=== PATIENT | female | born 1940 | race Caucasian/White ===

== ENCOUNTER 2020-09-03 15:12 | Outpatient (REF) | payer MEDICARE, SELFPAY ==
[2020-09-03 16:34] LABS: Estimated Average Glucose 108 mg/dL; Hemoglobin A1c % 5.4 %
[2020-09-03 16:59] LABS: Alanine Aminotransferase 17 U/L (0-31); Albumin Level 3.7 g/dL (3.5-5.0); Alkaline Phosphatase 105 U/L (39-117); Anion Gap 12 (12-20); Aspartate Amino Transferase 27 U/L (5-31); Bilirubin Total 1.9 mg/dL (0.0-1.0); Blood Urea Nitrogen 14 mg/dL (9-16); Calcium 8.7 mg/dL (8.4-10.2); Carbon Dioxide 27 mmol/L (22-29); Chloride 107 mmol/L (96-108); Estimated Glomerular Filt Rate > 60; Glucose Fasting 94 mg/dL (60-99); Potassium 4.1 mmol/L (3.3-5.1); Sodium 142 mmol/L (135-145); Total Protein 6.4 g/dL (6.5-8.0)
== END 2020-09-03 15:13 | disposition home or self-care (01) ==
LOC: HO.HMGCLDS 15:12
PROVIDERS: PCP Internal Medicine; Visit Provider Internal Medicine
DX: E11.9 Type 2 diabetes mellitus without complications (principal); J44.9 Chronic obstructive pulmonary disease, unspecified; K74.60 Unspecified cirrhosis of liver
CPT/HCPCS: 36415; 80053; 83036

== ENCOUNTER 2020-09-06 13:19 | Outpatient (REF) | payer MEDICARE, SELFPAY ==
[2020-09-06 14:02] LABS: Red Blood Count 4.32 X10*6/uL (4.20-5.50); Red Cell Distribution Width 21.1 % (11.0-16.0)
[2020-09-06 14:03] LABS: Hematocrit 37.1 % (37-47); Hemoglobin 11.3 g/dl (12.0-16.0); Mean Corpuscular HGB Conc 30.5 g/dl (31.0-35.0); Mean Corpuscular Hemoglobin 26.2 pg (27.0-33.0); Mean Corpuscular Volume 85.9 fL (80-98); White Blood Count 3.4 X10*3/uL (4.8-10.8)
[2020-09-06 14:10] LABS: PLT ABN DIST 1
[2020-09-06 14:13] LABS: Platelet Count 89 X10*3/uL (160-400)
[2020-09-06 14:23] LABS: Alanine Aminotransferase 15 U/L (0-31); Albumin Level 3.7 g/dL (3.5-5.0); Alkaline Phosphatase 101 U/L (39-117); Anion Gap 12 (12-20); Aspartate Amino Transferase 22 U/L (5-31); Bilirubin Total 0.9 mg/dL (0.0-1.0); Blood Urea Nitrogen 11 mg/dL (9-16); Calcium 8.6 mg/dL (8.4-10.2); Carbon Dioxide 26 mmol/L (22-29); Chloride 110 mmol/L (96-108); Cholesterol 169 mg/dL; Estimated Glomerular Filt Rate > 60; Glucose Fasting 125 mg/dL (60-99); HDL Cholesterol 52 mg/dL; Iron 71 mcg/dL (30-160); LDL Cholesterol Calculated 106 mg/dl; Percent Iron Saturation 23 % (15-50); Potassium 4.2 mmol/L (3.3-5.1); Sodium 144 mmol/L (135-145); Total Iron Binding Capacity 315 mcg/dL (228-428); Total Protein 6.2 g/dL (6.5-8.0); Triglycerides 59 mg/dL; Unsaturated Iron Binding 244 ug/dL
[2020-09-06 14:30] LABS: Estimated Average Glucose 108 mg/dL; Hemoglobin A1c % 5.4 %
== END 2020-09-06 13:20 | disposition home or self-care (01) ==
LOC: HO.HMGCLDS 13:19
PROVIDERS: PCP Internal Medicine; Visit Provider Internal Medicine
DX: E11.9 Type 2 diabetes mellitus without complications (principal); J44.9 Chronic obstructive pulmonary disease, unspecified; K74.60 Unspecified cirrhosis of liver; D64.9 Anemia, unspecified; I85.01 Esophageal varices with bleeding
CPT/HCPCS: 36415; 80053; 80061; 83036; 83540; 85027

== ENCOUNTER → 2020-10-11 13:38 | Outpatient (REF) | payer MEDICARE, SELFPAY ==
--- NOTE | 2020-10-11 13:45 | ECG_ITS ---
Hook-up date: 2020-10-11 14:03:00 Duration: 24:48:00 Test Indications: Palpitations Medications: 02346 QRS complexes 13 Ventricular ectopics which represent <1 % of total QRS comp. 29 Supraventricular ectopics which represent <1 % of total QRS comp. * Paced QRS complexs which represent % of total QRS comp. VENTRICULAR ECTOPY 13 Isolated 0 Bigeminal Cycles 0 Couplets 0 Runs 0 Beats in Runs * Beats LONGEST at * BPM at :: -- * Beats FASTEST at * BPM at :: -- SUPRAVENTRICULAR ECTOPY 24 Isolated 1 Couplets 1 Runs 3 Beats in Runs 3 Beats LONGEST at 100 BPM at 05:13:33 2020-10-12 3 Beats FASTEST at 100 BPM at 05:13:33 2020-10-12 HEART RATES 48 MIN at 10:03:25 2020-10-12 56 AVG 76 MAX at 14:04:40 2020-10-11 LONGEST RR 1.4720 secs at 06:52:49 2020-10-12 S-T LEVELS Channel 1 - 128 mm at 14:03:00 2020-10-11 - 128 mm at 14:03:00 2020-10-11 Channel 2 - 128 mm at 14:03:00 2020-10-11 - 128 mm at 14:03:00 2020-10-11 Channel 3 - 128 mm at 03:32:21 -- - 128 mm at 03:32:21 Underlying rhythm is sinus bradycardia; Average ventricular rate 56/min; range 48-76/min About 86% of the time, rate <60/min; Rare PACs/PVCs; Patient did not report any symptoms in the diary Referred By: Josephine Moreno Overread By: BISI OVALLE
== END ==
LOC: HO.CARD 13:38
PROVIDERS: Visit Provider Internal Medicine
DX: R00.2 Palpitations (principal)
CPT/HCPCS: 93225; 93226

== ENCOUNTER 2020-12-06 13:01 | Outpatient (REF) | payer MEDICARE, SELFPAY ==
[2020-12-06 14:06] LABS: Estimated Average Glucose 126 mg/dL
[2020-12-06 14:53] LABS: Alanine Aminotransferase 17 U/L (0-31); Albumin Level 3.7 g/dL (3.5-5.0); Alkaline Phosphatase 96 U/L (39-117); Anion Gap 12 (12-20); Aspartate Amino Transferase 26 U/L (5-31); Blood Urea Nitrogen 13 mg/dL (9-16); Carbon Dioxide 28 mmol/L (22-29); Chloride 108 mmol/L (96-108); Estimated Glomerular Filt Rate > 60; Glucose Random 137 mg/dL (60-115); Potassium 3.8 mmol/L (3.3-5.1); Sodium 144 mmol/L (135-145); Total Protein 6.2 g/dL (6.5-8.0)
== END 2020-12-06 13:02 | disposition home or self-care (01) ==
LOC: HO.HMGCLDS 13:01
PROVIDERS: PCP Internal Medicine; Visit Provider Internal Medicine
DX: D64.9 Anemia, unspecified (principal); E11.9 Type 2 diabetes mellitus without complications; K74.60 Unspecified cirrhosis of liver
CPT/HCPCS: 36415; 80053; 83036

== ENCOUNTER 2022-12-24 10:08 | Outpatient (AMB) | payer MEDICARE, SELFPAY ==
[2022-12-24 10:15] VITALS: BP 120/66; PULSE 59; O2SAT 97; BMI 30.2
--- NOTE | 2022-12-24 10:15 | A.OFFPC_ITS ---
Vital Signs 12/24/22 10:15 Height 5 ft 4 in Weight 176 lb BMI 30.2 BP 120/66 Blood Pressure Location Lt brachial Position Sitting Pulse 59 Pulse Source Pulse Oximeter Pulse Oximetry (%) 97 Oxygen Delivery Method Room Air Intake Visit Reasons: 6M follow up Intake Note: Pt is here today for 6 months follow up visit. Allergies amoxicillin [Augmentin] Allergy (Unknown, Verified 12/24/22 10:18) unknown clavulanic acid [Augmentin] Allergy (Unknown, Verified 12/24/22 10:18) unknown umeclidinium [Anoro Ellipta] Allergy (Unknown, Verified 12/24/22 10:18) Hoarseness vilanterol [Anoro Ellipta] Allergy (Unknown, Verified 12/24/22 10:18) Hoarseness Medication List - Last Reconciled 12/24/22 by Josephine Moreno MD blood sugar diagnostic (FreeStyle Lite Strips) use 1 strip once a day to test blood sugar clotrimazole-betamethasone 1-0.05 % appl topical fluticasone propionate 50 mcg/actuation 2 sprays intranasal DAILY furosemide 20 mg PO DAILY nadolol 20 mg PO DAILY omeprazole 20 mg PO DAILY sertraline 25 mg PO DAILY sitagliptin phosphate (Januvia) 25 mg PO DAILY spironolactone 50 mg PO DAILY umeclidinium-vilanterol 62.5-25 mcg/actuation (Anoro Ellipta) 1 inh inhalation DAILY Tobacco use date assessed: 12/24/22 Fall risk assessment: 1 Fall in past year Last assessed Fall Risk: 12/24/22 Dental Screening Dental Screen Date: 12/24/22 Did you have a dental visit in the last 12 months?: Yes Did you have a dental problem in the last 6 months where you did not have access to dental care?: No Was dental information given to patient?: Patient has dentist HPI 6M follow up HPI Details Pt presents for f/u COPD, DM 2, liver cirrhosis, stable on meds. Pt f/u with GI for portal HTN and has been getting EGD q 6 months. [facility] Medical History Anemia Annual physical exam Cirrhosis COPD (chronic obstructive pulmonary disease) Depression Dysuria Esophageal varices with bleeding Palpitations Type 2 diabetes mellitus (~12/06/20) Surgical History H/O colonoscopy History of bilateral knee arthroplasty Family History Father Unknown family medical history Mother Unknown family medical history Social History Housing: House Alcohol intake: current Alcohol intake frequency: holidays/special occasions only Patient Tobacco Use Status: Former Tobacco user (40 years ago) e-Cigarette/Vaping Use: Never Used Current occupational status: retired Cognitive needs: No Hearing needs: Yes Vision needs: Yes Questionnaire PHQ-9 Over the last 2 weeks, how often have you been bothered by any of the following problems? 1. Little interest or pleasure in doing things: not at all 2. Feeling down, depressed, or hopeless: not at all 3. Trouble falling or staying asleep, or sleeping too much: not at all 4. Feeling tired or having little energy: not at all 5. Poor appetite or overeating: not at all 6. Feeling bad about yourself - or that you are a failure or have let yourself or your family down: not at all 7. Trouble concentrating on things, such as reading the newspaper or watching television: not at all 8. Moving or speaking so slowly that other people could have noticed. Or the opposite - being so fidgety or restless that you have been moving around a lot more than usual: not at all 9. Thoughts that you would be better off or of hurting yourself in some way: not at all Total score: 0 Depression Screening Interpretation: Negative Source: Developed by Drs. Kimani Jj, Marta Ann, Deepak Bonds and colleagues, with an educational mathieu from [employer]. Thrive Questionnaire Date Thrive assessed: 06/03/21 I am a: Patient What is your living situation today?: I have a steady place to live Within the past 12 months, did the food you bought not last and you didn't have the money to get more?: Never true Within the past 12 months, did you worry whether your food would run out before you got money to buy more?: Never true Do you have trouble paying for medicines?: No Do you have trouble getting transportation to medical appointments?: No Do you have trouble paying your heating and electricity bill?: No Do you have trouble taking care of your child, family member or friend?: No Do you have trouble with day-to-day activities such as bathing, preparing meals, shopping, managing finances, etc.?: No Are you currently unemployed and looking for a job?: No Are you interested in more education?: No Please select the resources that you would like help with: None Currently or been in a relationship where the following occur: no concerns reported AUDIT C Alcohol Use Questionnaire (AUDIT-C) 1. How often do you have a drink containing alcohol?: Never 3. How often do you have six or more drinks on one occasion?: Never Total Score: 0 KIMBERLEE-7 AMB Questionnaire KIMBERLEE-7 Date KIMBERLEE - 7 assessed: 12/24/22 Feeling nervous, anxious, or on edge: 0 = Not at all Not being able to stop or control worryin = Not at all Worrying too much about different things: 0 = Not at all Trouble relaxin = Not at all Being so restless that it is hard to sit still: 0 = Not at all Becoming easily annoyed or irritable: 0 = Not at all Feeling afraid as if something awful might happen: 0 = Not at all Total KIMBERLEE-7 score (0-4 normal; 5-9 mild; 10-14 moderate; 15-21 severe): 0 Source: Developed by Drs. Kimani Jj, Marta Ann, Deepak Bonds and colleagues, with an educational mathieu from [employer]. Review of Systems Const All systems reviewed & are unremarkable except as noted in HPI and below Reports no additional complaints Eyes Reports no additional complaints ENT Reports no additional complaints Card Reports no additional complaints Resp Reports no additional complaints GI Reports no additional complaints Reports no additional complaints Physical exam (Primary Care) Vital Signs: Last Vital Signs Pulse 59 12/24/22 10:15 BP 120/66 12/24/22 10:15 Pulse Ox 97 12/24/22 10:15 Oxygen Delivery Method Room Air 12/24/22 10:15 BMI result Body Mass Index 30.2 Tobacco/Smoking Status: Tobacco use Status Tobacco use date assessed 12/24/22 12/24/22 10:22 Patient Tobacco Use Status Former Tobacco user (40 12/24/22 10:15 years ago) e-Cigarette/Vaping Use Never Used 12/24/22 10:15 PHQ-9: PHQ-9 Score PHQ-9: Total score 0 12/24/22 10:35 Depression Screening Interpretation: Negative Thrive Assessment: Date of Thrive Assessment Date Thrive assessed 06/03/21 12/24/22 10:15 Currently or been in a relationship where the following occur: no concerns reported Const General: no acute distress HENMT Head: Yes normal to inspection Ears: hearing grossly normal bilaterally Face and sinus: Yes normal facial exam Eyes General: appearance normal, both eyes and all related structures Neck Neck: Yes supple Resp Effort & Inspection: normal respiratory effort Auscultation: clear to auscultation bilaterally Cardio Rhythm: regular rhythm Heart sounds: S1 normal heart sound present and S2 normal heart sound present GI Inspection: Yes normal to inspection Palpation (GI): Soft to palpation Percussion: Yes normal to percussion Auscultation: normal bowel sounds Extrem General: Yes no clubbing, cyanosis or edema Results AMB Hemoglobin A1c AMB Hemoglobin A1c 6.0 % Last Edit by MARION Frye on 12/24/22 10:4 5 Assessment and Plan Assessment & Plan (1) Type 2 diabetes mellitus: Onset Date: ~12/06/20 Code(s): E11.9 - Type 2 diabetes mellitus without complications Plan: A1c is 6.0 patient was advised to stop Januvia continue ADA diet and regular monitoring of fasting blood glucose. If the fasting glucose increases to over 160,Jardiance will be started. Follow-up in 6 months with a fasting labs before at [facility] (2) COPD (chronic obstructive pulmonary disease): Code(s): J44.9 - Chronic obstructive pulmonary disease, unspecified Plan: Stable (3) Cirrhosis: Code(s): K74.60 - Unspecified cirrhosis of liver Plan: Continue current medications and follow-up with GI (4) Anemia: Code(s): D64.9 - Anemia, unspecified Orders: Orders Comprehensive [place]. Panel Fast 6 Months D64.9 - Anemia, unspecified, E11.9 - Type 2 diabetes mellitus without complications, J44.9 - Chronic obstructive pulmonary disease, unspecified, K74.60 - Unspecified cirrhosis of liver Hemoglobin A1c 6 Months D64.9 - Anemia, unspecified, E11.9 - Type 2 diabetes mellitus without complications, J44.9 - Chronic obstructive pulmonary disease, unspecified, K74.60 - Unspecified cirrhosis of liver Lipid Panel 6 Months D64.9 - Anemia, unspecified, E11.9 - Type 2 diabetes mellitus without complications, J44.9 - Chronic obstructive pulmonary disease, unspecified, K74.60 - Unspecified cirrhosis of liver Complete Blood Count Auto Diff 6 Months D64.9 - Anemia, unspecified, E11.9 - Type 2 diabetes mellitus without complications, J44.9 - Chronic obstructive pulmonary disease, unspecified, K74.60 - Unspecified cirrhosis of liver AMB Hemoglobin A1c Today Z13.9 - Encounter for screening, unspecified Coding Level of Care Code Est Pt Level 4 (03135) Diagnoses Type 2 diabetes mellitus E11.9 COPD (chronic obstructive pulmonary disease) J44.9 Cirrhosis K74.60 Anemia D64.9
== END 2022-12-24 10:56 | disposition home or self-care (01) ==
PROVIDERS: Visit Provider Internal Medicine
DX: E11.9 Type 2 diabetes mellitus without complications (principal); J44.9 Chronic obstructive pulmonary disease, unspecified; K74.60 Unspecified cirrhosis of liver; D64.9 Anemia, unspecified
CPT/HCPCS: 83036; 99214

== ENCOUNTER 2023-05-01 13:08 | Outpatient (AMB) | payer MEDICARE, SELFPAY ==
[2023-05-01 14:19] VITALS: BP 120/70; PULSE 77; TEMP 36.8; O2SAT 96; BMI 29.5
--- NOTE | 2023-05-01 14:19 | MHC.OFFWIV ---
Intake Vital Signs 05/01/23 14:19 Height 5 ft 4 in Weight 172 lb BMI 29.5 BP 120/70 Blood Pressure Location Lt brachial Position Sitting Pulse 77 Pulse Source Pulse Oximeter Temp 98.2 F Pulse Oximetry (%) 96 Oxygen Delivery Method Room Air Intake Visit Reasons: EP, cough, fatigue, wheezing (masked) Intake Note: pt is here today for cough fatigue wheezing started 9 days ago Patient Tobacco Use Status: Former Tobacco user (40 years ago) Allergies amoxicillin [Augmentin] Allergy (Unknown, Verified 05/17/23 08:37) unknown clavulanic acid [Augmentin] Allergy (Unknown, Verified 05/17/23 08:37) unknown umeclidinium [Anoro Ellipta] Allergy (Unknown, Verified 05/17/23 08:37) Hoarseness vilanterol [Anoro Ellipta] Allergy (Unknown, Verified 05/17/23 08:37) Hoarseness Medication List - Last Reconciled 05/17/23 by Naga Baires MD albuterol sulfate 90 mcg/actuation (Ventolin HFA) 1 inh inhalation QID PRN azithromycin For 250 mg dose pack: take 500 mg today (day 1), then 250 mg for 4 days (days 2-5) PO blood sugar diagnostic (FreeStyle Lite Strips) use 1 strip once a day to test blood sugar clotrimazole-betamethasone 1-0.05 % appl topical [duo nebulizer As directed] fluticasone propionate 50 mcg/actuation 2 sprays intranasal DAILY furosemide 20 mg PO DAILY nadolol 20 mg PO DAILY [Nebulizer with duoneb As directed] omeprazole 20 mg PO DAILY prednisone 60 mg (3 x 20 mg) PO DAILY sertraline 25 mg PO DAILY sitagliptin phosphate (Januvia) 25 mg PO DAILY spironolactone 50 mg PO DAILY Do you need a note to return to daycare/school/sports/work: No HPI EP, cough, fatigue, wheezing (masked) HPI Details 82 yr old female presents to the office for a sick visit. Patient is accompanied by her daughter. Reporting sx of shortness of breath, cough. Tested negative for Covid. Patient has sx for the past few days. No vomiting or diarrhea. [facility] Medical History Anemia Annual physical exam Cirrhosis COPD (chronic obstructive pulmonary disease) Depression Dysuria Esophageal varices with bleeding Palpitations Type 2 diabetes mellitus (~12/06/20) Surgical History H/O colonoscopy History of bilateral knee arthroplasty Family History Father Unknown family medical history Mother Unknown family medical history Social History Housing: House Alcohol intake: current Alcohol intake frequency: holidays/special occasions only Patient Tobacco Use Status: Former Tobacco user (40 years ago) e-Cigarette/Vaping Use: Never Used Current occupational status: retired Cognitive needs: No Hearing needs: Yes Vision needs: Yes Physical Exam Vital Signs: Last Vital Signs Temp 98.2 F 05/01/23 14:19 Pulse 77 05/01/23 14:19 BP 120/70 05/01/23 14:19 Pulse Ox 96 05/01/23 14:19 Oxygen Delivery Method Room Air 05/01/23 14:19 BMI result Body Mass Index 29.5 Const General: cooperative and healthy appearing Nutritional Appearance: well nourished Orientation/consciousness: patient oriented x3 Limitations: no limitations HEENT Head: Yes normal to inspection Eyes General: appearance normal, both eyes and all related structures Neck Neck: Yes normal visual inspection Chest Chest palpation & inspection: normal palpation of entire chest wall Resp Other: Scattered bilateral crackes and wheeze. Neuro General: patient oriented x3 Assessment & Plan Assessment & Plan (1) Shortness of breath: Code(s): R06.02 - Shortness of breath Plan: X-ray images were personally reviewed by me. Medications were started. Symptoms do not improve to follow-up here. Orders: Orders XR chest 2V 05/01/23 R05.9 - Cough, unspecified SARS-CoV2/FLU/RSV 05/02/23 R43.9 - Unspecified disturbances of smell and taste Medications: New prednisone 60 mg (3 x 20 mg) PO DAILY 9 tabs 0RF albuterol sulfate 90 mcg/actuation (Ventolin HFA) 1 inh inhalation QID PRN 8.5 grams 1RF shortness of breath or wheezing On Hold [Nebulizer with duoneb] Hold Comment: Dose Change As directed 1 ea 0RF J44.9 - Chronic obstructive pulmonary disease, unspecified Coding Level of Care Code Est Pt Level 4 (77894) Diagnoses Shortness of breath R06.02
== END 2023-05-01 15:45 | disposition home or self-care (01) ==
PROVIDERS: PCP Internal Medicine; Visit Provider Internal Medicine
DX: R06.02 Shortness of breath (principal)
CPT/HCPCS: 99214

== ENCOUNTER 2023-05-01 15:04 | Outpatient (REF) | payer MEDICARE, SELFPAY | END 2023-05-01 15:05 | disposition home or self-care (01) | LOC: HO.HMGCX 15:04 | PROVIDERS: Visit Provider Internal Medicine | DX: Z13.89 Encounter for screening for other disorder (principal) | CPT/HCPCS: 71046 ==

== ENCOUNTER 2023-05-01 15:40 | Outpatient (REF) | payer MEDICARE, SELFPAY ==
[2023-05-02 12:42] LABS: Influenza A PCR NEGATIVE (Negative); Influenza B PCR NEGATIVE (Negative); Resp Syncy Virus RNA Qual PCR POSITIVE (Negative); SARS COV2 PCR INHOUSE NEGATIVE (Negative)
== END 2023-05-01 15:41 | disposition home or self-care (01) ==
LOC: HO.LAB 15:40
PROVIDERS: Visit Provider Internal Medicine
DX: R43.9 Unspecified disturbances of smell and taste (principal); Z11.52 Encounter for screening for COVID-19; Z20.828 Contact with and (suspected) exposure to other viral communicable diseases
CPT/HCPCS: 0241U; 71046

== ENCOUNTER 2023-06-26 10:23 | Outpatient (AMB) | payer MEDICARE, SELFPAY ==
[2023-06-26 10:24] VITALS: BP 118/66; PULSE 63; O2SAT 94
--- NOTE | 2023-06-26 10:24 | MHC.PC.OV ---
Vital Signs 06/26/23 10:24 Height 5 ft 4 in Weight 175 lb BMI 30.0 BP 118/66 Blood Pressure Location Lt brachial Position Sitting Pulse 63 Pulse Source Pulse Oximeter Pulse Oximetry (%) 94 Oxygen Delivery Method Room Air Intake Visit Reasons: 6 Month follow up Intake Note: Pt is here today for 6 months follow up visit. Allergies amoxicillin [Augmentin] Allergy (Unknown, Verified 06/26/23 10:27) unknown clavulanic acid [Augmentin] Allergy (Unknown, Verified 06/26/23 10:27) unknown umeclidinium [Anoro Ellipta] Allergy (Unknown, Verified 06/26/23 10:27) Hoarseness vilanterol [Anoro Ellipta] Allergy (Unknown, Verified 06/26/23 10:27) Hoarseness Medication List - Last Reconciled 06/26/23 by Josephine Moreno MD albuterol sulfate 90 mcg/actuation (Ventolin HFA) 1 inh inhalation QID PRN albuterol sulfate 2.5 mg (3 mL) inhalation Q4-6H PRN blood sugar diagnostic (FreeStyle Lite Strips) use 1 strip once a day to test blood sugar clotrimazole-betamethasone 1-0.05 % appl topical [duo nebulizer As directed] fluticasone propionate 50 mcg/actuation 2 sprays intranasal DAILY furosemide 20 mg PO DAILY nadolol 20 mg PO DAILY [Nebulizer with duoneb As directed] omeprazole 20 mg PO DAILY prednisone 60 mg (3 x 20 mg) PO DAILY sertraline 25 mg PO DAILY sitagliptin phosphate (Januvia) 25 mg PO DAILY spironolactone 50 mg PO DAILY Tobacco use date assessed: 06/26/23 Fall risk assessment: 2 + Falls in past year Last assessed Fall Risk: 06/26/23 Dental Screening Dental Screen Date: 06/26/23 Did you have a dental visit in the last 12 months?: Yes Did you have a dental problem in the last 6 months where you did not have access to dental care?: No Was dental information given to patient?: Patient has dentist HPI 6 Month follow up HPI Details Patient presents for the follow-up of chronic liver cirrhosis compensated with portal hypertension controlled on current medications. Chronic anxiety stable on sertraline. Type 2 diabetes is diet controlled. For COPD patient has not been using any inhalers, did not find them helpful. PFSH Medical History (Updated 06/26/23 @ 15:48 by Josephine Moreno MD) Annual physical exam Palpitations Anemia Depression Dysuria Cirrhosis Esophageal varices with bleeding Type 2 diabetes mellitus (~12/06/20) COPD (chronic obstructive pulmonary disease) Surgical History H/O colonoscopy History of bilateral knee arthroplasty Family History Father Unknown family medical history Mother Unknown family medical history Social History Housing: House Alcohol intake: current Alcohol intake frequency: holidays/special occasions only Patient Tobacco Use Status: Former Tobacco user (40 years ago) e-Cigarette/Vaping Use: Never Used Current occupational status: retired Cognitive needs: No Hearing needs: Yes Vision needs: Yes Questionnaire PHQ-9 Over the last 2 weeks, how often have you been bothered by any of the following problems? 1. Little interest or pleasure in doing things: not at all 2. Feeling down, depressed, or hopeless: not at all 3. Trouble falling or staying asleep, or sleeping too much: not at all 4. Feeling tired or having little energy: not at all 5. Poor appetite or overeating: not at all 6. Feeling bad about yourself - or that you are a failure or have let yourself or your family down: not at all 7. Trouble concentrating on things, such as reading the newspaper or watching television: not at all 8. Moving or speaking so slowly that other people could have noticed. Or the opposite - being so fidgety or restless that you have been moving around a lot more than usual: not at all 9. Thoughts that you would be better off or of hurting yourself in some way: not at all Total score: 0 Depression Screening Interpretation: Negative Depression Screening Done: Yes Source: Developed by Drs. Kimani Jj, Marta Ann, Deepak Bonds and colleagues, with an educational mathieu from [employer]. Thrive Questionnaire Date Thrive assessed: 06/26/23 I am a: Patient What is your living situation today?: I have a steady place to live Within the past 12 months, did the food you bought not last and you didn't have the money to get more?: Never true Within the past 12 months, did you worry whether your food would run out before you got money to buy more?: Never true Do you have trouble paying for medicines?: No Do you have trouble getting transportation to medical appointments?: No Do you have trouble paying your heating and electricity bill?: No Do you have trouble taking care of your child, family member or friend?: No Do you have trouble with day-to-day activities such as bathing, preparing meals, shopping, managing finances, etc.?: No Are you currently unemployed and looking for a job?: No Are you interested in more education?: No Please select the resources that you would like help with: None Currently or been in a relationship where the following occur: no concerns reported THRIVE Score: 0 AUDIT C Alcohol Use Questionnaire (AUDIT-C) 1. How often do you have a drink containing alcohol?: Never 3. How often do you have six or more drinks on one occasion?: Never Total Score: 0 KIMBERLEE-7 AMB Questionnaire KIMBERLEE-7 Date KIMBERLEE - 7 assessed: 06/26/23 Feeling nervous, anxious, or on edge: 0 = Not at all Not being able to stop or control worryin = Not at all Worrying too much about different things: 0 = Not at all Trouble relaxin = Not at all Being so restless that it is hard to sit still: 0 = Not at all Becoming easily annoyed or irritable: 0 = Not at all Feeling afraid as if something awful might happen: 0 = Not at all Total KIMBERLEE-7 score (0-4 normal; 5-9 mild; 10-14 moderate; 15-21 severe): 0 Source: Developed by Drs. Kimani Jj, Marta Ann, Deepak Bonds and colleagues, with an educational mathieu from [employer]. Review of Systems Const All systems reviewed & are unremarkable except as noted in HPI and below Reports no additional complaints Eyes Reports no additional complaints ENT Reports no additional complaints Card Reports no additional complaints Resp Reports no additional complaints GI Reports no additional complaints Reports no additional complaints Physical exam (Primary Care) Vital Signs: Last Vital Signs Pulse 63 06/26/23 10:24 BP 118/66 06/26/23 10:24 Pulse Ox 94 06/26/23 10:24 Oxygen Delivery Method Room Air 06/26/23 10:24 BMI result Body Mass Index 30.0 Tobacco/Smoking Status: Tobacco use Status Tobacco use date assessed 06/26/23 06/26/23 10:31 Patient Tobacco Use Status Former Tobacco user (40 06/26/23 10:25 years ago) e-Cigarette/Vaping Use Never Used 06/26/23 10:25 PHQ-9: PHQ-9 Score PHQ-9: Total score 0 06/26/23 10:31 Depression Screening Interpretation: Negative Thrive Assessment: Date of Thrive Assessment Date Thrive assessed 06/26/23 06/26/23 10:31 Currently or been in a relationship where the following occur: no concerns reported Const General: no acute distress HENMT Head: Yes normal to inspection Neck Neck: Yes supple Resp Effort & Inspection: normal respiratory effort Auscultation: diminished lung sounds Cardio Rhythm: regular rhythm Heart sounds: S1 normal heart sound present and S2 normal heart sound present GI Inspection: Yes normal to inspection Palpation (GI): Soft to palpation Percussion: Yes normal to percussion Auscultation: normal bowel sounds Assessment and Plan Assessment & Plan (1) COPD (chronic obstructive pulmonary disease): Code(s): J44.9 - Chronic obstructive pulmonary disease, unspecified Plan: Continue albuterol p.r.n. (2) Type 2 diabetes mellitus: Onset Date: ~12/06/20 Comment: Diet controlled Code(s): E11.9 - Type 2 diabetes mellitus without complications Plan: Continue ADA diet regular physical activity check A1c and follow-up in 6 months (3) Cirrhosis: Comment: Compensated with portal hypertension controlled on nadolol and furosemide. Follows up with GI Code(s): K74.60 - Unspecified cirrhosis of liver Plan: Continue current medications and follow-up with GI (4) Depression: Code(s): F32.9 - Major depressive disorder, single episode, unspecified Plan: Controlled on sertraline (5) Vitamin D deficiency: Code(s): E55.9 - Vitamin D deficiency, unspecified Orders: Orders Hemoglobin A1c 6 Months E11.9 - Type 2 diabetes mellitus without complications, J44.9 - Chronic obstructive pulmonary disease, unspecified, K74.60 - Unspecified cirrhosis of liver Microalbumin, Random (w Creat) 6 Months E11.9 - Type 2 diabetes mellitus without complications, J44.9 - Chronic obstructive pulmonary disease, unspecified, K74.60 - Unspecified cirrhosis of liver Vitamin D 25-OH Total 6 Months E55.9 - Vitamin D deficiency, unspecified Comprehensive [place]. Panel Fast 6 Months E11.9 - Type 2 diabetes mellitus without complications, J44.9 - Chronic obstructive pulmonary disease, unspecified, K74.60 - Unspecified cirrhosis of liver Complete Blood Count Auto Diff 6 Months E11.9 - Type 2 diabetes mellitus without complications, J44.9 - Chronic obstructive pulmonary disease, unspecified, K74.60 - Unspecified cirrhosis of liver Lipid Panel 6 Months E11.9 - Type 2 diabetes mellitus without complications, J44.9 - Chronic obstructive pulmonary disease, unspecified, K74.60 - Unspecified cirrhosis of liver Medications: New omeprazole 20 mg PO DAILY 90 caps 3RF Discontinued sitagliptin phosphate (Januvia) Discontinued Reason: Doctor's Order 25 mg PO DAILY 90 tabs 3RF prednisone Discontinued Reason: Doctor's Order 60 mg (3 x 20 mg) PO DAILY 9 tabs 0RF Coding Level of Care Code Est Pt Level 4 (23182) Diagnoses COPD (chronic obstructive pulmonary disease) J44.9 Type 2 diabetes mellitus E11.9 Cirrhosis K74.60 Depression F32.9 Vitamin D deficiency E55.9
== END 2023-06-26 11:24 | disposition home or self-care (01) ==
LOC: HO.HMGC 10:23
PROVIDERS: PCP Internal Medicine; Visit Provider Internal Medicine
DX: J44.9 Chronic obstructive pulmonary disease, unspecified (principal); E11.9 Type 2 diabetes mellitus without complications; K74.60 Unspecified cirrhosis of liver; F32.9 Major depressive disorder, single episode, unspecified; E55.9 Vitamin D deficiency, unspecified
CPT/HCPCS: 99214

== ENCOUNTER 2023-06-26 10:58 | Outpatient (REF) | payer MEDICARE, SELFPAY ==
[2023-06-26 13:24] LABS: MANUAL DIFF FLAG NO
[2023-06-26 13:34] LABS: Basophils Percent Auto 0.5 % (0-2); Eosinophils Absolute Auto 0.1 X10*3/uL (0.0-0.4); Eosinophils Percent Auto 3.2 % (0-4); Hematocrit 38.1 % (37.0-47.0); Hemoglobin 12.4 g/dl (12.0-16.0); Imm Gran Abs Auto 0.02 X10*3/uL (0.00-0.03); Imm Gran Pct Auto 0.5 % (0.0-0.4); Lymphocytes Absolute Auto 0.9 X10*3/uL (1.2-4.9); Lymphocytes Percent Auto 22.1 % (20-40); Mean Corpuscular HGB Conc 32.5 g/dl (31.0-35.0); Mean Corpuscular Hemoglobin 29.7 pg (27.0-33.0); Mean Corpuscular Volume 91.1 fL (80.0-98.0); Mean Platelet Volume 12.4 fL (9.4-12.3); Monocytes Absolute Auto 0.5 X10*3/uL (0.1-1.2); Monocytes Percent Auto 12.9 % (2-11); Neutrophils Absolute Auto 2.5 x10*3/uL (2.0-8.3); Neutrophils Percent Auto 60.8 % (45-73); Red Blood Count 4.18 X10*6/uL (4.20-5.50); Red Cell Distribution Width 14.9 % (11.0-16.0); White Blood Count 4.1 X10*3/uL (4.8-10.8)
[2023-06-26 13:35] LABS: Platelet Count 98 X10*3/uL (160-400)
[2023-06-26 13:39] LABS: Estimated Average Glucose 128 mg/dL; Hemoglobin A1c % 6.1 % (<6.0)
[2023-06-26 13:53] LABS: Alanine Aminotransferase 13 U/L (0-31); Albumin Level 3.4 g/dL (3.5-5.0); Alkaline Phosphatase 81 U/L (39-117); Anion Gap 9 (12-20); Aspartate Amino Transferase 21 U/L (5-31); Bilirubin Total 2.3 mg/dL (0.0-1.0); Blood Urea Nitrogen 16 mg/dL (9-16); Calcium 8.9 mg/dL (8.4-10.2); Carbon Dioxide 28 mmol/L (22-29); Chloride 107 mmol/L (96-108); Cholesterol 187 mg/dL (<200); Estimated Glomerular Filt Rate > 60; Glucose Fasting 127 mg/dL (60-99); HDL Cholesterol 61 mg/dL (>40); LDL Cholesterol Calculated 114 mg/dL (<100); Sodium 140 mmol/L (135-145); Total Protein 6.1 g/dL (6.5-8.0); Triglycerides 60 mg/dL (<150)
== END 2023-06-26 10:59 | disposition home or self-care (01) ==
LOC: HO.HMGCLDS 10:58
PROVIDERS: PCP Internal Medicine; Visit Provider Internal Medicine
DX: E11.9 Type 2 diabetes mellitus without complications (principal); J44.9 Chronic obstructive pulmonary disease, unspecified; K74.60 Unspecified cirrhosis of liver; D64.9 Anemia, unspecified
CPT/HCPCS: 36415; 80053; 80061; 83036; 85025

== ENCOUNTER 2023-09-17 09:21 | Outpatient (AMB) | payer MEDICARE, SELFPAY ==
[2023-09-17 09:54] VITALS: BP 112/66; PULSE 61; O2SAT 95
--- NOTE | 2023-09-17 09:54 | MHC.PC.OV ---
Vital Signs 09/17/23 09:54 Height 5 ft 4 in Weight 175 lb BMI 30.0 BP 112/66 Blood Pressure Location Rt brachial Position Sitting Pulse 61 Pulse Source Pulse Oximeter Pulse Oximetry (%) 95 Oxygen Delivery Method Room Air Intake Visit Reasons: COPD/heavy breathing Intake Note: Pt is here today for a follow up visit on COPD. Pt;s daughter is here with pt and she states that pt is getting SOB walking across parking lot. Allergies amoxicillin [Augmentin] Allergy (Unknown, Verified 06/26/23 10:27) unknown clavulanic acid [Augmentin] Allergy (Unknown, Verified 06/26/23 10:27) unknown umeclidinium [Anoro Ellipta] Allergy (Unknown, Verified 06/26/23 10:27) Hoarseness vilanterol [Anoro Ellipta] Allergy (Unknown, Verified 06/26/23 10:27) Hoarseness Medication List - Last Reconciled 09/17/23 by Josephine Moreno MD blood sugar diagnostic (FreeStyle Lite Strips) use 1 strip once a day to test blood sugar clotrimazole-betamethasone 1-0.05 % appl topical [duo nebulizer As directed] fluticasone propionate 50 mcg/actuation 2 sprays intranasal DAILY furosemide 20 mg PO DAILY inhalational spacing device (Aerochamber MV spacer) As directed ipratropium-albuterol 20-100 mcg/actuation 1 puff inhalation .q 8 hr nadolol 20 mg PO DAILY [Nebulizer with duoneb As directed] omeprazole 20 mg PO DAILY sertraline 50 mg PO DAILY spironolactone 50 mg PO DAILY Tobacco use date assessed: 09/17/23 Fall risk assessment: 2 + Falls in past year Last assessed Fall Risk: 09/17/23 Dental Screening Dental Screen Date: 06/26/23 HPI COPD/heavy breathing HPI Details Patient presents for the follow-up. She complains of dyspnea on exertion when walking a short distance. She denies cough wheezing PND orthopnea chest pains or palpitations. Patient is planning to go to [place] with her family next month. Patient has been under lot of stress related to her with dementia. [facility] Medical History (Updated 09/17/23 @ 15:28 by Josephine Moreno MD) Annual physical exam Palpitations Anemia Depression Dysuria Cirrhosis Esophageal varices with bleeding Type 2 diabetes mellitus (~12/06/20) COPD (chronic obstructive pulmonary disease) Surgical History H/O colonoscopy History of bilateral knee arthroplasty Family History Father Unknown family medical history Mother Unknown family medical history Social History Housing: House Alcohol intake: current Alcohol intake frequency: holidays/special occasions only Patient Tobacco Use Status: Former Tobacco user (40 years ago) e-Cigarette/Vaping Use: Never Used service: No Current occupational status: retired Cognitive needs: No Hearing needs: Yes Vision needs: Yes Questionnaire Thrive Questionnaire Date Thrive assessed: 06/26/23 KIMBERLEE-7 AMB Questionnaire KIMBERLEE-7 Date KIMBERLEE - 7 assessed: 06/26/23 Source: Developed by Drs. Kimani Jj, Marta Ann, Deepak Bonds and colleagues, with an educational mathieu from [employer]. Review of Systems Const All systems reviewed & are unremarkable except as noted in HPI and below ENT Reports no additional complaints Card Reports no additional complaints Resp Reports no additional complaints GI Reports no additional complaints Reports no additional complaints Physical exam (Primary Care) Vital Signs: Last Vital Signs Pulse 61 09/17/23 09:54 BP 112/66 09/17/23 09:54 Pulse Ox 95 09/17/23 09:54 Oxygen Delivery Method Room Air 09/17/23 09:54 BMI result Body Mass Index 30.0 Tobacco/Smoking Status: Tobacco use Status Tobacco use date assessed 09/17/23 09/17/23 10:19 Patient Tobacco Use Status Former Tobacco user (40 09/17/23 10:19 years ago) e-Cigarette/Vaping Use Never Used 09/17/23 09:55 Thrive Assessment: Date of Thrive Assessment Date Thrive assessed 06/26/23 09/17/23 09:55 Const General: no acute distress HENMT Head: Yes normal to inspection Eyes General: appearance normal, both eyes and all related structures Neck Neck: Yes supple Resp Effort & Inspection: normal respiratory effort Auscultation: diminished lung sounds Cardio Rhythm: regular rhythm Heart sounds: S1 normal heart sound present and S2 normal heart sound present GI Inspection: Yes normal to inspection Palpation (GI): Soft to palpation Percussion: Yes normal to percussion Auscultation: normal bowel sounds Assessment and Plan Assessment & Plan (1) SOB (shortness of breath): Code(s): R06.02 - Shortness of breath Plan: Check echocardiogram (2) COPD (chronic obstructive pulmonary disease): Comment: Intolerant to Anoro or powder inhalers Code(s): J44.9 - Chronic obstructive pulmonary disease, unspecified Plan: Start Combivent every 8 hours (3) Type 2 diabetes mellitus: Onset Date: ~12/06/20 Comment: Diet controlled Code(s): E11.9 - Type 2 diabetes mellitus without complications Plan: A1c is 6.1 continue ADA diet (4) Cirrhosis: Comment: Compensated with portal hypertension controlled on nadolol and furosemide. Follows up with GI Code(s): K74.60 - Unspecified cirrhosis of liver Plan: Follow-up with the GI (5) Depression: Code(s): F32.9 - Major depressive disorder, single episode, unspecified Plan: Increase Zoloft to 50 mg Orders: Orders CA echo transthoracic complete Today R06.02 - Shortness of breath Medications: New sertraline 50 mg PO DAILY 90 tabs 3RF ipratropium-albuterol 20-100 mcg/actuation 1 puff inhalation .q 8 hr 4 grams 4RF inhalational spacing device (Aerochamber MV spacer) As directed 1 ea 0RF Discontinued sertraline Discontinued Reason: Doctor's Order 25 mg PO DAILY 90 tabs 1RF Coding Level of Care Code Est Pt Level 4 (61179) Diagnoses SOB (shortness of breath) R06.02 COPD (chronic obstructive pulmonary disease) J44.9 Type 2 diabetes mellitus E11.9 Cirrhosis K74.60 Depression F32.9
== END 2023-09-17 15:29 | disposition home or self-care (01) ==
PROVIDERS: PCP Internal Medicine; Visit Provider Internal Medicine
DX: R06.02 Shortness of breath (principal); J44.9 Chronic obstructive pulmonary disease, unspecified; E11.9 Type 2 diabetes mellitus without complications; K74.60 Unspecified cirrhosis of liver; F32.9 Major depressive disorder, single episode, unspecified
CPT/HCPCS: 99214

== ENCOUNTER 2023-11-17 09:13 | Outpatient (AMB) | payer MEDICARE, SELFPAY ==
--- OUTSIDE RECORDS SUMMARY | 2023-11-17 09:14 | XMS_ITS | Continuity of Care Document ---
Author Organization [facility] Address [address] [place] [address]- Care Team Providers Care Financial Services Internship Name Role Phone Josephine Moreno MD Primary Care Physician Encounter [facility] [place] Date(s): 06/25/21 - 10/23/21 [facility] [address] [place] [address]- Attending Physician: Kaitlin Dorado MD Admitting Physician: Kaitlin Dorado MD Referring Physician: Josephine Moreno MD Allergies, Adverse Reactions, Alerts Substance Reaction Severity Status Augmentin rash/hives Active Immunizations Given and Recorded Vaccine Date Status Refusal Reason SARS-CoV-2 (COVID-19) mRNA BNT-162b2 vac 07/10/20 Given SARS-CoV-2 (COVID-19) mRNA BNT-162b2 vac 06/19/20 Given tetanus/diphtheria/pertussis, acel(Tdap) 03/28/18 Given Not Given Vaccine Date Status Refusal Reason pneumococcal 13-valent vaccine 10/08/19 Not Given Patient Refuses Medications Anoro Ellipta 62.5 mcg-25 mcg/inh inhalation powder USE 1 INHALATION DAILY Start Date: 07/23/20 Status: Ordered Flonase 50 mcg/inh nasal spray Daily, 0 Refills, Maintenance, 01/03/20 10:38:00 EDT Start Date: 01/03/20 Status: Ordered Januvia 25 mg oral tablet TAKE 1 TABLET BY MOUTH EVERY DAY Start Date: 07/23/20 Status: Ordered nadolol 20 mg oral tablet 20 mg, 1, tablet, By Mouth, Daily, # 30 tablet, Refills 5, Tot. Refills 5, Maintenance, 03/26/21 7:29:00 EST, Route to Pharmacy Electronically, [facility]/pharmacy #[id number], 162, cm, 03/25/21 9:57:00 EST, Height, 83.9, kg, 11/08/20 8:40:00 EDT, Dry Weight Start Date: 03/26/21 Status: Ordered Problem List Condition Effective Dates Status Health Status Inform ant Esophageal varices with bleeding(Confirmed) Active MAR Cirrhosis(Confirmed) Active Obese class I(Confirmed) Active Prediabetes(Confirmed) Active Social History Social History Type Response Smoking Status Former smoker, quit more than 30 days ago entered on: 10/07/19 Sex
--- OUTSIDE RECORDS SUMMARY | 2023-11-17 09:14 | XMS_ITS | Continuity of Care Document ---
Author Organization [facility] Address [address] [place] [address]- Care Team Providers Care Organic Gardening Teacher Name Role Phone Josephine Moreno MD Primary Care Physician Encounter [facility] Date(s): 12/20/22 - 12/21/[address] [address]- Discharge Disposition: A-D/C Home Attending Physician: Pino Hernandez DO Admitting Physician: Pino Hernandez DO Referring Physician: Not on Staff, Referring MD Allergies, Adverse Reactions, Alerts Substance Reaction [...] 10:38:00 EDT Start Date: 01/03/20 Status: Ordered furosemide 20 mg oral tablet 20 mg, 1, tablet, By Mouth, Daily, # 60 tablet, Refills 2, Tot. Refills 2, Maintenance, 05/06/22 11:43:00 EST, Route to Pharmacy Electronically, [facility]/pharmacy #[id number], Partial fill upon patient request if the prescription is for a schedule II opioid drug... Start Date: 05/06/22 Status: Ordered Januvia 25 mg oral tablet 1 tablet = 25 mg, By Mouth, Daily, 0 Refills, Maintenance, 03/25/22 11:02:00 EST, Partial fill uponpatient request if the prescription is for a schedule II opioid drug. Start Date: 03/25/22 Status: Ordered nadolol 20 mg oral tablet 20 mg, 1, tablet, By Mouth, Daily, # 90 tablet, Refills 3, Tot. Refills 3, Maintenance, 05/14/22 14:17:00 EST, Route to Pharmacy Electronically, [facility]/pharmacy #[id number], Partial fill upon patient request if the prescription is for a schedule II opioid drug... Start Date: 05/14/22 Status: Ordered omeprazole 20 mg oral enteric coated capsule 1 capsule = 20 mg, By Mouth, Daily, # 90 capsule, 2 Refills, Maintenance, 05/29/22 17:15:00 EST, ECCapsule, [facility]/pharmacy #[id number], Partial fill upon patient request if the prescription is for a schedule II opioid drug., 162, cm, 05/29/22 16:31:00 EST, H... Start Date: 05/29/22 Status: Ordered sertraline 25 mg oral tablet 0 Refills, Maintenance, 09/02/22 9:34:00 EDT, Partial fill upon patient request if the prescriptionis for a schedule II opioid drug. Start Date: 09/02/22 Status: Ordered spironolactone 50 mg oral tablet 1 tablet = 50 mg, By Mouth, Daily, # 60 tablet, 2 Refills, Maintenance, 05/06/22 11:42:00 EST, [facility]/pharmacy #[id number], Partial fill upon patient request if the prescription is for a schedule II opioid drug., 162, cm, 03/25/22 11:00:00 EST, Height, 83.9, k... Start Date: 05/06/22 Status: Ordered Problem List Condition Confirmation Course Effective Dates Status Health St atus Informant Esophageal varices with bleeding Confirmed Active MAR Cirrhosis Confirmed Active Erosive gastritis & duodentitis Confirmed Active Obese class I Confirmed Active Prediabetes Confirmed Active Results Radiology Reports * Exam Date Time Procedure Performing Provider Status 12/20/22 11:[address] Cervical Spine W/O Contrast Shari Gomez; Auth (Verified) Notes: (CT Cervical Spine W/O Contrast) Reason For Exam: Trauma RESULT: CT Cervical Spine W/O Contrast CT Head/Brain W/O Contrast, CT Maxilloface W/O Contrast, CT Cervical Spine W/O Contrast INDICATION: Hx of Present Illness: tripped and fell while holding a glass teapot from standing position tea pot broke hit head on the ground small abrasion bruising to right eyelid, left eye and leftforehead +bloody nose bleeding controlled now; Reason: Trauma; Clinical Question(s): Other:; Intracranial hemorrhage TECHNIQUE: Noncontrast head CT using axial technique was reconstructed in axial and coronal planes.Noncontrast spiral CT through the facial bones and cervical spine was formatted in 3 planes. Automatic tube modulation was used for the cervical spine and iterative dose reconstruction was used for both the head and cervical spine to optimize scan parameters and image quality. CTDIvol Body: 6.86 mGy, DLP Body: 171 mGy*cm. CTDIvol Head: 46.12 mGy, DLP Head: 793 mGy*cm. COMPARISON: 11/15/2019 CT head and cervical spine. FINDINGS: Sales Support Assistant View Findings, Lines and Tubes: None. BRAIN AND EXTRA-AXIAL SPACES: No parenchymal hemorrhage, midline shift, or mass effect. Loyola-white matter differentiation is wellpreserved. No acute infarct. Moderate prominence of the ventricles and sulci consistent with parenchymal volume loss. Moderate low-density white matter changes. No subarachnoid hemorrhage. No subdural or epidural collection. CALVARIUM, SKULL BASE, AND SOFT TISSUES: No fractures or suspicious bony lesions. The paranasal sinuses and mastoid air cells are clear. Status-post bilateral lens extraction. There is mild LEFT frontal scalp soft tissue swelling. MAXILLOFACIAL: Facial soft tissues: No hematoma or swelling. Nasal bones: No fracture. Orbits and orbital dennis: No fracture of the orbital dennis. No intraorbital hematoma. Maxilla and alveolus: No fracture. Pterygoid plates: No fracture. Visualized parapharyngeal spaces: Symmetric without suspicious or acute abnormality. Zygomatic arches: No fracture. Mandible: No acute fracture or dislocation. There are bilateral temporomandibular joint degenerative arthritic changes with flattening of the mandibular condyle, LEFT greater than RIGHT. CERVICAL SPINE: No acute cervical spine fracture. There is straightening of the normal cervical curvature. Vertebrae are normal in height. There is very minimal anterolisthesis of C7 on T1; otherwise, normal alignment. There is moderate multilevel degenerative disc narrowing with marginal endplate irregularity. Thereis multilevel moderate and severe degenerative facet arthropathy including ankylosis of the RIGHT C4-C5 facet joint. Degenerative ligamentous calcification seen at C1-C2. OTHER BONES: No acute abnormality. CERVICAL SOFT TISSUES AND LUNG APICES: No prevertebral soft tissue swelling or hematoma. Mild septal thickening and groundglass attenuation in the lung apices. Severe atherosclerotic calcifications of the cervical carotid arteries. IMPRESSION: 1. No acute intracranial hemorrhage, mass effect or skull fracture. 2. Mildly LEFT frontal scalp soft tissue swelling. 3. No acute maxillofacial bone fracture. 4. No acute cervical spine fracture. Agree with salient findings of preliminary report provided by [facility]. WSN: [id number] Ordering Physician: Arik Jack Dictated By: Maritza Cobos MD Dictated Date/Time: 12/21/22 2:29 pm Reviewed By: Maritza Cobos MD Signed By: Maritza Cobos MD Signed Date/Time: 12/21/22 2:29 pm Transcribed By: DAIANA Transcribed Date/Time: 12/21/22 2:21 pm * Exam Date Time Procedure Performing Provider Status 12/20/22 11:[address] Maxilloface W/O Contrast Shari York; Ellen (Verified) Notes: (CT Maxilloface W/O Contrast) Reason For Exam: Trauma RESULT: CT Maxilloface W/O Contrast CT Head/Brain W/O Contrast, CT Maxilloface W/O Contrast, CT Cervical Spine W/O Contrast INDICATION: Hx of Present Illness: tripped and fell while holding a glass teapot from standing position tea pot broke hit head on the ground small abrasion bruising to right eyelid, left eye and leftforehead +bloody nose bleeding controlled now; Reason: Trauma; Clinical Question(s): Other:; Intracranial hemorrhage TECHNIQUE: Noncontrast head CT using axial technique was reconstructed in axial and coronal planes.Noncontrast spiral CT through the facial bones and cervical spine was formatted in 3 planes. Automatic tube modulation was used for the cervical spine and iterative dose reconstruction was used for both the head and cervical spine to optimize scan parameters and image quality. CTDIvol Body: 6.86 mGy, DLP Body: 171 mGy*cm. CTDIvol Head: 46.12 mGy, DLP Head: 793 mGy*cm. COMPARISON: 11/15/2019 CT head and cervical spine. FINDINGS: Sales Support Assistant View Findings, Lines and Tubes: None. BRAIN AND EXTRA-AXIAL SPACES: No parenchymal hemorrhage, midline shift, or mass effect. Loyola-white matter differentiation is wellpreserved. No acute infarct. Moderate prominence of the ventricles and sulci consistent with parenchymal volume loss. Moderate low-density white matter changes. No subarachnoid hemorrhage. No subdural or epidural collection. CALVARIUM, SKULL BASE, AND SOFT TISSUES: No fractures or suspicious bony lesions. The paranasal sinuses and mastoid air cells are clear. Status-post bilateral lens extraction. There is mild LEFT frontal scalp soft tissue swelling. MAXILLOFACIAL: Facial soft tissues: No hematoma or swelling. Nasal bones: No fracture. Orbits and orbital dennis: No fracture of the orbital dennis. No intraorbital hematoma. Maxilla and alveolus: No fracture. Pterygoid plates: No fracture. Visualized parapharyngeal spaces: Symmetric without suspicious or acute abnormality. Zygomatic arches: No fracture. Mandible: No acute fracture or dislocation. There are bilateral temporomandibular joint degenerative arthritic changes with flattening of the mandibular condyle, LEFT greater than RIGHT. CERVICAL SPINE: No acute cervical spine fracture. There is straightening of the normal cervical curvature. Vertebrae are normal in height. There is very minimal anterolisthesis of C7 on T1; otherwise, normal alignment. There is moderate multilevel degenerative disc narrowing with marginal endplate irregularity. Thereis multilevel moderate and severe degenerative facet arthropathy including ankylosis of the RIGHT C4-C5 facet joint. Degenerative ligamentous calcification seen at C1-C2. OTHER BONES: No acute abnormality. CERVICAL SOFT TISSUES AND LUNG APICES: No prevertebral soft tissue swelling or hematoma. Mild septal thickening and groundglass attenuation in the lung apices. Severe atherosclerotic calcifications of the cervical carotid arteries. IMPRESSION: 1. No acute intracranial hemorrhage, mass effect or skull fracture. 2. Mildly LEFT frontal scalp soft tissue swelling. 3. No acute maxillofacial bone fracture. 4. No acute cervical spine fracture. Agree with salient findings of preliminary report provided by [facility]. WSN: [id number] Ordering Physician: Arik Jack Dictated By: Maritza Cobos MD Dictated Date/Time: 12/21/22 2:29 pm Reviewed By: Maritza Cobos MD Signed By: Maritza Cobos MD Signed Date/Time: 12/21/22 2:29 pm Transcribed By: DAIANA Transcribed Date/Time: 12/21/22 2:21 pm * Exam Date Time Procedure Performing Provider Status 12/20/22 11:[address] Head/Brain W/O Contrast Shari York; Ellen (Verified) Notes: (CT Head/Brain W/O Contrast) Reason For Exam: Trauma RESULT: CT Head/Brain W/O Contrast CT Head/Brain W/O Contrast, CT Maxilloface W/O Contrast, CT Cervical Spine W/O Contrast INDICATION: Hx of Present Illness: tripped and fell while holding a glass teapot from standing position tea pot broke hit head on the ground small abrasion bruising to right eyelid, left eye and leftforehead +bloody nose bleeding controlled now; Reason: Trauma; Clinical Question(s): Other:; Intracranial hemorrhage TECHNIQUE: Noncontrast head CT using axial technique was reconstructed in axial and coronal planes.Noncontrast spiral CT through the facial bones and cervical spine was formatted in 3 planes. Automatic tube modulation was used for the cervical spine and iterative dose reconstruction was used for both the head and cervical spine to optimize scan parameters and image quality. CTDIvol Body: 6.86 mGy, DLP Body: 171 mGy*cm. CTDIvol Head: 46.12 mGy, DLP Head: 793 mGy*cm. COMPARISON: 11/15/2019 CT head and cervical spine. FINDINGS: Sales Support Assistant View Findings, Lines and Tubes: None. BRAIN AND EXTRA-AXIAL SPACES: No parenchymal hemorrhage, midline shift, or mass effect. Loyola-white matter differentiation is wellpreserved. No acute infarct. Moderate prominence of the ventricles and sulci consistent with parenchymal volume loss. Moderate low-density white matter changes. No subarachnoid hemorrhage. No subdural or epidural collection. CALVARIUM, SKULL BASE, AND SOFT TISSUES: No fractures or suspicious bony lesions. The paranasal sinuses and mastoid air cells are clear. Status-post bilateral lens extraction. There is mild LEFT frontal scalp soft tissue swelling. MAXILLOFACIAL: Facial soft tissues: No hematoma or swelling. Nasal bones: No fracture. Orbits and orbital dennis: No fracture of the orbital dennis. No intraorbital hematoma. Maxilla and alveolus: No fracture. Pterygoid plates: No fracture. Visualized parapharyngeal spaces: Symmetric without suspicious or acute abnormality. Zygomatic arches: No fracture. Mandible: No acute fracture or dislocation. There are bilateral temporomandibular joint degenerative arthritic changes with flattening of the mandibular condyle, LEFT greater than RIGHT. CERVICAL SPINE: No acute cervical spine fracture. There is straightening of the normal cervical curvature. Vertebrae are normal in height. There is very minimal anterolisthesis of C7 on T1; otherwise, normal alignment. There is moderate multilevel degenerative disc narrowing with marginal endplate irregularity. Thereis multilevel moderate and severe degenerative facet arthropathy including ankylosis of the RIGHT C4-C5 facet joint. Degenerative ligamentous calcification seen at C1-C2. OTHER BONES: No acute abnormality. CERVICAL SOFT TISSUES AND LUNG APICES: No prevertebral soft tissue swelling or hematoma. Mild septal thickening and groundglass attenuation in the lung apices. Severe atherosclerotic calcifications of the cervical carotid arteries. IMPRESSION: 1. No acute intracranial hemorrhage, mass effect or skull fracture. 2. Mildly LEFT frontal scalp soft tissue swelling. 3. No acute maxillofacial bone fracture. 4. No acute cervical spine fracture. Agree with salient findings of preliminary report provided by [facility]. WSN: [id number] Ordering Physician: Arik Jack Dictated By: Maritza Cobos MD Dictated Date/Time: 12/21/22 2:29 pm Reviewed By: Maritza Cobos MD Signed By: Maritza Cobos MD Signed Date/Time: 12/21/22 2:29 pm Transcribed By: DAIANA Transcribed Date/Time: 12/21/22 2:21 pm Vital Signs Most recent to oldest [Reference Range]: 1 2 Height 160 cm (12/20/22 11:23 PM) 160 cm (12/20/22 9:03 PM) Weight 80.6 kg (12/20/22 11:23 PM) 80.6 kg (12/20/22 9:03 PM) Oxygen Saturation [94-100 %] 97 % (12/20/22 11:23 PM) 94 % (12/20/22 9:03 PM) Pulse Rate [55-90 bpm] 52 bpm *L* (12/20/22 11:23 PM) 63 bpm (12/20/22 9:03 PM) Body Mass Index [18.5-24.99 kg/m2] 31.48 kg/m2 *>HHI* (12/20/22 11:23 PM) Blood Pressure [90-138/55-84 mm Hg] 129/ 43mm Hg (12/20/22 11:23 PM) 135/49mm Hg (12/20/22 9:03 PM) Respiratory Rate [16-30 br/min] 16 br/mi n (12/20/22 11:23 PM) 20 br/min (12/20/22 9:03 PM) Temperature [96.8-100.4 DegF] 98.4 DegF (12/20/22 9:03 PM) Mode of Delivery (Oxygen) Room air (12/20/22 11:23 PM) Room air (12/20/22 9:03 PM) Blood pressure sites Arm, left (12/20/22 11:23 PM) Arm, left (12/20/22 9:03 PM) Temperature Route Oral (12/20/22 9:03 PM) Dry Weight 80.6 kg (12/20/22 11:23 PM) 80.6 kg (12/20/22 9:03 PM) Weight Obtained Via Standing scale (12/20/22 9:03 PM) Dry Weight Obtained Via Standing scale (12/20/22 9:03 PM) Social History Social History Type Response Smoking Status Former smoker, quit more than 30 days ago entered on: 10/07/19 Sex Patient Care team information Care Team Personnel Name: Angelia Valdez RN Position: [facility] AMB Nurse Member Role: Primary Care Nurse Name: Josephine Moreno MD Position: [facility] Physician - Primary Care Member Role: PCP Address: Address: [address] [place], [place] [address] Name: Felicita Lewis RN Position: [facility] Hospital Customer Success Specialist Member Role: Primary Care Nurse Name: Lory Rausch RN Position: [facility] RN Member Role: Primary Care Nurse Name: Jayne Cline RN Position: [facility] RN Member Role: Primary Care Nurse Name: Jaziel Medina RN Position: [facility] ED RN W/OE and Tasks Member Role: Patient Care Provider Name: Pino Hernandez DO Position: [facility] ED Medicine MD Member Role: ED Attending Physician Address: Address: [address] [place] [address] [place] [address]- Name: Selina Garcia Position: [facility] ED TA [facility] Member Role: Patient Care Provider Care Team Related Persons Name: VICKIE NOONAN Address: home [address] [place] [address] Name: CARO GAVIN Address: home [address] [place] [address] Name: KERRIE GAVIN Address: home [address] [place] [address]
--- OUTSIDE RECORDS SUMMARY | 2023-11-17 09:14 | XMS_ITS | Continuity of Care Document ---
Author Organization [facility] Address [address] [place] [address]- Care Team Providers Care Pediatric Dental Hygienist Name Role Phone Josephine Moreno MD Primary Care Physician Encounter [facility] [place] Date(s): 05/07/20 - 06/06/20 [facility] [address] [place] [address] Allergies, Adverse Reactions, Alerts Substance Reaction Severity Status Augmentin rash/hives Active Immunizations Given and Recorded Vaccine Date Status Refusal Reason tetanus/diphtheria/pertussis, acel(Tdap) 03/28/18 Given Not Given Vaccine Date Status Refusal Reason pneumococcal 13-valent vaccine 10/08/19 Not Given Patient Refuses Medications Flonase 50 mcg/inh nasal spray Daily, 0 Refills, Maintenance, 01/03/20 10:38:00 EDT Start Date: 01/03/20 Status: Ordered furosemide 20 mg oral tablet 20 mg, 1, tablet, By Mouth, Daily, Refills 0, Maintenance, 01/03/20 10:39:00 EDT Start Date: 01/03/20 Status: Ordered metFORMIN 500 mg oral tablet = 500 mg, By Mouth, Daily, after dinner, # 60 tablet, 0 Refills, Maintenance, 10/30/17 12:41:09 EDT, Tablet Start Date: 10/30/17 Status: Ordered nadolol 20 mg oral tablet 20 mg, 1, tablet, By Mouth, Daily, # 30 tablet, Refills 5, Tot. Refills 5, Maintenance, 02/27/20 15:37:00 EDT, Route to Pharmacy Electronically, [facility]/pharmacy #[id number], 162.56, cm, 01/03/20 10:45:00 EDT,Height, 81.6, kg, 11/15/19 17:18:00 EDT, Dry Weight Start Date: 02/27/20 Status: Ordered sertraline 25 mg oral tablet 1 tablet = 25 mg, By Mouth, Daily, 0 Refills, Maintenance, 01/03/20 10:39:00 EDT Start Date: 01/03/20 Status: Ordered Problem List Condition Effective Dates Status Health Status Inform ant Esophageal varices with bleeding(Confirmed) Active MAR Cirrhosis(Confirmed) Active Prediabetes(Confirmed) Active Social History Social History Type Response Smoking Status Former smoker, quit more than 30 days ago entered on: 10/07/19 Sex
--- OUTSIDE RECORDS SUMMARY | 2023-11-17 09:14 | XMS_ITS | Continuity of Care Document ---
Author Organization [facility] Address [address] [place] [address]- Care Team Providers Care Netsuite Consultant Name Role Phone Josephine Moreno MD Primary Care Physician Encounter [facility] [place] Date(s): 09/02/22 - 10/02/22 [facility] [address] [place] [address] Allergies, Adverse Reactions, Alerts Substance Reaction Severity [...] 05/06/22 11:43:00 EST, Route to Pharmacy Electronically, [facility]/pharmacy #[id number], Partial fill upon patient request if the [...] 05/14/22 14:17:00 EST, Route to Pharmacy Electronically, [facility]/pharmacy #[id number], Partial fill upon patient request if the prescription is for a schedule II opioid drug... Start Date: 05/14/22 Status: Ordered omeprazole 20 mg oral enteric coated capsule 1 capsule = 20 mg, By Mouth, Daily, # 90 capsule, 2 Refills, Maintenance, 05/29/22 17:15:00 EST, ECCapsule, [facility]/pharmacy #[id number], Partial fill upon patient request if [...] tablet, 2 Refills, Maintenance, 05/06/22 11:42:00 EST, [facility]/pharmacy #[id number], Partial fill upon patient request if [...] class I Confirmed Active Prediabetes Confirmed Active Social History Social History Type Response Smoking Status Former smoker, quit more than 30 days ago entered on: 10/07/19 Sex Patient Care team information Care Team Personnel Name: Angelia Valdez RN Position: [facility] Nurse Member Role: Primary Care Nurse Name: Josephine Moreno MD Position: [facility] Physician (General Medicine) Member Role: PCP Address: Address: [address] [place], [place] [address] Name: Felicita Lewis RN Position: [facility] [employer] Wheelabrator Operator Member Role: Primary Care Nurse Name: Shalom GOLDSMITH, Lory Position: [facility] RN Member Role: Primary Care Nurse Name: Jayne Cline RN Position: [facility] RN Member Role: Primary Care Nurse Care Team Related Persons Name: VICKIE NOONAN Address: home [address] [place] [address] Name: CARO GAVIN Address: home [address] [place] [address] Name: KERRIE GAVIN Address: home [address] [place] [address]
--- OUTSIDE RECORDS SUMMARY | 2023-11-17 09:14 | XMS_ITS | Continuity of Care Document ---
Author Organization [facility] ter Address [address] [place] [address]- Care Team Providers Care Commercial Real Estate Lender Name Role Phone Josephine Moreno MD Primary Care Physician [place] [facility] [place] 09/02/22 - 09/02/[address] [address]- Discharge Disposition: A-D/C Home Attending Physician: Radha Peterson MD Admitting Physician: Radha Peterson MD Referring Physician: Radha Peterson MD Allergies, Adverse Reactions, Alerts Substance Reaction [...] 05/06/22 11:43:00 EST, Route to Pharmacy Electronically, [facility]/pharmacy #[id number], Partial fill upon patient request if the [...] 05/14/22 14:17:00 EST, Route to Pharmacy Electronically, [facility]/pharmacy #[id number], Partial fill upon patient request if the prescription is for a schedule II opioid drug... Start Date: 05/14/22 Status: Ordered omeprazole 20 mg oral enteric coated capsule 1 capsule = 20 mg, By Mouth, Daily, # 90 capsule, 2 Refills, Maintenance, 05/29/22 17:15:00 EST, ECCapsule, [facility]/pharmacy #[id number], Partial fill upon patient request if [...] tablet, 2 Refills, Maintenance, 05/06/22 11:42:00 EST, [facility]/pharmacy #[id number], Partial fill upon patient request if the prescription is for a schedule II opioid drug., 162, cm, 03/25/22 11:00:00 EST, Height, 83.9, k... Start Date: 05/06/22 Status: Ordered Problem List Condition Confirmation Course Effective Dates Status Health St atus Informant Esophageal varices with bleeding Confirmed Active MAR Cirrhosis Confirmed Active Erosive gastritis & duodentitis Confirmed Active Prediabetes Confirmed Active Procedures Procedure Date Related Diagnosis Body Site Status Esophagogastroduodenoscopy 09/02/22 Completed Vital Signs Most recent to oldest [Reference Range]: 1 2 3 Height 163 cm (09/02/22 9:36 AM) Weight 79.4 kg (09/02/22 9:36 AM) Oxygen Saturation [94-100 %] 99 % (09/02/22 10:27 AM) 100 % (09/02/22 10:19 AM) 100 % (09/02/22 10:19 AM) Pulse Rate [55-90 bpm] 55 bpm (09/02/22 9:36 AM) Body Mass Index [18.5-24.99 kg/m2] 29.88 kg/m2 *H* (09/02/22 9:36 AM) Blood Pressure [90-138/55-84 mm Hg] 143/58mm Hg *H* (09/02/22 10:27 AM) Systolic Blood Pressure [90-138 mm Hg] 124 mm Hg (09/02/22 10:19 AM) 124 mm Hg (09/02/22 10:19 AM) Diastolic Blood Pressure [55-84 mm Hg] 57 mm Hg (09/02/22 10:19 AM) 57 mm Hg (09/02/22 10:19 AM) Respiratory Rate [16-30 br/min] 19 br/min (09/02/22 10:27 AM) 18 br/min (09/02/22 10:19 AM) 18 br/min (09/02/22 10:19 AM) Temperature [96.8-100.4 DegF] 97.6 DegF (09/02/22 9:36 AM) Mode of Delivery (Oxygen) Room air (09/02/22 10:27 AM) Room air (09/02/22 10:19 AM) Room air (09/02/22 10:14 AM) Blood pressure sites Arm, left (09/02/22 10:27 AM) Arm, left (09/02/22 10:19 AM) Arm, left (09/02/22 10:19 AM) Temperature Route Temporal (09/02/22 9:36 AM) Weight Obtained Via Patient/family state d (09/02/22 9:36 AM) Social History Social History Type Response Smoking Status Former smoker, quit more than 30 days ago entered on: 10/07/19 Sex Endoscopy study * Event Display: GG EGD Please click on pdf link to open report Note * Tanya Roberts RN: PERFORM Event Display: Discharge/Transfer Note Hospital Authored Date: [id number] Nursing Discharge Note Entered On: 09/02/2022 10:11 EDT Performed On: 09/02/2022 10:11 EDT by Tanya Roberts RN Nursing Discharge Note 2 Discharge Time : 09/02/2022 10:55 EDT Tanya Roberts RN - 09/02/2022 10:55 EDT Discharge Level of Care at Discharge : Home/Longterm/Foster Care Patient Left Unit Via : Wheelchair Patient Accompanied Off Unit with : Responsible adult DC Instructions Provided & Signed by Pt : Yes Patient Understands D/C Instructions : Yes Patient Instructions Discharge Signed : Yes Did Pt have Specialty Bed or Wound Vac : No Tanya Roberts RN - 09/02/2022 10:11 EDT * Tanya Roberts RN: PERFORM Event Display: Patient Education/Instruction Authored Date: [id number] Inpatient Adult Discharge Instructions [address] [address] Name: ALLY GAVIN : 1940 Visit: 09/02/2022 08:40:00 Current Date: 09/02/2022 10:11 Account: [id number] Inpatient Adult Discharge Instructions We would like to thank you for allowing us to assist you with your healthcare needs. The following includes patient education materials and information regarding your injury/illness. Our entire staffstrives to provide an excellent experience for our patients and their families. PLEASE ENSURE YOU FOLLOW-UP PER THE INSTRUCTIONS BELOW! ?? YOUR OPINION IS IMPORTANT TO US! Please complete the survey you may receive by mail or email. Your feedback will be used to make improvements to the healthcare experiences of our patients and their families. Surveys are administered by [employer] ?? If further treatment with your primary care physician or another doctor is recommended, it is important for you to keep the appointment. Call your primary care physician or return to the Emergency Department immediately if your condition worsens, fails to improve, or new symptoms develop. If you need to find a doctor, you can call [facility] [employer] for a referral at [phone] or toll free at [phone]) or log in to [email or web address].. ?? You can view and manage your care through the patient portal or by using a health care edmundo of your choosing. [employer] is a website that allows you to securely view your medical information including your hospital discharge summary, office visit summaries, medications and follow-up visits. You can also request appointments, renew medications, and request access to your medical information using a health care edmundo of your choosing, or just ask a question. You can enroll at [email or web address] or register during your next office visit. You have been discharged from [facility], Patient Care Unit: ENDO. If you have any questions regarding these instructions after you leave, please call us and we will be happy to assist you. [facility] Your Care Team Attending Physician Radha Peterson MD Discharging Providers Radha Peterson MD Reason for Your Visit VARCIES SCREENING Tests Performed Below is a partial list of the tests performed during your hospitalization. You may have had other tests and procedures not included in this list. Please discuss all test results with your provider. Primary Care Provider Josephine Moreno MD Advance Directive . Discharge Vitals Temperature: 97.6 DegF Height: 163 cm Pulse Rate: 55 bpm Weight: 79.4 kg Respiratory Rate: 19 br/min Body Mass Index:??29.88 kg/m2??High Systolic Blood Pressure:??142 mm Hg??High Body surface area: 1.9 Diastolic Blood Pressure: 62 mm Hg ?? Oxygen Saturation: 100 % ?? Studies Pending All tests and labs ordered during this hospital stay have been completed unless listed below. Please discuss all pending results with your provider listed above in these instructions. ?? No incomplete studies found What to do next Instructions From Your Doctor Discharge Orders Scheduled Follow-Up Appointments Thursday. 2022 9:45 AM EDT ?? With: Lazaro Hayden DO Where: [facility] [address] [place] [address]- You Need to Schedule the Following Appointments Follow Up with??Josephine Moreno MD When?? Where: [address] [place] [address]- Discharge Medications ALLY GAVIN :1940 Visit Date:09/02/2022 Medications: Please continue your medications until treatment is completed or stopped by your provider. Medications not listed below should be discontinued. Discuss any questions related to medications with your provider. What How Much When Instructions Next Dose Unchanged Fluticasone Nasal (Flonase 50 mcg/ inh nasal spray) Daily Unchanged Furosemide (furosemide 20 mg oral tablet) 1 tab(s) Oral Daily Unchanged Nadolol (nadolol 20 mg oral tablet) 1 tab(s) Oral Daily Unchanged Omeprazole (omeprazole 20 mg oral enteric coated capsule) 1 capsule Oral Daily Unchanged Sertraline (sertraline 25 mg oral tablet) Unchanged sitagliptin (Januvia 25 mg oral tablet) 1 tab(s) Oral Daily Unchanged Spironolactone (spironolactone 50 mg oral tablet) 1 tab(s) Oral Daily Unchanged umeclidinium-vilanterol (Anoro Ellipta 62.5 mcg-25 mcg/ inh inhalation powder) USE 1 INHALATION DAILY ?? Test Results Below is a partial list of the most recent Laboratory test results done prior to this discharge. You may have had other tests and procedures not included in this list. Please discuss all test resultswith your provider. Allergies (NKA means No Known Allergies) Augmentin??(rash/hives) Problems Active Problems??(4) Erosive gastritis & duodentitis?? Esophageal varices with bleeding?? MAR Cirrhosis?? Prediabetes?? Education Materials Below is the list of Educational Leaflet Providered with your Discharge Instructions. Surgery Medical Daystay Surgical Overnight Discharge Instructions?? Valuables and Belongings I fully understand and agree that [facility] accepts no responsibility for all my personal property including clothing, toilet articles, radios, jewelry, dentures, hearing aids, rings, money, or any other property that is in my possession or is brought to me after admission. I understand certain valuables may be placed in a hospital safe for a short period of time. I understand that the hospital is not liable for loss or damage due to accident, fire, or other natural occurrence while said property is in the safe. I accept full responsibility for any personal property that I keep with me, and will not hold the hospital responsible in case of loss or disappearance. I acknowledge that i have been encouraged to send valuables and belongings home. ?? Review of Valuable and Belonging List: With patient Date for Pt to Sign Valuables/Belongings: 09/02/22 09:36:00 ?? Valuables & Belongings ?? Clothes Electronic devices Jewelry Monetary Items Personal devices Miscellaneous Medications (Valuables) Valuables at Bedside Pants, Shirt, Shoes, Undergarments ? Valuables Sent Home ? Valuables Sent to Security ? Other Discharge Information ? Case Management Discharge Plan?? Discharge Plan?? Discharge Level of Care at Discharge: Home/Longterm/Foster Care ?? Pulmonary Rehab Status?? Pulmonary Rehab Discharge Status?? Respiratory Rate: 19 br/min ? Common Emergency Awareness Tips IS IT A STROKE? Act FAST and Check for these signs: FACE Does the face look uneven? ARM Does one arm drift down? SPEECH Does their speech sound strange? TIME Call at any sign of stroke ?? Heart Attack Signs Chest discomfort: Most heart attacks involve discomfort in the center of the chest and lasts more than a few minutes, or goes away and comes back. It can feel like uncomfortable pressure, squeezing, fullness or pain. Discomfort in upper body: Symptoms can include pain or discomfort in one or both arms, back, neck, jaw or stomach. Shortness of breath: With or without discomfort. Other signs: Breaking out in a cold sweat, nausea, or lightheaded. Remember, MINUTES DO MATTER. If you experience any of these heart attack warning signs, call to get immediate medical attention! ?? Smoking can increase your chances of developing chronic health problems and can cause harmful effects to other family members in your house. If you smoke, you are strongly encouraged to quit. Please call [employer] at [phone] or [phone] ([phone]) or log in to [email or web address] for referrals to smoking cessation programs. ?? 525 Suicide & Crisis Lifeline is available 01/12 if you or someone you know needs to find a reason to keep living. By calling 016 you'll be connected to a skilled, trained counselor at a crisis center in your area. INPATIENT DISCHARGE INSTRUCTIONS SIGNATURE PAGE ALLY GAVIN Location:[facility] Registration Date and Time:09/02/2022 08:40 EDT Primary Care Physician: Josephine Moreno MD, I ALLY GAVIN, have received the above patient education materials/instructions and have verbalized understanding. If ambulance or transport services are being used I further acknowledge being given a choice of service. ?? If you need to contact me, please call me at this number: . Patient/Pipe Stripper Name: Patient/Pipe Stripper Signature: Relationship to Patient: Witness Name/Signature: Date: * Tanya Roberts RN: PERFORM Event Display: Patient Education Leaflets Authored Date: [id number] Surgery Medical Daystay Surgical Overnight Discharge Instructions ?? 295 Medical Daystay/Surgical Overnight Discharge Instructions ? Since your coordination and judgment may be altered by medication and/or anesthesia, a responsible adult must drive you home from the hospital. ? If you have received medication for pain or sedation while under our care, you should not drive, operate machinery, drink alcohol, or sign any legal documents for 24 hours.?? You should have someone with you at home tonight. ? Remain at home the day of discharge.?? You may be up and about unless otherwise instructed by your physician. ? You may resume your daily prescription medication schedule.?? Any depressant medication should be avoided for 24 hours unless otherwise instructed by your surgeon or anesthesiologist. ? Call your physician for a follow-up appointment.? If you experience unusual or severe pain not relied by your pain medication, excessive bleedingor drainage, persistent nausea and vomiting, excessive swelling or redness, foul odor from incisionsite or fever over 100.6F, you need to call your physician. ? A follow-up phone call by a nurse will be made the day after your procedure.?? If you have stayed with us over night, you will not be receiving a follow-up phone call. ? Nausea and vomiting are a common side effect of prescription pain medication.?? We recommend that pills are not taken on an empty stomach.?? While taking any prescription pain medication you should not drive or drink alcohol. ? Patient Care team information Care Team Personnel Name: Angelia Valdez RN Position: [facility] Nurse Member Role: Primary Care Nurse Name: Josephine Moreno MD Position: [facility] Physician (General Medicine) Member Role: PCP Address: Address: [address] [place], [place] [address] Name: Felicita Lewis RN Position: [facility] Blind[employer]ch Lapel Padder Member Role: Primary Care Nurse Name: Lory Rausch RN Position: [facility] RN Member Role: Primary Care Nurse Name: Jayne Cline RN Position: [facility] RN Member Role: Primary Care Nurse Care Team Related Persons Name: VICKIE NOONAN Address: home [address] [place] [address] Name: CARO GAVIN Address: home [address] [place] [address] Name: KERRIE GAVIN Address: home [address] [place] [address]
--- OUTSIDE RECORDS SUMMARY | 2023-11-17 09:15 | XMS_ITS | Continuity of Care Document ---
Author Organization [facility] Address [address] [place] [address]- Care Team Providers Care Program Officer Name Role Phone Josephine Moreno MD Primary Care Physician [phone] Encounter [place] Date(s): 12/01/19 - 12/31/19 [facility] [address] [place] [address] [facility] Attending Physician: Preet Whiting Admitting Physician: AdmPreet pisano Referring Physician: AdmtrPreet Allergies, Adverse Reactions, Alerts Substance Reaction Severity Status Augmentin rash/hives Active Immunizations Given and Recorded Vaccine Date Status Refusal Reason tetanus/diphtheria/pertussis, acel(Tdap) 03/28/18 Given Not Given Vaccine Date Status Refusal Reason pneumococcal 13-valent vaccine 10/08/19 Not Given Patient Refuses Medications metFORMIN 500 mg oral tablet = 500 mg, By Mouth, Daily, after dinner, # 60 tablet, 0 Refills, Maintenance, 10/30/17 12:41:09 EDT, Tablet Start Date: 10/30/17 Status: Ordered nadolol 20 mg oral tablet 20 mg, 1, tablet, By Mouth, Daily, # 30 tablet, Refills 2, Tot. Refills 2, Maintenance, 11/04/19 16:39:00 EDT, Route to Pharmacy Electronically, [facility]/pharmacy #[id number], 162.5, cm, 11/01/19 8:05:00 EDT, Height, 75.9, kg, 10/07/19 22:49:00 EDT, Dry Weight Start Date: 11/04/19 Status: Ordered pantoprazole 40 mg oral delayed release tablet 1 tablet = 40 mg, By Mouth, Daily, # 30 tablet, 2 Refills, Maintenance, 11/04/19 16:39:00 EDT, EC Tablet, 162.5, cm, 11/01/19 8:05:00 EDT, Height, 75.9, kg, 10/07/19 22:49:00 EDT, Dry Weight Start Date: 11/04/19 Status: Ordered Problem List Condition Effective Dates Status Health Status Inform ant Esophageal varices with bleeding(Confirmed) Active Social History Social History Type Response Smoking Status Former smoker, quit more than 30 days ago entered on: 10/07/19 Sex
--- OUTSIDE RECORDS SUMMARY | 2023-11-17 09:15 | XMS_ITS | Continuity of Care Document ---
Author Organization [facility] Address [address] [place] [id number]- Care Team Providers Care Mattress Finisher Name Role Phone Josephine Moreno MD Primary Care Physician Encounter [facility] Date(s): 05/13/22 - 06/12/22 [facility] [address] [place] [address]- [place] Allergies, Adverse Reactions, Alerts Substance Reaction Severity [...] 05/06/22 11:43:00 EST, Route to Pharmacy Electronically, [facility]/pharmacy #[id number], Partial fill upon patient request if the prescription is for a schedule II opioid drug... Start Date: 05/06/22 Status: Ordered Januvia 25 mg oral tablet TAKE 1 TABLET BY MOUTH EVERY DAY Start Date: 07/23/20 Status: Ordered Januvia 25 mg oral tablet [...] 05/14/22 14:17:00 EST, Route to Pharmacy Electronically, [facility]/pharmacy #[id number], Partial fill upon patient request if the prescription is for a schedule II opioid drug... Start Date: 05/14/22 Status: Ordered nadolol 20 mg oral tablet 20 mg, 1, tablet, By Mouth, Daily, # 30 tablet, Refills 5, Tot. Refills 5, Maintenance, 03/26/21 7:29:00 EST, Route to Pharmacy Electronically, [facility]/pharmacy #[id number], 162, cm, 03/25/21 9:57:00 EST, Height, 83.9, kg, 11/08/20 8:40:00 EDT, Dry Weight Start Date: 03/26/21 Status: Ordered omeprazole 20 mg oral enteric coated capsule 1 capsule = 20 mg, By Mouth, Daily, # 90 capsule, 2 Refills, Maintenance, 05/29/22 17:15:00 EST, ECCapsule, [facility]/pharmacy #[id number], Partial fill upon patient request if the prescription is for a schedule II opioid drug., 162, cm, 05/29/22 16:31:00 EST, H... Start Date: 05/29/22 Status: Ordered spironolactone 50 mg oral tablet 1 tablet = 50 mg, By Mouth, Daily, # 60 tablet, 2 Refills, Maintenance, 05/06/22 11:42:00 EST, [id number], Partial fill upon patient request if [...] Team Personnel Name: Angelia Valdez RN Position: [facility] PCO RN Member Role: Primary Care Nurse Name: Josephine Moreno MD Position: [facility] Physician (General Medicine) Member Role: PCP Address: Address: [address] [place], [place] [address] Name: Felicita Lewis RN Position: [facility] Piano Professor Member Role: Primary Care Nurse Name: Lory Rausch RN Position: [facility] RN Member Role: Primary Care Nurse Name: Jayne Cline RN Position: [facility] RN Member Role: Primary Care Nurse Care Team Related Persons Name: VICKIE NOONAN Address: home [address] [place] [address] Name: CARO GAVIN Address: home [address] [place] [address] Name: KERRIE GAVIN Address: home [address] [place] [address]
--- OUTSIDE RECORDS SUMMARY | 2023-11-17 09:15 | XMS_ITS | Continuity of Care Document ---
Author Organization [facility] ter Address [address] [place] [address]- Care Team Providers Care Litigation Specialist Name Role Phone Josephine Moreno MD Primary Care Physician [phone] [facility] [id number] Date(s): 10/10/19 - 11/26/[address] [address]- [facility] Attending Physician: Radha Peterson MD Admitting Physician: Radha Peterson MD Allergies, Adverse Reactions, [...] 11/04/19 16:39:00 EDT, Route to Pharmacy Electronically, [facility]/pharmacy #[id number], 162.5, cm, 11/01/19 8:05:00 EDT, Height, 75.9, [...]
--- OUTSIDE RECORDS SUMMARY | 2023-11-17 09:15 | XMS_ITS | Continuity of Care Document ---
Author Organization [facility] Address [address] [facility] [place] [address]- Care Team Providers Care Comic Book Artist Name Role Phone Josephine Moreno MD Primary Care Physician Encounter 09/22/20 - 09/29/20 [facility] [address], [facility] [address] [place] [address]- Attending Physician: Josephine Moreno MD Admitting Physician: Josephine Moreno MD Referring Physician: Josephine Moreno MD Allergies, [...] 10:39:00 EDT Start Date: 01/03/20 Status: Ordered Januvia 25 mg oral tablet TAKE 1 TABLET BY MOUTH EVERY DAY Start Date: 07/23/20 Status: Ordered metFORMIN 500 mg oral tablet = 500 mg, By Mouth, Daily, after dinner, # 60 tablet, 0 Refills, Maintenance, 10/30/17 12:41:09 EDT, Tablet Start Date: 10/30/17 Status: Ordered nadolol 20 mg oral tablet 20 mg, 1, tablet, By Mouth, Daily, # 30 tablet, Refills 5, Tot. Refills 5, Maintenance, 02/27/20 15:37:00 EDT, Route to Pharmacy Electronically, [facility]/pharmacy #[id number], 162.56, cm, 01/03/20 10:45:00 EDT,Height, 81.6, kg, 11/15/19 17:18:00 EDT, Dry Weight Start Date: 02/27/20 Status: Ordered pantoprazole 40 mg oral delayed release tablet 1 tablet = 40 mg, By Mouth, Daily, # 30 tablet, 0 Refills, Maintenance, 07/23/20 22:29:00 EDT, EC Tablet Start Date: 07/23/20 Status: Ordered sertraline 25 mg oral tablet [...]
--- OUTSIDE RECORDS SUMMARY | 2023-11-17 09:15 | XMS_ITS | Continuity of Care Document ---
Author Organization [facility] ter Address [address] [place] [address]- Care Team Providers Care Hospice Registered Nurse Name Role Phone Josephine Moreno MD Primary Care Physician [phone] Encounter [facility] [id number] Date(s): 10/07/19 - 10/12/[address] [address]- [facility] Encounter Diagnosis Acute upper GI bleeding(Discharge Diagnosis) - 10/12/19 Advanced cirrhosis of liver(Discharge Diagnosis) - 10/12/19 Discharge Disposition: A-D/C Home Attending Physician: Oliver Szymanski MD Admitting Physician: Linda Massey MD Referring Physician: Not on Staff, Referring MD Allergies, Adverse Reactions, Alerts Substance Reaction Severity Status Augmentin rash/hives Active Immunizations Given and Recorded Vaccine Date Status Refusal Reason tetanus/diphtheria/pertussis, acel(Tdap) 03/28/18 Given Not Given Vaccine Date Status Refusal Reason pneumococcal 13-valent vaccine 10/08/19 Not Given Patient Refuses Medications ciprofloxacin 500 mg oral tablet 1 tablet = 500 mg, By Mouth, 2 times a day, for 3 days, # 6 tablet, 0 Refills, Acute 10/15/19 15:16:00 EDT, 10/12/19 15:16:00 EDT, Tablet, [id number], 160, cm, 10/12/19 4:43:00 EDT, Height, 75.9, kg, 10/07/19 22:49:00 EDT, Dry Weight Start Date: 10/12/19 Stop Date: 10/15/19 Status: Ordered metFORMIN 500 mg oral tablet = 500 mg, By Mouth, Daily, after dinner, # 60 tablet, 0 Refills, Maintenance, 10/30/17 12:41:09 EDT, Tablet Start Date: 10/30/17 Status: Ordered nadolol 20 mg oral tablet 20 mg, 1, tablet, By Mouth, Daily, Hold if heart rate is less than 55 or systolic blood pressure isless than 100, # 30 tablet, Refills 0, Tot. Refills 0, Maintenance, 10/12/19 15:14:00 EDT, Route toPharmacy Electronically, [facility]/pharmacy #[id number], 160, c... Start Date: 10/12/19 Status: Ordered pantoprazole 40 mg oral delayed release tablet 1 tablet = 40 mg, By Mouth, Daily, # 30 tablet, 0 Refills, Maintenance, 10/12/19 15:16:00 EDT, EC Tablet, 160, cm, 10/12/19 4:43:00 EDT, Height, 75.9, kg, 10/07/19 22:49:00 EDT, Dry Weight Start Date: 10/12/19 Status: Ordered Problem List Condition Effective Dates Status Health Status Inform ant Esophageal varices with bleeding(Confirmed) Active Diagnosis Diagnosis Type Effective Dates Health Status Cl inical Service Informant Acute upper GI bleeding Discharge Diagnosis 10/12/19 Non-Specified Advanced cirrhosis of liver Discharge Diagnosis 10/12/19 Non-Specified Vital Signs Most recent to oldest [Reference Range]: 1 2 3 Height 160 cm (10/12/19 4:43 AM) 160 cm (10/11/19 11:57 PM) 160 cm (10/11/19 8:34 PM) Weight 75.9 kg (10/07/19 10:42 PM) 75.9 kg (10/07/19 9:00 PM) Oxygen Saturation [94-100 %] 96 % (10/12/19 8:00 AM) 94 % (10/12/19 4:43 AM) 96 % (10/11/19 11:57 PM) Pulse Rate [55-90 bpm] 53 bpm *L* (10/12/19 8:00 AM) 60 bpm (10/12/19 4:43 AM) 58 bpm (10/11/19 11:57 PM) Body Mass Index [18.5-24.99] 29.65 *H* (10/07/19 10:42 PM) Blood Pressure [90-138/55-84 mm Hg] 140/55mm Hg *H* (10/12/19 8:00 AM) 139/43mm Hg *H* (10/12/19 4:43 AM) 129/43mm Hg (10/11/19 11:57 PM) Respiratory Rate [16-30 br/min] 18 br/min (10/12/19 10:38 AM) 18 br/min (10/12/19 8:00 AM) 18 br/min (10/12/19 4:43 AM) Temperature [96.8-100.4 DegF] 98.0 DegF (10/12/19 8:00 AM) 98.2 DegF (10/12/19 4:43 AM) 98.3 DegF (10/11/19 11:57 PM) Mode of Delivery (Oxygen) Room air (10/12/19 8:00 AM) Room air (10/12/19 4:43 AM) Room air (10/11/19 11:57 PM) Blood pressure sites Arm, left (10/12/19 8:00 AM) Arm, left (10/12/19 4:43 AM) Arm, left (10/11/19 11:57 PM) Temperature Route Oral (10/12/19 8:00 AM) Oral (10/12/19 4:43 AM) Oral (10/11/19 11:57 PM) Dry Weight 75.9 kg (10/07/19 10:42 PM) Weight Obtained Via Bed scale (10/07/19 9:00 PM) Social History Social History Type Response Smoking Status Former smoker, quit more than 30 days ago entered on: 10/07/19 Sex
--- OUTSIDE RECORDS SUMMARY | 2023-11-17 09:15 | XMS_ITS | Continuity of Care Document ---
Author Organization [facility] Address [address] [facility] [address] [place] [address]- Care Team Providers Care Steel Rule Inspector Name Role Phone Josephine Moreno MD Primary Care Physician Encounter 08/20/21 - 08/27/21 [facility] [address], [address] [place] [address]- Attending Physician: Dick Otoole MD Admitting Physician: Dick Otoole MD Referring Physician: Dick Otoole MD Allergies, Adverse Reactions, Alerts Substance Reaction [...] 03/26/21 7:29:00 EST, Route [facility], [id number], 162, cm, 03/25/21 9:57:00 EST, Height, [...]
--- OUTSIDE RECORDS SUMMARY | 2023-11-17 09:15 | XMS_ITS | Continuity of Care Document ---
Author Organization [facility] Address [address] [place] [address]- Care Team Providers Care Slagger Name Role Phone Josephine Moreno MD Primary Care Physician Encounter [facility] Date(s): 05/02/22 - 06/01/22 [facility] [address] [place] [address]- [place] Allergies, Adverse Reactions, Alerts Substance Reaction [...] 05/06/22 11:43:00 EST, Route to Pharmacy Electronically, [facility]/pharmacy #[id number], Partial fill upon patient request if the [...] 05/14/22 14:17:00 EST, Route to Pharmacy Electronically, [facility]/pharmacy #[id number], Partial fill upon patient request if the prescription is for a schedule II opioid drug... Start Date: 05/14/22 Status: Ordered nadolol 20 mg oral tablet 20 mg, 1, tablet, By Mouth, Daily, # 30 tablet, Refills 5, Tot. Refills 5, Maintenance, 03/26/21 7:29:00 EST, Route to Pharmacy Electronically, [facility]/pharmacy #[id number], 162, cm, 03/25/21 9:57:00 EST, Height, 83.9, kg, 11/08/20 8:40:00 EDT, Dry Weight Start Date: 03/26/21 Status: Ordered omeprazole 20 mg oral enteric coated capsule 1 capsule = 20 mg, By Mouth, Daily, # 90 capsule, 2 Refills, Maintenance, 05/29/22 17:15:00 EST, ECCapsule, [facility]/pharmacy #[id number], Partial fill upon patient request if [...] Team Personnel Name: Angelia Valdez RN Position: [facility] PCO RN Member Role: Primary Care Nurse Name: Josephine Moreno MD Position: [facility] Physician (General Medicine) Member Role: PCP Address: Address: [address] [place], [place] [address] Name: Felicita Lewis RN Position: [facility] Farmer Diversified Crops Member Role: Primary Care Nurse Name: Lory Rausch RN Position: [facility] RN Member Role: Primary Care Nurse Name: Jayne Cline RN Position: [facility] RN Member Role: Primary Care Nurse Care Team Related Persons Name: VICKIE NOONAN Address: home [address] [place] [address] Name: CARO GAVIN Address: [address] [place] [address] Name: KERRIE GAVIN Address: [address] [place] [address]
--- OUTSIDE RECORDS SUMMARY | 2023-11-17 09:15 | XMS_ITS | Continuity of Care Document ---
Author Organization [facility] ter Address [address] [place] [address]- Care Team Providers Care Avionics Mechanic Name Role Phone Josephine Moreno MD Primary Care Physician [place] [facility] [place] - 08/[place]/[address] [address] Discharge Disposition: A-D/C Home Attending Physician: Radha Peterson MD Admitting Physician: Radha Peterson MD Referring Physician: Radha Peterson MD Allergies, Adverse Reactions, Alerts Substance Reaction Severity Status Augmentin rash/hives Active Immunizations Given and Recorded Vaccine Date Status Refusal Reason SARS-CoV-2 (COVID-19) mRNA BNT-162b2 vac 07/10/20 Given SARS-CoV-2 (COVID-19) mRNA BNT-162b2 vac 06/19/20 Given tetanus/diphtheria/pertussis, acel(Tdap) 03/28/18 Given Medications Anoro Ellipta 62.5 mcg-25 mcg/inh inhalation powder USE 1 INHALATION DAILY Start Date: 07/23/20 Status: Ordered Flonase 50 mcg/inh nasal spray Daily, 0 Refills, Maintenance, 01/03/20 10:38:00 EDT Start Date: 01/03/20 Status: Ordered furosemide 20 mg oral tablet 20 mg, 1, tablet, By Mouth, Daily, # 30 tablet, Refills 6, Tot. Refills 6, Maintenance, 05/08/23 13:17:00 EST, Route to Pharmacy Electronically, [facility]/pharmacy #[id number], Partial fill upon patient request if the prescription is for a schedule II opioid drug... Start Date: 05/08/23 Stop Date: 12/04/23 Status: Ordered nadolol 20 mg oral tablet 20 mg, 1, tablet, By Mouth, Daily, # 90 tablet, Refills 3, Tot. Refills 3, Maintenance, 05/05/23 11:11:00 EST, Route to Pharmacy Electronically, [facility]/pharmacy #[id number], Partial fill upon patient request if the prescription is for a schedule II opioid drug... Start Date: 05/05/23 Status: Ordered omeprazole 20 mg oral enteric coated capsule 1 capsule = 20 mg, By Mouth, Daily, # 90 capsule, 2 Refills, Maintenance, 05/29/22 17:15:00 EST, ECCapsule, [facility]/pharmacy #[id number], Partial fill upon patient request if [...] = 50 mg, By Mouth, Daily, # 30 tablet, 8 Refills, Maintenance, 06/12/23 8:34:00 EST, [facility]/pharmacy #[id number], Partial fill upon patient request if the prescription is for a schedule II opioid drug., 160, cm, 03/23/23 10:34:00 EST, Height, 80.6, kg... Start Date: 06/12/23 Stop Date: 03/08/24 Status: Ordered Problem List Condition Confirmation Course Effective Dates Status [facility] atus Informant Esophageal varices with bleeding Confirmed Active MAR Cirrhosis Confirmed Active Erosive gastritis & duodentitis Confirmed Active Obese class I Confirmed Active Prediabetes Confirmed Active Procedures Procedure Date Related Diagnosis Body Site Status EGD - esophagogastroduodenoscopy 08/20/23 Completed Vital Signs Most recent to oldest [Reference Range]: 1 2 3 Height 160 cm (08/20/23 7:19 AM) Weight 81 kg (08/20/23 7:19 AM) Oxygen Saturation [94-100 %] 98 % (08/20/23 9:02 AM) 99 % (08/20/23 8:55 AM) 97 % (08/20/23 8:45 AM) Pulse Rate [55-90 bpm] 55 bpm (08/20/23 7:19 AM) Body Mass Index [18.5-24.99 kg/m2] 31.64 kg/m2 *>HHI* (08/20/23 7:19 AM) Blood Pressure [90-138/55-84 mm Hg] 131/60mm Hg (08/20/23 9:02 AM) 106/51mm Hg (08/20/23 8:55 AM) 106/51mm Hg (08/20/23 8:45 AM) Respiratory Rate [16-30 br/min] 18 br/min (08/20/23 9:02 AM) 20 br/min (08/20/23 8:55 AM) 17 br/min (08/20/23 8:45 AM) Temperature [96.8-100.4 DegF] 97.5 DegF (08/20/23 7:19 AM) Mode of Delivery (Oxygen) Room air (08/20/23 9:02 AM) Room air (08/20/23 8:55 AM) Room air (08/20/23 8:45 AM) Blood pressure sites Arm, left (08/20/23 9:02 AM) Arm, left (08/20/23 8:55 AM) Arm, left (08/20/23 8:45 AM) Temperature Route Temporal (08/20/23 7:19 AM) Dry Weight 81 kg (08/20/23 7:19 AM) Weight Obtained Via Patient/family state d (08/20/23 7:19 AM) Dry Weight Obtained Via Patient/family s tated (08/20/23 7:19 AM) Social History Social History Type Response Smoking Status Former smoker, quit more than 30 days ago entered on: 10/07/19 Sex Clinical Note * Event Display: GG EGD Please click on pdf link to open report Note * Aicha Perez RN: PERFORM Event Display: Discharge/Transfer Note Hospital Authored Date: [id number] Nursing Discharge Note Entered On: 08/20/2023 8:43 EDT Performed On: 08/20/2023 8:43 EDT by Aicha Perez RN Nursing Discharge Note 2 Discharge Time : 08/20/2023 9:21 EDT Aicha Perez RN - 08/20/2023 9:23 EDT Discharge Level of Care at Discharge : Home/Longterm/Foster Care Patient Left Unit Via : Wheelchair Patient Accompanied Off Unit with : Responsible adult DC Instructions Provided & Signed by Pt : Yes Patient Understands D/C Instructions : Yes Patient Instructions Discharge Signed : Yes Did Pt have Specialty Bed or Wound Vac : No Aicha Perez RN - 08/20/2023 8:43 EDT * Aicha Perez RN: PERFORM Event Display: Patient Education/Instruction Authored Date: [id number] Surgery Adult Discharge Instructions [address] [address] Name: ALLY GAVIN : 1940?? Visit: 08/20/2023 06:58?? Current Date: 08/20/2023 08:43 ?? Account: [id number]?? Surgery Discharge Instructions We would like to thank [...] and their families. Surveys are administered by [employer] ?? If further treatment with your primary care physician or another doctor is recommended, it is important for you to keep the appointment. Call your primary care physician or return to the Emergency Department immediately if your condition worsens, fails to improve, or new symptoms develop. If you need to find a doctor, you can call [facility] [employer] Link for a referral at [phone] or toll free at [phone] ([phone]) or log in to [email or web address].. ?? [facility], in keeping with [facility] guidance, no longer requires face masks for staff, patientsor visitors in most situations. Similiar to time spent indoors at other locations, there is the chance that you were exposed to repiratory viruses during your time with us (such as flu or COVID-19). If you develop symptoms concerning for a viral respiratory infection, please seek testing (and treatment if indicated) from your medical provider or home test kit. ?? You can view and manage your care through the patient portal or by using a health care edmundo of your choosing. [employer] is a website that allows you to securely view your medical information including your hospital discharge summary, office visit summaries, medications and follow-up visits. You can also request appointments, renew medications, and request access to your medical information using a health care edmundo of your choosing, or just ask a question. You are entitled to know the individuals who participated in your treatment. This information is available within your medical record and will be provided upon your request. You can enroll at [email or web address] or register d uring your next office visit. You have been discharged from [facility], Patient Care Unit: ENDO??. If you have any questions regarding these instructions after you leave, please call us and we will be happy to assist you. [facility] Your Care Team Attending Physician Radha Peterson MD?? Discharging Providers Radha Peterson MD Reason for Admission 1 YEAR REPEAT SCREENING Primary Care Provider Josephine Moreno MD? Advance Directive Health Care Proxy on File Yes - Health Care Proxy What to do next Instructions From Your Doctor ?? Orders?? Daystay Protocol, ??08/20/23 7:35:00 EDT?? Scheduled Follow-Up Appointments Thursday 11:15 AM EDT ?? With: Primo Stanley MD Where: [facility] [address] [place] [address]- Status: Pending You Need to Schedule the Following Appointments Follow Up with??Josephine Moreno When:??In 0 days Where: [address] [place] [address]- Business (1) Discharge Medications ALLY GAVIN :1940 Visit Date:08/20/2023 Medications: Please continue your medications until treatment is completed or stopped by your provider. You may resume your daily prescription medications. Discuss any questions related to medications with your provider. What How Much When Instructions Next Dose Unchanged Fluticasone Nasal (Flonase 50 mcg/ inh nasal spray) Daily Unchanged Furosemide (furosemide 20 mg oral tablet) 1 tab(s) Oral Daily Duration: 30 Days Unchanged Nadolol (nadolol 20 mg oral tablet) 1 tab(s) Oral Daily Unchanged Omeprazole (omeprazole 20 mg oral enteric coated capsule) 1 capsule Oral Daily Unchanged Sertraline (sertraline 25 mg oral tablet) Unchanged Spironolactone (spironolactone 50 mg oral tablet) 1 tab(s) Oral Daily Duration: 30 Days Unchanged umeclidinium-vilanterol (Anoro Ellipta 62.5 mcg-25 mcg/ inh inhalation powder) USE 1 INHALATION DAILY ?? Allergies (NKA means No Known Allergies) Augmentin??(rash/hives) Education Materials Below is the list of Educational Leaflet Providered with your Discharge Instructions. [employer] Patient Education - Surgery Medical Daystay Surgical Overnight Discharge Instructions?? [employer] Patient Education - Stomach Polyps?? Valuables and Belongings I fully understand and agree that [facility] accepts no responsibility for all my [...] encouraged to send valuables and belongings home. ? Other Discharge Information ? Case Management Discharge Plan?? Discharge Plan?? Discharge Level of Care at Discharge: Home/Longterm/Foster Care ?? Pulmonary Rehab Status?? Pulmonary Rehab Discharge Status?? Respiratory Rate:??15 br/min??Low ? Common Emergency Awareness Tips IS IT [...] are strongly encouraged to quit. Please call [facility] [employer] Link at [phone] or [phone] ([phone]) or log in to [email or web address] for referrals to smoking cessation programs. ?? The National Suicide Prevention Hotline is available 01/12 if you or someone you know needs to find a reason to keep living. By calling 6-535-843-Newdea (9399) you'll be connected to a skilled, trained counselor at a crisis center in your area. SURGERY DISCHARGE INSTRUCTIONS SIGNATURE PAGE ALLY GAVIN Location:[facility] Registration Date and Time:08/20/2023 06:58 EDT Primary Care Physician: Josh FARNSWORTH, Josephine, Attending Physician: Kristen FARNSWORTH, Radha, I ALLY GAVIN, have received the above patient education materials/instructions and have verbalized understanding. If ambulance or transport services are being used I further acknowledge being given a choice of service. ?? If you need to contact me, please call me at this number: . Patient/Carbonator Name: Patient/Carbonator Signature: Relationship to Patient: Witness Name/Signature: Date: * Aicha Perez RN: PERFORM, SIGN, VERIFY Event Display: Patient Education Handout Authored Date: [id number] * Aicha Perez RN: PERFORM Event Display: Patient Education Leaflets Authored Date: [id number] Surgery Medical Daystay Surgical Overnight Discharge Instructions [...] should not drive or drink alcohol. ? * Aicha Perez RN: PERFORM Event Display: Patient Education Leaflets Authored Date: [id number] Stomach Polyps ?? 674 ?? Stomach Polyps ??You must carefully read the Consumer Information Use and Disclaimer below in order to understand and correctly use this information?? The Basics Written by the doctors and editors at [facility]??What are stomach polyps?Stomach polyps are tiny growths that form on the inner lining of your stomach. They are also known as gastric polyps. Stomach polyps are most often found when a person has an upper endoscopy for another health reason. An upper endoscopy is a test that lets a doctor look at the lining of the upper digestivetract (figure 1).??Many stomach polyps do not cause any symptoms. But it is important to diagnose and treat them because some polyps can turn into cancer.??What causes stomach polyps?There aredifferent types of stomach polyps. They can be caused by different things. Stomach polyps might:? Be caused by another health condition ??? Examples include H. pylori infection and certain types of gastritis (irritation of the stomach). ??? Form near a sore or hole in the stomach wall ??? These can include peptic ulcers or surgical openings (for example, if a person has a feeding tube). ??? Be related to long- term use of a medicine called a proton pump inhibitor or PPI ??? These medic vaishnavi reduce the amount of acid the stomach makes. ??? Run in families ??? You might be more likely to have stomach polyps if you have family members who also have them. There are specific genes that can run in families that increase the risk of polyps. ??What are the symptoms of stomach polyps?Stomach polyps often cause no symptoms.When symptoms do happen, they can include belly pain, diarrhea, or throwing up. Some people have weight loss orblood in their vomit or bowel movements.??Large stomach polyps can block the opening from the stomach into the small intestine. They can also cause you to feel full without eating a lot of food.??Howare stomach polyps treated?When a doctor finds a stomach polyp, they will check it carefullyand look closely at the area around the polyp. The doctor might do a biopsy, which involves taking a sample of tissue to look at under a microscope. This way they can learn more about the type of polyp and the risk of it becoming cancer. They might also remove the polyp.??Treatment of stomach polyps depends on the number, type, size, and location of the polyps. Other things that might guide treatment include your age and risk for stomach cancer. (Your risk depends on your health, including whether you have gastritis, and whether you have had relatives with cancer.)??Depending on your situation, your doctor might recommend:? Removing the polyp or polyps right away ??? Checking a polyp to see if it changes over time ??? Doing regular tests to look for new polyps ??Depending on what hascaused your polyps, your doctor might recommend other treatment, too. For example, you might need treatment for an H. pylori infection.??In rare cases, stomach polyps can be cancerous. In this case, the doctor might have to remove part or all of your stomach.??Can stomach polyps be prevented?If you have an H. pylori infection, getting treatment can lower your risk of developing new stomachpolyps.??All topics are updated as new evidence becomes available and our??peer review process??is complete.??This topic retrieved from [employer] on:??Oct 14, 2021.Topic 870517 Version 1.0Release: 30.2.4 - C30.156?2021??[employer] and/or its affiliates.??All rights reserved.Consumer Information Use and Disclaimer:This generalized information is a limited summary of diagnosis, treatment, and/or medication information. It is not meant to be comprehensive and should be used as a tool to helpthe user understand and/or assess potential diagnostic and treatment options. It does NOT include all information about conditions, treatments, medications, side effects, or risks that may apply to aspecific patient. It is not intended to be medical advice or a substitute for the medical advice, diagnosis, or treatment of a health care provider based on the health care provider's examination and assessment of a patient's specific and unique circumstances. Patients must speak with a health careprovider for complete information about their health, medical questions, and treatment options, including any risks or benefits regarding use of medications. This information does not endorse any treatments or medications as safe, effective, or approved for treating a specific patient. [employer] and its affiliates disclaim any warranty or liability relating to this information or the use thereof.The use of this information is governed by the Terms of Use, available at??https://www.[employer].gestigon/en/know/plczpmhs-tksnvmiuhrnrh-qmzsq?2021 [employer] and its affiliates and/or licensors. All rights reserved.Last Updated 10/16/21? Patient Care team information Care Team Personnel Name: Angelia Valdez RN Position: [facility] AMB Nurse Member Role: Primary Care Nurse Name: Josephine Moreno MD Position: [facility] Physician - Primary Care Member Role: PCP Address: Address: [address], [place] - Name: Calvin Trammell RN Position: [facility] Outreach Member Role: Primary Care Nurse Name: Felicita Lewis RN Position: [facility] Hospital Bucket Chucker Member Role: Primary Care Nurse Name: Lory Rausch RN Position: [facility] RN Member Role: Primary Care Nurse Name: Jayne Cline RN Position: [facility] RN Member Role: Primary Care Nurse Care Team Related Persons Name: VICKIE NOONAN Address: home [address] [place] [address] Name: CARO GAVIN Name: KERRIE GAVIN Address: [address] [place] [address]
--- OUTSIDE RECORDS SUMMARY | 2023-11-17 09:15 | XMS_ITS | Continuity of Care Document ---
Author Organization [facility] Address [address] [place] [address]- Care Team Providers Care Straw Boss Name Role Phone Josephine Moreno MD Primary Care Physician Encounter [facility] [id number] Date(s): 11/15/19 - 11/15/[address] [address]- [facility] Discharge Disposition: A-D/C Home Attending Physician: Carter Maldonado MD Admitting Physician: Carter Maldonado MD Referring Physician: Not on Staff, Referring [...] 11/04/19 16:39:00 EDT, Route to Pharmacy Electronically, [facility]/pharmacy #[id number], 162.5, cm, 11/01/19 8:05:00 EDT, Height, 75.9, [...] Inform ant Esophageal varices with bleeding(Confirmed) Active Results Radiology Reports * Exam Date Time Procedure Performing Provider Status 11/15/19 5:28 PM Knee 1 or 2 Views Right Boris Blanca Raya; Auth (Verified) Notes: (Knee 1 or 2 Views Right) Reason For Exam: Decreased ROM RESULT: Knee 1 or 2 Views Right Knee 1 or 2 Views Right, 2 views Reason: Decreased ROM; Clinical Question(s): Fracture; Hx of Present Illness: Patient states havinga mechanical fall over a hole in the driveway, fell on her right knee, and struck her head. COMPARISON: 11/15/2008 FINDINGS: Total knee arthroplasty with intact hardware and normal alignment. No fracture. No large knee joint effusion. IMPRESSION: No acute osseous injury identified. WSN: [id number] Ordering Physician: Carter Maldonado Dictated By: Aiden Bright MD Dictated Date/Time: 11/15/19 5:35 pm Reviewed By: Aiden Bright MD Signed By: Aiden Bright MD Signed Date/Time: 11/15/19 5:35 pm Transcribed By: DAIANA Transcribed Date/Time: 11/15/19 5:30 pm Vital Signs Most recent to oldest [Reference Range]: 1 2 Height 162 cm (11/15/19 5:18 PM) 162 cm (11/15/19 5:16 PM) Weight 81.6 kg (11/15/19 5:18 PM) 81.6 kg (11/15/19 5:16 PM) Oxygen Saturation [94-100 %] 100 % (11/15/19 5:18 PM) Pulse Rate [55-90 bpm] 58 bpm (11/15/19 5:18 PM) Body Mass Index [18.5-24.99] 31.09 *>HHI* (11/15/19 5:16 PM) Blood Pressure [90-138/55-84 mm Hg] 132/ 40mm Hg (11/15/19 5:18 PM) Respiratory Rate [16-30 br/min] 14 br/mi n *L* (11/15/19 5:18 PM) Temperature [96.8-100.4 DegF] 98.9 DegF (11/15/19 5:18 PM) Mode of Delivery (Oxygen) Room air (11/15/19 5:18 PM) Blood pressure sites Arm, left (11/15/19 5:18 PM) Temperature Route Oral (11/15/19 5:18 PM) Dry Weight 81.6 kg (11/15/19 5:18 PM) 81.6 kg (11/15/19 5:16 PM) Weight Obtained Via Standing scale (11/15/19 5:16 PM) Dry Weight Obtained Via Standing scale (11/15/19 5:16 PM) Social History Social History Type Response Smoking Status Former smoker, quit more than 30 days ago entered on: 10/07/19 Sex
--- OUTSIDE RECORDS SUMMARY | 2023-11-17 09:15 | XMS_ITS | Continuity of Care Document ---
Author Organization [facility] [place] [address] [facility], [address] [place] [address]- Care Team Providers Care Thermoplastic Technician Name Role Phone Josephine Moreno MD Primary Care Physician [phone] Encounter 03/27/23 - 04/03/23 [facility] [address], [address] [place] [address]- Attending Physician: Primo Stanley MD Admitting Physician: Primo Stanley MD Referring Physician: Primo Stanley MD Allergies, Adverse Reactions, Alerts Substance Reaction [...] 13:17:00 EST, Route to Pharmacy Electronically, [facility]/pharmacy #[id number], Partial fill upon patient request if the prescription is for a schedule II opioid drug... Start Date: 05/08/23 Stop Date: 12/04/23 Status: Ordered furosemide 20 mg oral tablet 20 mg, 1, tablet, By Mouth, Daily, for 30 days, # 30 tablet, Refills 3, Tot. Refills 3, Hard Stop 05/08/23 13:17:00 EST, 01/08/23 13:17:00 EDT, Route to Pharmacy Electronically, [facility]/pharmacy #[id number], Partial fill upon patient request if the prescription... Start Date: 01/08/23 Stop Date: 05/08/23 Status: Ordered Januvia 25 mg oral tablet [...] 05/14/22 14:17:00 EST, Route to Pharmacy Electronically, [id number], Partial fill upon patient request if the prescription is for a schedule II opioid drug... Start Date: 05/14/22 Status: Ordered omeprazole 20 mg oral enteric coated capsule 1 capsule = 20 mg, By Mouth, Daily, # 90 capsule, 2 Refills, Maintenance, 05/29/22 17:15:00 EST, ECCapsule, [id number], Partial fill upon patient request [...] mg, By Mouth, Daily, # 30 tablet, 3 Refills, Maintenance, 01/06/23 15:45:00 EDT, [id number], Partial fill upon patient request if the prescription is for a schedule II opioid drug., 160, cm, 12/20/22 23:23:00 EDT, Height, 80.6, k... Start Date: 01/06/23 Stop Date: 05/06/23 Status: Ordered Problem List Condition Confirmation Course Effective Dates Status Health St atus Informant Esophageal varices with bleeding Confirmed Active MAR Cirrhosis Confirmed Active Erosive gastritis & duodentitis Confirmed Active Obese class I Confirmed Active Prediabetes Confirmed Active Results Radiology Reports * Exam Date Time Procedure Performing Provider Status 03/27/23 9:09 AM US RUQ Oneyda Gutierrez; Auth (Ve rified) Notes: (US RUQ) Reason For Exam: HCC screening;Cirrhosis RESULT: US RUQ US RUQ Reason: Cirrhosis; HCC screening COMPARISON: Liver ultrasound, 03/12/2022. MRI abdomen, 04/30/2022. FINDINGS: Liver: The liver is normal in size with coarse and mildly echogenic parenchyma. Nodular/lobulated hepatic contour again noted. There is no definite focal hepatic mass. Main portal vein patent with normal hepatopetal direction of flow. Gallbladder: Large shadowing gallstone is seen within a mildly contracted gallbladder. There is also diffuse gallbladder wall thickening measuring up to 6 mm, though there is no pericholecystic fluidor elicited sonographic Bailon sign. Biliary Tree: No intrahepatic or extrahepatic bile duct dilation is identified. Common duct measures: 0.5 cm. Pancreas: No abnormality in the visualized portions of the pancreas. Right kidney: 9.4 cm in length. Normal parenchymal echotexture and thickness. No hydronephrosis, stone or mass. IMPRESSION: 1. Cirrhotic liver. No suspicious mass. 2. Cholelithiasis. Chronic gallbladder wall thickening may be due to underlying liver disease. WSN: [id number] Ordering Physician: Primo Stanley Dictated By: Leila Fletcher MD Dictated Date/Time: 03/27/23 9:32 am Reviewed By: Leila Fletcher MD Signed By: Leila Fletcher MD Signed Date/Time: 03/27/23 9:32 am Transcribed By: DAIANA Transcribed Date/Time: 03/27/23 9:05 am Social History Social History Type Response Smoking Status Former smoker, quit more than 30 days ago entered on: 10/07/19 Sex Patient Care team information Care Team Personnel Name: Angelia Valdez RN Position: [facility] AMB Nurse Member Role: Primary Care Nurse Name: Josephine Moreno MD Position: [facility] Physician - Primary Care Member Role: PCP Address: Address: [address] [place] [address]- Name: Felicita Lewis RN Position: [facility] Precision Agriculture Technician Member Role: Primary Care Nurse Name: Lory Rausch RN Position: [facility] RN Member Role: Primary Care Nurse Name: Jayne Cline RN Position: [facility] RN Member Role: Primary Care Nurse Care Team Related Persons Name: VICKIE NOONAN Address: home [address] [place] [address] Name: CARO GAVIN Address: [address] [place] [address] Name: KERRIE GAVIN Address: [address] [place] [address]
--- OUTSIDE RECORDS SUMMARY | 2023-11-17 09:15 | XMS_ITS | Continuity of Care Document ---
Author Organization [facility] Address [address] [place] [address]- Care Team Providers Care [employer] Principal Name Role Phone Josephine Moreno MD Primary Care Physician [place] [facility] [place]/22 [facility] [address] [place] [address]- Attending Physician: Preet Whiting Admitting Physician: AdmPreet pisano Referring Physician: Admtr Ar8 Allergies, Adverse Reactions, Alerts Substance Reaction Severity [...] tablet, Refills 3, Tot. Refills 3, Maintenance, 01/24/22 15:16:00 EDT, [id number] Partial fill upon patient request if the prescription is for a schedule II opioid drug... Start Date: 01/24/22 Status: Ordered nadolol 20 mg oral tablet 20 mg, 1, tablet, By Mouth, Daily, # 30 tablet, Refills 5, Tot. Refills 5, Maintenance, 03/26/21 7:29:00 EST, [id number], 162, cm, 03/25/21 9:57:00 EST, Height, 83.9, kg, 11/08/20 8:40:00 EDT, Dry Weight Start Date: 03/26/21 Status: Ordered Problem List Condition Confirmation Course Effective Dates Status Health St atus Informant Esophageal varices with bleeding Confirmed Active MAR Cirrhosis Confirmed Active Obese class I Confirmed Active Prediabetes Confirmed Active Social History Social History Type Response Smoking Status Former smoker, quit more than 30 days ago entered on: 10/07/19 Sex Patient Care team information Care Team Personnel Name: Angelia Valdez RN Position: [facility] PCO RN Member Role: Primary Care Nurse Name: Josephine Moreno MD Position: [facility] Physician (General Medicine) Member Role: PCP Address: Address: [address] [place], [place] [address] Name: Felicita Lewis RN Position: [facility] Inverter And Clipper Member Role: Primary Care Nurse Name: Lory Rausch RN Position: [facility] RN Member Role: Primary Care Nurse Name: Jayne Cline RN Position: [facility] RN Member Role: Primary Care Nurse Care Team Related Persons Name: VICKIE NOONAN Address: [address] [place] [address] Name: CARO GAVIN Address: [address] [place] [address] Name: KERRIE GAVIN Address: [address] [place] [address]
--- OUTSIDE RECORDS SUMMARY | 2023-11-17 09:15 | XMS_ITS | Continuity of Care Document ---
Author Organization [facility] Address [address] [place] [address]- Care Team Providers Care Nursery Technician Name Role Phone Josephine Moreno MD Primary Care Physician Encounter [facility] [place] Date(s): 05/01/22 - 05/31/22 [facility] [address] [place], [place] [address] Allergies, Adverse Reactions, Alerts Substance [...] 11:43:00 EST, Route to Pharmacy Electronically, [facility]/pharmacy #[id number], Partial fill upon patient request if the [...] 14:17:00 EST, Route to Pharmacy Electronically, [facility]/pharmacy #[id number], Partial fill upon patient request if the prescription is for a schedule II opioid drug... Start Date: 05/14/22 Status: Ordered nadolol 20 mg oral tablet 20 mg, 1, tablet, By Mouth, Daily, # 30 tablet, Refills 5, Tot. Refills 5, Maintenance, 03/26/21 7:29:00 EST, Route to Pharmacy Electronically, [facility]/pharmacy #[id number], 162, cm, 03/25/21 9:57:00 EST, [...] Team Personnel Name: Angelia Valdez RN Position: [facility] PCO RN Member Role: Primary Care Nurse Name: Josephine Moreno MD Position: [facility] Physician (General Medicine) Member Role: PCP Address: Address: [address] [place], [place] [address] Name: Felicita Lewis RN Position: [facility] Student Development Advisor Member Role: Primary Care Nurse Name: Lory Rausch RN Position: [facility] RN Member Role: Primary Care Nurse Name: Jayne Cline RN Position: [facility] RN Member Role: Primary Care Nurse Care Team Related Persons Name: VICKIE NOONAN Address: home [address] [place] [address] Name: CARO GAVIN Address: [address] [place] [address] Name: KERRIE GAVIN Address: [address] [place] [address]
--- OUTSIDE RECORDS SUMMARY | 2023-11-17 09:15 | XMS_ITS | Continuity of Care Document ---
Author Organization [facility] Address [address] [place] [address]- Care Team Providers Care Bucket Chucker Name Role Phone Josephine Moreno MD Primary Care Physician [phone] Encounter [facility] [place] Date(s): 01/06/23 - 02/05/23 [facility] [address] [place] [address]- [place] Allergies, Adverse Reactions, Alerts Substance Reaction [...] By Mouth, Daily, # 30 tablet, Refills 3, Tot. Refills 3, Maintenance, 01/08/23 13:17:00 EDT, Route to Pharmacy Electronically, [facility]/pharmacy #[id number], Partial fill upon patient request if the prescription is for a schedule II opioid drug... Start Date: 01/08/23 Stop Date: 05/08/23 Status: [...] 05/14/22 14:17:00 EST, [id number] Partial fill upon patient request if the prescription is for a schedule II opioid drug... Start Date: 05/14/22 Status: Ordered omeprazole 20 mg oral enteric coated capsule 1 capsule = 20 mg, By Mouth, Daily, # 90 capsule, 2 Refills, Maintenance, 05/29/22 17:15:00 EST, ECCapsule, [facility]/pharmacy #[id number], Partial fill upon patient request if [...] tablet, 3 Refills, Maintenance, 01/06/23 15:45:00 EDT, [facility]/pharmacy #[id number], Partial fill upon patient request if [...] Team Personnel Name: Angelia Valdez RN Position: [facility] AMB Nurse Member Role: Primary Care Nurse Name: Josephine Moreno MD Position: [facility] Physician - Primary Care Member Role: PCP Address: Address: [address] [place] [address]- Name: Joshua GOLDSMITH, Felicita Position: [facility] Microsystems Engineer Member Role: Primary Care Nurse Name: Shalom GOLDSMITH, Lory Position: [facility] RN Member Role: Primary Care Nurse Name: Jayne Cline RN Position: [facility] RN Member Role: Primary Care Nurse Care Team Related Persons Name: VICKIE NOONAN Address: home [address] [place] [address] Name: CARO GAVIN Address: [address] [place] [address] Name: KERRIE GAVIN Address: home [address] [place] [address]
--- OUTSIDE RECORDS SUMMARY | 2023-11-17 09:15 | XMS_ITS | Continuity of Care Document ---
Author Organization [facility] ter Address [address] [place] [address]- Care Team Providers Care Photogrammetric Surveyor Name Role Phone Josephine Moreno MD Primary Care Physician [phone] Encounter [facility] [place] Date(s): 10/16/20 - 12/05/[address] [address]- Attending Physician: Pedro Puente MD Admitting Physician: Pedro Puente MD Referring Physician: Pedro Puente MD Allergies, Adverse Reactions, Alerts Substance Reaction [...] 02/27/20 15:37:00 EDT, Route to Pharmacy Electronically, [facility]/pharmacy #[id number], 162.56, cm, 01/03/20 10:45:00 EDT,Height, 81.6, kg, 11/15/19 17:18:00 EDT, Dry Weight Start Date: 02/27/20 Status: Ordered pantoprazole 20 mg oral delayed release tablet 1 tablet = 20 mg, By Mouth, Daily, 30 min before breakfast, # 30 tablet, 5 Refills, Maintenance, 11/08/20 9:51:00 EDT, 162, cm, 11/08/20 8:40:00 EDT, Height, 83.9, kg, 11/08/20 8:40:00 EDT, Dry Weight Start Date: 11/08/20 Status: Ordered sertraline 25 mg oral tablet [...]
--- OUTSIDE RECORDS SUMMARY | 2023-11-17 09:15 | XMS_ITS | Continuity of Care Document ---
Author Organization [facility] Address [address] [place] [address]- Care Team Providers Care Hris Specialist Name Role Phone Josephine Moreno MD Primary Care Physician Encounter [facility] Date(s): 02/07/21 - 03/09/21 [facility] [address] [place] [id number] Allergies, Adverse Reactions, Alerts Substance Reaction [...] 02/27/20 15:37:00 EDT, Route to Pharmacy Electronically, [facility]/pharmacy #[id number], 162.56, cm, 01/03/20 10:45:00 EDT,Height, 81.6, [...]
--- OUTSIDE RECORDS SUMMARY | 2023-11-17 09:15 | XMS_ITS | Continuity of Care Document ---
Author Organization [facility] [place] [facility] [place] [address] [facility], [address] [place] [address]- Care Team Providers Care Band Sawyer Name Role Phone Josephine Moreno MD Primary Care Physician [phone] Encounter 03/12/22 - 03/19/22 [facility] [address], [address] [place], [place] [address] Attending Physician: Dick Otoole MD Admitting Physician: [...] 01/24/22 15:16:00 EDT, Route to Pharmacy Electronically, [facility]/pharmacy #[id number], Partial fill upon patient request if the prescription is for a schedule II opioid drug... Start Date: 01/24/22 Status: Ordered nadolol 20 mg oral tablet 20 mg, 1, tablet, By Mouth, Daily, # 30 tablet, Refills 5, Tot. Refills 5, Maintenance, 03/26/21 7:29:00 EST, [id number] 162, cm, 03/25/21 9:57:00 EST, Height, 83.9, kg, 11/08/20 8:40:00 EDT, Dry Weight Start Date: 03/26/21 Status: Ordered Problem List Condition Confirmation Course Effective Dates Status Health St atus Informant Esophageal varices with bleeding Confirmed Active MAR Cirrhosis Confirmed Active Obese class I Confirmed Active Prediabetes Confirmed Active Results Radiology Reports * Exam Date Time Procedure Performing Provider Status 03/12/22 9:28 AM US Liver Vida Amato; Auth (Hollis ified) Notes: (US Liver) Reason For Exam: cirrhosis, hcc screening;Other: RESULT: US Liver US Liver Reason: Cirrhosis, hcc screening COMPARISON: 08/20/2021. IMAGING TECHNIQUE: Grayscale and color Doppler ultrasound examination of the liver. FINDINGS: Liver: Coarse hepatic echotexture. No suspicious lesion. Nodular hepatic contour. Main portal vein patent with normal hepatopetal direction of flow. Biliary Tree: No intrahepatic or extrahepatic bile duct dilation is identified. Common duct: 0.5 cm. Gallbladder: Cholelithiasis. Questionable wall thickening versus an infiltrating mass in the gallbladder fossa versus focal fat. Lungs are new compared to previous examination. IMPRESSION: 1. Cirrhotic morphology. 2. New hyperechoic focus in the gallbladder fossa region with underlying cholelithiasis. Infiltrating mass needs to be excluded. 3. Dedicated MR imaging with and without contrast is recommended to further evaluate, if the patient is not MR compatible than hepatic protocol CT recommended. A critical result message (Yellow) has been communicated via the [employer] system on 03/12/2022 10:18 AM, Message ID [id number]. WSN: [id number] Ordering Physician: Dick Otoole Dictated By: Brayan Velazquez MD Dictated Date/Time: 03/12/22 10:18 a Reviewed By: Brayan Velazquez MD Signed By: Brayan Velazquez MD Signed Date/Time: 03/12/22 10:18 am Transcribed By: DAIANA Transcribed Date/Time: 03/12/22 10:14 am Social History Social History Type Response Smoking Status Former smoker, quit more than 30 days ago entered on: 10/07/19 Sex US Liver * BHSPowerscribe , CIS S: TRANSCRIBE Brayan Velazquez MD: VERIFY Event Display: Result: Authored Date: [id number] Liver Reason: Cirrhosis, hcc screening COMPARISON: 08/20/2021. IMAGING TECHNIQUE: Grayscale and color Doppler ultrasound examination of the liver. FINDINGS: Liver: Coarse hepatic echotexture. No suspicious lesion. Nodular hepatic contour. Main portal vein patent with normal hepatopetal direction of flow. Biliary Tree: No intrahepatic or extrahepatic bile duct dilation is identified. Common duct: 0.5 cm. Gallbladder: Cholelithiasis. Questionable wall thickening versus an infiltrating mass in the gallbladder fossa versus focal fat. Lungs are new compared to previous examination. IMPRESSION: 1. Cirrhotic morphology. 2. New hyperechoic focus in the gallbladder fossa region with underlying cholelithiasis. Infiltrating mass needs to be excluded. 3. Dedicated MR imaging with and without contrast is recommended to further evaluate, if the patient is not MR compatible than hepatic protocol CT recommended. A critical result message (Yellow) has been communicated via the [employer] system on 03/12/2022 10:18 AM, Message ID [id number]. WSN: [id number] Ordering Physician: Dick Otoole Dictated By: Brayan Velazquez MD Dictated Date/Time: 03/12/22 10:18 a Reviewed By: Brayan Velazquez MD Signed By: Brayan Velazquez MD Signed Date/Time: 03/12/22 10:18 am Transcribed By: DAIANA Transcribed Date/Time: 03/12/22 10:14 am Patient Care team information Care Team Personnel Name: Angelia Valdez RN Position: [facility] PCO RN Member Role: Primary Care Nurse Name: Josephine Moreno MD Position: [facility] Physician (General Medicine) Member Role: PCP Address: Address: [address] [place] [address]- Name: Felicita Lewis RN Position: [facility] Hospital Accounting Representative Member Role: Primary Care Nurse Name: Lory Rausch RN Position: [facility] RN Member Role: Primary Care Nurse Name: Jayne Cline RN Position: [facility] RN Member Role: Primary Care Nurse Care Team Related Persons Name: VICKIE NOONAN Address: [address] [place] [address] Name: CARO GAVIN Address: [address] [place] [address] Name: KERRIE GAVIN Address: [address] [place] [address]
--- OUTSIDE RECORDS SUMMARY | 2023-11-17 09:15 | XMS_ITS | Continuity of Care Document ---
Author Organization [facility] Address [address] [place] [address]- Care Team Providers Care Hospice Fellow Name Role Phone Josephnie Moreno MD Primary Care Physician [place] [facility] [place] 03/23/23 - 04/22/23 [facility] [address] [place], [place] [id number]- Attending Physician: Preet Whiting Admitting Physician: Preet Whiting Referring Physician: AdmtrPreet Allergies, Adverse Reactions, Alerts [...] 05/08/23 13:17:00 EST, Route to Pharmacy Electronically, [facility]/pharmacy #[id number], Partial fill upon patient request if the prescription is for a schedule II opioid drug... Start Date: 05/08/23 Stop Date: 12/04/23 Status: Ordered furosemide 20 mg oral tablet 20 mg, 1, tablet, By Mouth, Daily, for 30 days, # 30 tablet, Refills 3, Tot. Refills 3, Hard Stop 05/08/23 13:17:00 EST, 01/08/23 13:17:00 EDT, [facility], [id number], Partial [...] Team Personnel Name: Angelia Valdez RN Position: [facility] AMB Nurse Member Role: Primary Care Nurse Name: Josephine Moreno MD Position: [facility] Physician - Primary Care Member Role: PCP Address: Address: [address] [place], [place] [address] Name: Felicita Lewis RN Position: [facility] Hospital Water Treatment Plant Operator Member Role: Primary Care Nurse Name: Lory Rausch RN Position: [facility] RN Member Role: Primary Care Nurse Name: Jayne Cline RN Position: [facility] RN Member Role: Primary Care Nurse Care Team Related Persons Name: VICKIE NOONAN Address: [address] [place] [address] Name: CARO GAVIN Address: [address] [place] [address] Name: KERRIE GAVIN Address: [address] [place] [address]
--- OUTSIDE RECORDS SUMMARY | 2023-11-17 09:15 | XMS_ITS | Continuity of Care Document ---
Author Organization [facility] Address [address] [place] [address]- Care Team Providers Care Manager Mechanical Maintenance Name Role Phone Josephine Moreno MD Primary Care Physician Encounter [facility] Date(s): 07/23/20 - 08/22/20 [facility] [address] [place] [id number] Allergies, Adverse Reactions, Alerts Substance [...] 02/27/20 15:37:00 EDT, Route to Pharmacy Electronically, [facility]/pharmacy #[id number], 162.56, cm, 01/03/20 10:45:00 EDT,Height, [...]
--- OUTSIDE RECORDS SUMMARY | 2023-11-17 09:15 | XMS_ITS | Continuity of Care Document ---
Author Organization [facility] Address [address] [place] [address]- Care Team Providers Care Irrigation Pump Installer Name Role Phone Josephine Moreno MD Primary Care Physician Encounter [facility] [place] Date(s): 09/07/23 - 10/07/23 [facility] [address] [place] [address]- Attending Physician: Preet hWiting Admitting Physician: AdmtrPreet Referring Physician: Admtr, Ar8 Allergies, Adverse Reactions, Alerts Substance Reaction [...] 05/08/23 13:17:00 EST, Route to Pharmacy Electronically, [facility]/pharmacy #[id number], Partial fill upon patient request if the prescription is for a schedule II opioid drug... Start Date: 05/08/23 Stop Date: 12/04/23 Status: Ordered nadolol 20 mg oral tablet 20 mg, 1, tablet, By Mouth, Daily, # 90 tablet, Refills 3, Tot. Refills 3, Maintenance, 05/05/23 11:11:00 EST, Route to Pharmacy Electronically, [facility]/pharmacy #[id number], Partial fill upon patient request if the prescription is for a schedule II opioid drug... Start Date: 05/05/23 Status: Ordered omeprazole 20 mg oral enteric coated capsule 1 capsule = 20 mg, By Mouth, Daily, # 90 capsule, 2 Refills, Maintenance, 05/29/22 17:15:00 EST, ECCapsule, [facility]/pharmacy #[id number], Partial fill upon patient request [...] tablet, 8 Refills, Maintenance, 06/12/23 8:34:00 EST, [facility]/pharmacy #[id number], Partial fill upon patient request [...] Team Personnel Name: Angelia Valdez RN Position: [facility] AMB Nurse Member Role: Primary Care Nurse Name: Josephine Moreno MD Position: [facility] Physician - Primary Care Member Role: PCP Address: Address: [address] [place] [address]- Name: Calvin Trammell RN Position: [facility] Outreach Member Role: Primary Care Nurse Name: Felicita Lewis RN Position: [facility] Hospital [employer] Combat Skills Member Role: Primary Care Nurse Name: Lory Rausch RN Position: S RN Member Role: Primary Care Nurse Name: Jayne Cline RN Position: S RN Member Role: Primary Care Nurse Care Team Related Persons Name: VICKIE NOONAN Address: [address] [place] [address] Name: CARO GAVIN Name: KERRIE GAVIN Address: [address] [place] [address]
--- OUTSIDE RECORDS SUMMARY | 2023-11-17 09:15 | XMS_ITS | Continuity of Care Document ---
Author Organization [facility] Address [address] [place] [id number]- Care Team Providers Care Investment Consultant Name Role Phone Josephine Moreno MD Primary Care Physician Encounter [facility] [place] Date(s): 06/04/20 - 07/04/20 [facility] [address] [place] [id number] Attending Physician: Admtr, [id number] Admitting Physician: Admtr, [id number] Referring Physician: Admtr, [id number] Allergies, Adverse Reactions, Alerts Substance Reaction Severity Status Augmentin rash/hives Active Immunizations Given and Recorded Vaccine Date Status Refusal Reason SARS-CoV-2 (COVID-19) mRNA BNT-162b2 vac 06/19/20 Given [...] 02/27/20 15:37:00 EDT, Route to Pharmacy Electronically, [facility]/pharmacy #[id number], 162.56, cm, 01/03/20 10:45:00 EDT,Height, 81.6, [...]
--- OUTSIDE RECORDS SUMMARY | 2023-11-17 09:15 | XMS_ITS | Continuity of Care Document ---
Author Organization [facility] Address [address] [place] [id number]- Care Team Providers Care Pharmacology Professor Name Role Phone Josephine Moreno MD Primary Care Physician [phone] Encounter [facility] [place] Date(s): 08/27/23 - 09/26/23 [facility] [address] [place] [id number]- [place] Allergies, Adverse Reactions, Alerts Substance Reaction [...] 05/08/23 13:17:00 EST, Route to Pharmacy Electronically, [facility]/pharmacy #[id number], Partial fill upon patient request if the prescription is for a schedule II opioid drug... Start Date: 05/08/23 Stop Date: 12/04/23 Status: Ordered nadolol 20 mg oral tablet 20 mg, 1, tablet, By Mouth, Daily, # 90 tablet, Refills 3, Tot. Refills 3, Maintenance, 05/05/23 11:11:00 EST, Route to Pharmacy Electronically, [facility]/pharmacy #[id number], Partial fill upon patient [...] tablet, 8 Refills, Maintenance, 06/12/23 8:34:00 EST, [facility]/pharmacy #[id number], Partial fill upon patient [...] Team Personnel Name: Angelia Valdez RN Position: [facility] AMB Nurse Member Role: Primary Care Nurse Name: Josephine Moreno MD Position: [facility] Physician - Primary Care Member Role: PCP Address: Address: [address] [place], [place] [address] Name: Calvin Trammell RN Position: [facility] Outreach Member Role: Primary Care Nurse Name: Felicita Lewis RN Position: [facility] Hospital Manager Photo Member Role: Primary Care Nurse Name: Lory Rausch RN Position: [facility] RN Member Role: Primary Care Nurse Name: Jayne Cline RN Position: [facility] RN Member Role: Primary Care Nurse Care Team Related Persons Name: VICKIE NOONAN Address: home [address] [place] [address] Name: CARO GAVIN Name: KERRIE GAVIN Address: home [address] [place] [id number]
--- OUTSIDE RECORDS SUMMARY | 2023-11-17 09:16 | XMS_ITS | Continuity of Care Document ---
Author Organization [facility] Address [address] [place] [phone]- Care Team Providers Care Welding Machine Feeder Name Role Phone Josephine Moreno MD Primary Care Physician [place] [facility] [place] 07/17/21 - 08/16/21 [facility] [address] [place] [address]- [place] Allergies, Adverse Reactions, Alerts Substance Reaction [...] 03/26/21 7:29:00 EST, Route to Pharmacy Electronically, [facility]/pharmacy #[id number], 162, cm, 03/25/21 9:57:00 EST, Height, [...]
--- OUTSIDE RECORDS SUMMARY | 2023-11-17 09:16 | XMS_ITS | Continuity of Care Document ---
Author Organization [facility] ter Address [address] [place] [id number] Care Team Providers Care Commodity Lead Name Role Phone Josephine Moreno MD Primary Care Physician [phone] Encounter [facility] [place] Date(s): 11/04/23 - 11/07/[address] [address]- Discharge Disposition: A-D/C Home Attending Physician: Jamarcus Rees MD Admitting Physician: Cassandra Pereira DO Referring Physician: Not on Staff, Referring MD Allergies, Adverse Reactions, Alerts Substance Reaction Severity Status Augmentin rash/hives Active Immunizations Given and Recorded Vaccine Date Status Refusal Reason SARS-CoV-2 (COVID-19) mRNA BNT-162b2 vac 07/10/20 Given SARS-CoV-2 (COVID-19) mRNA BNT-162b2 vac 06/19/20 Given tetanus/diphtheria/pertussis, acel(Tdap) 03/28/18 Given Medications cefpodoxime 200 mg oral tablet = 200 mg, By Mouth, Every 12 hours, for 2 days, # 4 tablet, 0 Refills, Acute 11/09/23 9:22:00 EDT, 11/07/23 9:22:00 EDT, Tablet, [facility], Partial fill upon patient request if the prescription is for a schedule II opioid drug., 160, cm... Start Date: 11/07/23 Stop Date: 11/09/23 Status: Ordered Combivent Respimat 20 mcg-100 mcg/inh inhalation aerosol 1 puffs, Inhalation, 4 times a day, # 4 Gm, 0 Refills, Maintenance, 11/05/23 2:23:00 EDT, Aerosol, Partial fill upon patient request if the prescription is for a schedule II opioid drug. Start Date: 11/05/23 Status: Ordered Flonase 50 mcg/inh nasal spray Daily, 0 Refills, Maintenance, 01/03/20 10:38:00 EDT Start Date: 01/03/20 Status: Ordered furosemide 20 mg oral tablet 20 mg, 1, tablet, By Mouth, Daily, # 30 tablet, Refills 6, Tot. Refills 6, Maintenance, 05/08/23 13:17:00 EST, Route to Pharmacy Electronically, [facility]/pharmacy #[id number], Partial fill upon patient request if the prescription is for a schedule II opioid drug... Start Date: 05/08/23 Stop Date: 12/04/23 Status: Ordered nadolol 20 mg oral tablet 20 mg, Tablet, By Mouth, 11/07/23 9:00:00 EDT Start Date: 11/07/23 Stop Date: 11/07/23 Status: Completed nadolol 20 mg oral tablet 20 mg, 1, tablet, By Mouth, Daily, # 90 tablet, Refills 3, Tot. Refills 3, Maintenance, 05/05/23 11:11:00 EST, Route to Pharmacy Electronically, [facility]/pharmacy #[id number], Partial fill upon patient request if the prescription is for a schedule II opioid drug... Start Date: 05/05/23 Status: Ordered omeprazole 20 mg oral enteric coated capsule 1 capsule = 20 mg, By Mouth, Daily, # 90 capsule, 2 Refills, Maintenance, 05/29/22 17:15:00 EST, ECCapsule, [facility]/pharmacy #[id number], Partial fill upon patient request if the prescription is for a schedule II opioid drug., 162, cm, 05/29/22 16:31:00 EST, H... Start Date: 05/29/22 Status: Ordered predniSONE 20 mg oral tablet = 40 mg, By Mouth, Daily, for 2 days, # 4 tablet, 0 Refills, Acute 11/09/23 9:22:00 EDT, 11/07/23 9:22:00 EDT, Tablet, [facility], Partial fill upon patient request if the prescription is for a schedule II opioid drug., 160, cm, 09/07/23... Start Date: 11/07/23 Stop Date: 11/09/23 Status: Ordered sertraline 25 mg oral tablet 2 tablet = 50 mg, 0 Refills, Maintenance, 09/02/22 9:34:00 EDT, Partial fill upon patient request if the prescription is for a schedule II opioid drug. Start Date: 09/02/22 Status: Ordered spironolactone 50 mg oral tablet 1 tablet = 50 mg, By Mouth, Daily, # 30 tablet, 8 Refills, Maintenance, 06/12/23 8:34:00 EST, [facility]/pharmacy #[id number], Partial fill upon patient request if the prescription is for a schedule II opioid drug., 160, cm, 03/23/23 10:34:00 EST, Height, 80.6, kg... Start Date: 06/12/23 Stop Date: 03/08/24 Status: Ordered Problem List Condition Confirmation Course Effective Dates Status Health atus Informant Esophageal varices with bleeding Confirmed Active CHA Cirrhosis Confirmed Active Erosive gastritis & duodentitis Confirmed Active Obese class I Confirmed Active Prediabetes Confirmed Active Results Radiology Reports * Exam Date Time Procedure Performing Provider Status 11/04/23 7:[address] Angio Chest Amisha Daily; Auth (Verified) Notes: (CT Angio Chest) Reason For Exam: PE suspected, Intermediate prob, positive D-dimer,;Other: RESULT: CT Angio Chest EXAMINATION: CT Angio Chest INDICATION: PE suspected, Intermediate prob, positive D-dimer,; Clinical Question(s): Pulmonary Embolism TECHNIQUE: Spiral CTA of the chest was performed after rapid IV contrast administration without cardiac gating, triggered by an DEVANTE on the main pulmonary artery. Images are formatted in multiple planes using 2-D multiplanar and 3-D maximum intensity projection. 100 cc of Omnipaque 300 was administered intravenously. Weight-based protocol using automatic tube modulation was used to optimize exposure parameters. CTDIvol Body: 5.01 mGy, DLP Body: 559 mGy*cm. COMPARISONS: Chest x-ray 11/04/2023 ANGIOGRAPHIC FINDINGS: No pulmonary embolism to the subsegmental level. Normal caliber pulmonary arteries. No acute aortic abnormality seen on this study performed without cardiac gating. Moderate atherosclerotic aortic calcification. 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 Trachea and Airways: Plugging of the left lower lobe bronchus. Lungs and Pleura: Consolidation in the inferior aspect of the left lower lobe. Centrilobular nodularity in the left lower lobe (for example series 304 image 58). Mild dependent atelectasis at the right lung base. No effusion or pneumothorax. Mediastinum and yarely: No mass or hematoma. No mediastinal or hilar lymphadenopathy. No esophageal abnormality. Normal thyroid. Heart: Heart is normal in size. No pericardial effusion. Moderate coronary artery calcification. Chest Wall Soft Tissues: Normal. Diaphragm and upper abdomen: Mild splenomegaly. Moderate fatty atrophy of the pancreas. Possible small type I hiatal hernia. Bones: No acute abnormality. Mild degenerative changes of the thoracic spine. IMPRESSION: No evidence of pulmonary embolism. Consolidation in the left lower lobe which could represent pneumonia or atelectasis. I have personally reviewed the images and I agree with this report. WSN: [id number] Ordering Physician: Willy Urena Dictated By: Torres Moore MD Dictated Date/Time: 11/04/23 9:07 pm Reviewed By: Emery Devi MD Signed By: Emery Devi MD Signed Date/Time: 11/04/23 9:12 pm Transcribed By: DAIANA Transcribed Date/Time: 11/04/23 8:33 pm * Exam Date Time Procedure Performing Provider Status 11/04/23 2:30 PM Chest 2 Views Frontal and Lat Artur Teague; Ellen (Verified) Notes: (Chest 2 Views Frontal and Lat) Reason For Exam: Shortness of Breath, Fever;Other: RESULT: Chest 2 Views Frontal and Lat Chest 2 Views Frontal and Lat INDICATION: Shortness of Breath, Fever; Clinical Question(s): Pneumonia COMPARISON: 08/15/2008. FINDINGS: LINES AND TUBES: None. LUNGS AND PLEURA: Left lower lobe and retrocardiac opacification. No pneumothorax. HEART, MEDIASTINUM AND YARELY: Heart is normal in size. Normal mediastinal and hilar contour. BONES AND SOFT TISSUES: Reverse right shoulder arthroplasty, new from prior. IMPRESSION: Lower lobe and retrocardiac opacification which could represent atelectasis, pneumonia, and/or pleural effusion. I have personally reviewed the images and I agree with this report. WSN: [id number] Ordering Physician: Willy Urena Dictated By: Raman Honeycutt MD Dictated Date/Time: 11/04/23 2:58 pm Reviewed By: Richie Kilpatrick MD, V Signed By: Richie Kilpatrick MD, V Signed Date/Time: 11/04/23 3:03 pm Transcribed By: DAIANA Transcribed Date/Time: 11/04/23 2:33 pm Vital Signs Most recent to oldest [Reference Range]: 1 2 3 Oxygen Saturation [94-100 %] 97 % (11/07/23 8:17 AM) 96 % (11/06/23 9:14 PM) 94 % (11/06/23 7:00 PM) Pulse Rate [55-90 bpm] 50 bpm *L* (11/07/23 10:00 AM) 50 bpm *L* (11/07/23 8:17 AM) 61 bpm (11/06/23 9:14 PM) Blood Pressure [90-138/55-84 mm Hg] 143/55mm Hg *H* (11/07/23 10:00 AM) 143/55mm Hg *H* (11/07/23 8:17 AM) 152/62mm Hg *H* (11/06/23 9:14 PM) Respiratory Rate [16-30 br/min] 18 br/min (11/07/23 8:17 AM) 19 br/min (11/06/23 9:14 PM) 19 br/min (11/06/23 7:00 PM) Temperature [96.8-100.4 DegF] 98.3 DegF (11/07/23 8:17 AM) 98.0 DegF (11/06/23 9:14 PM) 97.5 DegF (11/06/23 7:00 PM) Liters per Minute 2 L/min (11/04/23 5:50 PM) 2 L/min (11/04/23 3:36 PM) 2 L/min (11/04/23 12:21 PM) Mode of Delivery (Oxygen) Room air (11/07/23 8:17 AM) Room air (11/06/23 9:14 PM) Room air (11/06/23 7:00 PM) Blood pressure sites Arm, right (11/07/23 8:17 AM) Arm, right (11/06/23 9:14 PM) Arm, right (11/06/23 7:00 PM) Temperature Route Oral (11/07/23 8:17 AM) Oral (11/06/23 9:14 PM) Oral (11/06/23 7:00 PM) Social History Social History Type Response Smoking Status Former smoker, quit more than 30 days ago entered on: 10/07/19 Sex Admission evaluation note * Melissa FARNSWORTH, Jamarcus Marie: PERFORM, MODIFY, MODIFY, MODIFY Event Display: Admission Note Authored Date: [id number] Patient: ??ALLY GAVIN ? Age:??83 Years?Sex:??Female?:??1940?? Chief Complaint/Reason for Consultation BIBA from c/o cough and SOB. Tested + 10 days for COVID post travel. Crackles in lungs. 88% on RA. [employer] placed on 3LNC and duonub. VSS. Productive cough. 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 She reports diagnosis of COVID 4 weeks ago and since then her cough has not improved.?? Her cough is associated with yellowish sputum. She also endorses worsening dyspnea especially on exertion in recent times. She endorses elevated temperatures at home between 100-101.??She denies any recent sick contacts, allergen exposures. She is a prior smoker between ages [age]. ?? ED course: -Vital signs stable, 98 to 100% on 2 L nasal cannula, saturating 94% on room air, afebrile -Labs with normal WBC, stable hemoglobin at 11.1, close to baseline, platelets 85, previously between 77-90, D-dimer 1.17, BMP with glucose 255, calcium 7.6, proBNP normal 214, trop 18-19 -CXR with??lower lobe and retrocardiac opacification which could represent atelectasis, pneumonia, and/or pleural effusion. -CT Angio with no evidence of pulmonary embolism.??Consolidation in the left lower lobe which couldrepresent pneumonia or atelectasis. -Received albuterol 7.5 nebulizer, ceftriaxone, azithromycin, methylprednisolone 125 mg ?? Review of Systems ROS negative except as above.?? Objective ? Vital Signs?? Temperature: 97.3 DegF (11/04/23 20:00:00) Temperature Route: Oral (11/04/23 20:00:00) Pulse Rate: 66 bpm (11/04/23 20:00:00) Respiratory Rate: 18 br/min (11/04/23 20:00:00) Systolic Blood Pressure:??144 mm Hg??High (11/04/23 20:00:00) Diastolic Blood Pressure: 55 mm Hg (11/04/23 20:00:00) Blood pressure sites: Arm, right (11/04/23 20:00:00) Mean Arterial Pressure: 82 mm Hg (11/04/23 17:50:00) Pulse Pressure: 85 mm Hg (11/04/23 17:50:00) Oxygen Saturation: 94 % (11/04/23 20:00:00) Liters per Minute: 2 L/min (11/04/23 17:50:00) Mode of Delivery (Oxygen): Room air (11/04/23 20:00:00) Early Warning Score: 7 (11/04/23 20:16:15) ? Physical Exam General: Elderly female, resting in bed, comfortable appearing, NAD HEENT: Normocephalic, atraumatic. Mucous membranes moist. EOMI, PERRLA.? Cardiac: Regular rate and rhythm. No murmurs, rubs or gallops auscultated. Normal S1 and S2 heard.? Respiratory: Coarse breath sounds.??Normal respiratory effort on room air. Abdomen: Soft, non-tender, non-distended, no visible lesions or scars.? Extremities: Upper and lower extremities are atraumatic without tenderness or deformity. No swelling or erythema. Full range of motion is noted at all joints. Skin: Skin is warm and dry without rashes, lesions or bleeding phenomenon. Neurological: AAOx3. No focal deficits. Psychiatric: Normal mood and affect. Good judgement and insight.?? Assessment/Plan Diagnoses COPD exacerbation ??(J44.1) GERD (gastroesophageal reflux disease) ??(K21.9) Mood disorder ??(F39) NAFLD (nonalcoholic fatty liver disease) ??(K76.0) Pneumonia ??(J18.9) ?? Assessment:??83-year-old female with past medical history of COPD, not on home oxygen, decompensated NAFLD cirrhosis with variceal bleed status post EV BL in 2020 and ascites, prediabetes, obesity, mood disorder, who is admitted for COPD exacerbation and PNA.? COPD exacerbation (J44.1) ?Grouped with??Pneumonia (J18.9) ? History of COPD,??not on home oxygen, presenting with worsening dyspnea, cough with yellow sputum, subjective fevers at home, VSS and saturating on RA with normal WBC. CXR lower lobe consolidation concerning for PNA. Given increased dyspnea, sputum volume, concern for COPD exacerbation.? Plan: -Ceftriaxone 1g daily and Azithromycin 500mg daily (total 1500mg) -Strep Pneumonia and Legionella testing -Prednisone 40mg daily x5 days -Duo-Nebs q4 -Hold home inhaler Combivent?? -Monitor fever/WBC curve? NAFLD (nonalcoholic fatty liver disease) (K76.0):??Decompensated NAFLD cirrhosis, on??Spironolactone 50mg, Lasix 20mg, Nadolol 20mg for??secondary variceal prophylaxis, history of??variceal bleed status post EVBL in 2020. Continue home regimen.? GERD (gastroesophageal reflux disease) (K21.9):??Resume Pantoprazole in place of home Omeprazole? Mood disorder (F39):??C/w home Sertraline 50mg ?? Quality Measures: VTE Prophylaxis:??Enoxaparin ?VTE Prophylaxis Assessment:??VTE Prophylaxis Ordered Discharge Planning:??Likely home?? Ongoing Medical Necessity:??Improving respiratory status?? Code Status:??Full ?Order Code Status:??Code Status Ordered ?? Patient seen and discussed with ??Reilly ?? Jamarcus Torres M.D PGY II Internal Medicine? Histories Allergies Allergies ?(Active and Proposed Allergies Only) Augmentin? (Severity: Unknown severity, Onset: Unknown) ?Reactions: rash/hives ? Past Medical History/Problem List Active Problems(5) Erosive gastritis & duodentitis Esophageal varices with bleeding CHA Cirrhosis Obese class I Prediabetes ? Past Surgical History EGD - esophagogastroduodenoscopy: 08/20/23 Esophagogastroduodenoscopy: 09/02/22 Esophagogastroduodenoscopy: 05/29/22 Esophagogastroduodenoscopy: 11/08/20 Esophagogastroduodenoscopy: 03/29/20 Esophagogastroduodenoscopy and banding of esophageal varices: 01/03/20 Esophagogastroduodenoscopy and banding of esophageal varices: 11/01/19 Esophagogastroduodenoscopy and banding of esophageal varices: 10/08/19 ? Social History Alcohol Details:??Use: Current. ??Frequency: 1-2 times per month. Tobacco Details:??Use: Former smoker, quit more than 30 days ago. ? Family History CVD in father, no siblings ? Medications Home Medications Albuterol/Ipratropium (Combivent Respimat 20 mcg-100 mcg/inh inhalation aerosol)?1?puff(s)?Inhalation?4 times a day Fluticasone Nasal (Flonase 50 mcg/inh nasal spray)?Daily Furosemide (furosemide 20 mg oral tablet)?20?Milligram?1?tablet?By Mouth?Daily?for 30?Days Nadolol (nadolol 20 mg oral tablet)?20?Milligram?1?tablet?By Mouth?Daily Omeprazole (omeprazole 20 mg oral enteric coated capsule)?1?capsule?20?Milligram?By Mouth?Daily Sertraline (sertraline 25 mg oral tablet)?2?tab(s)?50?Milligram Spironolactone (spironolactone 50 mg oral tablet)?1?tab(s)?50?Milligram?By Mouth?Daily?for 30?Days ? Inpatient Medications Medications (18) Active SCHEDULED: (9) Albuterol/Ipratropium Inhalation Marie 3mL (Duoneb Inhalation Solution) ??1 vials, BAND Nebulizer, 4 times a day Fluticasone Propionate 50mcg/inh Nasal [place] (fluticasone 50 mcg/inh nasal spray) ??50 mcg 1 sprays, Nares, Both, Daily Furosemide 20 mg Tablet (furosemide 20 mg oral tablet) ??20 mg, By Mouth, Daily Insulin Lispro 100 units/mL Inj (Insulin LISPRO Sliding Scale) ??2-10 units, Subcutaneous Injection, 3 times a day before meals NaCl 0.9% Flush 3ml (NaCL 0.9% Flush) ??3 mL, IV Push, Every 8 hours Nadolol 20 mg Tablet (nadolol 20 mg oral tablet) ??20 mg, By Mouth, Daily Pantoprazole 40 mg EC Tablet (pantoprazole 40 mg oral delayed release tablet) ??40 mg, By Mouth, Daily Sertraline 50 mg Tablet (sertraline 25 mg oral tablet) ??50 mg, By Mouth, Daily Spironolactone 25 mg Tablet (spironolactone 25 mg oral tablet) ??50 mg, By Mouth, Daily CONTINUOUS: (0) PRN: (9) Acetaminophen 325 mg Tablet (Acetaminophen Tablet) ??650 mg, By Mouth, Every 4 hours Albuterol/Ipratropium Inhalation Marie 3mL (Duoneb Inhalation Solution) ??1 vials, BAND Nebulizer, Every 4 hours Dextromethorphan-Guaifenesin 20 mg-200 mg/10 mL Liqu UD (Robitussin DM Liquid) ??10 mL, By Mouth, Every 4 hours Docusate Sodium 100 mg Capsule (Docusate Sodium Capsule) ??100 mg 1 capsule, By Mouth, 2 times a day Melatonin 3 mg Tablet (Melatonin Tablet) ??3 mg, By Mouth, Daily at bedtime NaCl 0.9% Flush 3ml (NaCL 0.9% Flush) ??3 mL, IV Push, Every 8 hours Polyethylene Glycol 17 Gm Powder (MiraLax Powder) ??17 Gm 1 pack/packet, By Mouth, Daily Senna Tablet ??8.6 mg 1 tablet, By Mouth, 2 times a day Simethicone 80 mg Chewable Tablet (Simethicone Tablet) ??80 mg, Chew, 3 times a day ? Results Recent Labs BLOOD COUNT & DIFF WBC 7.0 k/mm3 ()?? 11/04/2023 12:25 RBC 3.87 m/mm3 (Low)?? 11/04/2023 12:25 Hgb 11.1 Gm/dL (Low)?? 11/04/2023 12:25 Hct 34.1 % (Low)?? 11/04/2023 12:25 MCV 88.1 femtoliters ()?? 11/04/2023 12:25 MCH 28.7 pg ()?? 11/04/2023 12:25 MCHC 32.6 g/dL (Low)?? 11/04/2023 12:25 Platelet Count 85 k/mm3 (Low)?? 11/04/2023 12:25 RDW-SD 46.0 femtoliters ()?? 11/04/2023 12:25 MPV 12.7 femtoliters (High)?? 11/04/2023 12:25 Nucleated RBC (Automated) 0.0 #/100 WBC'S ()?? 11/04/2023 12:25 Abs. NRBC 0.0 k/mm3 ()?? 11/04/2023 12:25 Abs. Neut 5.2 k/mm3 ()?? 11/04/2023 12:25 Abs. Lymph 0.6 k/mm3 (Low)?? 11/04/2023 12:25 Abs. Rhea 1.0 k/mm3 (High)?? 11/04/2023 12:25 Abs. Eo 0.2 k/mm3 ()?? 11/04/2023 12:25 Abs. Baso 0.0 k/mm3 ()?? 11/04/2023 12:25 Neut % 74.4 % ()?? 11/04/2023 12:25 Lymph % 8.9 % (Low)?? 11/04/2023 12:25 Rhea % 13.9 % (High)?? 11/04/2023 12:25 Eos % 2.1 % ()?? 11/04/2023 12:25 Baso % 0.3 % ()?? 11/04/2023 12:25 Imm Gran 0.4 % ()?? 11/04/2023 12:25 Abs. Imm Gran 0.0 k/mm3 ()?? 11/04/2023 12:25 ?? CARDIAC Nt-Probnp 214 pg/mL ()?? 11/04/2023 12:25 High Sensitivity Troponin (HSTnT) 19 ng/L (High)?? 11/04/2023 14:56 ?? CHEM GENERAL Sodium 137 mmol/L ()?? 11/04/2023 12:25 Potassium 3.7 mmol/L ()?? 11/04/2023 12:25 Chloride 105 mmol/L ()?? 11/04/2023 12:25 Bicarbonate Level 21 mmol/L (Low)?? 11/04/2023 12:25 Anion Gap 11 ()?? 11/04/2023 12:25 Glucose Level 255 mg/dL (High)?? 11/04/2023 12:25 BUN 17 mg/dL ()?? 11/04/2023 12:25 Creatinine-Blood 0.84 mg/dL ()?? 11/04/2023 12:25 Estimated GFR Creatinine 68 ML/MIN/1.73 M2 ()?? 11/04/2023 12:25 Calcium 7.6 mg/dL (Low)?? 11/04/2023 12:25 Albumin 3.4 Gm/dL ()?? 11/04/2023 12:25 ?? COAG D-Dimer 1.17 mg/L FEU (High)?? 11/04/2023 15:37 ?? HEME OTHER Hold Blue Top SPECIMEN DISCARDED AFTER 4 HOURS. ()?? 11/04/2023 12:25 ? * Freddie Reilly MD: PERFORM Event Display: Admission Note Authored Date: [id number] Attending Attestation: I have seen and evaluated this patient.?? I have discussed the case and its management with the resident and agree with the findings and mally documented in the resident's note.?? I?? will continue to provide care to this patient till 7 AMof the admitting date.? 83-year-old female with a past medical history of Cha, cirrhosis of liver, clavicular fracture, prediabetes, COPD, recent infection with COVID-19 came with a complaint of shortness of breath and hypoxia required oxygen.?? Lab workup showed chronic anemia with thrombocytopenia but stable hemoglobinwith slightly high troponin but flat.?? D-dimer was high.?? CT angiogram ruled out pulmonary embolism but showed consolidation of left lower lobe.?? We will treat her for community-acquired pneumonia.?? Will get urine for Legionella antigen, streptococcal antigen.?? Patient is also given IV Solu-Medrol for COPD exacerbation.?Will continue with the prednisone and nebulizer treatment. EKG study * Event Display: ECG 12-Lead Authored Date: Please click on pdf link to open report * Event Display: ECG 12-Lead Authored Date: Ventricular Rate: 62 BPM Atrial Rate: 62 BPM P-R Interval: 282 ms QRS Duration: 86 ms Q-T Interval: 422 ms QTC Calculation(Bazett): 428 ms P [place]yce: 51 degrees R [place]yce: -18 degrees T [place]: 11 degrees Sinus rhythm with 1st degree A-V block Moderate voltage criteria for LVH, may be normal variant ( R in aVL , What Cheer product ) Cannot rule out Anterior infarct , age undetermined Abnormal ECG When compared with ECG of 15-AUG-2008 15:22, Minimal criteria for Anterior infarct are now Present Confirmed by JESSICA PARK MD ([id number]) on 11/04/2023 4:57:12 PM [place]: [facility] * Anne Becker RN: PERFORM, SIGN, VERIFY Event Display: [facility] Authored Date: Patient: ALLY GAVIN Age: 83 years Sex: Female : 1940 Associated Diagnoses: None Author: Anne Becker RN Findings Problem Related to Alteration in Respiratory Function (new) : Alteration in Respiratory Function/new 11/07/2023 12:00 EDT Alteration in Resp Status Related to COPD, Pneumonia Goals & Outcomes, Respiratory Pt will maintain/resume baseline physical assessment, Pt will notdevelop complications r/t mechanical ventilation, Pt will maintain adequate nutritional intake, Pt will maintain/resume normal fluid/electrolyte balance, Pt will not develop complications r/t immobility, Pt will demonstrate proper technique w/self care procedures, Met Goals/Outcomes Interventions, Respiratory Assess for and report S&S of respiratory distress, Position for comfort & optimal oxygenation, Monitor sputum color & consistency. Report changes to MD ARREGUIN Goals/Interventions, Respiratory Yes Respiratory, Problem Start 11/04/2023 20:15 Reviewed Plan with, Respiratory Patient Patient Progression, Respiratory Patient progressing according to plan . Nursing Data Vital Signs : VITAL SIGNS SECTION 11/07/2023 8:17 EDT Temperature 98.3 DegF Temperature Route Oral Pulse Rate 50 bpm L Respiratory Rate 18 br/min Systolic Blood Pressure 143 mm Hg H Diastolic Blood Pressure 55 mm Hg Blood pressure sites Arm, right Mean Arterial Pressure 84 mm Hg Pulse Pressure 88 mm Hg Oxygen Saturation 97 % Mode of Delivery (Oxygen) Room air . Narrative/Incidental Patient alert and oriented x 3, occasional productive cough with thick, yellow sputum, patient offered cough medication but refused, taking pills whole with water, denies pain, getting respiratory treatments as ordered with positive effect. POCs today were 132 at breakfast and 163 at lunch, coveredwith 2 units insulin per sliding scale as ordered. 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 Discharge Information Case Management Discharge Plan : Case Management Discharge Plan Data 11/07/2023 17:30 EDT Discharge Level of Care at Discharge Home/Assisted/Foster Care * Elisabet Killian RN: PERFORM, SIGN, VERIFY Event Display: Progress Note Hospital Authored Date: Patient: ALLY GAVIN Age: 83 years Sex: Female : 1940 Associated Diagnoses: None Author: Elisabet Killian RN Findings Problem Related to Alteration in Respiratory Function (new) : Alteration in Respiratory Function/new 11/06/2023 15:00 EDT Alteration in Resp Status Related to COPD, Pneumonia Goals & Outcomes, Respiratory Pt will maintain/resume baseline physical assessment, Pt will notdevelop complications r/t mechanical ventilation, Pt will maintain adequate nutritional intake, Pt will maintain/resume normal fluid/electrolyte balance, Pt will not develop complications r/t immobility, Pt will demonstrate proper technique w/self care procedures, Met Goals/Outcomes Interventions, Respiratory Assess/monitor tolerance to IV infusions; verify rate/dose, Assess for and report S&S of respiratory distress, Monitor sputum color & consistency. Report changes toMD, Teach the proper use of inhalers Goals/Interventions, Respiratory Yes Respiratory, Problem Start 11/04/2023 20:15 Reviewed Plan with, Respiratory Patient Patient Progression, Respiratory Patient progressing according to plan . Falls Risk Assessment : Falls Data 11/06/2023 18:50 EDT Fall Elimination No impairment Fall Agitation/Anxiety/Depression No impairment Fall Related Sign/Symptom/Condition None Fall Cognitive Limitations No impairment Fall Sensory and Physical Function Weak Plan: Fall Sensory and Physical Function Encourage safe activities to maintain strength & mobility, Perform strengthening exercises with the patient, Ensure patient has & wears eyeglasses/hearing aids Fall High Risk for Injury On Coumadin, IV Heparin, or Lovenox Total Falls Risk Score 5 Fall Risk Level High Risk Falls Prevention Plan for High Risk Fall risk decal outside of patient's room, Apply yellow high fall risk wrist band to wrist, Ensure patient has yellow non- skid slippers, Evaluate footwear & ensure patient has non-skid slippers, Bed in lowest locked position, Provide patient/family falls prevention education, Place personal care items & call hoffman within reach, Check that needs are met to minimize attempts to get up, Hourly rounds, Ensure safe & uncluttered environment, Communicatefalls risk to all providers . Nursing Data Vital Signs : VITAL SIGNS SECTION 11/06/2023 7:08 EDT Early Warning Score 5.00 11/06/2023 7:08 EDT Temperature 97.9 DegF Temperature Route Oral Pulse Rate 54 bpm L Respiratory Rate 17 br/min Systolic Blood Pressure 122 mm Hg Diastolic Blood Pressure 63 mm Hg Blood pressure sites Arm, right Mean Arterial Pressure 83 mm Hg Pulse Pressure 59 mm Hg Oxygen Saturation 97 % Mode of Delivery (Oxygen) Room air . Evaluation Pt alert, orientedx4, pleasant, compliant with meds/assessments, verbalizes needs, independent in room without assistive device. Denies SOB, no s/sx resp. distress repoorted/observed. Safety maintained. Nursing and collaborative care continues.... * Clovis Adkins DO: PERFORM Event Display: Progress Note Hospital Authored Date: [id number] Patient: ??ALLY GAVIN ? Age:??83 Years?Sex:??Female?:??1940?? Subjective No acute events overnight. ?? Patient was seen at bedside this morning she told me that she had a tough night due to??coughing up??a lot of sputum. ??Otherwise she tells me that she feels okay. ??She denies any chest pain, shortness of breath, abdominal pain, issues going to the bathroom.?? Of note she did have a bump in her creatinine from 0.86-1.06. Review of Systems A full review of systems was completed and is otherwise negative except as mentioned in history of present illness. Allergies Allergies ?(Active and Proposed Allergies Only) Augmentin? (Severity: Unknown severity, Onset: Unknown) ?Reactions: rash/hives ? Objective Vital Signs?? Temperature: 97.9 DegF (11/06/23 07:08:00) Temperature Route: Oral (11/06/23 07:08:00) Pulse Rate: 60 bpm (11/06/23 08:52:00) Respiratory Rate: 17 br/min (11/06/23 07:08:00) Systolic Blood Pressure: 122 mm Hg (11/06/23 08:52:00) Diastolic Blood Pressure: 63 mm Hg (11/06/23 08:52:00) Blood pressure sites: Arm, right (11/06/23 07:08:00) Mean Arterial Pressure: 83 mm Hg (11/06/23 07:08:00) Pulse Pressure: 59 mm Hg (11/06/23 07:08:00) Oxygen Saturation: 97 % (11/06/23 07:08:00) Mode of Delivery (Oxygen): Room air (11/06/23 07:08:00) Early Warning Score: 5 (11/06/23 16:57:21) ? Intake/Output? 11/03 17:47 11/05 07:00 11/04 07:00 11/03 07:00 11/02 07:00 ?? 11/05 17:28 11/05 17:28 11/05 06:59 11/04 06:59 11/03 06:59 Intake ?120 ?120 ?0 ?0 ?0 Output ?0 ?0 ?0 ?0 ?0 Net Total ?120 ?120 ?0 ?0 ?0 ? Urine Count ?5 ?0 ?2 ?3 ?0 ? Physical Exam General: No acute distress, sitting up in bed CV: RRR S1 S2 present. No murmurs, gallops, rubs appreciated. No JVD. No edema. Respiratory: All ford clear to auscultation bilaterally. No wheezes, rales, rhonchi appreciated, Mild productive Cough Abdominal: Soft, nontender. No rebound tenderness. Bowel sounds noted all four quadrants. : No suprapubic tenderness. Neuro: A&OX3. Moving upper and lower extremities. No gross neurological deficits Psych: Affect appropriate Skin: No acute lesions, wounds, rashes. _ Inpatient Medications Medications (26) Active SCHEDULED: (12) Albuterol/Ipratropium Inhalation Marie 3mL (Duoneb Inhalation Solution) ??1 vials, BAND Nebulizer, 4 times a day Ceftriaxone 1 Gm Inj (Ceftriaxone Inj) ??1 Gm, IVPB, Every 24 hours Enoxaparin 40 mg Inj (Enoxaparin Inj) ??40 mg 0.4 mL, Subcutaneous Injection, Daily Fluticasone Propionate 50mcg/inh Nasal [place] (fluticasone 50 mcg/inh nasal spray) ??50 mcg 1 sprays, Nares, Both, Daily Furosemide 20 mg Tablet (furosemide 20 mg oral tablet) ??20 mg, By Mouth, Daily Insulin Lispro 100 units/mL Inj (Insulin LISPRO Sliding Scale) ??2-10 units, Subcutaneous Injection, 3 times a day before meals NaCl 0.9% Flush 3ml (NaCL 0.9% Flush) ??3 mL, IV Push, Every 8 hours Nadolol 20 mg Tablet (nadolol 20 mg oral tablet) ??20 mg, By Mouth, Daily Pantoprazole 40 mg EC Tablet (pantoprazole 40 mg oral delayed release tablet) ??40 mg, By Mouth, Daily PredniSONE 20 mg Tablet (predniSONE 20 mg oral tablet) ??40 mg, By Mouth, Daily Sertraline 50 mg Tablet (sertraline 25 mg oral tablet) ??50 mg, By Mouth, Daily Spironolactone 25 mg Tablet (spironolactone 25 mg oral tablet) ??50 mg, By Mouth, Daily CONTINUOUS: (0) PRN: (14) Acetaminophen 325 mg Tablet (Acetaminophen Tablet) ??650 mg, By Mouth, Every 4 hours Albuterol/Ipratropium Inhalation Marie 3mL (Duoneb Inhalation Solution) ??1 vials, BAND Nebulizer, Every 4 hours Dextromethorphan-Guaifenesin 20 mg-200 mg/10 mL Liqu UD (Robitussin DM Liquid) ??10 mL, By Mouth, Every 4 hours Dextrose Inj Syringe (Dextrose 50% Inj Syringe (25Gm)) ??12.5 Gm, IV Push Slowly, Every 20 minutes Dextrose Inj Syringe (Dextrose 50% Inj Syringe (25Gm)) ??25 Gm, IV Push Slowly, Every 15 minutes Docusate Sodium 100 mg Capsule (Docusate Sodium Capsule) ??100 mg 1 capsule, By Mouth, 2 times a day Glucagon 1 mg Inj (Glucagon Inj) ??1 mg, Intramuscular, Once Glucose 40% Gel (15 Gm) (Glucose Gel) ??15 Gm, By Mouth, Every 20 minutes Glucose 40% Gel (15 Gm) (Glucose Gel) ??30 Gm, By Mouth, Every 20 minutes Melatonin 3 mg Tablet (Melatonin Tablet) ??3 mg, By Mouth, Daily at bedtime NaCl 0.9% Flush 3ml (NaCL 0.9% Flush) ??3 mL, IV Push, Every 8 hours Polyethylene Glycol 17 Gm Powder (MiraLax Powder) ??17 Gm 1 pack/packet, By Mouth, Daily Senna Tablet ??8.6 mg 1 tablet, By Mouth, 2 times a day Simethicone 80 mg Chewable Tablet (Simethicone Tablet) ??80 mg, Chew, 3 times a day ? 72 Hour Antibiotic History Active Antibiotics Calendar Day Last Administered First Administered Ceftriaxone??1 Gm, 100 mL/hr, IVPB, Every 24 hours ?2 11/06/2023 15:56 11/05/2023 16:45 ? Stopped Antibiotics Stop Date/Time Last Administered First Administered Azithromycin??500 mg, By Mouth, Once 11/06/2023 12:42 11/06/2023 12:40 11/06/2023 12:40 Azithromycin??500 mg, 250 mL/hr, IVPB, Every 24 hours 11/06/2023 08:55 11/05/2023 12:15 11/05/2023 12:15 Ceftriaxone??1 Gm, 100 mL/hr, IVPB, Once 11/04/2023 15:36 11/04/2023 15:36 11/04/2023 15:36 Azithromycin??500 mg, 250 mL/hr, IVPB, Once 11/04/2023 14:48 11/04/2023 14:48 11/04/2023 14:48 ? Results Recent Labs BLOOD COUNT & DIFF WBC 7.0 k/mm3 ()?? 11/06/2023 04:24 RBC 3.75 m/mm3 (Low)?? 11/06/2023 04:24 Hgb 10.8 Gm/dL (Low)?? 11/06/2023 04:24 Hct 33.1 % (Low)?? 11/06/2023 04:24 MCV 88.3 femtoliters ()?? 11/06/2023 04:24 MCH 28.8 pg ()?? 11/06/2023 04:24 MCHC 32.6 g/dL (Low)?? 11/06/2023 04:24 Platelet Count 93 k/mm3 (Low)?? 11/06/2023 04:24 RDW-SD 45.2 femtoliters ()?? 11/06/2023 04:24 MPV 12.9 femtoliters (High)?? 11/06/2023 04:24 Nucleated RBC (Automated) 0.0 #/100 WBC'S ()?? 11/06/2023 04:24 Abs. NRBC 0.0 k/mm3 ()?? 11/06/2023 04:24 ?? CHEM GENERAL Sodium 138 mmol/L ()?? 11/06/2023 04:26 Potassium 4.5 mmol/L ()?? 11/06/2023 04:26 Chloride 106 mmol/L ()?? 11/06/2023 04:26 Bicarbonate Level 23 mmol/L ()?? 11/06/2023 04:26 Anion Gap 9 ()?? 11/06/2023 04:26 Glucose Level 186 mg/dL (High)?? 11/06/2023 04:26 Glucose, POC 202 mg/dL (High)?? 11/06/2023 16:45 Hemoglobin A1C (Monitoring) 6.5 % (High)?? 11/05/2023 05:39 BUN 28 mg/dL (High)?? 11/06/2023 04:26 Creatinine-Blood 1.06 mg/dL (High)?? 11/06/2023 04:26 Estimated GFR Creatinine 51 ML/MIN/1.73 M2 ()?? 11/06/2023 04:26 Calcium 8.4 mg/dL (Low)?? 11/06/2023 04:26 Albumin 3.4 Gm/dL ()?? 11/04/2023 12:25 ?? SEROLOGY INF DISEASE Mycoplasma pneumoniae, IgM <770 ()?? 11/05/2023 05:39 ? Abnormal Labs ?? BLOOD COUNT & DIFF Abs. NRBC?0.0 k/mm3 ()?11/06/2023 04:24 Hct?33.1 % (Low)?11/06/2023 04:24 Hgb?10.8 Gm/dL (Low)?11/06/2023 04:24 MCHC?32.6 g/dL (Low)?11/06/2023 04:24 MPV?12.9 femtoliters (High)?11/06/2023 04:24 Nucleated RBC (Automated)?0.0 #/100 WBC'S ()?11/06/2023 04:24 Platelet Count?93 k/mm3 (Low)?11/06/2023 04:24 RBC?3.75 m/mm3 (Low)?11/06/2023 04:24 RDW-SD?45.2 femtoliters ()?11/06/2023 04:24 ?? CHEM GENERAL BUN?28 mg/dL (High)?11/06/2023 04:26 Calcium?8.4 mg/dL (Low)?11/06/2023 04:26 Creatinine-Blood?1.06 mg/dL (High)?11/06/2023 04:26 Estimated GFR Creatinine?51 ML/MIN/1.73 M2 ()?11/06/2023 04:26 Glucose Level?186 mg/dL (High)?11/06/2023 04:26 Glucose, POC?202 mg/dL (High)?11/06/2023 16:45 ?? Note: Critical results are displayed in red. ? Urinalysis?? No qualifying data available. ? Assessment/Plan Diagnoses COPD exacerbation ??(J44.1) GERD (gastroesophageal reflux disease) ??(K21.9) Mood disorder ??(F39) NAFLD (nonalcoholic fatty liver disease) ??(K76.0) Pneumonia ??(J18.9) ?? 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 COPD exacerbation (J44.1) - improving ?Grouped with??Pneumonia (J18.9) ? History of COPD,??not on home oxygen, presenting with worsening dyspnea, cough with yellow sputum, subjective fevers at home, VSS and saturating on RA with normal WBC. CXR lower lobe consolidation concerning for PNA. Given increased dyspnea, sputum volume, concern for COPD exacerbation.? Plan: -Stop ceftriaxone, started cefpodoxime 200 mg twice daily tomorrow. ??She would likely have the first dose??prior to discharge??and would just need 3 pills??on getting discharged. -??Azithromycin 500mg daily ( last dose 11/05)???completed -Prednisone 40mg daily x5 days, last dose 11/07 -Duo-Nebs q4 -Acapella -Hold home inhaler Combivent?? -Monitor fever/WBC curve?? -Should call pulm rehab about getting enrolled in study for patients with COPD??if she is interested in outpatient pulm rehab therapy. ?? Worsening creatinine Not acute kidney injury by definition only went up by 0.2, no decrease in urine output. Plan: ??? Gave 250 cc bolus fluids today, encourage oral intake ?Will repeat BMP tomorrow morning ?? Pre-Diabetes Last A1C??08/2022 ago was 6.4% Has had very elevated sugars while in hospital Repeat A1c 6.5% plan: -Follow-up with primary care outpatient for diabetes management - SS lispro with meals, POC checks - hypoglycemic measures in place ?? NAFLD (nonalcoholic fatty liver disease) (K76.0):?? history of??variceal bleed status post EVBL in 2020. Decompensated NAFLD cirrhosis, plan: continue on??Spironolactone 50mg, Lasix 20mg, Nadolol 20mg for??secondary variceal prophylaxis, ?? GERD (gastroesophageal reflux disease) (K21.9):??Resume Pantoprazole in place of home Omeprazole?? Mood disorder (F39):??C/w home Sertraline 50mg ?? Quality Measures Code Status: Full Diet:??Diabetic diet DVT prophylaxis:??Lovenox HCP/Family Update:??Family was updated at bedside Anticipate discharge tomorrow 11/06. ??She will be discharged with??cefpodoxime,??prednisone. ?? Patient seen and discussed with Dr. Teo Adkins, DO Internal Medicine PGY2 ? * Piper Bruce MD: PERFORM Event Display: Progress Note Hospital Authored Date: [id number] Attending Attestation:??I have seen and examined this patient on date of service. ??I have discussed the case and its management with the resident and agree with the findings and plan as documented in the resident???s note. Note * Anne Becker RN: PERFORM Event Display: Discharge/Transfer Note Hospital Authored Date: [id number] Nursing Discharge Note Entered On: 11/07/2023 17:31 EDT Performed On: 11/07/2023 17:30 EDT by Anne Becker RN Nursing Discharge Note 2 Discharge Time : 11/07/2023 15:30 EDT Discharge Level of Care at Discharge : Home/Assisted/Foster Care Patient Left Unit Via : Wheelchair Patient Accompanied Off Unit with : Significant other, Other: daughter and transport staff DC Instructions Provided & Signed by Pt : Yes Patient Understands D/C Instructions : Yes Patient Instructions Discharge Signed : Yes Did Pt have Specialty Bed or Wound Vac : No Anne Becker RN - 11/07/2023 17:30 EDT * Jamarcus Rees MD: PERFORM Event Display: Discharge/Transfer Note Hospital Authored Date: [id number] Patient: ??ALLY GAVIN ? Age:??83 Years?Sex:??Female?:??1940?? Patient Information Discharge Location: A Primary Care Physician: Josephine Moreno MD Admit Date/Time: 11/04/23 17:47 Discharge Disposition Discharge Disposition: ?? Discharge Diagnosis COPD exacerbation (J44.1) Pneumonia _ Discharge Medications Albuterol/Ipratropium (Combivent Respimat 20 mcg-100 mcg/inh inhalation aerosol)?1?puff(s)?Inhalation?4 times a day Cefpodoxime (cefpodoxime 200 mg oral tablet)?200?Milligram?By Mouth?Every 12 hours?for 2?Days Fluticasone Nasal (Flonase 50 mcg/inh nasal spray)?Daily Furosemide (furosemide 20 mg oral tablet)?20?Milligram?1?tablet?By Mouth?Daily?for 30?Days Nadolol (nadolol 20 mg oral tablet)?20?Milligram?1?tablet?By Mouth?Daily Omeprazole (omeprazole 20 mg oral enteric coated capsule)?1?capsule?20?Milligram?By Mouth?Daily PredniSONE (predniSONE 20 mg oral tablet)?40?Milligram?By Mouth?Daily?for 2?Days Sertraline (sertraline 25 mg oral tablet)?2?tab(s)?50?Milligram Spironolactone (spironolactone 50 mg oral tablet)?1?tab(s)?50?Milligram?By Mouth?Daily?for 30?Days ? Medications Started Cefpodoxime (cefpodoxime 200 mg oral tablet)?200?Milligram?By Mouth?Every 12 hours?for 2?Days PredniSONE (predniSONE 20 mg oral tablet)?40?Milligram?By Mouth?Daily?for 2?Days Medications Discontinued none Doses Changed none Allergies Allergies ?(Active and Proposed Allergies Only) Augmentin? (Severity: Unknown severity, Onset: Unknown) ?Reactions: rash/hives ? PCP Follow-Up/Heads-Up anemia low platelet Future Appointments Thursday 9:30 AM EDT ?? 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 COPD exacerbation (J44.1) - improving ?Grouped with??Pneumonia (J18.9)--organism unknown ? History of COPD,??not on home oxygen, presenting with worsening dyspnea, cough with yellow sputum, subjective fevers at home, VSS and saturating on RA with normal WBC. CXR lower lobe consolidation concerning for PNA. Given increased dyspnea, sputum volume, concern for COPD exacerbation.? Plan: -Stop ceftriaxone, started cefpodoxime 200 mg twice daily today on d/c -??Azithromycin 500mg daily ( last dose 11/05)???completed -Prednisone 40mg daily x5 days, last dose 11/07 ?? Worsening creatinine Not acute kidney injury by definition only went up by 0.2, no decrease in urine output. was given IVF--back to baseline. having good po intake ?? Pre-Diabetes/DM Last A1C??08/2022 ago was 6.4% Has had very elevated sugars while in hospital Repeat A1c 6.5% Life style modifications plan: -Follow-up with primary care outpatient for diabetes management - SS lispro with meals, POC checks - hypoglycemic measures in place ?? NAFLD (nonalcoholic fatty liver disease) (K76.0):?? history of??variceal bleed status post EVBL in 2019. Decompensated NAFLD cirrhosis, plan: continue on??Spironolactone 50mg, Lasix 20mg, Nadolol 20mg for??secondary variceal prophylaxis, ?? GERD (gastroesophageal reflux disease) (K21.9):??Resume Pantoprazole in place of home Omeprazole?? Mood disorder (F39):??C/w home Sertraline 50mg ? Today feels??much better. ??Having stable vitals. CTA BL, S1, S2 no GMR.Abd SOft, NT, BS+ve, AAO3. no pedal edema ?? Objective . Physical Exam Pending Results Add On Lab Order ordered on 11/04/2023 Add On Lab Order ordered on 11/05/2023 Add On Lab Order ordered on 11/05/2023 Legionella Antigen Urine ordered on 11/05/2023 Patient Education Titles WebMD Ignite Patient Education - Prednisone Oral Tablet?? Web[employer] Ignite Patient Education - Cefpodoxime Oral Tablet?? Web[employer]ite Patient Education - Pneumonia (Adult)?? Web[employer]ite Patient Education - COPD Flare-Up?? Follow-Up Appointments Added Follow Up ?Time Frame ?Comments Prescription has been sent to pharmacy in [facility]?1 to 2 weeks?for the follow upanemia and thrombocytopenia Post Discharge Care Discharge ?11/07/23 9:28:00 EDT Discharge Prescriptions ?ePrescribed, 11/07/23 9:28:00 EDT Home Health Face to Face ^HomeHealthFTF 35??minutes spent on discharge * Anne Becker RN: PERFORM Event Display: Patient Education/Instruction Authored Date: [id number] Inpatient Adult Discharge Instructions. [address] [address] Name: ALLY GAVIN : 1940?? Visit: 11/04/2023 17:47?? Current Date: 11/07/2023 14:42 ?? Account: [id number]?? Inpatient Adult Discharge Instructions We would like [...] and their families. Surveys are administered by [employer] ?? If further treatment with your primary care physician or another doctor is recommended, it is important for you to keep the appointment. Call your primary care physician or return to the Emergency Department immediately if your condition worsens, fails to improve, or new symptoms develop. If you need to find a doctor, you can call [facility] Link for a referral at [phone] or toll free at [phone]) or log in to [email or web address].. ?? [facility], in keeping with [facility] guidance, no longer requires face masks [...] a health care edmundo of your choosing. [employer] is a website that allows you to securely view your medical information including your hospital discharge summary, office visit summaries, medications and follow-up visits. You can also request appointments, renew medications, and request access to your medical information using a health care edmundo of your choosing, or just ask a question. You can enroll at [email or web address] or register during your next office visit. You have been discharged from [facility], Patient Care Unit: D6A??. If you have any questions regarding these instructions, including results of studies pending, afteryou leave, please call us and we will be happy to assist you 01/12. [facility] Your Care Team Attending Physician Jamarcus Rees MD?? Consulting Providers Jamarcus Rees MD?? Discharging Providers Jamarcus Rees MD Reason for Your Visit AYAKA from c/o cough and SOB. Tested + 10 days for COVID post travel. Crackles in lungs. 88% on RA. [employer] placed on 3LNC and duonub. VSS. Productive cough.?? Your Diagnosis COPD exacerbation General medical GERD (gastroesophageal reflux disease) Mood disorder NAFLD (nonalcoholic fatty liver disease) Pneumonia Shortness of breath Tests Performed Below is a partial list of the tests performed during your hospitalization. You may have had other tests and procedures not included in this list. Please discuss all test results with your provider. ALBUMIN Basic Metabolic Panel CBC CBC w/ Differential D Dimer GLUCOSE POC HEMOGLOBIN A1C High??Sensitivity??Troponin T Hold Blue Top Tube Mycoplasma pneumoniae IgM ProBNP CT Angio Chest XR Chest 2 Views Frontal and Lat Add On Lab Order?? Legionella Antigen Urine?? Primary Care Provider Josephine Moreno MD? Advance Directive Health Care Proxy on File Yes - Health Care Proxy Discharge Vitals Temperature: 98.3 DegF Pulse Rate:??50 bpm??Low Respiratory Rate: 18 br/min Systolic Blood Pressure:??143 mm Hg??High Diastolic Blood Pressure: 55 mm Hg Oxygen Saturation: 97 % Studies Pending All studies ordered during this hospital stay have been completed unless listed below. Please discuss all pending results with your provider listed above in these instructions. ?? Add On Lab Order?? Legionella Antigen Urine?? What to do next Instructions From Your Doctor ?? Orders? 11/07/23 9:28:00 EDT?? Prescriptions??, ??11/07/23 9:28:00 EDT?? Scheduled Follow-Up Appointments Thursday 9:30 AM EDT ?? [facility] [address] [place] [address], [address] [place] [address]- Status: Pending You Need to Schedule the Following Appointments Follow Up with??Josephine Moreno When:??Within 1 to 2 weeks Why: for the follow up anemia and thrombocytopenia DM as your HB1c is 6.5 Where: [address] [facility] [place] [address]- Business (1) Follow Up with??Prescription has been sent to pharmacy in [facility] Discharge Medications ALLY GAVIN :1940 Visit Date:11/04/2023 Medications: Please continue your medications until treatment is completed or stopped by your provider. Medications not listed below should be discontinued. Discuss any questions related to medications with your provider. What How Much When Instructions Next Dose New Cefpodoxime (cefpodoxime 200 mg oral tablet) 200 Milligram Oral Every 12 hours Duration: 2 Days Pickup at [facility] 3 11/06 at 0700 pm New PredniSONE (predniSONE 20 mg oral tablet) 40 Milligram Oral Daily Duration: 2 Days Pickup at [facility] 3 11/07 at 0900 am Unchanged Albuterol/ Ipratropium (Combivent Respimat 20 mcg-100 mcg/ inh inhalation aerosol) 1 puff(s) Inhalation 4 times a day 11/06 at 0500 pm Unchanged Fluticasone Nasal (Flonase 50 mcg/ inh nasal spray) Daily 11/07 at 0900 am Unchanged Furosemide (furosemide 20 mg oral tablet) 1 tab(s) Oral Daily Duration: 30 Days 11/07 at 0900 am Unchanged Nadolol (nadolol 20 mg oral tablet) 1 tab(s) Oral Daily 11/07 at 0900 am Unchanged Omeprazole (omeprazole 20 mg oral enteric coated capsule) 1 capsule Oral Daily 11/07 at 0900 am Unchanged Sertraline (sertraline 25 mg oral tablet) 2 tab(s) 11/07 at 0900 am Unchanged Spironolactone (spironolactone 50 mg oral tablet) 1 tab(s) Oral Daily Duration: 30 Days 11/07 at 0900 am Pharmacy Information [facility] 3: [address], [place] [id number] [phone] ?? What When Comments Stop Taking umeclidinium-vilanterol (Anoro Ellipta 62.5 mcg-25 mcg/ inh inhalation powder) USE 1 INHALATION DAILY ?? Prescription Given During Visit Cefpodoxime (cefpodoxime 200 mg oral tablet) - 200 mg, By Mouth, Every 12 hours, # 4 tablet, 0 Refills, [facility], [address] [place] [phone]?? PredniSONE (predniSONE 20 mg oral tablet) - 40 mg, By Mouth, Daily, # 4 tablet, 0 Refills, [facility], [address] [place] [address] [phone]?? Laboratory Results Below is a partial list of the most recent Laboratory test results done prior to this discharge. You may have had other tests and procedures not included in this list. Please discuss all test resultswith your provider. ALBUMIN (11/04/2023) ???Albumin - 3.4 Gm/dL Basic Metabolic Panel (11/07/2023) ???Sodium - 140 mmol/L???Potassium - 4.2 mmol/L???Chloride - 108 mmol/L???Bicarbonate Level - 22 mmol/L???Anion Gap - 10???Glucose Level - 133 mg/dL???BUN - 25 mg/dL???Creatinine-Blood - 0.87 mg/dL???Estimated GFR Creatinine - 65 ML/MIN/1.73 M2???Calcium - 8.4 mg/dL CBC (11/06/2023) ???WBC - 7.0 k/mm3???RBC - 3.75 m/mm3???Hgb - 10.8 Gm/dL???Hct - 33.1 %???MCV - 88.3 femtoliters???MCH - 28.8 pg???MCHC - 32.6 g/dL???Platelet Count - 93 k/mm3???RDW-SD - 45.2 femtoliters???MPV - 12.9 femtoliters???Nucleated RBC (Automated) - 0.0 #/100 WBC'S???Abs. NRBC - 0.0 k/mm3 CBC w/ Differential (11/04/2023) ???WBC - 7.0 k/mm3???RBC - 3.87 m/mm3???Hgb - 11.1 Gm/dL???Hct - 34.1 %???MCV - 88.1 femtoliters???MCH - 28.7 pg???MCHC - 32.6 g/dL???Platelet Count - 85 k/mm3???RDW-SD - 46.0 femtoliters???MPV - 12.7 femtoliters???Nucleated RBC (Automated) - 0.0 #/100 WBC'S???Abs. NRBC - 0.0 k/mm3???Abs. Neut - 5.2 k/mm3???Abs. Lymph - 0.6 k/mm3???Abs. Rhea - 1.0 k/mm3???Abs. Eo - 0.2 k/mm3???Abs. Baso - 0.0 k/mm3???Neut % - 74.4 %???Lymph % - 8.9 %???Rhea % - 13.9 %???Eos % - 2.1 %???Baso % - 0.3 %???Imm Gran- 0.4 %???Abs. Imm Gran - 0.0 k/mm3 D Dimer (11/04/2023) ???D-Dimer - 1.17 mg/L FEU GLUCOSE POC (11/07/2023) ???Glucose, POC - 163 mg/dL HEMOGLOBIN A1C (11/05/2023) ???Hemoglobin A1C (Monitoring) - 6.5 % High??Sensitivity??Troponin T (11/04/2023) ???High Sensitivity Troponin (HSTnT) - 19 ng/L Hold Blue Top Tube (11/04/2023) ???Hold Blue Top - SPECIMEN DISCARDED AFTER 4 HOURS. Mycoplasma pneumoniae IgM (11/05/2023) ? ?Mycoplasma pneumoniae, IgM - <770 ProBNP (11/04/2023) ???Nt-Probnp - 214 pg/mL Allergies (NKA means No Known Allergies) Augmentin??(rash/hives) Problems Active Problems??(5) Erosive gastritis & duodentitis?? Esophageal varices with bleeding?? CHA Cirrhosis?? Obese class I?? Prediabetes?? Education Materials Below is the list of Educational Leaflet Providered with your Discharge Instructions. Web[employer] Ignite Patient Education - Prednisone Oral Tablet?? [employer] Ignite Patient Education - Cefpodoxime Oral Tablet?? [employer]ite Patient Education - Pneumonia (Adult)?? WebMD Ignite Patient Education - COPD Flare-Up?? Valuables and Belongings I fully understand and agree that [facility] accepts no responsibility for all my personal [...] Review of Valuable and Belonging List: With patient, With family, With witness Date for Pt to Sign Valuables/Belongings: 11/07/23 12:44:00 ?? Other Discharge Information ? Pulmonary Rehab Status?? Pulmonary Rehab Discharge Status?? Respiratory Rate: 18 br/min ? Common Emergency Awareness Tips IS [...] are strongly encouraged to quit. Please call [facility] at [phone] or [phone] ([phone]) or log in to [email or web address] for referrals to smoking cessation programs. ?? 988 Suicide & Crisis Lifeline is available 01/12 if you or someone you know needs to find a reason to keep living. By calling 988 you'll be connected to a skilled, trained counselor at a crisis center in your area. INPATIENT DISCHARGE INSTRUCTIONS SIGNATURE PAGE ALLY GAVIN Location:[facility] Registration Date and Time:11/04/2023 17:47 EDT Primary Care Physician: Josephine Moreno MD, Attending Physician: Jamarcus Rees MD, I ROMAINE ALLY, have received the above patient education materials/instructions and have verbalized understanding. If ambulance or transport services are being used I further acknowledge being given a choice of service. ?? If you need to contact me, please call me at this number: . Patient/Reading Recovery Teacher Name: Patient/Reading Recovery Teacher Signature: Relationship to Patient: Witness Name/Signature: Date: * Jamarcus Rees MD: SIGN, PERFORM, SIGN, VERIFY Event Display: Patient Education Handout Authored Date: [id number] * Jamarcus Rees MD: PERFORM Event Display: Patient Education Leaflets Authored Date: [id number] Prednisone Oral Tablet ?? [id number] Prednisone Oral Tablet Brands: Deltasone Uses This medicine is used for the following purposes: ??? allergic reaction ??? autoimmune disorder ???blood disorder ??? endocrine disorder ??? inflammatory disease ??? immune suppression ??? cancer ??? COVID-19 (coronavirus) ?? Instructions Take the medicine with food. Store at room temperature away from heat, light, and moisture. Do not keep in the bathroom. It is important that you keep taking each dose of this medicine on time even if you are feeling well. If you forget to take a dose on time, take it as soon as you remember. If it is almost time for thenext dose, do not take the missed dose. Return to your normal schedule. Do not take 2 doses at one time. Drug interactions can change how medicines work or increase risk for side effects. Tell your healthcare providers about all medicines taken. Include prescription and azyi-pza-gulfunw medicines, vitamins, and herbal medicines. Speak with your doctor or pharmacist before starting or stopping any medicine. Tell your doctor if symptoms do not get better or if they get worse. This medicine may affect your blood sugar levels. If you have diabetes, talk to your doctor before changing the dose of your diabetes medicine. This medicine may affect the strength of your bones. If you have or are at increased risk for osteoporosis (weakening of the bones), your doctor may recommend foods with calcium and vitamin D. Keep all appointments for medical exams and tests while on this medicine. ?? Cautions Tell your doctor and pharmacist if you ever had an allergic reaction to a medicine. This medicine may cause bleeding from the stomach or bowels. Stop this medicine and call your doctor right away if you have pain in the stomach, red or dark tarry stools, or vomit that looks like coffee grounds. Do not use the medication any more than instructed. Please check with your doctor before drinking alcohol while on this medicine. Avoid smoking while on this medicine. Smoking may increase your risk for stomach bleeding. This medicine may reduce your body's ability to fight infections. Avoid contact with people with colds, flu or other infections. Contact your doctor if you develop fever, cough, sore throat, or chills. Speak with your health care provider before receiving any vaccinations. This medicine passes into breast milk. Ask your doctor before . During , this medicine should be used only when clearly needed. Talk to your doctor about the risks and benefits. Always carry an ID card or wear a medical alert bracelet indicating your medical condition. Do not share this medicine with anyone who has not been prescribed this medicine. ?? Side Effects The following is a list of some common side effects from this medicine. Please speak with your doctor about what you should do if you experience these or other side effects. ??? acne ??? agitated feeling or trouble sleeping ??? decreased appetite ??? high blood sugar ??? high blood pressure ??? nausea and vomiting ??? stomach upset or abdominal pain Call your doctor or get medical help right away if you notice any of these more serious side effects: ??? bleeding or bruising ??? bone pain ??? coughing up blood or vomit that looks like coffee grounds ??? depression or feeling sad ??? swelling of the legs, feet, and hands ??? fever or chills ??? fast or irregular heart beats ??? menstruation changes (missed or fewer periods) ??? mood changes ??? muscle pain or cramps ??? seizures ??? thinning of the skin ??? severe stomach or bowel pain ??? dark, tarry stool ??? unusual or unexplained tiredness or weakness ??? increased urinary frequency ??? blurring or changes of vision ??? sudden or unexplained weight gain ??? slow wound healing A few people may have an allergic reaction to this medicine. Symptoms can include difficulty breathing, skin rash, itching, swelling, or severe dizziness. If you notice any of these symptoms, seek medical help quickly. ?? Extra Please speak with your doctor, nurse, or pharmacist if you have any questions about this medicine. ?? [email or web address] IMPORTANT NOTE: This document tells you briefly how to take your medicine, but it does not tell youall there is to know about it. Your doctor or pharmacist may give you other documents about your medicine. Please talk to them if you have any questions. Always follow their advice. There is a more complete description of this medicine available in [place]. Scan this code on your smartphone or tablet or use the web address below. You can also ask your pharmacist for a printout. If you have any questions, please ask your pharmacist. The display and use of this drug information is subject to Terms of Use. Copyright(c) 2023 [employer]. ?? [employer]. All rights reserved. This information is not intended as a substitute for professional medical care. Always follow your healthcare professional's instructions. ?? * Negrita FARNSWORTH, Jamarcus: PERFORM Event Display: Patient Education Leaflets Authored Date: [id number] Cefpodoxime Oral Tablet ?? [id number] Cefpodoxime Oral Tablet Brands: [employer] Uses For treating bacterial infection. ?? Instructions Take the medicine with food. This medicine will work best if you take it at about the same time every day. Store at room temperature away from heat, light, and moisture. Do not keep in the bathroom. Do not take antacids 2 hours before or 2 hours after taking this medicine. Medicines that lower stomach acid (used to treat indigestion, heartburn or ulcers) may prevent thismedicine from working properly. If you forget to take a dose on time, take it as soon as you remember. If it is almost time for thenext dose, do not take the missed dose. Return to your normal schedule. Do not take 2 doses at one time. Drug interactions can change how medicines work or increase risk for side effects. Tell your healthcare providers about all medicines taken. Include prescription and lpbn-kpq-qmrfwgi medicines, vitamins, and herbal medicines. Speak with your doctor or pharmacist before starting or stopping any medicine. Tell your doctor if symptoms do not get better or if they get worse. Keep using this medicine for the full number of days that it is prescribed. Do not stop the medicine even if you start to feel better. If you have diabetes and use urine glucose tests, this medicine may cause incorrect results. Pleasecheck with your doctor before making any changes to your diabetes treatment plan. Do not take the medicine more than twice during 24 hours. ?? Cautions Tell your doctor and pharmacist if you ever had an allergic reaction to a medicine. Do not use the medication any more than instructed. Speak with your health care provider before receiving any vaccinations. Please tell your doctor if you have moderate to severe diarrhea while on this medicine. Do not treat the diarrhea with zvgl-noi-yhjgfrw diarrhea medicine. Tell the doctor or pharmacist if you are , planning to be , or . Do not share this medicine with anyone who has not been prescribed this medicine. ?? Side Effects The following is a list of some common side effects from this medicine. Please speak with your doctor about what you should do if you experience these or other side effects. ??? diarrhea ??? headaches ??? nausea and vomiting Call your doctor or get medical help right away if you notice any of these more serious side effects: ??? severe, watery or bloody diarrhea ??? signs of kidney damage (such as change in urine color or bubbly urine) ??? signs of liver damage (such as yellowing of eye or skin, dark urine, or unusual tiredness) ??? yeast infection of mouth ??? vaginal itching or yeast infection A few people may have an allergic reaction to this medicine. Symptoms can include difficulty breathing, skin rash, itching, swelling, or severe dizziness. If you notice any of these symptoms, seek medical help quickly. ?? Extra Please speak with your doctor, nurse, or pharmacist if you have any questions about this medicine. ?? [email or web address] IMPORTANT NOTE: This document tells you briefly how to take your medicine, but it does not tell youall there is to know about it. Your doctor or pharmacist may give you other documents about your medicine. Please talk to them if you have any questions. Always follow their advice. There is a more complete description of this medicine available in [place]. Scan this code on your smartphone or tablet or use the web address below. You can also ask your pharmacist for a printout. If you have any questions, please ask your pharmacist. The display and use of this drug information is subject to Terms of Use. Copyright(c) 2023 [employer]. ?? [employer]. All rights reserved. This information is not intended as a substitute for professional medical care. Always follow your healthcare professional's instructions. ?? * Umar MD, Ricketts: PERFORM Event Display: Patient Education Leaflets Authored Date: [id number] Pneumonia (Adult) ?? [id number] Pneumonia (Adult) Pneumonia is an infection inside the lungs. It's in the small air sacs (alveoli). It may be caused by a virus, fungus, or bacteria. Pneumonia caused by bacteria??is treated with an antibiotic medicine. Severe cases may need to be treated in the hospital. Milder cases can be treated at home. Symptoms may include fever, chills, and cough (dry or with phlegm). You may have a headache, muscle weakness, trouble breathing, and pain. These symptoms often get worse in the first 2 days. But they often start to get better in the first week of treatment. Home care Follow these guidelines when caring for yourself at home: ??? Get plenty of rest. Take naps as needed. Don???t let yourself get too tired when you go back to your activities. Go back to activities asdirected by your healthcare provider. ??? Stop smoking. This is the most important step you can take to help treat pneumonia. If you need help to stop, talk with your healthcare provider. ??? Stay away from secondhand smoke. Don???t let anyone smoke in your home or your car. ??? Wash your hands often with soap and clean, running water. Rub for at least 20 seconds. Make sure to clean under your nails and between your fingers. When you can't wash your hands, use hand solar manufacturer's representative with at least 60% al cohol. ??? Cover your mouth and nose when coughing or sneezing. Use a tissue or the inside of your elbow. Don't cough or sneeze into your hands. Throw used tissues away. Be sure to wash your hands after coughing, sneezing, or blowing your nose. ??? Limit close contact with other people while you are sick. ??? Stay away from crowds during cold and flu season. Consider wearing a mask in crowds. ???Use pain medicine as directed. You may use acetaminophen or ibuprofen to control fever or pain, unless another medicine was prescribed. If you have chronic liver or kidney disease, talk with your healthcare provider before using these medicines. Also talk with your provider if you???ve had a stomach ulcer or bleeding in your stomach or intestines. Don???t give aspirin to a child younger than age 19 unless directed by the provider. Taking aspirin can put a child at risk for Brandi syndrome. This is a rare but very serious disorder. It most often affects the brain and the liver. ??? Drink plenty of water and other fluids. This can make mucus thinner and easier to cough up. Ask your healthcare provider how much water you should drink. For many people, 6 to 8 glasses (8 ounces each) a day is a good goal. Other fluids include sport drinks, sodas without caffeine, juices, tea, or soup. If you also have heart or kidney disease, check with your provider before you drink extra fluids. ??? Eat asyou are able. You may not feel hungry, so a light diet is fine. Follow the treatment plan as advised by your healthcare provider. ??? Take medicines as instructed by your healthcare provider. If you were given an antibiotic medicine, take it until it's all gone, even if you are feeling better aftera few days. ??? Try to stay away from air pollution. If you live in an area with air pollution, track the Air Quality Index (AQI) reports. Plan your outdoor activities when air quality is OK. ?? Follow-up care Follow up with your healthcare provider in the next 2 to 3 days, or as advised. Following up with your provider as directed is important to make sure you are getting better. You may need more tests if you aren't getting better. Take steps to prevent future infections. Ask your healthcare provider what vaccines are right for you and when to get them. This may include the influenza (flu), COVID-19, and pneumococcal vaccines. ?? Call 911 Call 911 if any of these occur: ??? Unable to speak or swallow ??? Lips or skin looks blue, purple,or nelson ??? Feeling dizzy ??? Fainting ??? Unable to be awake or aware ??? Feeling of doom ??? Trouble breathing or wheezing ??? Shortness of breath gets worse or doesn't get better with treatment ??? Rapid breathing (more than 25 breaths per minute) ??? Coughing up blood ??? Chest pain gets worse with breathing or doesn't get better with treatment ?? When to get medical advice Call your healthcare provider right away if any of these occur: ??? You don???t get better in the first 2 to 3 days of treatment ??? Fever of??100.4??F (38??C) or higher, or as directed by your healthcare provider ??? Shaking chills ??? Cough with phlegm that doesn't get better, or get worse ??? Shortness of breath with activities ??? Weakness, dizziness, or fainting that gets worse ??? Thirst ordry mouth that gets worse ??? Sinus pain, headache, or a stiff neck ??? Chest pain with breathing or coughing ??? Symptoms that get worse or don't get better ?? Last Reviewed Date: 2021 ?? 2681-2589 [employer]. All rights reserved. This information is not intended as a substitute for professional medical care. Always follow your healthcare professional's instructions. ?? Patient Care team information Care Team Personnel Name: Angelia Valdez RN Position: [facility] Nurse Member Role: Primary Care Nurse Name: Josephine Moreno MD Position: [facility] Physician - Primary Care Member Role: PCP Address: Address: [address] [place] [address]- Name: Calvin Trammell RN Position: [facility] Outreach Member Role: Primary Care Nurse Name: Felicita Lewis RN Position: [facility] [employer]r Member Role: Primary Care Nurse Name: Lory Rausch RN Position: [facility] RN Member Role: Primary Care Nurse Name: Anne Becker RN Position: [facility] RN Member Role: Primary Care Nurse Name: Jen Aldrich Position: [facility] RN Member Role: Primary Care Nurse Name: Jayne Cline RN Position: [facility] RN Member Role: Primary Care Nurse Care Team Related Persons Name: AURA NOONAN Address: home [address] [place] [address] Name: CARO GAVIN Name: KERRIE GAVIN Address: home [address] [place] [id number]
--- OUTSIDE RECORDS SUMMARY | 2023-11-17 09:16 | XMS_ITS | Continuity of Care Document ---
Author Organization [facility] ter Address [address] [place] [id number]- Care Team Providers Care Nutrition Program Instructor Name Role Phone Josephine Moreno MD Primary Care Physician [phone] [place] [facility] [place] 07/24/[address] [address]- Discharge Disposition: A-D/C Home Attending Physician: Puma Olivarez MD Admitting Physician: Nedra Ramachandran MD Referring Physician: Not on Staff, Referring [...] INHALATION DAILY Start Date: 07/23/20 Status: Ordered Flagyl 500 mg oral tablet 1 tablet = 500 mg, By Mouth, 3 times a day, for 3 days, # 9 tablet, 0 Refills, Acute 07/27/20 13:25:00 EDT, 07/24/20 13:25:00 EDT, Tablet, [id number], Partial fill upon patient request if theprescription is for a schedule II opioid drug., 163... Start Date: 07/24/20 Stop Date: 07/27/20 Status: Ordered Flonase 50 mcg/inh nasal spray Daily, 0 Refills, Maintenance, 01/03/20 10:38:00 EDT Start Date: 01/03/20 Status: Ordered furosemide 20 mg oral tablet 20 mg, 1, tablet, By Mouth, Daily, Refills 0, Maintenance, 01/03/20 10:39:00 EDT Start Date: 01/03/20 Status: Ordered Januvia 25 mg oral tablet TAKE 1 TABLET BY MOUTH EVERY DAY Start Date: 07/23/20 Status: Ordered levoFLOXacin 500 mg oral tablet 1 tablet = 500 mg, By Mouth, Every 24 hours, for 3 days, # 3 tablet, 0 Refills, Acute 07/27/20 13:25:00 EDT, 07/24/20 13:25:00 EDT, Tablet, [facility][id number], Partial fill upon patient request if the prescription is for a schedule II opioid drug., 16... Start Date: 07/24/20 Stop Date: 07/27/20 Status: Ordered metFORMIN 500 mg oral tablet = 500 mg, By Mouth, Daily, after dinner, # 60 tablet, 0 Refills, Maintenance, 10/30/17 12:41:09 EDT, Tablet Start Date: 10/30/17 Status: Ordered nadolol 20 mg oral tablet 20 mg, Tablet, By Mouth, 07/24/20 9:00:00 EDT Start Date: 07/24/20 Stop Date: 07/24/20 Status: Completed nadolol 20 mg oral tablet 20 mg, 1, tablet, By Mouth, Daily, # 30 tablet, Refills 5, Tot. Refills 5, Maintenance, 02/27/20 15:37:00 EDT, Route to Pharmacy Electronically, [facility] #[id number], 162.56, cm, 01/03/20 10:45:00 [...] bleeding(Confirmed) Active MAR Cirrhosis(Confirmed) Active Prediabetes(Confirmed) Active Vital Signs Most recent to oldest [Reference Range]: 1 2 3 Height 163 cm (07/23/20 8:00 PM) 163 cm (07/23/20 4:05 PM) 163 cm (07/23/20 3:57 PM) Weight 87.6 kg (07/23/20 8:00 PM) 87.6 kg (07/23/20 4:05 PM) 87.6 kg (07/23/20 3:57 PM) Oxygen Saturation [94-100 %] 95 % (07/24/20 11:00 AM) 96 % (07/24/20 5:26 AM) 96 % (07/24/20 3:00 AM) Pulse Rate [55-90 bpm] 63 bpm (07/24/20 11:00 AM) 60 bpm (07/24/20 10:00 AM) 61 bpm (07/24/20 9:51 AM) Body Mass Index [18.5-24.99] 32.97 *>HHI* (07/23/20 8:00 PM) 32.97 *>HHI* (07/23/20 3:57 PM) Blood Pressure [90-138/55-84 mm Hg] 117/43mm Hg (07/24/20 11:00 AM) 137/61mm Hg (07/24/20 10:00 AM) 113/62mm Hg (07/24/20 9:51 AM) Respiratory Rate [16-30 br/min] 20 br/min (07/24/20 11:00 AM) 20 br/min (07/24/20 10:00 AM) 18 br/min (07/24/20 5:26 AM) Temperature [96.8-100.4 DegF] 98.4 DegF (07/24/20 11:00 AM) 98.4 DegF (07/24/20 10:00 AM) 98.3 DegF (07/24/20 5:26 AM) Mode of Delivery (Oxygen) Room air (07/24/20 11:00 AM) Room air (07/24/20 5:26 AM) Room air (07/24/20 3:00 AM) Blood pressure sites Arm, right (07/24/20 11:00 AM) Arm, right (07/24/20 10:00 AM) Arm, right (07/24/20 5:26 AM) Temperature Route Oral (07/24/20 11:00 AM) Oral (07/24/20 10:00 AM) Oral (07/24/20 5:26 AM) Dry Weight 87.6 kg (07/23/20 8:00 PM) 87.6 kg (07/23/20 4:05 PM) 87.6 kg (07/23/20 3:57 PM) Weight Obtained Via Standing scale (07/23/20 3:57 PM) Dry Weight Obtained Via Standing scale (07/23/20 3:57 PM) Social History Social History Type Response Smoking Status Former smoker, quit more than 30 days ago entered on: 10/07/19 Sex
--- OUTSIDE RECORDS SUMMARY | 2023-11-17 09:16 | XMS_ITS | Continuity of Care Document ---
Author Organization [facility] al Address [address] [place] [address]- Care Team Providers Care Voice Over Announcer Name Role Phone Josephine Moreno MD Primary Care Physician Encounter [facility] Date(s): 10/07/19 - 10/07/[address] [address]- [facility] Discharge Disposition: Transferred to short-term general hospit Attending Physician: Jenna Calvo MD Admitting Physician: Jenna Calvo MD Referring Physician: Not on Staff, Referring MD Allergies, Adverse Reactions, Alerts Substance Reaction Severity Status Augmentin rash/hives Active Immunizations Given and Recorded Vaccine Date Status Refusal Reason tetanus/diphtheria/pertussis, acel(Tdap) 03/28/18 Given Medications metFORMIN 500 mg oral tablet = 500 mg, By Mouth, Daily, after dinner, # 60 tablet, 0 Refills, Maintenance, 10/30/17 12:41:09 EDT, Tablet Start Date: 10/30/17 Status: Ordered Vital Signs Most recent to oldest [Reference Range]: 1 2 3 Height 160 cm (10/07/19 8:14 PM) 160 cm (10/07/19 7:00 PM) 160 cm (10/07/19 5:20 PM) Weight 79 kg (10/07/19 8:14 PM) 79 kg (10/07/19 5:20 PM) Oxygen Saturation [94-100 %] 99 % (10/07/19 8:14 PM) 98 % (10/07/19 7:00 PM) 85 % *L* (10/07/19 5:20 PM) Pulse Rate [55-90 bpm] 81 bpm (10/07/19 8:14 PM) 88 bpm (10/07/19 5:20 PM) Body Mass Index [18.5-24.99] 30.86 *>HHI* (10/07/19 8:14 PM) Blood Pressure [90-138/55-84 mm Hg] 135/70mm Hg (10/07/19 8:14 PM) 122/71mm Hg (10/07/19 5:20 PM) Respiratory Rate [16-30 br/min] 20 br/min (10/07/19 8:14 PM) 18 br/min (10/07/19 5:20 PM) Temperature [96.8-100.4 DegF] 98.3 DegF (10/07/19 8:14 PM) 98.5 DegF (10/07/19 5:20 PM) Mode of Delivery (Oxygen) Room air (10/07/19 8:14 PM) Room air (10/07/19 7:00 PM) Room air (10/07/19 5:20 PM) Blood pressure sites Arm, left (10/07/19 8:14 PM) Temperature Route Oral (10/07/19 8:14 PM) Temporal (10/07/19 5:20 PM) Dry Weight 79 kg (10/07/19 8:14 PM) 79 kg (10/07/19 5:20 PM) Weight Obtained Via Standing scale (10/07/19 5:20 PM) Dry Weight Obtained Via Standing scale (10/07/19 5:20 PM) Social History Social History Type Response Smoking Status Former smoker, quit more than 30 days ago entered on: 10/07/19 Sex
--- NOTE | 2023-11-17 09:17 | A.OFFPC_ITS ---
Vital Signs 11/17/23 09:18 Height 5 ft 4 in Weight 164 lb BMI 28.1 BP 108/64 Blood Pressure Location Rt brachial Position Sitting Pulse 65 Pulse Source Pulse Oximeter Pulse Oximetry (%) 96 Oxygen Delivery Method Room Air Intake Visit Reasons: Post COVID pneumonia Intake Note: Pt is here today for a hospital follow up. Allergies amoxicillin [Augmentin] Allergy (Unknown, Verified 11/17/23 09:20) unknown clavulanic acid [Augmentin] Allergy (Unknown, Verified 11/17/23 09:20) unknown umeclidinium [Anoro Ellipta] Allergy (Unknown, Verified 11/17/23 09:20) Hoarseness vilanterol [Anoro Ellipta] Allergy (Unknown, Verified 11/17/23 09:20) Hoarseness Medication List - Last Reconciled 11/17/23 by Josephine Moreno MD blood sugar diagnostic (FreeStyle Lite Strips) use 1 strip once a day to test blood sugar clotrimazole-betamethasone 1-0.05 % appl topical [duo nebulizer As directed] fluticasone propionate 50 mcg/actuation 2 sprays intranasal DAILY furosemide 20 mg PO DAILY inhalational spacing device (Aerochamber MV spacer) As directed ipratropium-albuterol 20-100 mcg/actuation 1 puff inhalation .q 8 hr nadolol 20 mg PO DAILY [Nebulizer with duoneb As directed] omeprazole 20 mg PO DAILY sertraline 50 mg PO DAILY spironolactone 50 mg PO DAILY Tobacco use date assessed: 11/17/23 Dental Screening Dental Screen Date: 06/26/23 HPI Post COVID pneumonia HPI Details Pt presents for f/u hospitalization for COPD/pneumonia feeling better but still tired and occasionally lightheaded when standing up suddenly. Patient fell down in the bathtub about a week ago but denied any loss of consciousness or head injury. [facility] Medical History (Updated 11/17/23 @ 10:18 by Josephine Moreno MD) Annual physical exam Palpitations Anemia Depression Dysuria Cirrhosis Esophageal varices with bleeding Type 2 diabetes mellitus (~12/06/20) COPD (chronic obstructive pulmonary disease) Surgical History H/O colonoscopy History of bilateral knee arthroplasty Family History Father Unknown family medical history Mother Unknown family medical history Social History Housing: House Alcohol intake: current Alcohol intake frequency: holidays/special occasions only Patient Tobacco Use Status: Former Tobacco user (40 years ago) e-Cigarette/Vaping Use: Never Used service: No Current occupational status: retired Cognitive needs: No Hearing needs: Yes Vision needs: Yes Questionnaire Thrive Questionnaire Date Thrive assessed: 06/26/23 KIMBERLEE-7 AMB Questionnaire KIMBERLEE-7 Date KIMBERLEE - 7 assessed: 06/26/23 Source: Developed by Drs. Kimani Jj, Marta Ann, Deepak Bonds and colleagues, with an educational mathieu from [employer]. Review of Systems Const All systems reviewed & are unremarkable except as noted in HPI and below Eyes Reports no additional complaints ENT Reports no additional complaints Card Reports no additional complaints Resp Reports no additional complaints GI Reports no additional complaints Reports no additional complaints Physical exam (Primary Care) Vital Signs: Last Vital Signs Pulse 65 11/17/23 09:18 BP 108/64 11/17/23 09:18 Pulse Ox 96 11/17/23 09:18 Oxygen Delivery Method Room Air 11/17/23 09:18 BMI result Body Mass Index 28.1 Tobacco/Smoking Status: Tobacco use Status Tobacco use date assessed 11/17/23 11/17/23 09:22 Patient Tobacco Use Status Former Tobacco user (40 11/17/23 09:22 years ago) e-Cigarette/Vaping Use Never Used 11/17/23 09:22 Thrive Assessment: Date of Thrive Assessment Date Thrive assessed 06/26/23 11/17/23 09:22 Const General: no acute distress HENMT Head: Yes normal to inspection Eyes General: appearance normal, both eyes and all related structures Resp Effort & Inspection: normal respiratory effort Auscultation: clear to auscultation bilaterally Cardio Rhythm: regular rhythm Heart sounds: S1 normal heart sound present and S2 normal heart sound present GI Palpation (GI): Soft to palpation Percussion: Yes normal to percussion Neuro Cranial nerves: Yes CN's II-XII intact bilaterally Gait exam (Neuro): Normal gait present Motor exam (neuro): 5/5 motor strength present throughout Romberg Test: Negative Assessment and Plan Assessment & Plan (1) COPD (chronic obstructive pulmonary disease): Comment: Intolerant to Anoro or powder inhalers Code(s): J44.9 - Chronic obstructive pulmonary disease, unspecified Plan: Continue Combivent and add Pulmicort 1 inhalation twice a day, check chest XR (2) SOB (shortness of breath): Code(s): R06.02 - Shortness of breath (3) Chronic kidney disease, stage 3: Code(s): N18.30 - Chronic kidney disease, stage 3 unspecified Plan: CHECK COMPREHENSIVE PANEL AVOID NEPHROTOXINS, (4) Hypotension: Code(s): I95.9 - Hypotension, unspecified Plan: Decrease furosemide to once or twice a week only. Follow-up in 1 month Orders: Orders Complete Blood Count Auto Diff Today J44.9 - Chronic obstructive pulmonary disease, unspecified, R06.02 - Shortness of breath XR chest 1V Today J44.9 - Chronic obstructive pulmonary disease, unspecified, R06.02 - Shortness of breath Comprehensive Met. Panel Today J44.9 - Chronic obstructive pulmonary disease, unspecified, R06.02 - Shortness of breath Medications: New budesonide 90 mcg/actuation (Pulmicort Flexhaler) 1 inh inhalation BID 1 ea 2RF Coding Level of Care Code Est Pt Level 4 (90874) Diagnoses COPD (chronic obstructive pulmonary disease) J44.9 SOB (shortness of breath) R06.02 Chronic kidney disease, stage 3 N18.30 Hypotension I95.9
[2023-11-17 09:18] VITALS: BP 108/64; PULSE 65; O2SAT 96; BMI 28.1
== END 2023-11-17 10:19 | disposition home or self-care (01) ==
LOC: HO.HMGC 09:13
PROVIDERS: PCP Internal Medicine; Visit Provider Internal Medicine
DX: J44.9 Chronic obstructive pulmonary disease, unspecified (principal); R06.02 Shortness of breath; N18.30 Chronic kidney disease, stage 3 unspecified; I95.9 Hypotension, unspecified
CPT/HCPCS: 99214

== ENCOUNTER 2023-11-17 10:18 | Outpatient (REF) | payer MEDICARE, SELFPAY ==
--- NOTE | ~2023-11-17 | XR_ITS ---
EXAMINATION: XR CHEST CLINICAL INFORMATION: Shortness of breath. COMPARISON: 05/01/2023. TECHNIQUE: Frontal view of the chest was obtained. FINDINGS: Status post right shoulder arthroplasty. Lungs are well-inflated. There is no gross pneumothorax. Degenerative changes in the thoracic spine. Heart size is normal. No pleural effusion. No focal consolidation to suggest pneumonia. XR/XR chest 1V IMPRESSION: No evidence of pneumonia.
[2023-11-17 10:32] LABS: MANUAL DIFF FLAG NO
[2023-11-17 11:12] LABS: Basophils Percent Auto 0.3 % (0-2); Eosinophils Absolute Auto 0.2 X10*3/uL (0.0-0.4); Eosinophils Percent Auto 2.7 % (0-4); Hematocrit 39.7 % (37.0-47.0); Hemoglobin 12.8 g/dl (12.0-16.0); Imm Gran Abs Auto 0.06 X10*3/uL (0.00-0.03); Lymphocytes Absolute Auto 0.8 X10*3/uL (1.2-4.9); Mean Corpuscular HGB Conc 32.2 g/dl (31.0-35.0); Mean Corpuscular Hemoglobin 29.2 pg (27.0-33.0); Mean Corpuscular Volume 90.4 fL (80.0-98.0); Mean Platelet Volume 12.4 fL (9.4-12.3); Monocytes Absolute Auto 0.9 X10*3/uL (0.1-1.2); Monocytes Percent Auto 15.1 % (2-11); Neutrophils Percent Auto 67.9 % (45-73); Platelet Count 101 X10*3/uL (160-400); Red Blood Count 4.39 X10*6/uL (4.20-5.50); Red Cell Distribution Width 14.9 % (11.0-16.0); White Blood Count 5.8 X10*3/uL (4.8-10.8)
[2023-11-17 11:53] LABS: Estimated Average Glucose 146 mg/dL; Hemoglobin A1c % 6.7 % (<6.0)
[2023-11-17 12:22] LABS: Alanine Aminotransferase 23 U/L (0-31); Albumin Level 3.3 g/dL (3.5-5.0); Alkaline Phosphatase 91 U/L (39-117); Anion Gap 11 (12-20); Aspartate Amino Transferase 23 U/L (5-31); Blood Urea Nitrogen 16 mg/dL (9-16); Calcium 8.9 mg/dL (8.4-10.2); Carbon Dioxide 29 mmol/L (22-29); Chloride 105 mmol/L (96-108); Cholesterol 169 mg/dL (<200); Estimated Glomerular Filt Rate > 60; Glucose Fasting 144 mg/dL (60-99); HDL Cholesterol 43 mg/dL (>40); LDL Cholesterol Calculated 115 mg/dL (<100); Potassium 4.5 mmol/L (3.3-5.1); Sodium 140 mmol/L (135-145); Total Protein 6.2 g/dL (6.5-8.0); Triglycerides 59 mg/dL (<150); Vitamin D 25-OH Total 13.1 ng/mL (>30)
[2023-11-17 12:31] LABS: Creatinine Urine 116.68 mg/dL; Microalbumin Urine < 5.0 mg/L
== END 2023-11-17 10:19 | disposition home or self-care (01) ==
LOC: HO.XRAY 10:18
PROVIDERS: PCP Internal Medicine; Visit Provider Internal Medicine
DX: R06.02 Shortness of breath (principal); J44.9 Chronic obstructive pulmonary disease, unspecified; K74.60 Unspecified cirrhosis of liver; E11.9 Type 2 diabetes mellitus without complications; E55.9 Vitamin D deficiency, unspecified
CPT/HCPCS: 36415; 71045; 80053; 80061; 82043; 82306; 82570; 83036; 85025

== ENCOUNTER 2023-12-25 10:13 | Outpatient (AMB) | payer MEDICARE, SELFPAY ==
--- NOTE | 2023-12-25 10:14 | MHC.PC.OV ---
Vital Signs 12/25/23 10:15 Height 5 ft 4 in Weight 169 lb BMI 29.0 BP 110/64 Blood Pressure Location Lt brachial Position Sitting Pulse 58 Pulse Source Pulse Oximeter Pulse Oximetry (%) 97 Oxygen Delivery Method Room Air Intake Visit Reasons: 6 month follow up Intake Note: Pt is here today for 6 months follow up visit. Allergies amoxicillin [Augmentin] Allergy (Unknown, Verified 12/25/23 10:16) unknown clavulanic acid [Augmentin] Allergy (Unknown, Verified 12/25/23 10:16) unknown umeclidinium [Anoro Ellipta] Allergy (Unknown, Verified 12/25/23 10:16) Hoarseness vilanterol [Anoro Ellipta] Allergy (Unknown, Verified 12/25/23 10:16) Hoarseness Medication List - Last Reconciled 12/25/23 by Josephine Moreno MD Arnuity Ellipta 100 mcg/actuation (fluticasone furoate) 1 inh inhalation DAILY NS blood sugar diagnostic (FreeStyle Lite Strips) use 1 strip once a day to test blood sugar budesonide 90 mcg/actuation (Pulmicort Flexhaler) 1 inh inhalation BID clotrimazole-betamethasone 1-0.05 % appl topical [duo nebulizer As directed] fluticasone propionate 50 mcg/actuation 2 sprays intranasal DAILY furosemide 20 mg PO DAILY inhalational spacing device (Aerochamber MV spacer) As directed ipratropium-albuterol 20-100 mcg/actuation 1 puff inhalation .q 8 hr nadolol 20 mg PO DAILY [Nebulizer with duoneb As directed] omeprazole 20 mg PO DAILY sertraline 50 mg PO DAILY spironolactone 50 mg PO DAILY Tobacco use date assessed: 12/25/23 Fall risk assessment: 2 + Falls in past year Last assessed Fall Risk: 12/25/23 Dental Screening Dental Screen Date: 06/26/23 HPI 6 month follow up HPI Details Pt presents for follow-up of COPD stable on Combivent and Arnuity, chronic lower extremity swelling stable on furosemide and chronic anxiety stable on sertraline. 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 [facility] Medical History Annual physical exam Palpitations Anemia Depression Dysuria Cirrhosis Esophageal varices with bleeding Type 2 diabetes mellitus (~12/06/20) COPD (chronic obstructive pulmonary disease) Surgical History H/O colonoscopy History of bilateral knee arthroplasty Family History Father Unknown family medical history Mother Unknown family medical history Social History Housing: House Alcohol intake: current Alcohol intake frequency: holidays/special occasions only Patient Tobacco Use Status: Former Tobacco user e-Cigarette/Vaping Use: Never Used service: No Current occupational status: retired Cognitive needs: No Hearing needs: Yes Vision needs: Yes Questionnaire Thrive Questionnaire Date Thrive assessed: 06/26/23 AUDIT C Alcohol Use Questionnaire (AUDIT-C) 1. How often do you have a drink containing alcohol?: Never 3. How often do you have six or more drinks on one occasion?: Never Total Score: 0 KIMBERLEE-7 AMB Questionnaire KIMBERLEE-7 Date KIMBERLEE - 7 assessed: 06/26/23 Source: Developed by Drs. Kimani Jj, Marta Ann, Deepak Bonds and colleagues, with an educational mathieu from [employer]. Review of Systems Const All systems reviewed & are unremarkable except as noted in HPI and below ENT Reports no additional complaints Resp Reports no additional complaints GI Reports no additional complaints Reports no additional complaints Physical exam (Primary Care) Vital Signs: Last Vital Signs Pulse 58 12/25/23 10:15 BP 110/64 12/25/23 10:15 Pulse Ox 97 12/25/23 10:15 Oxygen Delivery Method Room Air 12/25/23 10:15 BMI result Body Mass Index 29.0 Tobacco/Smoking Status: Tobacco use Status Tobacco use date assessed 12/25/23 12/25/23 10:20 Patient Tobacco Use Status Former Tobacco user (40 12/25/23 10:20 years ago) e-Cigarette/Vaping Use Never Used 12/25/23 10:20 Thrive Assessment: Date of Thrive Assessment Date Thrive assessed 06/26/23 12/25/23 10:20 Const General: no acute distress HENMT Face and sinus: Yes normal facial exam Neck Neck: Yes supple Resp Effort & Inspection: normal respiratory effort Auscultation: clear to auscultation bilaterally Cardio Rhythm: regular rhythm Heart sounds: S1 normal heart sound present and S2 normal heart sound present GI Inspection: Yes normal to inspection Palpation (GI): Soft to palpation Percussion: Yes normal to percussion Assessment and Plan Assessment & Plan (1) COPD (chronic obstructive pulmonary disease): Comment: Intolerant to Anoro or powder inhalers Code(s): J44.9 - Chronic obstructive pulmonary disease, unspecified Plan: Continue current inhalers (2) Type 2 diabetes mellitus: Onset Date: ~12/06/20 Comment: Diet controlled Code(s): E11.9 - Type 2 diabetes mellitus without complications Plan: Diet-controlled continue ADA diet and regular physical activity (3) Chronic kidney disease, stage 3: Code(s): N18.30 - Chronic kidney disease, stage 3 unspecified Plan: Monitor renal function avoid nephrotoxins (4) Cirrhosis: Comment: Compensated with portal hypertension controlled on nadolol and furosemide. Follows up with GI Code(s): K74.60 - Unspecified cirrhosis of liver Plan: Continue spironolactone and nadolol follow-up with GI Orders: Orders Hemoglobin A1c 6 Months E11.9 - Type 2 diabetes mellitus without complications, J44.9 - Chronic obstructive pulmonary disease, unspecified, N18.30 - Chronic kidney disease, stage 3 unspecified Comprehensive [place]. Panel Fast 6 Months E11.9 - Type 2 diabetes mellitus without complications, J44.9 - Chronic obstructive pulmonary disease, unspecified, N18.30 - Chronic kidney disease, stage 3 unspecified Lipid Panel 6 Months E11.9 - Type 2 diabetes mellitus without complications, J44.9 - Chronic obstructive pulmonary disease, unspecified, N18.30 - Chronic kidney disease, stage 3 unspecified Microalbumin, Random (w Creat) 6 Months E11.9 - Type 2 diabetes mellitus without complications, J44.9 - Chronic obstructive pulmonary disease, unspecified, N18.30 - Chronic kidney disease, stage 3 unspecified Complete Blood Count Auto Diff 6 Months E11.9 - Type 2 diabetes mellitus without complications, J44.9 - Chronic obstructive pulmonary disease, unspecified, N18.30 - Chronic kidney disease, stage 3 unspecified Medications: Discontinued budesonide 90 mcg/actuation (Pulmicort Flexhaler) Discontinued Reason: Doctor's Order 1 inh inhalation BID 1 ea 2RF Coding Level of Care Code Est Pt Level 4 (27389) Diagnoses COPD (chronic obstructive pulmonary disease) J44.9 Type 2 diabetes mellitus E11.9 Chronic kidney disease, stage 3 N18.30 Cirrhosis K74.60
[2023-12-25 10:15] VITALS: BP 110/64; PULSE 58; O2SAT 97; BMI 29.0
--- OUTSIDE RECORDS SUMMARY | 2023-12-30 06:30 | XMS_ITS | Continuity of Care Document ---
Author Organization [facility] Address [address] [place] [address]- Care Team Providers Care Hiv Cts Specialist Name Role Phone Josephine Moreno MD Primary Care Physician Encounter [facility] Date(s): 01/08/23 - 02/07/23 [facility] [address] [place] [address]- [place] Allergies, Adverse Reactions, Alerts Substance Reaction [...] 01/08/23 13:17:00 EDT, Route to Pharmacy Electronically, [facility]/pharmacy #[id number], Partial fill upon patient request if the [...] 05/14/22 14:17:00 EST, [id number] Partial fill upon patient request if the prescription is for a schedule II opioid drug... Start Date: 05/14/22 Status: Ordered omeprazole 20 mg oral enteric coated capsule 1 capsule = 20 mg, By Mouth, Daily, # 90 capsule, 2 Refills, Maintenance, 05/29/22 17:15:00 EST, ECCapsule, [facility]/pharmacy #[id number], Partial fill upon patient [...] tablet, 3 Refills, Maintenance, 01/06/23 15:45:00 EDT, [facility]/pharmacy #[id number], Partial fill upon patient [...] Team Personnel Name: Angelia Valdez RN Position: [facility] AMB Nurse Member Role: Primary Care Nurse Name: Josephine Moreno MD Position: [facility] Physician - Primary Care Member Role: PCP Address: Address: [place] [address]- [place] Name: Felicita Lewis RN Position: [facility] Reception Member Role: Primary Care Nurse Name: Lory Rausch RN Position: [facility] RN Member Role: Primary Care Nurse Name: Jayne Cline RN Position: [facility] RN Member Role: Primary Care Nurse Care Team Related Persons Name: VICKIE NOONAN Address: home [address] [place] [address] Name: CARO GAVIN Address: home [address] [place] [address] Name: KERRIE GAVIN Address: home [address] [place] [address]
--- OUTSIDE RECORDS SUMMARY | 2023-12-30 06:30 | XMS_ITS | Continuity of Care Document ---
Author Organization [facility] Address [address] [facility], [facility] [address] [place] [address]- Care Team Providers Care Dredge Pump Operator Name Role Phone Josephine Moreno MD Primary Care Physician Encounter 09/22/23 - 11/28/23 [facility] [address], [facility] [address] [place] [address]- Attending Physician: Primo Stanley MD Admitting Physician: Primo Stanley MD Referring Physician: Primo Stanley MD Allergies, Adverse Reactions, Alerts Substance Reaction Severity Status Augmentin rash/hives Active Immunizations Given and Recorded Vaccine Date Status Refusal Reason SARS-CoV-2 (COVID-19) mRNA BNT-162b2 vac 07/10/20 Given SARS-CoV-2 (COVID-19) mRNA BNT-162b2 vac 06/19/20 Given tetanus/diphtheria/pertussis, acel(Tdap) 03/28/18 Given Medications Combivent Respimat 20 mcg-100 mcg/inh inhalation aerosol [...] 05/08/23 13:17:00 EST, Route to Pharmacy Electronically, [facility]/pharmacy #[id number], Partial fill upon patient request if the prescription is for a schedule II opioid drug... Start Date: 05/08/23 Stop Date: 12/04/23 Status: Ordered nadolol 20 mg oral tablet 20 mg, 1, tablet, By Mouth, Daily, # 90 tablet, Refills 3, Tot. Refills 3, Maintenance, 05/05/23 11:11:00 EST, Route to Pharmacy Electronically, [facility]/pharmacy #[id number], Partial fill upon patient request if the prescription is for a schedule II opioid drug... Start Date: 05/05/23 Status: Ordered omeprazole 20 mg oral enteric coated capsule 1 capsule = 20 mg, By Mouth, Daily, # 90 capsule, 2 Refills, Maintenance, 05/29/22 17:15:00 EST, ECCapsule, [facility]/pharmacy #[id number], Partial fill upon patient [...] tablet, 8 Refills, Maintenance, 06/12/23 8:34:00 EST, [facility]/pharmacy #[id number], Partial fill upon patient [...] Team Personnel Name: Angelia Valdez RN Position: [facility] Nurse Member Role: Primary Care Nurse Name: Josephine Moreno MD Position: [facility] Physician - Primary Care Member Role: PCP Address: Address: [address] [place] [address]- Name: Calvin Trammell RN Position: [facility] Outreach Member Role: Primary Care Nurse Name: Felicita Lewis RN Position: [facility] Hospital Cloth Bleaching Supervisor Member Role: Primary Care Nurse Name: Lory Rausch RN Position: [facility] RN Member Role: Primary Care Nurse Name: Anne Becker RN Position: [facility] RN Member Role: Primary Care Nurse Name: Jen Aldrich Position: [facility] RN Member Role: Primary Care Nurse Name: Jayne Cline RN Position: [facility] RN Member Role: Primary Care Nurse Care Team Related Persons Name: VICKIE NOONAN Address: home [address] [place] [address] Name: CARO GAVIN Name: KERRIE GAVIN Address: home [address] [place] [address]
--- OUTSIDE RECORDS SUMMARY | 2023-12-30 06:31 | XMS_ITS | Continuity of Care Document ---
Author Organization [facility] Address [address] [facility], [facility] [address] [place] [address]- Care Team Providers Care Social Media Coordinator Name Role Phone Josephine Moreno MD Primary Care Physician Encounter 09/22/23 - 12/11/23 [facility] [address], [facility] [address] [place] [address]- Attending Physician: Primo Stanley MD Admitting Physician: [...] 05/08/23 13:17:00 EST, Route to Pharmacy Electronically, [facility]/pharmacy #[id number], Partial fill upon patient request if the prescription is for a schedule II opioid drug... Start Date: 05/08/23 Stop Date: 12/04/23 Status: Ordered nadolol 20 mg oral tablet 20 mg, 1, tablet, By Mouth, Daily, # 90 tablet, Refills 3, Tot. Refills 3, Maintenance, 05/05/23 11:11:00 EST, Route to Pharmacy Electronically, [facility]/pharmacy #[id number], Partial fill upon patient request if the prescription is for a schedule II opioid drug... Start Date: 05/05/23 Status: Ordered omeprazole 20 mg oral enteric coated capsule 1 capsule = 20 mg, By Mouth, Daily, # 90 capsule, 2 Refills, Maintenance, 05/29/22 17:15:00 EST, ECCapsule, [facility]/pharmacy #[id number], Partial fill upon patient request [...] tablet, 8 Refills, Maintenance, 06/12/23 8:34:00 EST, [facility]/pharmacy #[id number], Partial fill upon patient request [...] Team Personnel Name: Angelia Valdez RN Position: [facility] Nurse Member Role: Primary Care Nurse Name: Josephine Moreno MD Position: [facility] Physician - Primary Care Member Role: PCP Address: Address: [address] [place] [address]- Name: Calvin Trammell RN Position: [facility] Outreach Member Role: Primary Care Nurse Name: Felicita Lewis RN Position: [facility] Hospital Comfort Advisor Member Role: Primary Care Nurse Name: Lory Rausch RN Position: [facility] RN Member Role: Primary Care Nurse Name: Anne Becker RN Position: [facility] RN Member Role: Primary Care Nurse Name: Jen Aldrich Position: [facility] RN Member Role: Primary Care Nurse Name: Jayne Cline RN Position: [facility] RN Member Role: Primary Care Nurse Care Team Related Persons Name: VICKIE NOONAN Address: home [address] [place] [address] Name: CARO GAVIN Name: KERRIE GAVIN Address: home [address] [place] [address]
--- OUTSIDE RECORDS SUMMARY | 2023-12-30 06:31 | XMS_ITS | Continuity of Care Document ---
Author Organization [facility] Address [address], [facility] [address] [place] [address]- Care Team Providers Care Graduate Internship Name Role Phone Josephine Moreno MD Primary Care Physician Encounter 12/09/23 - 12/16/23 [facility] [address], [facility] [address] [place] [address]- Attending Physician: Primo Stanley MD Admitting Physician: [...] 05/08/23 13:17:00 EST, Route to Pharmacy Electronically, [facility]/pharmacy #[id number], Partial fill upon patient request if the prescription is for a schedule II opioid drug... Start Date: 05/08/23 Stop Date: 12/04/23 Status: Ordered nadolol 20 mg oral tablet 20 mg, 1, tablet, By Mouth, Daily, # 90 tablet, Refills 3, Tot. Refills 3, Maintenance, 05/05/23 11:11:00 EST, Route to Pharmacy Electronically, [id number], [...] Exam Date Time Procedure Performing Provider Status 12/09/23 10:25 AM US RUQ Jus Schmidt ; Auth (Verified) Notes: (US RUQ) Reason For Exam: HCC screening;Cirrhosis RESULT: US RUQ US RUQ Reason: Cirrhosis; HCC screening; Clinical Question(s): Other: COMPARISON: 03/27/2030 FINDINGS: Liver: Nodular liver contour consistent with the stated history of cirrhosis. No focal liver lesion is appreciated. Gallbladder: Cholelithiasis. Chronic gallbladder wall thickening up to approximately 0.6 cm. No significant change from the previous exam. Biliary Tree: No intrahepatic or extrahepatic bile duct dilation is identified. Common duct measures: 0.5 cm. Pancreas: No abnormality in the visualized portions of the pancreas. Right kidney: 10.0 cm in length. Normal parenchymal echotexture and thickness. No hydronephrosis, stone or mass. IMPRESSION: Nodular liver contour consistent with the patient's stated history of cirrhosis. No focal liver lesion is appreciated. Cholelithiasis and chronic gallbladder wall thickening is unchanged from the previous exam WSN: [id number] Ordering Physician: Primo Stanley Dictated By: Christopher Cm MD Dictated Date/Time: 12/09/23 11:01 a Reviewed By: Christopher Cm MD Signed By: Christopher Cm MD Signed Date/Time: 12/09/23 11:01 am Transcribed By: DAIANA Transcribed Date/Time: 12/09/23 10:31 am Social History Social History Type Response Smoking Status Former smoker, quit more than 30 days ago entered on: 10/07/19 Sex Patient Care team information Care Team Personnel Name: Angelia Valdez RN Position: [facility] AMB Nurse Member Role: Primary Care Nurse Name: Josephine Moreno MD Position: [facility] Physician - Primary Care Member Role: PCP Address: Address: [address] [place], [place] [address] Name: Calvin Trammell RN Position: [facility] Outreach Member Role: Primary Care Nurse Name: Felicita Lewis RN Position: [facility] Hospital Supervisor Dials Member Role: Primary Care Nurse Name: Lory Rausch RN Position: [facility] RN Member Role: Primary Care Nurse Name: Anne Becker RN Position: [facility] RN Member Role: Primary Care Nurse Name: Jen Aldrich Position: [facility] RN Member Role: Primary Care Nurse Name: Jayne Cline RN Position: [facility] RN Member Role: Primary Care Nurse Care Team Related Persons Name: VICKIE NOONAN Address: home [address] [place] [address] Name: CARO GAVIN Name: KERRIE GAVIN Address: home [address] [place] [id number]
--- OUTSIDE RECORDS SUMMARY | 2023-12-30 06:31 | XMS_ITS | Continuity of Care Document ---
Author Organization [facility] Address [address] [place] [address]- Care Team Providers Care Salvage Machine Operator Name Role Phone Josephine Moreno MD Primary Care Physician Encounter [facility] Date(s): 09/08/22 - 10/08/22 [facility] [address] [place] [address]- Attending Physician: Preet Whiting Admitting Physician: Admtr ArCarly Referring Physician: Admtr, Ar8 Allergies, Adverse Reactions, [...] 05/06/22 11:43:00 EST, Route to Pharmacy Electronically, [facility]/pharmacy #[id number], Partial fill upon patient request if the [...] 05/14/22 14:17:00 EST, Route to Pharmacy Electronically, [facility]/pharmacy #[id number], Partial fill upon patient request if the prescription is for a schedule II opioid drug... Start Date: 05/14/22 Status: Ordered omeprazole 20 mg oral enteric coated capsule 1 capsule = 20 mg, By Mouth, Daily, # 90 capsule, 2 Refills, Maintenance, 05/29/22 17:15:00 EST, ECCapsule, [facility]/pharmacy #[id number], Partial fill upon patient [...] tablet, 2 Refills, Maintenance, 05/06/22 11:42:00 EST, [facility]/pharmacy #[id number], Partial fill upon patient [...] Team Personnel Name: Angelia Valdez RN Position: [facility] Nurse Member Role: Primary Care Nurse Name: Josephine Moreno MD Position: [facility] Physician - Primary Care Member Role: PCP Address: Address: [address] [place] [address]- Name: Felicita Lewis RN Position: [facility] Hospital Research Technician Member Role: Primary Care Nurse Name: Lory Rausch RN Position: [facility] RN Member Role: Primary Care Nurse Name: Jayne Cline RN Position: [facility] RN Member Role: Primary Care Nurse Care Team Related Persons Name: VICKIE NOONAN Address: home [address] [place] [address] Name: CARO GAVIN Address: [address] [place] [address] Name: KERRIE GAVIN Address: home [address] [place] [address]
== END 2023-12-25 11:02 | disposition home or self-care (01) ==
PROVIDERS: PCP Internal Medicine; Visit Provider Internal Medicine
DX: J44.9 Chronic obstructive pulmonary disease, unspecified (principal); E11.22 Type 2 diabetes mellitus with diabetic chronic kidney disease; N18.30 Chronic kidney disease, stage 3 unspecified; K74.60 Unspecified cirrhosis of liver
CPT/HCPCS: 99214

== ENCOUNTER 2024-02-11 15:44 | Outpatient (AMB) | payer MEDICARE, SELFPAY ==
--- NOTE | 2024-02-11 15:45 | AM.OFFWIN_ITS ---
Intake Vital Signs 3 02/11/24 15:47 Height 5 ft 4 in Weight 167 lb BMI 28.7 BP 110/60 Blood Pressure Location Rt brachial Position Sitting Pulse 54 Pulse Source Pulse Oximeter Pulse Oximetry (%) 98 Oxygen Delivery Method Room Air Intake Visit Reasons: EP Head injury Intake Note: Patient here because she had a fall on her daughters porch and fell forward and hit the ride side of her face. Patient Tobacco Use Status: Former Tobacco user Allergies amoxicillin [Augmentin] Allergy (Unknown, Verified 02/11/24 15:46) unknown clavulanic acid [Augmentin] Allergy (Unknown, Verified 02/11/24 15:46) unknown umeclidinium [Anoro Ellipta] Allergy (Unknown, Verified 02/11/24 15:46) Hoarseness vilanterol [Anoro Ellipta] Allergy (Unknown, Verified 02/11/24 15:46) Hoarseness Do you need a note to return to daycare/school/sports/work: No HPI HPI Comments 2 History of Present Illness0 Details Patient is an 83-year-old female complaining of a fall about an hour ago. She states she tripped over something at her daughter's house and she fell and hit her head on the floor of the wooden porch, she denies losing consciousness. She denies being on a blood thinner. She denies any dizziness or lightheadedness before the fall. She denies any headaches, dizziness, lightheadedness or visual changes after the fall. She tells me she has a bruise in his bleeding from her forehead as well as her right wrist. [facility] Medical History Annual physical exam Palpitations Anemia Depression Dysuria Cirrhosis Esophageal varices with bleeding Type 2 diabetes mellitus (~12/06/20) COPD (chronic obstructive pulmonary disease) Surgical History H/O colonoscopy History of bilateral knee arthroplasty Family History Father Unknown family medical history Mother Unknown family medical history Social History Housing: House Alcohol intake: current Alcohol intake frequency: holidays/special occasions only Patient Tobacco Use Status: Former Tobacco user e-Cigarette/Vaping Use: Never Used service: No Current occupational status: retired Cognitive needs: No Hearing needs: Yes Vision needs: Yes Review of Systems Const All systems reviewed & are unremarkable except as noted in HPI and below Physical Exam Vital Signs: Last Vital Signs Pulse 54 02/11/24 15:47 BP 110/60 02/11/24 15:47 Pulse Ox 98 02/11/24 15:47 Oxygen Delivery Method Room Air 02/11/24 15:47 BMI result Body Mass Index 28.7 Const General: cooperative, healthy appearing, comfortable, no acute distress and well developed Orientation/consciousness: patient oriented x3 Limitations: no limitations HEENT Head: Yes normal to inspection Ears: hearing grossly normal bilaterally General nose exam: Normal external nose present Face and sinus: Yes normal facial exam Face images: 2 1. Small raised bruise 2. 0.75 cm superficial laceration Eyes General: appearance normal, both eyes and all related structures Eyelids: Yes eyelids normal Conjunctivae: conjunctivae normal Pupils: Equal, round and reactive pupils present EOM: EOMs intact bilaterally Neck Neck: Yes normal visual inspection and Yes supple Neuro General: patient oriented x3 Cranial nerves: Yes Equal, round and reactive pupils present Extrem General: Yes normal to inspection, Yes full ROM and Yes normal gait Elbow/forearm/wrist images: 2 1. 0.5 cm skin tear, no signs of infection noted, no ecchymosis Office Procedures Laceration Repair Procedure Location: right side forehead Text: After discussion of risk and benefits, written informed consent was obtained. The area was cleaned, prepped, and draped using sterile technique. The wound was debrided of any foreign material or devitalized tissue. Superficial Wound edges were approximated and closed using 2 Steri-Strips. Standard wound dressing was applied. Wound care instructions were given. The patient tolerated the procedure well. The patient was instructed to return for increased redness or red streaking, pain, swelling, pus, fevers, chills, or any other signs or symptoms of infection or worsening. x Assessment & Plan Assessment & Plan (1) Traumatic ecchymosis of forehead: Code(s): S00.83XA - Contusion of other part of head, initial encounter Qualifiers: Encounter type: initial encounter Qualified Code(s): S00.83XA - Contusion of other part of head, initial encounter Plan: Patient is completely asymptomatic, very small, minor bruise to forehead (2) Tear of skin of right wrist: Code(s): S61.511A - Laceration without foreign body of right wrist, initial encounter Qualifiers: Encounter type: initial encounter Qualified Code(s): S61.511A - Laceration without foreign body of right wrist, initial encounter Plan: Cleaned wound and applied bacitracin ointment with a Band-Aid. Recommended she just keep it clean and apply Aquaphor or similar healing ointment twice daily and keep it covered if she goes out in public. (3) Superficial laceration: Code(s): T14.8XXA - Other injury of unspecified body region, initial encounter Plan: Applied to Steri-Strips, advised these would follow up when they are ready, patient instructed to keep the area clean and dry Plan See above Coding Level of Care Code Est Pt Level 3 (65227) Diagnoses Traumatic ecchymosis of forehead, initial encounter S00.83XA Encounter type: initial encounter Tear of skin of right wrist, initial encounter S61.511A Encounter type: initial encounter Superficial laceration T14.8XXA
--- OUTSIDE RECORDS SUMMARY | 2024-02-11 15:46 | XMS_ITS | Continuity of Care Document ---
Author Organization [facility] ter Address [address] [place] [address]- Care Team Providers Care Hand Outside Cutter Name Role Phone Josephine Moreno MD Primary Care Physician Encounter [facility] Date(s): 11/23/23 - 01/16/[address] [address]- Attending Physician: Tho Wells MD Admitting Physician: Tho Wells MD Referring Physician: Tho Wells MD Allergies, Adverse Reactions, Alerts Substance Reaction [...] 05/08/23 13:17:00 EST, Route to Pharmacy Electronically, [facility]/pharmacy #[id number], Partial fill upon patient request if the prescription is for a schedule II opioid drug... Start Date: 05/08/23 Stop Date: 12/04/23 Status: Ordered nadolol 20 mg oral tablet 20 mg, 1, tablet, By Mouth, Daily, # 90 tablet, Refills 3, Tot. Refills 3, Maintenance, 05/05/23 11:11:00 EST, Route to Pharmacy Electronically, [facility]/pharmacy #[id number], Partial fill upon patient request if the prescription is for a schedule II opioid drug... Start Date: 05/05/23 Status: Ordered omeprazole 20 mg oral enteric coated capsule 1 capsule = 20 mg, By Mouth, Daily, # 90 capsule, 2 Refills, Maintenance, 05/29/22 17:15:00 EST, ECCapsule, [facility]/pharmacy #[id number], Partial fill upon [...] tablet, 8 Refills, Maintenance, 06/12/23 8:34:00 EST, [facility]/pharmacy #[id number], Partial fill upon [...] Team Personnel Name: Angelia Valdez RN Position: [facility] RN Member Role: Primary Care Nurse Name: Josephine Moreno MD Position: [facility] Physician - Primary Care Member Role: PCP Address: Address: [address] [facility] [place] [address]- Name: Calvin Trammell RN Position: [facility] Outreach Member Role: Primary Care Nurse Name: Felicita Lewis RN Position: [facility] Hospital Infantry Weapons Crewmember Member Role: Primary Care Nurse Name: Lory Rausch RN Position: [facility] RN Member Role: Primary Care Nurse Name: Anne Becker RN Position: [facility] RN Member Role: Primary Care Nurse Name: Jen Aldrich Position: [facility] RN Member Role: Primary Care Nurse Name: Jayne Cline RN Position: [facility] RN Member Role: Primary Care Nurse Care Team Related Persons Name: VICKIE NOONAN Address: home [address] [place] [address] Name: CARO GAVIN Name: KERRIE GAVIN Address: home [address] [place] [address]
[2024-02-11 15:47] VITALS: BP 110/60; PULSE 54; O2SAT 98; BMI 28.7
--- OUTSIDE RECORDS SUMMARY | 2024-02-11 15:47 | XMS_ITS | Continuity of Care Document ---
Author Organization [facility] ter Address [address] [place] [address]- Care Team Providers Care Parquetry Floor Layer Name Role Phone Josephine Moreno MD Primary Care Physician [place] [facility] Date(s): 12/17/23 - 01/22/[address] [address]- Attending Physician: Tho Wells MD Admitting Physician: [...] 05/08/23 13:17:00 EST, Route to Pharmacy Electronically, [facility]/pharmacy #[id number], Partial fill upon patient request if the prescription is for a schedule II opioid drug... Start Date: 05/08/23 Stop Date: 12/04/23 Status: Ordered nadolol 20 mg oral tablet 20 mg, 1, tablet, By Mouth, Daily, # 90 tablet, Refills 3, Tot. Refills 3, Maintenance, 05/05/23 11:11:00 EST, Route to Pharmacy Electronically, [facility]/pharmacy #[id number], Partial fill upon patient request if the prescription is for a schedule II opioid drug... Start Date: 05/05/23 Status: Ordered omeprazole 20 mg oral enteric coated capsule 1 capsule = 20 mg, By Mouth, Daily, # 90 capsule, 2 Refills, Maintenance, 05/29/22 17:15:00 EST, ECCapsule, [facility]/pharmacy #[id number], Partial fill upon patient request if [...] tablet, 8 Refills, Maintenance, 06/12/23 8:34:00 EST, [facility]/pharmacy #[id number], Partial fill upon patient request if [...] Team Personnel Name: Angelia Valdez RN Position: [facility] RN Member Role: Primary Care Nurse Name: Josephine Moreno MD Position: [facility] Physician - Primary Care Member Role: PCP Address: Address: [address] [place] [address]- Name: Calvin Trammell RN Position: [facility] Outreach Member Role: Primary Care Nurse Name: Felicita Lewis RN Position: [facility] Hospital Production Expediter Member Role: Primary Care Nurse Name: Lory Rausch RN Position: [facility] RN Member Role: Primary Care Nurse Name: Anne Becker RN Position: [facility] RN Member Role: Primary Care Nurse Name: Jen Aldrich Position: [facility] RN Member Role: Primary Care Nurse Name: Jayne Cline RN Position: [facility] RN Member Role: Primary Care Nurse Care Team Related Persons Name: VICKIE NOONAN Address: home [address] [place] [address] Name: CARO GAVIN Name: KERRIE GAVIN Address: home [address] [place] [address]
== END 2024-02-11 16:20 | disposition home or self-care (01) ==
PROVIDERS: PCP Internal Medicine; Visit Provider Physician Assistant
DX: S00.83XA Contusion of other part of head, initial encounter (principal); S61.511A Laceration without foreign body of right wrist, initial encounter; T14.8XXA Other injury of unspecified body region, initial encounter

== ENCOUNTER → 2024-02-11 15:44 | Outpatient (BNVA) | payer MEDICARE, SELFPAY | PROVIDERS: PCP Internal Medicine | DX: S00.83XA Contusion of other part of head, initial encounter (principal); S61.511A Laceration without foreign body of right wrist, initial encounter | CPT/HCPCS: 99212 ==

== ENCOUNTER 2024-06-29 10:21 | Outpatient (REF) | payer MEDICARE, SELFPAY ==
[2024-06-29 13:19] LABS: MANUAL DIFF FLAG NO
[2024-06-29 13:39] LABS: Basophils Percent Auto 0.3 % (0-2); Eosinophils Absolute Auto 0.1 X10*3/uL (0.0-0.4); Hemoglobin 11.1 g/dl (12.0-16.0); Imm Gran Abs Auto 0.02 X10*3/uL (0.00-0.03); Imm Gran Pct Auto 0.5 % (0.0-0.4); Lymphocytes Absolute Auto 0.7 X10*3/uL (1.2-4.9); Lymphocytes Percent Auto 17.5 % (20-40); Mean Corpuscular HGB Conc 31.7 g/dl (31.0-35.0); Mean Corpuscular Hemoglobin 28.8 pg (27.0-33.0); Mean Corpuscular Volume 90.7 fL (80.0-98.0); Mean Platelet Volume 12.8 fL (9.4-12.3); Monocytes Absolute Auto 0.6 X10*3/uL (0.1-1.2); Monocytes Percent Auto 15.1 % (2-11); Neutrophils Absolute Auto 2.4 x10*3/uL (2.0-8.3); Neutrophils Percent Auto 63.6 % (45-73); Red Blood Count 3.86 X10*6/uL (4.20-5.50); Red Cell Distribution Width 14.6 % (11.0-16.0); White Blood Count 3.7 X10*3/uL (4.8-10.8)
[2024-06-29 13:40] LABS: Platelet Count 86 X10*3/uL (160-400)
[2024-06-29 13:52] LABS: Estimated Average Glucose 126 mg/dL; Hemoglobin A1C 123.8869 umol/L; Total Hemoglobin (HGBA1C) 2965.8183 umol/L
[2024-06-29 14:00] LABS: Alanine Aminotransferase 17 U/L (0-31); Albumin Level 3.4 g/dL (3.5-5.0); Alkaline Phosphatase 90 U/L (39-117); Anion Gap 10 (12-20); Aspartate Amino Transferase 29 U/L (5-31); Bilirubin Total 1.7 mg/dL (0.0-1.0); Blood Urea Nitrogen 18 mg/dL (9-16); Calcium 8.8 mg/dL (8.4-10.2); Carbon Dioxide 27 mmol/L (22-29); Chloride 111 mmol/L (96-108); Cholesterol 172 mg/dL (<200); Estimated Glomerular Filt Rate > 60; Glucose Fasting 135 mg/dL (60-99); HDL Cholesterol 54 mg/dL (>40); LDL Cholesterol Calculated 106 mg/dL (<100); Potassium 4.6 mmol/L (3.3-5.1); Sodium 143 mmol/L (135-145); Total Protein 6.4 g/dL (6.5-8.0); Triglycerides 60 mg/dL (<150)
[2024-06-29 14:18] LABS: Creatinine Urine 144.64 mg/dL; Microalbum/Creatinine Ratio Ur 4.8 ug/mg cr (<30)
== END 2024-06-29 10:22 | disposition home or self-care (01) ==
LOC: HO.HMGCLDS 10:21
PROVIDERS: PCP Internal Medicine; Visit Provider Internal Medicine
DX: Z00.00 Encounter for general adult medical examination without abnormal findings (principal); J44.9 Chronic obstructive pulmonary disease, unspecified; K74.60 Unspecified cirrhosis of liver; E11.22 Type 2 diabetes mellitus with diabetic chronic kidney disease; N18.30 Chronic kidney disease, stage 3 unspecified; R49.0 Dysphonia
CPT/HCPCS: 36415; 80053; 80061; 82043; 82570; 83036; 85025; 96127

== ENCOUNTER 2024-06-29 10:21 | Outpatient (AMB) | payer MEDICARE, SELFPAY ==
--- NOTE | 2024-06-29 10:25 | A.OFFVIS_ITS ---
Intake Vital Signs 06/29/24 10:29 Height 5 ft 4 in Weight 168 lb BMI 28.8 BP 118/60 Blood Pressure Location Lt brachial Position Sitting Respiration 18 Pulse 60 Pulse Source Pulse Oximeter Temp 98.3 F Temp Source Oral Pulse Oximetry (%) 97 Oxygen Delivery Method Room Air Intake Visit Reasons: AWV Intake Note: Pt is here today for AWV. Allergies amoxicillin [Augmentin] Allergy (Unknown, Verified 06/29/24 10:25) unknown clavulanic acid [Augmentin] Allergy (Unknown, Verified 06/29/24 10:25) unknown umeclidinium [Anoro Ellipta] Allergy (Unknown, Verified 06/29/24 10:25) Hoarseness vilanterol [Anoro Ellipta] Allergy (Unknown, Verified 06/29/24 10:25) Hoarseness Medication List - Last Reconciled 06/29/24 by Josephine Moreno MD blood sugar diagnostic (FreeStyle Lite Strips) use 1 strip once a day to test blood sugar [duo nebulizer As directed] furosemide 20 mg PO DAILY inhalational spacing device (Aerochamber MV spacer) As directed [Nebulizer with duoneb As directed] omeprazole 20 mg PO DAILY propranolol 1 tab BID sertraline 50 mg PO DAILY spironolactone 50 mg PO DAILY HPI AWV HPI Details Initiated the conversation about Advanced Directives. Advanced Directives help? patients prepare for current and future decisions about their medical treatment? and place of care. Discussed with patient that it is a process where a patients? current condition and prognosis are reviewed, their wishes for information? regarding their illness are elicited, and likely medical dilemmas are presented? and options discussed. The form can be amended as needed, reviewed yearly and? make changes as needed IPPE/AWV ? year old presents? for her ? Annual? Wellness Visit, initial visit.? Medical / Social History Reviewed? Past Medical History ?Yes? . ? [place]? of Care / Care Team list updated ?Yes . ? Surgical/Hospitalization? History ?Yes . ? Current Medications? (including OTC and supplements) ?Yes . ? Family History ?Yes? . ? Tobacco? Control form ?Yes . ? AUDIT-C (Alcohol use) form? ?Yes . ? Illicit drug use in Social? History ?Yes . ? Current diagnosis of? depression? ?No ? Appropriate PHQ2/PHQ9? completed ?Yes . ? Data entered by ?Medical? Log [facility] and reviewed by provider ? Fall Risk ? Fall? History? Have you had any falls with? injury in the past year? ?No . ? Have you had two or more? falls in the past year? ?No . ? Fall Risk Assessment: ?No? falls in the past year . ? HRA filled out by? the patient, reviewed by Provider and scanned. ? IPPE/AWV ? Balance? Romberg? ?Yes . ? Tandem? walk ?Yes . ? Walk and? Turn ?Yes . ? Rise from? sit to stand ?Yes . ?Vision? Corrective? lens ?Yes ? Vision? screen ? Up-to-date, has an appointment [] for vision? screening and glaucoma screening ?Hearing? Whisper? test ?pass .? Initiated the conversation about Advanced Directives. Advanced Directives help? patients prepare for current and future decisions about their medical treatment? and place of care. Discussed with patient that it is a process where a patients? current condition and prognosis are reviewed, their wishes for information? regarding their illness are elicited, and likely medical dilemmas are presented? and options discussed. The form can be amended as needed, reviewed yearly and? make changes as needed Written? Plan?Completed. See Patient? Documents. [facility] Medical History Annual physical exam Palpitations Anemia Depression Dysuria Cirrhosis Esophageal varices with bleeding Type 2 diabetes mellitus (~12/06/20) COPD (chronic obstructive pulmonary disease) Surgical History H/O colonoscopy History of bilateral knee arthroplasty Family History Father Unknown family medical history Mother Unknown family medical history Social History Housing: House Alcohol intake: current Alcohol intake frequency: holidays/special occasions only Patient Tobacco Use Status: Former Tobacco user e-Cigarette/Vaping Use: Never Used service: No Current occupational status: retired Cognitive needs: No Hearing needs: Yes Vision needs: Yes Questionnaire Medicare Wellness Checkup What is your age?: 78 or older What gender do you identify with?: female During the past 4 weeks, how much have you been bothered by emotional problems such as feeling anxious, depressed, irritable, sad or downhearted, and blue?: slightly During the past 4 weeks, has your physical & emotional health limited your social activities with family, friends, neighbors, or groups?: not at all During the past 4 weeks, how much bodily pain have you generally had?: mild pain During the past 4 weeks, was someone available to help you if you needed & wanted help?: yes, as much as I wanted During the past 4 weeks, what was the hardest physical activity you could do for at least 2 minutes?: moderate Can you get to places out of walking distance without help? (For eg., can you travel alone on buses, taxis or drive your car?): Yes Can you go shopping for groceries or clothes without someone's help?: Yes Can you prepare your own meals?: Yes Can you do your housework without help?: Yes Because of any health problems, do you need the help of another person with your personal care needs such as eating, bathing, dressing or getting around the house?: No Can you handle your own money without help?: Yes During the past 4 weeks, how would you rate your health in general?: good During the past 4 weeks how have things been going for you?: pretty well Are you having difficulties driving your car?: no Do you always fasten your seat belt when you are in a car?: yes, sometimes During past 4 weeks, have you been bothered by the following: never: Falling or dizzy when standing up, Sexual problems?, Trouble eating well?, Teeth or denture problems? and Problems using the telephone? and sometimes: Tiredness or fatigue? Have you fallen 2 or more times in the past year?: No Are you afraid of falling?: No Are you a smoker?: no During the past 4 weeks, how many drinks of wine, beer, or other alcoholic b everages did you have?: no alcohol at all Do you exercise for about 20 minutes 3 or more times a week?: no, I usually do not exercise this much Have you been given information to help with the following?: no: Hazards in your house that might hurt you? and no: Keeping track of your medications? How often do you have trouble taking medicines the way you have been told to take them?: I always take medicine as prescribed How confident are you that you can control & manage most of your health problems?: very confident What is your race?: White Mini Mental State Exam (MMSE) Orientation What is the (year) (season) (date) (day) (month)?: year, season, date, day and month Where are we (state) (county) (town or city) (hospital) (floor)?: state, county, town or city, hospital/clinic and floor Registration Name of 3 unrelated objects clearly and slowly, then ask patient to repeat all 3 of them. (1st repeat determines score. Make sure they can repeat all three): object 1, object 2 and object 3 Attention & Calculation (CHOOSE ONE) Spell WORLD backwards (DLROW): 5 letters Recall Ask patient to repeat the 3 items from question #3.: object 1, object 2 and object 3 Language Show patient a wristwatch & ask what it is. Repeat for pencil.: watch and pencil Ask the patient to repeat the phrase 'No ifs, ands, or buts' after you.: correct Ask the patient to 'take a piece of paper with their right hand' 'fold paper in half' 'place paper on floor': take paper in right hand, fold paper in half and place paper on floor Print the sentence 'CLOSE YOUR EYES' on a piece. If patient actually closes eyes then score.: followed written direction Give patient a blank piece of paper & ask to write a sentence. Score if it contains a noun & verb.: sentence contains subject and verb Score Score: 29 PHQ-9 Over the last 2 weeks, how often have you been bothered by any of the following problems? 1. Little interest or pleasure in doing things: not at all 2. Feeling down, depressed, or hopeless: nearly every day 3. Trouble falling or staying asleep, or sleeping too much: nearly every day 4. Feeling tired or having little energy: more than half the days 5. Poor appetite or overeating: not at all 6. Feeling bad about yourself - or that you are a failure or have let yourself or your family down: not at all 7. Trouble concentrating on things, such as reading the newspaper or watching television: not at all 8. Moving or speaking so slowly that other people could have noticed. Or the opposite - being so fidgety or restless that you have been moving around a lot more than usual: not at all 9. Thoughts that you would be better off or of hurting yourself in some way: not at all Total score: 8 Depression Screening Interpretation: Negative Depression Screening Done: Yes 56199 - PHQ-9 Billing: Yes Source: Developed by Drs. Kimani Jj, Marta Ann, Deepak Bonds and colleagues, with an educational mathieu from [employer]. Review of Systems Const All systems reviewed & are unremarkable except as noted in HPI and below Eyes Reports no additional complaints ENT Reports no additional complaints Card Reports no additional complaints Resp Reports no additional complaints GI Reports no additional complaints Reports no additional complaints Physical Exam Vital Signs: Last Vital Signs Temp 98.3 F 06/29/24 10:29 Pulse 60 06/29/24 10:29 Resp 18 06/29/24 10:29 BP 118/60 06/29/24 10:29 Pulse Ox 97 06/29/24 10:29 Oxygen Delivery Method Room Air 06/29/24 10:29 BMI result Body Mass Index 28.8 Const General: no acute distress HEENT Head: Yes normal to inspection Ears: hearing grossly normal bilaterally Eyes General: appearance normal, both eyes and all related structures Neck Neck: Yes no lymphadenopathy and Yes supple Resp Effort & Inspection: normal respiratory effort Auscultation: clear to auscultation bilaterally Cardio Rhythm: regular rhythm Heart sounds: S1 normal heart sound present and S2 normal heart sound present GI Inspection: Yes normal to inspection Palpation (GI): Soft to palpation Percussion: Yes normal to percussion Auscultation: normal bowel sounds Extrem General: Yes no clubbing, cyanosis or edema Assessment & Plan Assessment & Plan (1) COPD (chronic obstructive pulmonary disease): Comment: Intolerant to Anoro or powder inhalers Code(s): J44.9 - Chronic obstructive pulmonary disease, unspecified Plan: Patient has not been using inhalers (2) Type 2 diabetes mellitus: Onset Date: ~12/06/20 Comment: Diet controlled Code(s): E11.9 - Type 2 diabetes mellitus without complications Plan: Diet controlled check A1c today (3) Cirrhosis: Comment: Compensated with portal hypertension controlled on nadolol and furosemide. Follows up with GI q 6 months Code(s): K74.60 - Unspecified cirrhosis of liver Plan: Follow-up with GI (4) Chronic kidney disease, stage 3: Code(s): N18.30 - Chronic kidney disease, stage 3 unspecified Plan: Avoid nephrotoxins monitor renal function (5) Hoarseness: Code(s): R49.0 - Dysphonia Plan: Referred to ENT to evaluate for chronic hoarseness continue PPI (6) Annual physical exam: Code(s): Z00.00 - Encounter for general adult medical examination without abnormal findings Plan: Well-balanced diet regular physical activity discussed with the patient. She will have a fasting blood work today and will return for physical in 1 year. Patient has not been compliant with medications and is not interested to continue to take them Orders: Referrals Ear/Nose/Throat Referral R49.0 - Dysphonia Medications: Refilled sertraline 50 mg PO DAILY 90 tabs 3RF Discontinued furosemide Discontinued Reason: Doctor's Order 20 mg PO DAILY 90 tabs 3RF Quality Reporting (2019) Depression/Bipolar (159/160/161/177) PHQ-9: Total score: 8 Coding Level of Care Code Medicare Subsequent (G0439) Diagnoses COPD (chronic obstructive pulmonary disease) J44.9 Type 2 diabetes mellitus E11.9 Cirrhosis K74.60 Chronic kidney disease, stage 3 N18.30 Hoarseness R49.0 Annual physical exam Z00.00 CPT Codes Advance Care Planning - Advance Care Planning discussion: On file, no changes ([id number]) Advance Care Planning - Time spent: 1-15 minutes, on File ([id number]) Additional Codes PHQ-9 - 51215 - PHQ-9 Billing: Yes ([id number]) Advance Care Planning Advance Care Planning discussion: On file, no changes Forms completed: MOLST Time spent: 1-15 minutes, on File Did not discuss due to Cultural/Spiritual beliefs: Yes
[2024-06-29 10:29] VITALS: BP 118/60; PULSE 60; RESP 18; TEMP 36.8; O2SAT 97; BMI 28.8
--- OUTSIDE RECORDS SUMMARY | 2024-06-29 11:02 | XMS_ITS | Continuity of Care Document ---
Author Organization [facility] Address [address] [place] [id number] [facility] Name Relationship Address Phone KERRIE GAVIN Personal Relationship Unknown Unav ailable KERRIE GAVIN Personal Relationship Unknown Unav ailable KERRIE GAVIN spouse Unknown Unavailable ROMAINE, CARO child Unknown Unavailable SHAISTA, VICKIE child Unknown Unavailable Care Team Providers Care Broom Builder Name Role Phone Josephine Moreno MD Primary Care Physician Encounter [facility] [place] Date(s): 05/09/24 - 06/08/24 [facility] [address] [place] [id number]- Encounter Type: Triage Allergies, Adverse Reactions, Alerts Substance Criticality Severity Reaction Reaction Severity Status Augmentin rash/hives Active Immunizations Given and Recorded Vaccine Date Status Refusal Reason SARS-CoV-2 (COVID-19) mRNA BNT-162b2 vac 07/10/20 Given SARS-CoV-2 (COVID-19) mRNA BNT-162b2 vac 06/19/20 Given tetanus/diphtheria/pertussis, acel(Tdap) 03/28/18 Given Medications Combivent Respimat 20 mcg-100 mcg/inh inhalation aerosol 1 puffs, Inhalation, 4 times a day, # 4 Gm, 0 Refills, Maintenance, 11/05/23 2:23:00 AM EDT, Aerosol, Partial fill upon patient request if the prescription is for a schedule II opioid drug. Start Date: 11/05/23 Status: Ordered Quantity: 4.0 Unit: g Repeat number: 1 Flonase 50 mcg/inh nasal spray Daily, 0 Refills, Maintenance, 01/03/20 10:38:00 AM EDT Start Date: 01/03/20 Status: Ordered Repeat number: 1 furosemide 20 mg oral tablet 20 mg, 1, tablet, By Mouth, Every Thursday, Thursday and Thursday, # 13 tablet, Refills 6, Tot. Refills 6, Maintenance, 03/28/24 3:55:00 PM EST, Route to Pharmacy Electronically, [facility]/pharmacy #[id number], Partial fill upon patient request if the prescription is for a schedule II opioid drug., 160, cm, 02/15/24 10:01:00 EDT, Height, 81, kg, 08/20/23 7:19:00 EDT, Dry Weight Start Date: 03/28/24 Stop Date: 10/24/24 Status: Ordered Quantity: 13.0 Unit: tablet Repeat number: 7 omeprazole 20 mg oral enteric coated capsule 1 capsule = 20 mg, By Mouth, Daily, # 90 capsule, 2 Refills, Maintenance, 05/29/22 5:15:00 PM EST, EC Capsule, [facility]/pharmacy #[id number], Partial fill upon patient request if the prescription is for a schedule II opioid drug., 162, cm, 05/29/22 16:31:00 EST, Height, 82.1, kg, 05/29/22 16:31:00 EST, Dry Weight Start Date: 05/29/22 Status: Ordered Quantity: 90.0 Unit: capsule Repeat number: 3 propranolol 10 mg oral tablet 10 mg, 1, tablet, By Mouth, 2 times a day, # 60 tablet, Refills 1, Tot. Refills 1, Maintenance, 05/12/24 1:35:00 PM EST, Route to Pharmacy Electronically, [facility]/pharmacy #[id number], Partial fill upon patient request if the prescription is for a schedule II opioid drug., 160, cm, 02/15/24 10:01:00 EDT, Height, 81, kg, 08/20/23 7:19:00 EDT, Dry Weight Start Date: 05/12/24 Stop Date: 07/11/24 Status: Ordered Quantity: 60.0 Unit: tablet Repeat number: 2 sertraline 25 mg oral tablet 2 tablet = 50 mg, 0 Refills, Maintenance, 09/02/22 9:34:00 AM EDT, Partial fill upon patient requestif the prescription is for a schedule II opioid drug. Start Date: 09/02/22 Status: Ordered Repeat number: 1 spironolactone 50 mg oral tablet 1 tablet = 50 mg, By Mouth, Every Thursday, Thursday and Yamil, # 13 tablet, 8 Refills, Maintenance, 06/12/23 8:34:00 AM EST, [facility]/pharmacy #[id number], Partial fill upon patient request if the prescription is for a schedule II opioid drug., 160, cm, 03/23/23 10:34:00 EST, Height, 80.6, kg, 12/20/22 23:23:00 EDT, Dry Weight Start Date: 06/12/23 Stop Date: 03/08/24 Status: Ordered Quantity: 13.0 Unit: tablet Repeat number: 9 Problem List Condition Confirmation Course Effective Dates Status Health St atus Informant Esophageal varices with bleeding Confirmed Active MAR Cirrhosis Confirmed Active Erosive gastritis & duodentitis Confirmed Active Obese class I Confirmed Active Prediabetes Confirmed Active Social History Social History Type Response Smoking Status Former smoker, quit more than 30 days ago entered on: 10/07/19 Sex Sex Representation Female (finding) Patient Care team information Care Team Personnel Name: Angelia Valdez RN Position: [facility] AMB Nurse Member Role: Primary Care Nurse Name: Josephine Moreno MD Position: [facility] Physician - Primary Care Member Role: PCP Address: [facility] [address] Telecom: Name: Calvin Trammell RN Position: [facility] Outreach Member Role: Primary Care Nurse Name: Felicita Lewis RN Position: [facility] Hospital Marketing Underwriter Member Role: Primary Care Nurse Name: Lory Rausch RN Position: [facility] RN Member Role: Primary Care Nurse Name: Anne Becker RN Position: [facility] RN Member Role: Primary Care Nurse Name: Jen Aldrich Position: [facility] RN Member Role: Primary Care Nurse Name: Jayne Cline RN Position: [facility] RN Member Role: Primary Care Nurse Care Team Related Persons Name: VICKIE NOONAN Name: CARO GAVIN Name: KERRIE GAVIN Insurance Providers Guarantor name: ALLY GAVIN Health Plan Information #: 1 Payer: MEDICARE PART B OUTPT Member Number: NA Policy Number: NA Group Number: NA Health Plan Information #: 2 Payer: MEDEX Member Number: NA Policy Number: NA Group Number: NA
--- OUTSIDE RECORDS SUMMARY | 2024-06-29 11:02 | XMS_ITS | Data Portability ---
Author Organization [facility] [address] Address [address] [place] [address] Assessment No assessment recorded. Plan of Treatment Reminders Order Date Submit Date Provider Last Modified By Organization Details Last Modified Time Details Appointments None recorded. Lab None recorded. Referral emergency medicine referral - SOB with O2 in low 80s since last night 2023 024 [email or web address] [address] [facility] [address] [place], [address], 4 10:55:41 Procedures None recorded. Surgeries None recorded. Imaging None recorded. Medication Orders None recorded. Patient TargetsNo targets recorded. Patient InstructionsNo instructions recorded. Reason for Referral Emergency Medicine Referral for Acute respiratory distress SOB with O2 in low 80s since last night Referring Physician: Vidhi Park, Urgent Care, Encounter Date: 11/04/2023 Medical Equipment None Reported. Allergies Allergen ID Allergen Name Allergen Category Reaction Reaction Severity Criticality Documentation Date Start Date Code Code System Note Provider Name and Address Organization Details Recorded Time 296649 Augmentin medicatio n hives Not available high 11/04/2023 02580 2 RxNorm [facility] 4 10:42:27 Medications Name Sig Start Date Stop Date Status Note LastModified by Organization Details LastModified Time albuterol sulfate 2.5 mg/3 mL (0.083 %) solution for nebulizatio n 2.5 MG (3 ML) INHALED EVERY 4 TO 6 HOURS NEEDED FOR SHORTNESS OF BREATH OR WHEEZING active Not Available Not Available No t Available azithromyci n 250 mg tablet TAKE 2 TABLETS BY MOUTH TODAY, THEN TAKE 1 TABLET DAILY FOR 4 DAYS DIRECTED active Not Available Not Available No t Available prednisone 20 mg tablet TAKE 3 TABLETS BY MOUTH DAILY 11/03 completed Not Available Not Available Not Available nadolol 20 mg tablet TAKE 1 TABLET BY MOUTH EVERY DAY active Not Available Not Available No t Available cephalexin 500 mg capsule TAKE 4 CAPSULES BY MOUTH 30-60 MINUTES PRIOR TO APPT active Not Available Not Available No t Available sertraline 25 mg tablet TAKE 1 TABLET BY MOUTH DAILY active Not Available Not Available No t Available omeprazole 20 mg capsule,del ayed release TAKE 1 CAPSULE BY MOUTH EVERY DAY active Not Available Not Available No t Available furosemide 20 mg tablet TAKE 1 TABLET BY MOUTH EVERY DAY active Not Available Not Available No t Available albuterol sulfate HFA 90 mcg/actuati on aerosol inhaler 1 INHALATIO N 4 TIMES A DAY NEEDED FOR SHORTNESS OF BREATH OR WHEEZING active Not Available Not Available No t Available betamethaso ne dipropionat e 0.05 % lotion APPLY TO SCALP 1-2 TIMES DAILY NEEDED active Not Available Not Available No t Available sertraline 50 mg tablet TAKE 1 TABLET BY MOUTH EVERY DAY active Not Available Not Available No t Available spironolact one 50 mg tablet TAKE 1 TABLET BY MOUTH EVERY DAY active Not Available Not Available No t Available sodium fluoride 1.1 % dental paste BRUSH DAILY OR DIRECTED active Not Available Not Available No t Available Januvia 25 mg tablet TAKE 1 TABLET BY MOUTH DAILY active Not Available Not Available No t Available Reji Cavanaugh [facility] spacer DIRECTED *NOT COVERED* active Not Available Not Available No t Available Combivent Respimat 20 mcg-100 mcg/actuati on solution for inhalation INHALE 1 PUFF BY MOUTH EVERY 8 HOURS active Not Available Not Available No t Available Paxlovid 300 mg (150 mg x 2)-100 mg tablets in a dose pack 11/03 completed Not Available Not Available Not Available Vitals Date Recorded Oxygen saturation Oxygen saturation in Arterial blood by Pulse oximetry Heart rate Body temperature Body height Body mass index (BMI) Body weight Systolic blood pressure Diastolic blood pressure Provider Name and Address Organization Details Last Updated DateTime 4 88 % 88 % 78 /min 98.2 [degF] 160.02 cm 31.9 kg/m2 55129.6 3 g 141 mm[Hg] 56 mm[Hg] Mayte Hathaway PA - [facility] 10:43:40 Social History Question Answer Notes LastModified by Organizat ion Details LastModified Time Tobacco Smoking Status Never Smoker NANCY Lama - [facility] 11/04/2023 10:42:42 What Is Your Level Of Alcohol Consumption? None Information not available 11/04/2023 Are You Currently Employed? No Information not available 11/04/2023 Have You Had Direct Contact, Or Contact During Intimacy, With Monkeypox Rash, Scabs, Or Body Fluids From A Person With Monkeypox? No Information not available 11/04/2023 What Was The Date Of Your Most Recent Tobacco Screening? 11/04/2023 Information not available 11/04/2023 What Is Your Relationship Status? Information not available 11/04/2023 Do You Use Any Illicit Or Recreational Drugs? No Information not available 11/04/2023 Have You Recently Traveled Abroad? Yes Information no t available 11/04/2023 Are You Currently In School? No Information not available 11/04/2023 Do You Or Have You Ever Used Any Other Forms Of Tobacco Or Nicotine? No Information not available 11/04/2023 Sex: Unknown Functional Status None recorded. Mental Status None recorded. Family History Nothing Reported. Medical History No medical history recorded. Gynecological History Statement/Question Response Date of LMP Is there any chance of ? No Obstetrics History GPAL:G 0 P 0 0 0 0 Past Encounters Encounter ID Performer Location Encounter Start Date Encounter Closed Date Diagnosis/Indication Diagnosis SNOMED-CT Code Diagnosis ICD10 Code Diagnosis Note [id number] N[facility] Kathleen [address] [facility] [address] [place] [address] 11/04/2023 10:31:06 11/04/2023 10:55:41 Acute respiratory distress 647818760 R06.03 We recommend you go immediatel y to the nearest Emergency Department for further evaluation . We recommend that you go directly there from here and that you do not eat or drink anything until after you have been evaluated by the ER and cleared by them to eat and drink. Health Concerns Section Related Observation LastModified by Organization Detai ls LastModified Time None Recorded Concern Status LastModified by Organization Details LastModified Time None Recorded Advance Directives Directive None Recorded Payers Encounter Date Sequence Insurance Name Policy Number Policy Woods Covered Member ID Woods Member ID Guarantor Name 11/04/2023 1 [place] [employer] Selina Borrero [id number] Selina Borrero 11/04/2023 2 [facility] BLUE [facility] [id number] Selina Borrero [id number] Selina Borrero Notes Date Note Type Note Provider Name and Address Organization Details Recorded Time 11/04/2023 text/html 83 y/o female here with SOB, cough and wheeze since last night, O2 into the 80s NANCY Kathleen [address] [place], [address], [place] - [facility] 11/04/2023 11:04:42 OBGyn Episode No OBEpisode recorded.
--- OUTSIDE RECORDS SUMMARY | 2024-06-29 11:02 | XMS_ITS | Continuity of Care Document ---
Author Organization [facility] [place] [address] [place] [address]- Care Team Providers Care Receiving Dock Checker Name Role Phone Josephine Moreno MD Primary Care Physician Encounter 06/08/24 - 06/15/24 [facility] [address], [address] [place] [address]- Attending Physician: Hannah Johns MD Admitting Physician: Hannah Johns MD Referring Physician: Hannah Johns MD Encounter Type: OutPatient One Time Allergies, Adverse Reactions, Alerts Substance Criticality Severity [...] 3:55:00 PM EST, Route to Pharmacy Electronically, [facility]/pharmacy #[id number], Partial fill upon patient request if [...] Maintenance, 05/29/22 5:15:00 PM EST, EC Capsule, [facility]/pharmacy #[id number], Partial fill upon patient request if [...] 1:35:00 PM EST, Route to Pharmacy Electronically, [facility]/pharmacy #[id number], Partial fill upon patient request if [...] mg, By Mouth, Every Thursday, Thursday and Thursday, # 13 tablet, 8 Refills, Maintenance, 06/12/23 8:34:00 AM EST, [facility]/pharmacy #[id number], Partial fill upon patient request if the [...] Exam Date Time Procedure Performing Provider Status 06/08/24 10:32 AM US Liver Vida Amato; Auth (Ve rified) Notes: (US Liver) Reason For Exam: Cirrhosis, HCC Screening;Other: RESULT: US Liver US Liver Reason: Other:; Cirrhosis, HCC Screening; Clinical Question(s): Other: COMPARISON: Ultrasound of 7 12/09/2023, CTA chest of 11/04/2023, MRI of 04/30/2022 IMAGING TECHNIQUE: Grayscale and color Doppler ultrasound examination of the liver. FINDINGS: Liver: Coarse hepatic echotexture. No suspicious lesion. Nodular hepatic contour. Main portal vein patent with normal hepatopetal direction of flow. There is mild perihepatic and right upper quadrantascites. Biliary Tree: No intrahepatic or extrahepatic bile duct dilation is identified. Common duct: 0.5 cm. Redemonstrated is a large gallstone within the gallbladder with diffuse gallbladder wall thickening, similar to prior examinations including prior MRI of 2021, compatible with chronic gallbladder wall thickening probably secondary to liver disease. IMPRESSION: Cirrhotic morphology. No suspicious lesion. New mild perihepatic and right upper quadrant ascites. Stable cholelithiasis with stable chronic gallbladder wall thickening. WSN: [id number] Ordering Physician: Hannah Johns Dictated By: Annemarie Aguilar MD Dictated Date/Time: 06/08/24 10:42 a Reviewed By: Annemarie Aguilar MD Signed By: Annemarie Aguilar MD Signed Date/Time: 06/08/24 10:42 am Transcribed By: DAIANA Transcribed Date/Time: 06/08/24 10:38 am Social History Social History Type Response Smoking Status Former smoker, quit more than 30 days ago entered on: 10/07/19 Sex Sex Representation Female (finding) Patient Care team information Care Team Personnel Name: Angelia Valdez RN Position: [facility] AMB Nurse Member Role: Primary Care Nurse Name: Josephine Moreno MD Position: [facility] Physician - Primary Care Member Role: PCP Address: [address] [place], [place] [address] Telecom: Name: Calvin Trammell RN Position: [facility] Outreach Member Role: Primary Care Nurse Name: Felicita Lewis RN Position: [facility] Hospital Fabrication Specialist Member Role: Primary Care Nurse Name: Lory Rausch RN Position: [facility] RN Member Role: Primary Care Nurse Name: Anne Becker RN Position: [facility] RN Member Role: Primary Care Nurse Name: Jen Aldrich Position: [facility] RN Member Role: Primary Care Nurse Name: Jayne Cline RN Position: [facility] RN Member Role: Primary Care Nurse Care Team Related Persons Name: VICKIE NOONAN Name: CARO GAVIN Name: KERRIE GAVIN Insurance Providers Guarantor name: ALLY ROMAINE Health Plan Information #: 1 Payer: MEDICARE PART B OUTPT Member Number: [id number] Policy Number: NA Group Number: NA Health Plan Information #: 2 Payer: MEDEX Member Number: [id number] Policy Number: NA Group Number: NA
== END 2024-06-29 11:23 | disposition home or self-care (01) ==
PROVIDERS: PCP Internal Medicine; Visit Provider Internal Medicine
DX: Z00.00 Encounter for general adult medical examination without abnormal findings (principal); J44.9 Chronic obstructive pulmonary disease, unspecified; E11.22 Type 2 diabetes mellitus with diabetic chronic kidney disease; K74.60 Unspecified cirrhosis of liver; N18.30 Chronic kidney disease, stage 3 unspecified; R49.0 Dysphonia

== ENCOUNTER 2024-10-05 13:36 | Outpatient (AMB) | payer MEDICARE, SELFPAY ==
[2024-10-05 13:37] VITALS: BP 124/68; PULSE 57; RESP 20; TEMP 36.8; O2SAT 95; BMI 29.3
--- NOTE | 2024-10-05 13:37 | MHC.PC.OV ---
Vital Signs 10/05/24 13:37 Height 5 ft 4 in Weight 171 lb BMI 29.3 BP 124/68 Blood Pressure Location Lt brachial Position Sitting Respiration 20 Pulse 57 Pulse Source Pulse Oximeter Temp 98.2 F Temp Source Oral Pulse Oximetry (%) 95 Oxygen Delivery Method Room Air Intake Visit Reasons: Pneumonia Intake Note: Pt is here today for a folow up visit after being seen in the Urgent Care. Allergies amoxicillin [Augmentin] Allergy (Unknown, Verified 10/05/24 13:47) unknown clavulanic acid [Augmentin] Allergy (Unknown, Verified 10/05/24 13:47) unknown umeclidinium [Anoro Ellipta] Allergy (Unknown, Verified 10/05/24 13:47) Hoarseness vilanterol [Anoro Ellipta] Allergy (Unknown, Verified 10/05/24 13:47) Hoarseness azithromycin Adverse Reaction (Intermediate, Verified 10/05/24 15:19) Diarrhea Medication List - Last Reconciled 10/05/24 by Josephine Moreno MD albuterol sulfate 2.5 mg inhalation Q6H blood sugar diagnostic (FreeStyle Lite Strips) use 1 strip once a day to test blood sugar cholecalciferol (vitamin D3) 50 mcg PO DAILY [duo nebulizer As directed] fluticasone furoate 100 mcg/actuation (Arnuity Ellipta) 1 inh inhalation DAILY furosemide 20 mg PO DAILY inhalational spacing device (Aerochamber MV spacer) As directed [Nebulizer with duoneb As directed] omeprazole 20 mg PO DAILY propranolol 10 mg PO BID sertraline 50 mg PO DAILY spironolactone 50 mg PO DAILY Tobacco use date assessed: 10/05/24 Fall risk assessment: 2 + Falls in past year Last assessed Fall Risk: 10/05/24 Dental Screening Dental Screen Date: 10/05/24 Did you have a dental visit in the last 12 months?: Yes Did you have a dental problem in the last 6 months where you did not have access to dental care?: No Was dental information given to patient?: Patient has dentist HPI Pneumonia HPI Details Pt presents for f/u of Urgent Care for upper respiratory infection question of pneumonia 5 days. Patient complained of productive cough with green sputum body aches and had a fever for 2 days last week. Chest x-ray revealed patchy infiltrates question of CHF versus pneumonia. Patient denies chest pain PND orthopnea pleurisy. She was started on Z-Abdulaziz but after 2 days change to Ceftin because she developed diarrhea on Zithromax. Patient is feeling slightly better but still reports productive cough. She has 3 more days of antibiotic. She has been using Arnuity inhaler. [facility] Medical History Annual physical exam Palpitations Anemia Depression Dysuria Cirrhosis Esophageal varices with bleeding Type 2 diabetes mellitus (~12/06/20) COPD (chronic obstructive pulmonary disease) Surgical History H/O colonoscopy History of bilateral knee arthroplasty Family History Father Unknown family medical history Mother Unknown family medical history Social History Housing: House Alcohol intake: current Alcohol intake frequency: holidays/special occasions only Patient Tobacco Use Status: Former Tobacco user e-Cigarette/Vaping Use: Never Used service: No Current occupational status: retired Cognitive needs: No Hearing needs: Yes Vision needs: Yes Questionnaire Thrive Questionnaire Date Thrive assessed: 10/05/24 I am a: Patient What is your living situation today?: I have a steady place to live Within the past 12 months, did the food you bought not last and you didn't have the money to get more?: Never true Within the past 12 months, did you worry whether your food would run out before you got money to buy more?: Never true Do you have trouble paying for medicines?: No Do you have trouble getting transportation to medical appointments?: No Do you have trouble paying your heating and electricity bill?: No Do you have trouble taking care of your child, family member or friend?: No Do you have trouble with day-to-day activities such as bathing, preparing meals, shopping, managing finances, etc.?: No Are you currently unemployed and looking for a job?: No Are you interested in more education?: No Please select the resources that you would like help with: None Currently or been in a relationship where the following occur: No concerns reported THRIVE Score: 0 AUDIT C Alcohol Use Questionnaire (AUDIT-C) 1. How often do you have a drink containing alcohol?: Never 3. How often do you have six or more drinks on one occasion?: Never Total Score: 0 KIMBERLEE-7 AMB Questionnaire KIMBERLEE-7 Date KIMBERLEE - 7 assessed: 10/05/24 Feeling nervous, anxious, or on edge: 0 = Not at all Not being able to stop or control worryin = Not at all Worrying too much about different things: 0 = Not at all Trouble relaxin = Not at all Being so restless that it is hard to sit still: 0 = Not at all Becoming easily annoyed or irritable: 0 = Not at all Feeling afraid as if something awful might happen: 0 = Not at all Total KIMBERLEE-7 score (0-4 normal; 5-9 mild; 10-14 moderate; 15-21 severe): 0 Source: Developed by Drs. Kimani Jj, Marta Ann, Deepak Bonds and colleagues, with an educational mathieu from [employer]. KIMBERLEE-7 Assessment Billing KIMBERLEE-7 Assessment Tool: KIMBERLEE-7 Assessment 27898 Review of Systems Const All systems reviewed & are unremarkable except as noted in HPI and below Eyes Reports no additional complaints ENT Reports no additional complaints Card Reports no additional complaints Resp Reports no additional complaints GI Reports no additional complaints Reports no additional complaints Physical exam (Primary Care) Vital Signs: Last Vital Signs Temp 98.2 F 10/05/24 13:37 Pulse 57 10/05/24 13:37 Resp 20 10/05/24 13:37 BP 124/68 10/05/24 13:37 Pulse Ox 95 10/05/24 13:37 Oxygen Delivery Method Room Air 10/05/24 13:37 BMI result Body Mass Index 29.3 Tobacco/Smoking Status: Tobacco use Status Tobacco use date assessed 10/05/24 10/05/24 13:38 Patient Tobacco Use Status Former Tobacco user 10/05/24 13:38 e-Cigarette/Vaping Use Never Used 10/05/24 13:38 Thrive Assessment: Date of Thrive Assessment Date Thrive assessed 10/05/24 10/05/24 13:38 Currently or been in a relationship where the following occur: No concerns reported Const General: no acute distress HENMT Head: Yes normal to inspection Ears: TM's normal bilaterally Neck Neck: Yes supple Resp Effort & Inspection: normal respiratory effort Auscultation: crackles (at bases b/l) and diminished lung sounds Cardio Rhythm: regular rhythm Heart sounds: S1 normal heart sound present and S2 normal heart sound present Extrem Other: 1+ pitting edema bilaterally Coding Level of Care Code Est Pt Level 4 (25290) Diagnoses COPD (chronic obstructive pulmonary disease) J44.9 Type 2 diabetes mellitus E11.9 Pneumonia J18.9 Additional Codes KIMBERLEE-7 Assessment Billing - KIMBERLEE-7 Assessment Tool: KIMBERLEE-7 Assessment 21170 ([id number]) Assessment & Plan Assessment & Plan (1) COPD (chronic obstructive pulmonary disease): Comment: Intolerant to Anoro or powder inhalers Code(s): J44.9 - Chronic obstructive pulmonary disease, unspecified Category: Medical Plan: Continue Arnuity and albuterol. (2) Type 2 diabetes mellitus: Onset Date: ~12/06/20 Comment: Diet controlled, off metformin since June 2024 Code(s): E11.9 - Type 2 diabetes mellitus without complications Category: Medical Plan: Check A1c (3) Pneumonia: Code(s): J18.9 - Pneumonia, unspecified organism Category: Medical Plan: Continue antibiotic and supportive care discussed with the patient. She was advised to increase furosemide to 40 mg for 2 days and then continue 20 mg daily. Patient will follow-up in 1 week. Comprehensive panel and CBC BNP will be checked today Orders: Orders B Type Natriuretic Peptide Today E11.9 - Type 2 diabetes mellitus without complications, J44.9 - Chronic obstructive pulmonary disease, unspecified Hemoglobin A1c Today E11.9 - Type 2 diabetes mellitus without complications, J44.9 - Chronic obstructive pulmonary disease, unspecified Comprehensive Met. Panel Today E11.9 - Type 2 diabetes mellitus without complications, J44.9 - Chronic obstructive pulmonary disease, unspecified Complete Blood Count Auto Diff Today E11.9 - Type 2 diabetes mellitus without complications, J44.9 - Chronic obstructive pulmonary disease, unspecified Medications: New furosemide 20 mg PO DAILY 30 tabs 2RF
--- OUTSIDE RECORDS SUMMARY | 2024-10-05 14:30 | XMS_ITS | Data Portability ---
Author Organization [facility] [address] Address [address] [place] [address] Assessment No assessment recorded. Plan of Treatment Reminders Order Date Submit Date Provider Last Modified By Organization Details Last Modified Time Details Appointments None recorded. Lab None recorded. Referral emergency medicine referral - SOB with O2 in low 80s since last night 2023 024 [email or web address] [address] [facility] [address] [place], [address], 4 10:55:41 Procedures None recorded. Surgeries None [...] Name and Address Organization Details Recorded Time 150532 Augmentin medicatio n hives Not available high 11/04/2023 40656 2 RxNorm [facility] 4 10:42:27 [...] Not Available No t Available Reji Cavanaugh [facility] spacer DIRECTED *NOT COVERED* active Not Available [...] /min 98.2 [degF] 160.02 cm 31.9 kg/m2 96737.6 3 g 141 mm[Hg] 56 mm[Hg] Mayte Hathaway PA - [facility] 10:43:40 Social History Question Answer Notes LastModified by Organizat ion Details LastModified Time Tobacco Smoking Status Never Smoker NANCY Lama - [facility] 11/04/2023 10:42:42 Have You Had Direct Contact, Or Contact During Intimacy, With Monkeypox Rash, Scabs, Or Body Fluids From A Person With Monkeypox? No Information not available 11/04/2023 What Was The Date Of Your Most Recent Tobacco Screening? 11/04/2023 Information not available 11/04/2023 What Is Your Relationship Status? Information not available 11/04/2023 Have You Recently Traveled Abroad? Yes Information no t available 11/04/2023 Are You Currently In School? No Information not available 11/04/2023 Sex: Unknown Functional Status Question Answer Note LastModified by Organizat ion Details LastModified Time Do you use any illicit or recreational drugs? No Information not available 11/04/2023 Do you or have you ever used any other forms of tobacco or nicotine? No Information not available 11/04/2023 What is your level of alcohol consumption? None Information not available 11/04/2023 Are you currently employed? No Information not available 11/04/2023 Mental Status None recorded. Family History Nothing Reported. Medical History No medical history recorded. Gynecological History Statement/Question Response Date of LMP Is there any chance of ? No Obstetrics History GPAL:G 0 P 0 0 0 0 Past Encounters Encounter ID Performer Location Encounter Start Date Encounter Closed Date Diagnosis/Indication Diagnosis SNOMED-CT Code Diagnosis ICD10 Code Diagnosis Note [id number] NANCY RECINOS [address] [facility] [address] [place] [address] 11/04/2023 10:31:06 11/04/2023 10:55:41 Acute respiratory distress 437530793 R06.03 We recommend you go immediatel y to the nearest Emergency Department for further evaluation . We recommend that you go directly there from here and that you do not eat or drink anything until after you have been evaluated by the ER and cleared by them to eat and drink. Health Concerns Section Related Observation LastModified by Organization Hasmukh paulino LastModified Time None Recorded Concern Status LastModified by Organization Details LastModified Time None Recorded Advance Directives Directive None Recorded Payers Insurance Date Sequence Insurance Name Policy Number Policy Woods Covered Member ID Woods Member ID Guarantor Name 11/05/2023 1 [place] [employer] Selina Borrero [id number] Selina Borrero 11/04/2023 2 [facility] [id number] Selina Borrero [id number] Selina Borrero Notes Date Note Type Note Provider Name and Address Organization Details Recorded Time 11/04/2023 text/html 83 y/o female here with SOB, cough and wheeze since last night, O2 into the 80s NANCY Kathleen [facility] [place], [address], [place] - [facility] 11/04/2023 11:04:42 OBGyn Episode No OBEpisode recorded.
== END 2024-10-05 14:30 | disposition home or self-care (01) ==
LOC: HO.HMCC 13:36
PROVIDERS: PCP Internal Medicine; Visit Provider Internal Medicine
DX: J44.9 Chronic obstructive pulmonary disease, unspecified (principal); E11.9 Type 2 diabetes mellitus without complications; J18.9 Pneumonia, unspecified organism

== ENCOUNTER 2024-10-05 13:36 | Outpatient (REF) | payer MEDICARE, SELFPAY ==
[2024-10-05 15:03] LABS: MANUAL DIFF FLAG NO
[2024-10-05 15:20] LABS: Basophils Percent Auto 0.1 % (0-2); Eosinophils Absolute Auto 0.1 X10*3/uL (0.0-0.4); Eosinophils Percent Auto 1.1 % (0-4); Hematocrit 33.2 % (37.0-47.0); Hemoglobin 10.5 g/dl (12.0-16.0); Imm Gran Abs Auto 0.13 X10*3/uL (0.00-0.03); Imm Gran Pct Auto 1.9 % (0.0-0.4); Lymphocytes Absolute Auto 1.1 X10*3/uL (1.2-4.9); Lymphocytes Percent Auto 15.9 % (20-40); Mean Corpuscular HGB Conc 31.6 g/dl (31.0-35.0); Mean Corpuscular Hemoglobin 28.5 pg (27.0-33.0); Mean Corpuscular Volume 90.2 fL (80.0-98.0); Monocytes Absolute Auto 1.4 X10*3/uL (0.1-1.2); Monocytes Percent Auto 20.2 % (2-11); Neutrophils Absolute Auto 4.2 x10*3/uL (2.0-8.3); Neutrophils Percent Auto 60.8 % (45-73); Platelet Count 140 X10*3/uL (160-400); Red Blood Count 3.68 X10*6/uL (4.20-5.50); Red Cell Distribution Width 14.7 % (11.0-16.0); SCAN SMEAR FLAG 1
[2024-10-05 15:24] LABS: Estimated Average Glucose 131 mg/dL; Hemoglobin A1c % 6.2 % (<6.0)
[2024-10-05 15:47] LABS: B Type Natriuretic Peptide 416 pg/mL (<100)
[2024-10-05 15:49] LABS: Alanine Aminotransferase 33 U/L (0-31); Albumin Level 3.1 g/dL (3.5-5.0); Alkaline Phosphatase 84 U/L (39-117); Anion Gap 10 (12-20); Aspartate Amino Transferase 36 U/L (5-31); Bilirubin Total 1.2 mg/dL (0.0-1.0); Blood Urea Nitrogen 26 mg/dL (9-16); Calcium 8.2 mg/dL (8.4-10.2); Carbon Dioxide 26 mmol/L (22-29); Chloride 110 mmol/L (96-108); Estimated Glomerular Filt Rate 56; Glucose Random 106 mg/dL (60-115); Potassium 4.1 mmol/L (3.3-5.1); Sodium 142 mmol/L (135-145)
== END 2024-10-05 13:37 | disposition home or self-care (01) ==
LOC: HO.LAB 13:36
PROVIDERS: PCP Internal Medicine; Visit Provider Internal Medicine
DX: J44.9 Chronic obstructive pulmonary disease, unspecified (principal); E11.9 Type 2 diabetes mellitus without complications; J18.9 Pneumonia, unspecified organism
CPT/HCPCS: 36415; 80053; 83036; 83880; 85025; 96127; 99212

== ENCOUNTER 2024-10-14 08:51 | Outpatient (AMB) | payer MEDICARE, SELFPAY ==
[2024-10-14 09:07] VITALS: BP 116/58; PULSE 70; RESP 20; TEMP 36.7; O2SAT 95; BMI 27.8
--- NOTE | 2024-10-14 09:07 | MHC.PC.OV ---
Vital Signs 10/14/24 09:07 Height 5 ft 4 in Weight 162 lb BMI 27.8 BP 116/58 L Blood Pressure Location Rt brachial Position Sitting Respiration 20 Pulse 70 Pulse Source Pulse Oximeter Temp 98.0 F Temp Source Oral Pulse Oximetry (%) 95 Oxygen Delivery Method Room Air Intake Visit Reasons: 1 week f/up Intake Note: Pt is here today for 1 week follow up visit. Allergies amoxicillin [Augmentin] Allergy (Unknown, Verified 10/14/24 09:09) unknown clavulanic acid [Augmentin] Allergy (Unknown, Verified 10/14/24 09:09) unknown umeclidinium [Anoro Ellipta] Allergy (Unknown, Verified 10/14/24 09:09) Hoarseness vilanterol [Anoro Ellipta] Allergy (Unknown, Verified 10/14/24 09:09) Hoarseness azithromycin Adverse Reaction (Intermediate, Verified 10/14/24 09:09) Diarrhea Medication List - Last Reconciled 10/14/24 by Josephine Moreno MD albuterol sulfate 2.5 mg inhalation Q6H blood sugar diagnostic (FreeStyle Lite Strips) use 1 strip once a day to test blood sugar cholecalciferol (vitamin D3) 50 mcg PO DAILY [duo nebulizer As directed] fluticasone furoate 100 mcg/actuation (Arnuity Ellipta) 1 inh inhalation DAILY furosemide 20 mg PO DAILY furosemide 20 mg PO DAILY inhalational spacing device (Aerochamber MV spacer) As directed [Nebulizer with duoneb As directed] omeprazole 20 mg PO DAILY propranolol 10 mg PO BID sertraline 50 mg PO DAILY spironolactone 50 mg PO DAILY Tobacco use date assessed: 10/14/24 Dental Screening Dental Screen Date: 10/05/24 HPI 1 week f/up HPI Details Patient presents for the COPD exacerbation. She is feeling slightly better cough improved and wheezing resolved. Patient tried using Arnuity but has difficulty using the inhaler. She has been using albuterol nebulized up to 3 times a day. Patient is still reports dyspnea on exertion and lower extremity edema slightly improved since she increased furosemide to 20 mg every day for a week. Patient run out of propranolol and spironolactone last week. [facility] Medical History Annual physical exam Palpitations Anemia Depression Dysuria Cirrhosis Esophageal varices with bleeding Type 2 diabetes mellitus (~12/06/20) COPD (chronic obstructive pulmonary disease) Surgical History H/O colonoscopy History of bilateral knee arthroplasty Family History Father Unknown family medical history Mother Unknown family medical history Social History Housing: House Alcohol intake: current Alcohol intake frequency: holidays/special occasions only Patient Tobacco Use Status: Former Tobacco user e-Cigarette/Vaping Use: Never Used service: No Current occupational status: retired Cognitive needs: No Hearing needs: Yes Vision needs: Yes Questionnaire Thrive Questionnaire Date Thrive assessed: 10/05/24 I am a: Patient What is your living situation today?: I have a steady place to live Within the past 12 months, did the food you bought not last and you didn't have the money to get more?: Never true Within the past 12 months, did you worry whether your food would run out before you got money to buy more?: Never true Do you have trouble paying for medicines?: No Do you have trouble getting transportation to medical appointments?: No Do you have trouble paying your heating and electricity bill?: No Do you have trouble taking care of your child, family member or friend?: No Do you have trouble with day-to-day activities such as bathing, preparing meals, shopping, managing finances, etc.?: No Are you currently unemployed and looking for a job?: No Are you interested in more education?: No Please select the resources that you would like help with: None Currently or been in a relationship where the following occur: No concerns reported THRIVE Score: 0 AUDIT C Alcohol Use Questionnaire (AUDIT-C) 3. How often do you have six or more drinks on one occasion?: Never Total Score: 0 KIMBERLEE-7 AMB Questionnaire KIMBERLEE-7 Date KIMBERLEE - 7 assessed: 10/05/24 Source: Developed by Drs. Kimani Jj, Marta Ann, Deepak Bonds and colleagues, with an educational mathieu from [employer]. Review of Systems Const All systems reviewed & are unremarkable except as noted in HPI and below Eyes Reports no additional complaints ENT Reports no additional complaints Card Reports no additional complaints Resp Reports no additional complaints GI Reports no additional complaints Reports no additional complaints Physical exam (Primary Care) Vital Signs: Last Vital Signs Temp 98.0 F 10/14/24 09:07 Pulse 70 10/14/24 09:07 Resp 20 10/14/24 09:07 BP 116/58 L 10/14/24 09:07 Pulse Ox 95 10/14/24 09:07 Oxygen Delivery Method Room Air 10/14/24 09:07 BMI result Body Mass Index 27.8 Tobacco/Smoking Status: Tobacco use Status Tobacco use date assessed 10/14/24 10/14/24 09:12 Patient Tobacco Use Status Former Tobacco user 10/14/24 09:12 e-Cigarette/Vaping Use Never Used 10/14/24 09:12 Thrive Assessment: Date of Thrive Assessment Date Thrive assessed 10/05/24 10/14/24 09:12 Currently or been in a relationship where the following occur: No concerns reported Const General: no acute distress HENMT Head: Yes normal to inspection Neck Neck: Yes supple Resp Effort & Inspection: normal respiratory effort Auscultation: crackles bilateral and diminished lung sounds Cardio Rhythm: regular rhythm Heart sounds: S1 normal heart sound present and S2 normal heart sound present Extrem Other: 2+ pitting edema bilaterally Coding Level of Care Code Est Pt Level 4 (99849) Diagnoses SOB (shortness of breath) R06.02 COPD (chronic obstructive pulmonary disease) J44.9 Cirrhosis K74.60 Assessment & Plan Assessment & Plan (1) SOB (shortness of breath): Code(s): R06.02 - Shortness of breath Category: Medical Plan: Check chest X today, Obtain echocardiogram to evaluate for ejection fraction right-sided heart failure, increase furosemide to 40 mg a day for 1 week and patient will restart spironolactone. Check basic metabolic panel in 1 week follow-up (2) COPD (chronic obstructive pulmonary disease): Comment: Intolerant to Anoro or powder inhalers, could not use Arnuity inhaler Code(s): J44.9 - Chronic obstructive pulmonary disease, unspecified Category: Medical Plan: Start nebulized budesonide 1 mg twice a day in addition to albuterol prn (3) Cirrhosis: Comment: Compensated with portal hypertension controlled on nadolol and furosemide. Follows up with GI q 6 months Code(s): K74.60 - Unspecified cirrhosis of liver Category: Medical Plan: Patient will restart spironolactone and propranolol Orders: Orders Complete Blood Count Auto Diff 10/19/24 K74.60 - Unspecified cirrhosis of liver, N18.30 - Chronic kidney disease, stage 3 unspecified, R06.09 - Other forms of dyspnea CA echo transthorac w con Today R06.09 - Other forms of dyspnea Basic Metabolic Panel 10/19/24 J44.9 - Chronic obstructive pulmonary disease, unspecified, R06.02 - Shortness of breath IRON PROFILE 10/19/24 K74.60 - Unspecified cirrhosis of liver, N18.30 - Chronic kidney disease, stage 3 unspecified, R06.09 - Other forms of dyspnea Vitamin B12 and Folate 10/19/24 K74.60 - Unspecified cirrhosis of liver, N18.30 - Chronic kidney disease, stage 3 unspecified, R06.09 - Other forms of dyspnea Medications: New spironolactone 50 mg PO DAILY 90 tabs 3RF propranolol 10 mg PO BID 180 tabs 3RF budesonide 0.5 mg (2 mL) inhalation BID 120 mL 2RF Changed From furosemide 20 mg PO DAILY 30 tabs 2RF To furosemide 40 mg (2 x 20 mg) PO DAILY 60 tabs 2RF
--- OUTSIDE RECORDS SUMMARY | 2024-10-14 09:07 | XMS_ITS | Patient Health Record ---
Author Organization [facility] Address [address] [facility] [place] [address] Care Team Providers Care Tomato Pulper Operator Name Role Phone Josephine Moreno MD Primary Care Provider Roly Ferguson Unavailable [phone] Allergies Allergen (clinical drug ingredient) Drug/Non Drug Allergy documented on EMR Reaction Allergy Type Onset Date Status amoxicillin / clavulanate Augmentin hives Drug Allergy Active Reason For Referral No Information Medications Medication SIG (Take, Route, Fr equency, Duration) Notes Start Date End Date Status Spiriva Respimat Act macario Flonase Active Aleve Active Social History Tobacco use other than smoking: Question Answer Notes Are you an other tobacco user? No Plan Of Treatment Pending Test Test Name Order Date X ray : Foot, left 2V 09/17/2012 X ray : Foot, left 2V 10/19/2015 X ray : Foot, right 2V 09/17/2012 X ray : Foot, right 3V 01/14/2011 X ray : Foot, right 3V 01/09/2015 [id number] TENDON SHEATH/LIGAMENT 0 01/10/2016 [id number] TENDON SHEATH/LIGAMENT 0 02/01/2016 Insurance Providers Payer Name Payer Address Payer Phone Subscriber Number Group Number Insured Name Patient Relationship to Insured Coverage Start Date Coverage End Date [facility] [address] [place] [address] [id number] BorreroSelina roger Self - patient is the insured Medical (General) History Medical History History ICD Code Arthritis back, hip, knee pain cataracts chicken pox joint implants/screws measles transfusions Surgical History Surgery Date(Month/Year) left knee replacement 11/13/2004 right knee replacement 11/15/2008 bladder surgery 11/14/2015 Hospitalization History Reason Date(Month/Year) Carpal Tunnel Surgery 11/16/14
== END 2024-10-14 10:31 | disposition home or self-care (01) ==
LOC: HO.HMCC 08:52
PROVIDERS: PCP Internal Medicine; Visit Provider Internal Medicine
DX: R06.02 Shortness of breath (principal); J44.9 Chronic obstructive pulmonary disease, unspecified; K74.60 Unspecified cirrhosis of liver

== ENCOUNTER 2024-10-14 08:51 | Outpatient (REF) | payer MEDICARE, SELFPAY ==
--- NOTE | ~2024-10-14 | XR_ITS ---
EXAMINATION: XR CHEST 2 VIEWS HISTORY: R06.02 - Shortness of breath COMPARISON: Comparison is made with the prior examination dated 11/17/2023. FINDINGS: PA and lateral views of the chest are submitted. The lungs are expanded and clear. There is no pleural effusion, pneumothorax, or pulmonary vascular congestion. The heart is normal in size. There is degenerative disc disease of the spine. The patient is status post reverse right shoulder arthroplasty. XR/XR chest 2V IMPRESSION: No acute cardiopulmonary abnormality. Electronically signed by: Kimani Truong MD 10/14/2024 10:21 AM EDT
== END 2024-10-14 08:52 | disposition home or self-care (01) ==
LOC: HO.HMGCX 08:51
PROVIDERS: PCP Internal Medicine; Visit Provider Internal Medicine
DX: R06.02 Shortness of breath (principal); J44.9 Chronic obstructive pulmonary disease, unspecified; K74.60 Unspecified cirrhosis of liver
CPT/HCPCS: 71046; 99212

== ENCOUNTER → 2024-10-14 09:59 | Outpatient (BNV) | payer MEDICARE, SELFPAY | PROVIDERS: PCP Internal Medicine; Visit Provider Radiology Diagnostic Radiology | DX: R06.02 Shortness of breath (principal) | CPT/HCPCS: 71046 ==

== ENCOUNTER 2024-10-19 15:01 | Outpatient (REF) | payer MEDICARE, SELFPAY ==
[2024-10-19 15:56] LABS: MANUAL DIFF FLAG NO
[2024-10-19 16:13] LABS: Anion Gap 10 (12-20); Blood Urea Nitrogen 24 mg/dL (9-16); Calcium 8.9 mg/dL (8.4-10.2); Carbon Dioxide 31 mmol/L (22-29); Chloride 105 mmol/L (96-108); Estimated Glomerular Filt Rate 52; Glucose Random 112 mg/dL (60-115); Iron 77 mcg/dL (30-160); Percent Iron Saturation 30 % (15-50); Sodium 142 mmol/L (135-145); Total Iron Binding Capacity 257 mcg/dL (228-428); Unsaturated Iron Binding 180 ug/dL
[2024-10-19 16:20] LABS: Basophils Percent Auto 0.5 % (0-2); Eosinophils Absolute Auto 0.1 X10*3/uL (0.0-0.4); Eosinophils Percent Auto 1.9 % (0-4); Hematocrit 34.8 % (37.0-47.0); Hemoglobin 11.1 g/dl (12.0-16.0); Imm Gran Abs Auto 0.01 X10*3/uL (0.00-0.03); Imm Gran Pct Auto 0.2 % (0.0-0.4); Lymphocytes Percent Auto 22.8 % (20-40); Mean Corpuscular HGB Conc 31.9 g/dl (31.0-35.0); Mean Corpuscular Volume 90.9 fL (80.0-98.0); Mean Platelet Volume 13.1 fL (9.4-12.3); Monocytes Absolute Auto 0.6 X10*3/uL (0.1-1.2); Monocytes Percent Auto 13.4 % (2-11); Neutrophils Absolute Auto 2.6 x10*3/uL (2.0-8.3); Neutrophils Percent Auto 61.2 % (45-73); Red Blood Count 3.83 X10*6/uL (4.20-5.50); Red Cell Distribution Width 14.8 % (11.0-16.0); White Blood Count 4.3 X10*3/uL (4.8-10.8)
[2024-10-19 16:21] LABS: Platelet Count 93 X10*3/uL (160-400)
[2024-10-19 17:01] LABS: Folate 7.6 ng/mL (> or = 4.0); Vitamin B12 817 pg/mL (200-900)
--- OUTSIDE RECORDS SUMMARY | 2024-10-19 17:17 | XMS_ITS | Patient Health Record ---
Author Organization [facility] Address [address] [facility] [place] [address] Care Team Providers Care Resident Care Assistant Name Role Phone Josephine Moreno MD Primary Care Provider Roly Ferguson Unavailable [phone] Allergies Allergen (clinical drug ingredient) Drug/Non Drug [...] X ray : Foot, right 3V 01/09/2015 [id number] TENDON SHEATH/LIGAMENT 0 01/10/2016 [id number] TENDON SHEATH/LIGAMENT 0 02/01/2016 Insurance Providers Payer Name Payer Address Payer Phone Subscriber Number Group Number Insured Name Patient Relationship to Insured Coverage Start Date Coverage End Date [facility] [address] [place] [address] [id number] BorreroSelina roger Self - patient is the insured Medical (General) History Medical History History ICD Code Arthritis back, hip, knee pain cataracts chicken pox joint implants/screws measles transfusions Surgical History Surgery Date(Month/Year) left knee replacement 11/13/2004 right knee replacement 11/15/2008 bladder surgery 11/14/2015 Hospitalization History Reason Date(Month/Year) Carpal Tunnel Surgery 11/16/14
== END 2024-10-19 15:02 | disposition home or self-care (01) ==
LOC: HO.HMGCLDS 15:01
PROVIDERS: PCP Internal Medicine; Visit Provider Internal Medicine
DX: R06.09 Other forms of dyspnea (principal); R06.02 Shortness of breath; J44.9 Chronic obstructive pulmonary disease, unspecified; K74.60 Unspecified cirrhosis of liver; N18.30 Chronic kidney disease, stage 3 unspecified
CPT/HCPCS: 36415; 80048; 82607; 82746; 83540; 85025

== ENCOUNTER 2024-10-26 10:48 | Outpatient (AMB) | payer MEDICARE, SELFPAY ==
[2024-10-26 10:54] VITALS: BP 106/60; PULSE 59; RESP 18; TEMP 36.6; O2SAT 96; BMI 26.9
--- NOTE | 2024-10-26 10:54 | MHC.PC.OV ---
Vital Signs 10/26/24 10:54 Height 5 ft 4 in Weight 157 lb BMI 26.9 BP 106/60 Blood Pressure Location Lt brachial Position Sitting Respiration 18 Pulse 59 Pulse Source Pulse Oximeter Temp 97.9 F Temp Source Oral Pulse Oximetry (%) 96 Oxygen Delivery Method Room Air Intake Visit Reasons: 1w f/u Intake Note: Pt is here today for 1 week follow up visit. Allergies amoxicillin (Augmentin) Allergy (Unknown, Verified 10/26/24 11:02) unknown clavulanic acid (Augmentin) Allergy (Unknown, Verified 10/26/24 11:02) unknown umeclidinium (Anoro Ellipta) Allergy (Unknown, Verified 10/26/24 11:02) Hoarseness vilanterol (Anoro Ellipta) Allergy (Unknown, Verified 10/26/24 11:02) Hoarseness azithromycin Adverse Reaction (Intermediate, Verified 10/26/24 11:02) Diarrhea Tobacco use date assessed: 10/26/24 Dental Screening Dental Screen Date: 10/05/24 HPI 1w f/u HPI Details Patient presents for the follow-up. COPD is better controlled on budesonide nebulized. Patient uses albuterol but occasionally. Lower extremity edema improved significantly on 40 mg of furosemide. Patient continues to take spironolactone and propranolol for portal hypertension due to liver cirrhosis. Depression is improved on sertraline. [facility] Medical History (Updated 10/26/24 @ 15:56 by Josephine Moreno MD) CRAIG (dyspnea on exertion) Chronic kidney disease, stage 3 Annual physical exam Palpitations Anemia Depression Dysuria Cirrhosis Esophageal varices with bleeding Type 2 diabetes mellitus (~12/06/20) COPD (chronic obstructive pulmonary disease) Surgical History H/O colonoscopy History of bilateral knee arthroplasty Family History Father Unknown family medical history Mother Unknown family medical history Social History Housing: House Alcohol intake: current Alcohol intake frequency: holidays/special occasions only Patient Tobacco Use Status: Former Tobacco user e-Cigarette/Vaping Use: Never Used service: No Current occupational status: retired Cognitive needs: No Hearing needs: Yes Vision needs: Yes Questionnaire Thrive Questionnaire Date Thrive assessed: 10/05/24 I am a: Patient What is your living situation today?: I have a steady place to live Within the past 12 months, did the food you bought not last and you didn't have the money to get more?: Never true Within the past 12 months, did you worry whether your food would run out before you got money to buy more?: Never true Do you have trouble paying for medicines?: No Do you have trouble getting transportation to medical appointments?: No Do you have trouble paying your heating and electricity bill?: No Do you have trouble taking care of your child, family member or friend?: No Do you have trouble with day-to-day activities such as bathing, preparing meals, shopping, managing finances, etc.?: No Are you currently unemployed and looking for a job?: No Are you interested in more education?: No Please select the resources that you would like help with: None Currently or been in a relationship where the following occur: No concerns reported THRIVE Score: 0 KIMBERLEE-7 AMB Questionnaire KIMBERLEE-7 Date KIMBERLEE - 7 assessed: 10/05/24 Source: Developed by Drs. Kimani Jj, Marta Ann, Deepak Bonds and colleagues, with an educational mathieu from [employer]. Review of Systems Const All systems reviewed & are unremarkable except as noted in HPI and below ENT Reports no additional complaints Card Reports no additional complaints Resp Reports no additional complaints GI Reports no additional complaints Reports no additional complaints Physical exam (Primary Care) Vital Signs: Last Vital Signs Temp 97.9 F 10/26/24 10:54 Pulse 59 10/26/24 10:54 Resp 18 10/26/24 10:54 BP 106/60 10/26/24 10:54 Pulse Ox 96 10/26/24 10:54 Oxygen Delivery Method Room Air 10/26/24 10:54 BMI result Body Mass Index 26.9 Tobacco/Smoking Status: Tobacco use Status Tobacco use date assessed 10/26/24 10/26/24 10:56 Patient Tobacco Use Status Former Tobacco user 10/26/24 10:56 e-Cigarette/Vaping Use Never Used 10/26/24 10:56 Thrive Assessment: Date of Thrive Assessment Date Thrive assessed 10/05/24 10/26/24 10:56 Currently or been in a relationship where the following occur: No concerns reported Const General: no acute distress HENMT Head: Yes normal to inspection Neck Neck: Yes supple Resp Effort & Inspection: normal respiratory effort Auscultation: clear to auscultation bilaterally Cardio Rhythm: regular rhythm Heart sounds: S1 normal heart sound present and S2 normal heart sound present GI Inspection: Yes normal to inspection Extrem General: Yes no clubbing, cyanosis or edema Coding Level of Care Code Est Pt Level 4 (44078) Complex EM visit Add On G2211 Diagnoses Arrhythmia I49.9 COPD (chronic obstructive pulmonary disease) J44.9 CRAIG (dyspnea on exertion) R06.09 Chronic kidney disease, stage 3 N18.30 Lower extremity edema R60.0 Assessment & Plan Assessment & Plan (1) Arrhythmia: Comment: Noted during endoscopy Code(s): I49.9 - Cardiac arrhythmia, unspecified Category: Medical Plan: Obtain 5 day Holter referred to plant technician of patient's choice Atul Holman (2) COPD (chronic obstructive pulmonary disease): Comment: Intolerant to Anoro or powder inhalers, could not use Arnuity inhaler Code(s): J44.9 - Chronic obstructive pulmonary disease, unspecified Category: Medical Plan: Continue budesonide and albuterol p.r.n. (3) CRAIG (dyspnea on exertion): Code(s): R06.09 - Other forms of dyspnea Category: Medical Plan: Patient has echocardiogram scheduled in 2 weeks (4) Chronic kidney disease, stage 3: Code(s): N18.30 - Chronic kidney disease, stage 3 unspecified Category: Medical Plan: Monitor renal function avoid nephrotoxic (5) Lower extremity edema: Code(s): R60.0 - Localized edema Category: Medical Plan: Continue current medications follow-up in 1 month Orders: Orders Magnesium Today E55.9 - Vitamin D deficiency, unspecified, J44.9 - Chronic obstructive pulmonary disease, unspecified Vitamin D 25-OH Total Today E55.9 - Vitamin D deficiency, unspecified, J44.9 - Chronic obstructive pulmonary disease, unspecified Comprehensive Met. Panel 1 Month E11.9 - Type 2 diabetes mellitus without complications, N18.30 - Chronic kidney disease, stage 3 unspecified Complete Blood Count Auto Diff 1 Month E11.9 - Type 2 diabetes mellitus without complications, N18.30 - Chronic kidney disease, stage 3 unspecified Hemoglobin A1c 1 Month E11.9 - Type 2 diabetes mellitus without complications, N18.30 - Chronic kidney disease, stage 3 unspecified Basic Metabolic Panel Today E55.9 - Vitamin D deficiency, unspecified, J44.9 - Chronic obstructive pulmonary disease, unspecified ECG 5 day holter monitor Today E55.9 - Vitamin D deficiency, unspecified, I49.9 - Cardiac arrhythmia, unspecified, J44.9 - Chronic obstructive pulmonary disease, unspecified Referrals Cardiology Referral I49.9 - Cardiac arrhythmia, unspecified, R00.2 - Palpitations, R06.09 - Other forms of dyspnea
--- OUTSIDE RECORDS SUMMARY | 2024-10-26 12:25 | XMS_ITS | Patient Health Record ---
Author Organization [facility] Address [address] [place] [address] Care Team Providers Care Railroad Track Inspector Name Role Phone Josephine Moreno MD Primary Care Provider Roly Ferguson Unavailable [phone] Allergies Allergen (clinical drug ingredient) Drug/Non Drug [...] X ray : Foot, right 3V 01/09/2015 [id number] TENDON SHEATH/LIGAMENT 0 01/10/2016 [id number] TENDON SHEATH/LIGAMENT 0 02/01/2016 Insurance Providers Payer Name Payer Address Payer Phone Subscriber Number Group Number Insured Name Patient Relationship to Insured Coverage Start Date Coverage End Date [facility] [address] [place] [address] [phone] [id number] BorreroSelina roger Self - patient is the insured Medical (General) History Medical History History ICD Code Arthritis back, hip, knee pain cataracts chicken pox joint implants/screws measles transfusions Surgical History Surgery Date(Month/Year) left knee replacement 11/13/2004 right knee replacement 11/15/2008 bladder surgery 11/14/2015 Hospitalization History Reason Date(Month/Year) Carpal Tunnel Surgery 11/16/14
== END 2024-10-26 11:42 | disposition home or self-care (01) ==
LOC: HO.HMCC 10:49
PROVIDERS: PCP Internal Medicine; Visit Provider Internal Medicine
DX: I49.9 Cardiac arrhythmia, unspecified (principal); J44.9 Chronic obstructive pulmonary disease, unspecified; R06.09 Other forms of dyspnea; N18.30 Chronic kidney disease, stage 3 unspecified; R60.0 Localized edema

== ENCOUNTER 2024-10-26 11:43 | Outpatient (REF) | payer MEDICARE, SELFPAY ==
[2024-10-26 13:50] LABS: Anion Gap 11 (12-20); Blood Urea Nitrogen 25 mg/dL (9-16); Calcium 8.6 mg/dL (8.4-10.2); Carbon Dioxide 29 mmol/L (22-29); Chloride 107 mmol/L (96-108); Estimated Glomerular Filt Rate 46; Glucose Random 120 mg/dL (60-115); Magnesium 1.9 mg/dL (1.6-2.6); Potassium 3.7 mmol/L (3.3-5.1); Sodium 143 mmol/L (135-145)
[2024-10-26 14:06] LABS: Vitamin D 25-OH Total 40.7 ng/mL (>30)
== END 2024-10-26 11:44 | disposition home or self-care (01) ==
LOC: HO.HMGCLDS 11:43
PROVIDERS: PCP Internal Medicine; Visit Provider Internal Medicine
DX: J44.9 Chronic obstructive pulmonary disease, unspecified (principal); I49.9 Cardiac arrhythmia, unspecified; R06.09 Other forms of dyspnea; E11.22 Type 2 diabetes mellitus with diabetic chronic kidney disease; N18.30 Chronic kidney disease, stage 3 unspecified; R60.0 Localized edema; E55.9 Vitamin D deficiency, unspecified; F32.A Depression, unspecified; Z79.899 Other long term (current) drug therapy
CPT/HCPCS: 36415; 80048; 82306; 83735; 99212

== ENCOUNTER → 2024-11-16 11:08 | Outpatient (REF) | payer MEDICARE, SELFPAY ==
--- NOTE | 2024-11-16 11:10 | CA_ITS ---
Transthoracic Echocardiogram Patient (Last, First, Middle): Selina Borrero T Gender: Female Date of : 1940 Age: 84 Procedure Date: 11/16/2024 Procedure Type: Transthoracic Echocardiogram Location: OP Height: 162.56 cm Weight: 71.22 kg BSA: 1.76 m2 Heart Rate: bpm BP: 128 / 60 mmHg Projection Camera Operator: TO Referring MD: Josephine Moreno MD Shell Molder: Chirag Barcenas MD Symptoms: R06.09 - Other forms of dyspnea Study Quality: Adequate ECG Rhythm: Sinus Conclusions: - 1. Normal LV ejection fraction of 65-70% with grade 2 diastolic dysfunction with moderate asymmetric septal hypertrophy which is focal 2. Mildly dilated left atrium 3. Mild aortic regurgitation 4. Normal RV systolic pressure 5. Mildly dilated ascending aorta 6. No gross pericardial effusion Findings Left Ventricle Normal left ventricular size, thickness, and systolic function. The visually estimated ejection fraction is between 65-70%. Spectral Doppler is indicative of a pseudonormal filling pattern. E/E prime ratio is >15, consistent with elevated filling pressures. Evidence suggests grade II (moderate) diastolic dysfunction. There is moderate septal asymmetric hypertrophy. Right Ventricle Normal right ventricular cavity size and systolic function. Atria The left atrium is mildly dilated. There is lipomatous hypertrophy of the interatrial septum. There is no evidence of interatrial shunt. The right atrium is likely dilated. Aortic Valve There is mild calcification of the aortic valve. There is no aortic valve stenosis. There is mild aortic valve regurgitation. Mitral Valve There is mild anterior and moderate posterior mitral leaflet thickening. There is mild mitral annular calcification. There is mild mitral valve regurgitation. There is no mitral valve stenosis. Pulmonic Valve The pulmonic valve is likely normal. Tricuspid Valve Normal tricuspid valve structure. There is mild tricuspid valve regurgitation. The right ventricular systolic pressure is normal. The right ventricular systolic pressure is 27 mmHg. Normal right atrial pressure. There is no evidence of pulmonary hypertension. Great Vessels The pulmonary artery was not well visualized. There is mild dilatation of the ascending aorta measuring 3.70 cm. Small plaque is seen in the sino tubular ridge. Venous The inferior vena cava is normal in size. Pericardium/Pleural There is no evidence of pericardial effusion. Prior Study Comparison Changes noted compared to prior study dated: 11/03/2016. grade 2 diastolic dysfunction was noted. Mild aortic regurgitation was noted. Mildly dilated ascending aorta noted Measurements 2D Linear Measurements IVSd: 0.92 0.6-0.9/0.6-1.0 cm LVIDd: 5.00 3.9-5.3/4.2-5.9 cm LVIDd Index: 2.84 2.4-3.2/2.2-3.1 cm/m2 LVIDs: 3.48 2.0-3.6 cm LVPWd: 0.94 0.7-1.1 cm LA Diam: 4.10 2.7-3.8/3.0-4.0 cm LAIDs Index: 2.33 1.5-2.3 cm/m2 LV Mass: 205.60 67-162/88-224 g LV Mass Index: 116.82 43-95/49-115 g/m2 LVOT Diam: 2.10 3.0+(-)1.3 cm 2D Systolic Function EF 4C: 66.20 >55% EF 2C: 69.20 >55% EF BiP: 67.90 >55% Mitral Valve MV Pk E: 0.97 MV PK A: 0.78 MV Decel Time: 198.00 E/A: 1.30 E'Lateral: 7.94 E'Medial: 5.00 E/E' Med: 19.50 E/E' Lat: 12.30 PHT: 58.00 MVA PHT: 3.79 Decel Luna: 4.91 Aortic Valve AoV Pk Prasad: 1.57 AoV Mn Prasad: 1.02 AoV VTI: 0.38 AoV Pk Grad: 10.00 Aov Mn Grad: 5.00 GAMA Cont.VTI: 2.60 LVOT LVOT Pk Prasad: 1.04 LVOT Mn Prasad: 0.75 LVOT VTI: 0.29 LVOT Pk Grad: 4.00 LVOT Mn Grad: 3.00 LVOT Diam: 2.10 LVOT Area: 3.46 Diastolic Function MV Pk E: 0.97 MV Pk A: 0.78 E/A: 1.30 E'Medial: 5.00 E/E' Med: 19.50 E' Laterial: 7.94 E/E' Lat: 12.30 Right Ventricle TAPSE (mm): 21.60 TVS' Prasad: 12.10 Tricuspid Valve TR Pk Prasad: 2.46 TR Pk Grad: 24.00 RA Press: 3.00 RVSP: 27.00 Great Vessels Aorta Sinus of Valsalva: 3.40 2.0-3.5 cm Ao Asc: 3.70 2.1-3.4 cm Updated in Other Vendor System with Status of Final Chirag Barcenas MD electronically signed on 11/16/2024 1:11:26 PM with status of Final
--- OUTSIDE RECORDS SUMMARY | 2024-11-16 12:22 | XMS_ITS | Clinical Summary ---
Author Organization [facility] Address [address] [place] [address] Phone Care Team Providers Care Telephone Operator Receptionist Name Role Phone Josephine Moreno MD Primary Care Provider [phone] Encounters Date Type Department Care Team Description 11/03/2024 Telephone [facility] [address] [place] [address] Josephine Moreno MD 11/03/2024 Telephone [facility] [address] [place] [address] Josephine Moreno MD from Last 3 Months Social History Tobacco Use Types Packs/Day Years Used Date Smoking Tobacco: Never Assessed Comments Unknown Sex and Gender Information Value Date Recorded Sex Assigned at Not on file Legal Sex Female 8:02 PM EST Gender Identity Not on file Sexual Orientation Not on file Plan of Treatment Health Maintenance Due Date Last Done Comments DTaP,Tdap,and Td Vaccines (1 - Tdap) 1959 Pneumococcal Vaccine: 50+ Ye ars (1 of 1 - PCV) 1988 Zoster Vaccines (1 of 2) 1988 RSV Immunization Adult Patie nts (1 - 1-dose 75+ series) 2013 COVID-19 Vaccine ( - 2023-2 5 season) 2024 Depression Screening 11/04/2024 Falls Risk Assessment 11/04/2024 Medicare Annual Wellness Visit 11/04/2024 Osteoporosis Screening (Bone Density Screening) 11/04/2024 Social Influencers of Health Screening 11/04/2024 Influenza Vaccine (#1) 2025 HIB Vaccines Aged Out No longer eligi ble based on patient's age to complete this topic HPV Vaccines Aged Out No longer eligi ble based on patient's age to complete this topic Hepatitis A Vaccines Aged Out No long er eligible based on patient's age to complete this topic Hepatitis B Vaccines Aged Out No long er eligible based on patient's age to complete this topic IPV Vaccines Aged Out No longer eligi ble based on patient's age to complete this topic MMR Vaccines Aged Out No longer eligi ble based on patient's age to complete this topic Meningococcal ACWY Vaccine Aged Out N o longer eligible based on patient's age to complete this topic Meningococcal B Vaccine Aged Out No l onger eligible based on patient's age to complete this topic RSV Immunization Patients Un ortega 20 months Aged Out No longer eligible b ased on patient's age to complete this topic Varicella Vaccines Aged Out No longer eligible based on patient's age to complete this topic Insurance MEDICARE [facility] Care Teams Telephone Operator Receptionist Relationship Specialty Start Date End Date Josephine Moreno MD [address] [place] [address] PCP - General Internal Medicine 11/03/24
--- OUTSIDE RECORDS SUMMARY | 2024-11-16 12:22 | XMS_ITS | Patient Health Record ---
Author Organization [facility] Address [address] [address] Care Team Providers Care Heat Treater Name Role Phone Josephine Moreno MD Primary Care Provider Roly Fergusno Unavailable [phone] Allergies Allergen (clinical drug ingredient) Drug/Non Drug [...] X ray : Foot, right 3V 01/09/2015 [id number] TENDON SHEATH/LIGAMENT 0 01/10/2016 [id number] TENDON SHEATH/LIGAMENT 0 02/01/2016 Insurance Providers Payer Name Payer Address Payer Phone Subscriber Number Group Number Insured Name Patient Relationship to Insured Coverage Start Date Coverage End Date [facility] [address] [place] [address] [phone] [id number] BroreroSelina roger Self - patient is the insured Medical (General) History Medical History History ICD Code Arthritis back, hip, knee pain cataracts chicken pox joint implants/screws measles transfusions Surgical History Surgery Date(Month/Year) left knee replacement 11/13/2004 right knee replacement 11/15/2008 bladder surgery 11/14/2015 Hospitalization History Reason Date(Month/Year) Carpal Tunnel Surgery 11/16/14
== END ==
LOC: HO.CARD 11:08
PROVIDERS: PCP Internal Medicine; Visit Provider Internal Medicine
DX: R06.09 Other forms of dyspnea (principal)
CPT/HCPCS: 93306

== ENCOUNTER → 2024-11-16 11:10 | Outpatient (BNV) | payer MEDICARE, SELFPAY | PROVIDERS: PCP Internal Medicine; Visit Provider Internal Medicine Cardiovascular Disease | DX: I42.2 Other hypertrophic cardiomyopathy (principal); I35.1 Nonrheumatic aortic (valve) insufficiency; I34.0 Nonrheumatic mitral (valve) insufficiency; I36.1 Nonrheumatic tricuspid (valve) insufficiency | CPT/HCPCS: 93306 ==

== ENCOUNTER 2024-11-28 11:51 | Outpatient (REF) | payer MEDICARE, SELFPAY ==
[2024-11-28 16:17] LABS: MANUAL DIFF FLAG NO
[2024-11-28 16:24] LABS: Hemoglobin 10.8 g/dl (12.0-16.0); NRBC Abs Auto 0.000 X10*3/uL (0.0-0.012); NRBC Pct Auto 0.0 /100WBC (0.0-0.2); SCAN SMEAR FLAG 1; White Blood Count 4.2 X10*3/uL (4.8-10.8)
[2024-11-28 16:27] LABS: Hematocrit 33.8 % (37.0-47.0); Imm Gran Abs Auto 0.04 X10*3/uL (0.00-0.03); Imm Gran Pct Auto 1.0 % (0.0-0.4); Lymphocytes Absolute Auto 0.9 X10*3/uL (1.2-4.9); Mean Corpuscular HGB Conc 32.0 g/dl (31.0-35.0); Mean Corpuscular Hemoglobin 29.7 pg (27.0-33.0); Mean Corpuscular Volume 92.9 fL (80.0-98.0); Red Blood Count 3.64 X10*6/uL (4.20-5.50)
[2024-11-28 16:30] LABS: PLT ABN DIST 1; Platelet Count 80 X10*3/uL (160-400)
[2024-11-28 16:33] LABS: Hemoglobin A1C 130.2207 umol/L; Total Hemoglobin (HGBA1C) 2810.9960 umol/L
[2024-11-28 16:40] LABS: Alanine Aminotransferase 22 U/L (0-31); Albumin Level 3.4 g/dL (3.5-5.0); Alkaline Phosphatase 80 U/L (39-117); Anion Gap 12 (12-20); Aspartate Amino Transferase 34 U/L (5-31); Blood Urea Nitrogen 22 mg/dL (9-16); Calcium 8.8 mg/dL (8.4-10.2); Carbon Dioxide 26 mmol/L (22-29); Chloride 110 mmol/L (96-108); Estimated Glomerular Filt Rate 48; Potassium 4.2 mmol/L (3.3-5.1); Sodium 144 mmol/L (135-145); Total Protein 6.2 g/dL (6.5-8.0)
== END 2024-11-28 11:52 | disposition home or self-care (01) ==
LOC: HO.HMGCLDS 11:51
PROVIDERS: PCP Internal Medicine; Visit Provider Internal Medicine
DX: E11.9 Type 2 diabetes mellitus without complications (principal); N18.30 Chronic kidney disease, stage 3 unspecified; K74.60 Unspecified cirrhosis of liver; J44.9 Chronic obstructive pulmonary disease, unspecified; R60.0 Localized edema
CPT/HCPCS: 36415; 80053; 83036; 85025; 99212

== ENCOUNTER 2024-11-28 11:51 | Outpatient (AMB) | payer MEDICARE, SELFPAY ==
[2024-11-28 12:00] VITALS: BP 114/58; PULSE 68; RESP 18; TEMP 36.6; O2SAT 97; BMI 27.1
--- NOTE | 2024-11-28 12:00 | MHC.PC.OV ---
Vital Signs 11/28/24 12:00 Height 5 ft 4 in Weight 158 lb BMI 27.1 BP 114/58 L Blood Pressure Location Lt brachial Position Sitting Respiration 18 Pulse 68 Pulse Source Pulse Oximeter Temp 97.9 F Temp Source Oral Pulse Oximetry (%) 97 Oxygen Delivery Method Room Air Intake Visit Reasons: 1 month f/up Intake Note: Pt is here today for 1 month follow up visit. Pt states that she fell again. Allergies amoxicillin (Augmentin) Allergy (Unknown, Verified 11/28/24 12:04) unknown clavulanic acid (Augmentin) Allergy (Unknown, Verified 11/28/24 12:04) unknown umeclidinium (Anoro Ellipta) Allergy (Unknown, Verified 11/28/24 12:04) Hoarseness vilanterol (Anoro Ellipta) Allergy (Unknown, Verified 11/28/24 12:04) Hoarseness azithromycin Adverse Reaction (Intermediate, Verified 11/28/24 12:04) Diarrhea Medication List - Last Reconciled 11/28/24 by Josephine Moreno MD albuterol sulfate 2.5 mg (3 mL) inhalation Q6H blood sugar diagnostic (FreeStyle Lite Strips) use 1 strip once a day to test blood sugar budesonide 0.5 mg (2 mL) inhalation BID cholecalciferol (vitamin D3) 50 mcg PO DAILY [duo nebulizer As directed] furosemide 40 mg (2 x 20 mg) PO DAILY inhalational spacing device (Aerochamber MV spacer) As directed [Nebulizer with duoneb As directed] omeprazole 20 mg PO DAILY propranolol 10 mg PO BID sertraline 50 mg PO DAILY spironolactone 50 mg PO DAILY Tobacco use date assessed: 11/28/24 Fall risk assessment: 2 + Falls in past year Last assessed Fall Risk: 11/28/24 Dental Screening Dental Screen Date: 10/05/24 HPI 1 month f/up HPI Details Pt presents for f/u leg edema, COPD, liver cirrhosis, stable on meds. PFSH Medical History (Updated 11/28/24 @ 13:41 by Josephine Moreno MD) SOB (shortness of breath) CRAIG (dyspnea on exertion) Chronic kidney disease, stage 3 Annual physical exam Palpitations Anemia Depression Dysuria Cirrhosis Esophageal varices with bleeding Type 2 diabetes mellitus (~12/06/20) COPD (chronic obstructive pulmonary disease) Surgical History H/O colonoscopy History of bilateral knee arthroplasty Family History Father Unknown family medical history Mother Unknown family medical history Social History Housing: House Alcohol intake: current Alcohol intake frequency: holidays/special occasions only Patient Tobacco Use Status: Former Tobacco user e-Cigarette/Vaping Use: Never Used service: No Current occupational status: retired Cognitive needs: No Hearing needs: Yes Vision needs: Yes Questionnaire Thrive Questionnaire Date Thrive assessed: 10/05/24 I am a: Patient What is your living situation today?: I have a steady place to live Within the past 12 months, did the food you bought not last and you didn't have the money to get more?: Never true Within the past 12 months, did you worry whether your food would run out before you got money to buy more?: Never true Do you have trouble paying for medicines?: No Do you have trouble getting transportation to medical appointments?: No Do you have trouble paying your heating and electricity bill?: No Do you have trouble taking care of your child, family member or friend?: No Do you have trouble with day-to-day activities such as bathing, preparing meals, shopping, managing finances, etc.?: No Are you currently unemployed and looking for a job?: No Are you interested in more education?: No Please select the resources that you would like help with: None Currently or been in a relationship where the following occur: No concerns reported THRIVE Score: 0 AUDIT C Alcohol Use Questionnaire (AUDIT-C) 2. How many drinks containing alcohol do you have on a typical day when you are drinking?: 1 or 2 Total Score: 0 KIMBERLEE-7 AMB Questionnaire KIMBERLEE-7 Date KIMBERLEE - 7 assessed: 10/05/24 Source: Developed by Drs. Kimani Jj, Marta Ann, Deepak Bonds and colleagues, with an educational mathieu from [employer] Review of Systems Const All systems reviewed & are unremarkable except as noted in HPI and below Eyes Reports no additional complaints ENT Reports no additional complaints Card Reports no additional complaints Resp Reports no additional complaints GI Reports no additional complaints Physical exam (Primary Care) Vital Signs: Last Vital Signs Temp 97.9 F 11/28/24 12:00 Pulse 68 11/28/24 12:00 Resp 18 11/28/24 12:00 BP 114/58 L 11/28/24 12:00 Pulse Ox 97 11/28/24 12:00 Oxygen Delivery Method Room Air 11/28/24 12:00 BMI result Body Mass Index 27.1 Tobacco/Smoking Status: Tobacco use Status Tobacco use date assessed 11/28/24 11/28/24 12:07 Patient Tobacco Use Status Former Tobacco user 11/28/24 12:00 e-Cigarette/Vaping Use Never Used 11/28/24 12:00 Thrive Assessment: Date of Thrive Assessment Date Thrive assessed 10/05/24 11/28/24 12:00 Currently or been in a relationship where the following occur: No concerns reported Const General: no acute distress HENMT Head: Yes normal to inspection Eyes General: appearance normal, both eyes and all related structures Resp Effort & Inspection: normal respiratory effort Auscultation: clear to auscultation bilaterally Cardio Rhythm: regular rhythm Heart sounds: S1 normal heart sound present and S2 normal heart sound present GI Inspection: Yes normal to inspection Palpation (GI): Soft to palpation Percussion: Yes normal to percussion Auscultation: normal bowel sounds Extrem Other: 1+ pitting edema bilaterally Coding Level of Care Code Est Pt Level 4 (19815) Diagnoses Chronic kidney disease, stage 3 N18.30 Cirrhosis K74.60 Type 2 diabetes mellitus E11.9 COPD (chronic obstructive pulmonary disease) J44.9 Lower extremity edema R60.0 Assessment & Plan Assessment & Plan (1) Chronic kidney disease, stage 3: Code(s): N18.30 - Chronic kidney disease, stage 3 unspecified Category: Medical Plan: Monitor renal function avoid nephrotoxins (2) Cirrhosis: Comment: Compensated with portal hypertension controlled on nadolol and furosemide. Follows up with GI q 6 months Code(s): K74.60 - Unspecified cirrhosis of liver Category: Medical Plan: Continue spironolactone and nadolol (3) Type 2 diabetes mellitus: Onset Date: ~12/06/20 Comment: Diet controlled, off metformin since June 2024 Code(s): E11.9 - Type 2 diabetes mellitus without complications Category: Medical Plan: Continue ADA diet increase physical activity monitor A1c (4) COPD (chronic obstructive pulmonary disease): Comment: Intolerant to Anoro or powder inhalers, could not use Arnuity inhaler Code(s): J44.9 - Chronic obstructive pulmonary disease, unspecified Category: Medical Plan: Continue budesonide and albuterol PRN (5) Lower extremity edema: Code(s): R60.0 - Localized edema Category: Medical Plan: Continue furosemide and lower extremity elevation Orders: Orders Basic Metabolic Panel Today I95.9 - Hypotension, unspecified, N18.30 - Chronic kidney disease, stage 3 unspecified Complete Blood Count Auto Diff 3 Months E11.9 - Type 2 diabetes mellitus without complications, J44.9 - Chronic obstructive pulmonary disease, unspecified, N18.30 - Chronic kidney disease, stage 3 unspecified Comprehensive [place]. Panel Fast 3 Months E11.9 - Type 2 diabetes mellitus without complications, J44.9 - Chronic obstructive pulmonary disease, unspecified, N18.30 - Chronic kidney disease, stage 3 unspecified Hemoglobin A1c 3 Months E11.9 - Type 2 diabetes mellitus without complications, J44.9 - Chronic obstructive pulmonary disease, unspecified, N18.30 - Chronic kidney disease, stage 3 unspecified B Type Natriuretic Peptide 3 Months E11.9 - Type 2 diabetes mellitus without complications, J44.9 - Chronic obstructive pulmonary disease, unspecified, N18.30 - Chronic kidney disease, stage 3 unspecified Complete Blood Count Auto Diff Today I95.9 - Hypotension, unspecified, N18.30 - Chronic kidney disease, stage 3 unspecified
--- OUTSIDE RECORDS SUMMARY | 2024-11-28 12:52 | XMS_ITS | Patient Health Record ---
Author Organization [facility] Address [address] [address] Care Team Providers Care Prototype Engineer Manager Name Role Phone Josephine Moreno MD Primary Care Provider Roly Ferguson Unavailable [phone] Allergies Allergen (clinical drug ingredient) Drug/Non Drug [...] X ray : Foot, right 3V 01/09/2015 [id number] TENDON SHEATH/LIGAMENT 0 01/10/2016 [id number] TENDON SHEATH/LIGAMENT 0 02/01/2016 Insurance Providers Payer Name Payer Address Payer Phone Subscriber Number Group Number Insured Name Patient Relationship to Insured Coverage Start Date Coverage End Date [facility] [address] [place] [address] [phone] [id number] BorreroSelina roger Self - patient is the insured Medical (General) History Medical History History ICD Code Arthritis back, hip, knee pain cataracts chicken pox joint implants/screws measles transfusions Surgical History Surgery Date(Month/Year) left knee replacement 11/13/2004 right knee replacement 11/15/2008 bladder surgery 11/14/2015 Hospitalization History Reason Date(Month/Year) Carpal Tunnel Surgery 11/16/14
--- OUTSIDE RECORDS SUMMARY | 2024-11-28 12:52 | XMS_ITS | Data Portability ---
Author Organization [facility] [address] Address [address] [place] [address] Assessment No assessment recorded. Plan of Treatment Reminders Order Date Submit Date Provider Last Modified By Organization Details Last Modified Time Details Appointments None recorded. Lab None recorded. Referral emergency medicine referral - SOB with O2 in low 80s since last night 2023 024 [email or web address] [address] [facility] [address] [place], [address], 4 10:55:41 Procedures None recorded. Surgeries None [...] Name and Address Organization Details Recorded Time [id number] Augmentin medicatio n hives Not available high 11/04/2023 94877 2 [facility] 4 10:42:27 [...] Not Available No t Available Reji Cavanaugh [facility] spacer DIRECTED *NOT COVERED* active Not [...] Body mass index (BMI) Body weight Systolic And Diastolic Provider Name and Address Organization Details Last Updated DateTime 4 88 % 88 % 78 /min 98.2 [degF] 160.02 cm 31.9 kg/m2 05699.6 3 g 141/56 mm[Hg] Mayte Hathaway PA - [facility] [...] SNOMED-CT Code Diagnosis ICD10 Code Diagnosis Note [id number] [facility] [id number] [facility] [address] [place] [address] 11/04/2023 10:31:06 11/04/2023 10:55:41 Acute respiratory distress [id number] R06.03 We recommend you go immediatel y [...] ID Guarantor Name 11/05/2023 1 MEDICARE B-[place]: [employer] Selina Borrero [id number] Selina Borrero 11/04/2023 2 [facility] [id number] Selina Borrero [id number] Selina Borrero Notes Date Note Type Note Provider Name and Address Organization Details Recorded Time 11/04/2023 text/html 83 y/o female here with SOB, cough and wheeze since last night, O2 into the 80s [facility] [place], [address], [place] - [facility] 11/04/2023 11:04:42 OBGyn Episode No OBEpisode recorded.
--- OUTSIDE RECORDS SUMMARY | 2024-11-28 12:52 | XMS_ITS | Clinical Summary ---
Author Organization [facility] Address [address] [place] [address] Phone Care Team Providers Care Metal Drill Operator Name Role Phone Josephine Moreno MD Primary Care Provider Encounters Date Type Department Care Team Description 11/03/2024 Telephone [facility] [address] [place] [address] Josephine Moreno MD 11/03/[address] [place] [address] Josephine Moreno MD from Last [...] - 2023-2 5 season) 2024 Depression Screening 05/11/2024 Falls Risk Assessment 11/04/2024 Medicare Annual Wellness [...] age to complete this topic Insurance MEDICARE [facility] Care Teams Metal Drill Operator Relationship Specialty Start Date End Date Josephine Moreno MD PCP - General Internal Medicine 11/03/24
== END 2024-11-28 13:20 | disposition home or self-care (01) ==
LOC: HO.HMCC 11:53
PROVIDERS: PCP Internal Medicine; Visit Provider Internal Medicine
DX: N18.30 Chronic kidney disease, stage 3 unspecified (principal); K74.60 Unspecified cirrhosis of liver; E11.9 Type 2 diabetes mellitus without complications; J44.9 Chronic obstructive pulmonary disease, unspecified; R60.0 Localized edema

== ENCOUNTER → 2024-12-13 11:44 | Outpatient (REF) | payer MEDICARE, SELFPAY ==
--- NOTE | 2024-12-13 11:47 | HM_ITS ---
Conclusion: 1. Patient was monitored for total period of 5 days and 5 hours 2. Baseline was normal sinus rhythm with average heart of 59 beats per minute 3. No significant pauses noted 4. Frequent sinus bradycardia noted with 54% of the time heart rate below 60 beats per minute 5. Multiple short runs of wide complex rhythm most consistent with accelerated idioventricular rhythm noted 6. No patient reported events MTDD
--- OUTSIDE RECORDS SUMMARY | 2024-12-13 12:35 | XMS_ITS | Patient Health Record ---
Author Organization [facility] Address [address] [place] [address] Care Team Providers Care Ip Litigation Associate Name Role Phone Josephine Moreno MD Primary Care Provider Roly Ferguson Unavailable [phone] Allergies Allergen (clinical drug ingredient) Drug/Non Drug [...] X ray : Foot, right 3V 01/09/2015 [id number] TENDON SHEATH/LIGAMENT 0 01/10/2016 [id number] TENDON SHEATH/LIGAMENT 0 02/01/2016 Insurance Providers Payer Name Payer Address Payer Phone Subscriber Number Group Number Insured Name Patient Relationship to Insured Coverage Start Date Coverage End Date [facility] [address] [facility] [place] [address] [phone] [id number] BorreroSelina roger Self - patient is the insured Medical (General) History Medical History History ICD Code Arthritis back, hip, knee pain cataracts chicken pox joint implants/screws measles transfusions Surgical History Surgery Date(Month/Year) left knee replacement 11/13/2004 right knee replacement 11/15/2008 bladder surgery 11/14/2015 Hospitalization History Reason Date(Month/Year) Carpal Tunnel Surgery 11/16/14
--- OUTSIDE RECORDS SUMMARY | 2024-12-13 12:35 | XMS_ITS | Clinical Summary ---
Author Organization [facility] Address [address] [place] [address] Phone Care Team Providers Care Compliance Paralegal Name Role Phone Josephine Moreno MD Primary Care Provider [phone] Encounters Date Type Department Care Team Description 11/03/[address] [place] [address] Josephine Moreno MD 11/03/[address] [place] [address] Josephine Moreno MD from Last [...] age to complete this topic Insurance MEDICARE [facility] Care Teams Compliance Paralegal Relationship Specialty Start Date End Date Josephine Moreno MD PCP - General Internal Medicine 11/03/24
== END ==
LOC: HO.CARD 11:44
PROVIDERS: Visit Provider Internal Medicine
DX: I49.8 Other specified cardiac arrhythmias (principal); J44.9 Chronic obstructive pulmonary disease, unspecified; E55.9 Vitamin D deficiency, unspecified; R00.2 Palpitations
CPT/HCPCS: 93242

== ENCOUNTER → 2024-12-13 11:47 | Outpatient (BNV) | payer MEDICARE, SELFPAY | PROVIDERS: Visit Provider Internal Medicine Cardiovascular Disease | DX: R00.1 Bradycardia, unspecified (principal) | CPT/HCPCS: 93244 ==

== ENCOUNTER 2025-03-01 11:15 | Outpatient (REF) | payer MEDICARE, SELFPAY ==
[2025-03-01 16:08] LABS: MANUAL DIFF FLAG NO
[2025-03-01 16:19] LABS: Hemoglobin 9.6 g/dl (12.0-16.0); NRBC Abs Auto 0.000 X10*3/uL (0.0-0.012); NRBC Pct Auto 0.0 /100WBC (0.0-0.2); SCAN SMEAR FLAG 1
[2025-03-01 16:21] LABS: Hematocrit 31.1 % (37.0-47.0); Imm Gran Abs Auto 0.01 X10*3/uL (0.00-0.03); Imm Gran Pct Auto 0.2 % (0.0-0.4); Lymphocytes Absolute Auto 0.7 X10*3/uL (1.2-4.9); Mean Corpuscular HGB Conc 30.9 g/dl (31.0-35.0); Mean Corpuscular Hemoglobin 29.0 pg (27.0-33.0); Mean Corpuscular Volume 94.0 fL (80.0-98.0); Red Blood Count 3.31 X10*6/uL (4.20-5.50); White Blood Count 4.4 X10*3/uL (4.8-10.8)
[2025-03-01 16:22] LABS: PLT ABN DIST 1; Platelet Count 78 X10*3/uL (160-400)
[2025-03-01 16:33] LABS: Alanine Aminotransferase 18 U/L (0-31); Albumin Level 3.4 g/dL (3.5-5.0); Alkaline Phosphatase 91 U/L (39-117); Anion Gap 8 (12-20); Aspartate Amino Transferase 28 U/L (5-31); Blood Urea Nitrogen 22 mg/dL (9-16); Calcium 8.6 mg/dL (8.4-10.2); Carbon Dioxide 27 mmol/L (22-29); Chloride 113 mmol/L (96-108); Estimated Glomerular Filt Rate 46; Potassium 4.1 mmol/L (3.3-5.1); Sodium 144 mmol/L (135-145); Total Protein 6.1 g/dL (6.5-8.0)
--- OUTSIDE RECORDS SUMMARY | 2025-03-01 18:24 | XMS_ITS | Data Portability ---
Author Organization [facility] [address] Address [address] [place] [address] Assessment No assessment recorded. Plan of Treatment Reminders Order Date Submit Date Provider Last Modified By Organization Details Last Modified Time Details Appointments None recorded. Lab None recorded. Referral emergency medicine referral - SOB with O2 in low 80s since last night 2023 024 [email or web address] [address] [facility] [place], [address], 4 10:55:41 Procedures None recorded. Surgeries None [...] Name and Address Organization Details Recorded Time 761196 Augmentin medicatio n hives Not available high 11/04/2023 56620 2 RxNorm [facility] 4 10:42:27 [...] Not Available No t Available Reji Cavanaugh [facility] spacer DIRECTED *NOT COVERED* active Not Available [...] /min 98.2 [degF] 160.02 cm 31.9 kg/m2 05304.6 3 g 141/56 mm[Hg] Mayte Hathaway PA [...] Diagnosis SNOMED-CT Code Diagnosis ICD10 Code Diagnosis IMO Codes Diagnosis Note [id number] [facility] [address] [facility] [address] [place] [address] 11/04/2023 10:31:06 11/04/2023 10:55:41 Acute respiratory distress [id number] R06.03 We recommend you go immediatel y [...] Member ID Guarantor Name 11/05/2023 1 MEDICARE B-NE: [employer] Selina Borrero [id number] 5 Selina Borrero 11/04/2023 2 [facility] [id number] Selina Borrero [id number] Selina Borrero Notes Date Note Type Note Provider Name and Address Organization Details Recorded Time 11/04/2023 text/html 83 y/o female here with SOB, cough and wheeze since last night, O2 into the 80s NANCY Kathleen [address] [place], [address], [place] - [facility] 11/04/2023 11:04:42 OBGyn Episode No OBEpisode recorded.
== END 2025-03-01 11:16 | disposition home or self-care (01) ==
LOC: HO.HMGCLDS 11:15
PROVIDERS: PCP Internal Medicine; Visit Provider Internal Medicine
DX: E11.22 Type 2 diabetes mellitus with diabetic chronic kidney disease (principal); N18.30 Chronic kidney disease, stage 3 unspecified; J44.9 Chronic obstructive pulmonary disease, unspecified; R26.89 Other abnormalities of gait and mobility; K74.60 Unspecified cirrhosis of liver; Z79.899 Other long term (current) drug therapy
CPT/HCPCS: 36415; 80053; 83036; 85025; 99212

== ENCOUNTER 2025-03-01 11:15 | Outpatient (AMB) | payer MEDICARE, SELFPAY ==
--- NOTE | 2025-03-01 11:16 | MHC.PC.OV ---
Vital Signs 03/01/25 11:19 Height 5 ft 4 in Weight 163 lb BMI 28.0 BP 114/56 L Blood Pressure Location Rt brachial Position Sitting Respiration 17 Pulse 79 Pulse Source Pulse Oximeter Temp 97.9 F Temp Source Oral Pulse Oximetry (%) 95 Oxygen Delivery Method Room Air Intake Visit Reasons: 3m f/u Intake Note: Pt is here today for 3 months follow up visit. Allergies amoxicillin (Augmentin) Allergy (Unknown, Verified 03/01/25 11:42) unknown clavulanic acid (Augmentin) Allergy (Unknown, Verified 03/01/25 11:42) unknown umeclidinium (Anoro Ellipta) Allergy (Unknown, Verified 03/01/25 11:42) Hoarseness vilanterol (Anoro Ellipta) Allergy (Unknown, Verified 03/01/25 11:42) Hoarseness azithromycin Adverse Reaction (Intermediate, Verified 03/01/25 11:42) Diarrhea Medication List - Last Reconciled 03/01/25 by Josephine Moreno MD albuterol sulfate 2.5 mg (3 mL) inhalation Q6H blood sugar diagnostic (FreeStyle Lite Strips) use 1 strip once a day to test blood sugar budesonide 0.5 mg (2 mL) inhalation BID cholecalciferol (vitamin D3) 50 mcg PO DAILY [duo nebulizer As directed] furosemide 20 mg PO DAILY inhalational spacing device (Aerochamber MV spacer) As directed [Nebulizer with duoneb As directed] omeprazole 20 mg PO DAILY propranolol 10 mg PO BID sertraline 50 mg PO DAILY spironolactone 50 mg PO DAILY Tobacco use date assessed: 03/01/25 Fall risk assessment: 2 + Falls in past year Last assessed Fall Risk: 03/01/25 Dental Screening Dental Screen Date: 10/05/24 HPI 3m f/u HPI Details Pt presents for f/u of compensated liver cirrhosis, CKD 3, chronic anxiety, stable on meds. Pt reports poor balance and lower extremities weakness when walking. [facility] Medical History (Updated 03/01/25 @ 12:35 by Josephine Moreno MD) SOB (shortness of breath) CRAIG (dyspnea on exertion) Chronic kidney disease, stage 3 Annual physical exam Palpitations Anemia Depression Dysuria Cirrhosis Esophageal varices with bleeding Type 2 diabetes mellitus (~12/06/20) COPD (chronic obstructive pulmonary disease) Surgical History H/O colonoscopy History of bilateral knee arthroplasty Family History Father Unknown family medical history Mother Unknown family medical history Social History Housing: House Alcohol intake: current Alcohol intake frequency: holidays/special occasions only Patient Tobacco Use Status: Former Tobacco user e-Cigarette/Vaping Use: Never Used service: No Current occupational status: retired Cognitive needs: No Hearing needs: Yes Vision needs: Yes Questionnaire PHQ-9 Over the last 2 weeks, how often have you been bothered by any of the following problems? 1. Little interest or pleasure in doing things: not at all 2. Feeling down, depressed, or hopeless: nearly every day 3. Trouble falling or staying asleep, or sleeping too much: nearly every day 4. Feeling tired or having little energy: more than half the days 5. Poor appetite or overeating: not at all 6. Feeling bad about yourself - or that you are a failure or have let yourself or your family down: not at all 7. Trouble concentrating on things, such as reading the newspaper or watching television: not at all 8. Moving or speaking so slowly that other people could have noticed. Or the opposite - being so fidgety or restless that you have been moving around a lot more than usual: not at all 9. Thoughts that you would be better off or of hurting yourself in some way: not at all Total score: 8 Depression Screening Interpretation: Negative Depression Screening Done: Yes Source: Developed by Drs. Kimani Jj, Marta Ann, Deepak Bonds and colleagues, with an educational mathieu from [employer]. Thrive Questionnaire Date Thrive assessed: 10/05/24 I am a: Patient What is your living situation today?: I have a steady place to live Within the past 12 months, did the food you bought not last and you didn't have the money to get more?: Never true Within the past 12 months, did you worry whether your food would run out before you got money to buy more?: Never true Do you have trouble paying for medicines?: No Do you have trouble getting transportation to medical appointments?: No Do you have trouble paying your heating and electricity bill?: No Do you have trouble taking care of your child, family member or friend?: No Do you have trouble with day-to-day activities such as bathing, preparing meals, shopping, managing finances, etc.?: No Are you currently unemployed and looking for a job?: No Are you interested in more education?: No Please select the resources that you would like help with: None Currently or been in a relationship where the following occur: No concerns reported THRIVE Score: 0 KIMBERLEE-7 AMB Questionnaire KIMBERLEE-7 Date KIMBERLEE - 7 assessed: 10/05/24 Feeling nervous, anxious, or on edge: 0 = Not at all Not being able to stop or control worryin = Not at all Worrying too much about different things: 0 = Not at all Trouble relaxin = Not at all Being so restless that it is hard to sit still: 0 = Not at all Becoming easily annoyed or irritable: 0 = Not at all Feeling afraid as if something awful might happen: 0 = Not at all Total KIMBERLEE-7 score (0-4 normal; 5-9 mild; 10-14 moderate; 15-21 severe): 0 Source: Developed by Drs. Kimani Jj, Marta Ann, Deepak Bonds and colleagues, with an educational mathieu from [employer]. Review of Systems Const All systems reviewed & are unremarkable except as noted in HPI and below Eyes Reports no additional complaints ENT Reports no additional complaints Card Reports no additional complaints Resp Reports no additional complaints GI Reports no additional complaints Reports no additional complaints Physical exam (Primary Care) Vital Signs: Last Vital Signs Temp 97.9 F 03/01/25 11:19 Pulse 79 03/01/25 11:19 Resp 17 03/01/25 11:19 BP 114/56 L 03/01/25 11:19 Pulse Ox 95 03/01/25 11:19 Oxygen Delivery Method Room Air 03/01/25 11:19 BMI result Body Mass Index 28.0 Tobacco/Smoking Status: Tobacco use Status Tobacco use date assessed 03/01/25 03/01/25 11:43 Patient Tobacco Use Status Former Tobacco user 03/01/25 11:17 e-Cigarette/Vaping Use Never Used 03/01/25 11:17 PHQ-9: PHQ-9 Score PHQ-9: Total score 8 03/01/25 12:40 Depression Screening Interpretation: Negative Thrive Assessment: Date of Thrive Assessment Date Thrive assessed 10/05/24 03/01/25 11:17 Currently or been in a relationship where the following occur: No concerns reported Const General: no acute distress HENMT Head: Yes normal to inspection Face and sinus: Yes normal facial exam Mouth: Normal oral and palatal mucosa present Throat: Yes posterior oropharynx normal Eyes General: appearance normal, both eyes and all related structures Neck Neck: Yes supple Resp Effort & Inspection: normal respiratory effort Auscultation: clear to auscultation bilaterally Cardio Rhythm: regular rhythm Heart sounds: S1 normal heart sound present and S2 normal heart sound present GI Inspection: Yes normal to inspection Palpation (GI): Soft to palpation Percussion: Yes normal to percussion Auscultation: normal bowel sounds Extrem General: Yes no clubbing, cyanosis or edema Coding Level of Care Code Est Pt Level 4 (03045) Diagnoses Poor balance R26.89 Type 2 diabetes mellitus E11.9 Chronic kidney disease, stage 3 N18.30 Cirrhosis K74.60 Assessment & Plan Assessment & Plan (1) Poor balance: Code(s): R26.89 - Other abnormalities of gait and mobility Category: Medical Plan: refer to PT (2) Type 2 diabetes mellitus: Onset Date: ~12/06/20 Comment: Diet controlled, off metformin since June 2024 Code(s): E11.9 - Type 2 diabetes mellitus without complications Category: Medical Plan: A1C 6.6, ADA diet discussed (3) Chronic kidney disease, stage 3: Code(s): N18.30 - Chronic kidney disease, stage 3 unspecified Category: Medical Plan: Avoid nephrotoxins monitor renal function (4) Cirrhosis: Comment: Compensated with portal hypertension controlled on nadolol and furosemide. Follows up with GI q 6 months Code(s): K74.60 - Unspecified cirrhosis of liver Category: Medical Plan: Continue propranolol spironolactone and furosemide, follow-up with GI Orders: Orders UA w Microscopic 3 Months D64.9 - Anemia, unspecified, E11.9 - Type 2 diabetes mellitus without complications, N18.30 - Chronic kidney disease, stage 3 unspecified PT Evaluation and Treatment Today R26.89 - Other abnormalities of gait and mobility Comprehensive [place]. Panel Fast 3 Months D64.9 - Anemia, unspecified, E11.9 - Type 2 diabetes mellitus without complications, N18.30 - Chronic kidney disease, stage 3 unspecified Hemoglobin A1c 3 Months D64.9 - Anemia, unspecified, E11.9 - Type 2 diabetes mellitus without complications, N18.30 - Chronic kidney disease, stage 3 unspecified Complete Blood Count Auto Diff 3 Months D64.9 - Anemia, unspecified, E11.9 - Type 2 diabetes mellitus without complications, N18.30 - Chronic kidney disease, stage 3 unspecified Lipid Panel 3 Months D64.9 - Anemia, unspecified, E11.9 - Type 2 diabetes mellitus without complications, N18.30 - Chronic kidney disease, stage 3 unspecified Microalbumin, Random (w Creat) 3 Months D64.9 - Anemia, unspecified, E11.9 - Type 2 diabetes mellitus without complications, N18.30 - Chronic kidney disease, stage 3 unspecified Medications: Changed From furosemide 40 mg (2 x 20 mg) PO DAILY 60 tabs 2RF To furosemide 20 mg PO DAILY
[2025-03-01 11:19] VITALS: BP 114/56; PULSE 79; RESP 17; TEMP 36.6; O2SAT 95; BMI 28.0
--- OUTSIDE RECORDS SUMMARY | 2025-03-01 15:22 | XMS_ITS | Encounter Summary ---
Author Organization [facility] Address [address] [place] [address] Care Team Providers Care Senior Director Finance Name Role Phone Josephine Moreno MD Primary Care Provider [phone] Encounter Details Date Type Department Care Team (Late st Contact Info) Description 11/03/2024 Telephone [facility] [address] [place] [address] Josephine Moreno MD [address] [place] [address] Social History Tobacco Use Types Packs/Day Years Used Date Smoking Tobacco: Never Assessed Comments Unknown Sex and Gender Information Value Date Recorded Sex Assigned at Not on file Legal Sex Female 8:02 PM EST Gender Identity Not on file Sexual Orientation Not on file documented as of this encounter Plan of Treatment Not on file documented as of this encounter Visit Diagnoses Not on filedocumented in this encounter Care Teams Senior Director Finance Relationship Specialty Start Date End Date Josephine Moreno MD PCP - General Internal Medicine 11/03/24 documented as of this encounter
--- OUTSIDE RECORDS SUMMARY | 2025-03-01 15:22 | XMS_ITS | Patient Health Record ---
[facility] Address [address] [place] [address] Care Team Providers Care Traffic Agent Name Role Phone Josephine Moreno MD Primary Care Provider Roly Perez [phone] Allergies Allergen (clinical drug ingredient) Drug/Non Drug [...] X ray : Foot, right 3V 01/09/2015 [id number] TENDON SHEATH/LIGAMENT 0 01/10/2016 [id number] TENDON SHEATH/LIGAMENT 0 02/01/2016 Insurance Providers Payer Name Payer Address Payer Phone Subscriber Number Group Number Insured Name Patient Relationship to Insured Coverage Start Date Coverage End Date [facility] [address] [place] [address] [id number] Selina Self - patient is the insured Medical (General) History Medical History History ICD Code Arthritis back, hip, knee pain cataracts chicken pox joint implants/screws measles transfusions Surgical History Surgery Date(Month/Year) left knee replacement 11/13/2004 right knee replacement 11/15/2008 bladder surgery 11/14/2015 Hospitalization History Reason Date(Month/Year) Carpal Tunnel Surgery 11/16/14
--- OUTSIDE RECORDS SUMMARY | 2025-03-01 15:22 | XMS_ITS | Clinical Summary ---
Author Organization [facility] Address [address] [place] [address] Phone Care Team Providers Care Assistant Department Manager Name Role Phone Josephine Moreno MD Primary Care Provider [phone] Encounters Date Type Department Care Team Description 02/27/[address] [place] [address] Josephine Moreno MD from Last 3 [...] nts (1 - 1-dose 75+ series) 2013 Depression Screening 05/11/2024 Falls Risk Assessment 11/04/2024 Medicare Annual Wellness Visit 11/04/2024 Osteoporosis Screening (Bone Density Screening) 11/04/2024 Social Influencers of Health Screening 11/04/2024 COVID-19 Vaccine (1 - 2023-2 5 season) 2025 Influenza Vaccine (#1) 2025 HIB Vaccines Aged [...] age to complete this topic Insurance MEDICARE [facility] Care Teams Assistant Department Manager Relationship Specialty Start Date End Date Josephine Moreno MD PCP - General Internal Medicine 11/03/24
--- OUTSIDE RECORDS SUMMARY | 2025-03-01 15:22 | XMS_ITS | Encounter Summary ---
Author Organization [facility] Address [address] [place] [address] Care Team Providers Care Music Supervisor Name Role Phone Josephine Moreno MD Primary Care Provider [phone] Reason for Referral * Consultation (Routine) - Authorized Specialty Diagnoses / Procedures Referred By Contac t Referred To Contact Cardiology Diagnoses Palpitations Cardiac arrhythmia Josephine Moreno MD [address] [place] [address] Phone: tel: fax: [facility] [address] [place] [address] Phone: tel: fax: Referral ID Status Reason Start Date Expiration Date Visits Requested Visits Authorized [id number] Authorized Specialty Services Required 02/27/2026 1 1 Encounter Details Date Type Department Care Team (Late st Contact Info) Description 02/27/2025 Telephone [place] [address] [place] [address] Josephine Moreno MD [address] [place] [address] Social History Tobacco Use Types Packs/Day Years Used Date Smoking Tobacco: Never Assessed Comments Unknown Sex and Gender Information Value Date Recorded Sex Assigned at Not on file Legal Sex Female 8:02 PM EST Gender Identity Not on file Sexual Orientation Not on file documented as of this encounter Plan of Treatment Scheduled Referrals Name Type Priority Associated Diagnoses Order Schedule Ambulatory referral to Cardiology Outpatient Referral Routine Palpitations Cardiac arrhythmia Expected: 02/27/2025, Expires: 03/31/2025 documented as of this encounter Visit Diagnoses Diagnosis Palpitations- Primary Cardiac arrhythmia Unspecified cardiac dysrhythmia documented in this encounter Care Teams Music Supervisor Relationship Specialty Start Date End Date Josephine Moreno MD PCP - General Internal Medicine 11/03/24 documented as of this encounter
== END 2025-03-01 21:22 | disposition home or self-care (01) ==
LOC: HO.HMCC 11:15
PROVIDERS: PCP Internal Medicine; Visit Provider Internal Medicine
DX: R26.89 Other abnormalities of gait and mobility (principal); E11.9 Type 2 diabetes mellitus without complications; N18.30 Chronic kidney disease, stage 3 unspecified; K74.60 Unspecified cirrhosis of liver

== ENCOUNTER 2025-04-19 12:56 | Outpatient (AMB) | payer MEDICARE, SELFPAY ==
[2025-04-19 13:07] VITALS: BP 110/56; PULSE 60; RESP 19; TEMP 36.8; O2SAT 96; BMI 29.0
--- NOTE | 2025-04-19 13:07 | MHC.PC.OV ---
Vital Signs 04/19/25 13:07 Height 5 ft 4 in Weight 169 lb BMI 29.0 BP 110/56 L Blood Pressure Location Lt brachial Position Sitting Respiration 19 Pulse 60 Pulse Source Pulse Oximeter Temp 98.3 F Temp Source Oral Pulse Oximetry (%) 96 Oxygen Delivery Method Room Air Intake Visit Reasons: urgent care follow up Intake Note: Pt is here today for a follow up visit after being seen in Urgent Care. Allergies amoxicillin (Augmentin) Allergy (Unknown, Verified 04/19/25 13:10) unknown clavulanic acid (Augmentin) Allergy (Unknown, Verified 04/19/25 13:10) unknown umeclidinium (Anoro Ellipta) Allergy (Unknown, Verified 04/19/25 13:10) Hoarseness vilanterol (Anoro Ellipta) Allergy (Unknown, Verified 04/19/25 13:10) Hoarseness azithromycin Adverse Reaction (Intermediate, Verified 04/19/25 13:10) Diarrhea Medication List - Last Reconciled 04/19/25 by Josephine Moreno MD albuterol sulfate 2.5 mg (3 mL) inhalation Q6H blood sugar diagnostic (FreeStyle Lite Strips) use 1 strip once a day to test blood sugar budesonide 0.5 mg (2 mL) inhalation BID cholecalciferol (vitamin D3) 50 mcg PO DAILY [duo nebulizer As directed] furosemide 40 mg (2 x 20 mg) PO DAILY inhalational spacing device (Aerochamber MV spacer) As directed [Nebulizer with duoneb As directed] omeprazole 20 mg PO DAILY propranolol 10 mg PO BID sertraline 50 mg PO DAILY spironolactone 50 mg PO DAILY Tobacco use date assessed: 03/01/25 Fall risk assessment: 2 + Falls in past year Last assessed Fall Risk: 04/19/25 Dental Screening Dental Screen Date: 10/05/24 HPI urgent care follow up HPI Details Patient presents for the follow-up of urgent care visit last week. She complains of 1 month of daily diarrhea, starting in the morning with a solid stool followed by watery bowel movements small amount up to 3 a day. Patient reports some external hemorrhoids discomfort and occasionally fresh blood on the tissue but denies any blood mixed with the stool. Patient denies abdominal pain nausea vomiting fever chills weight lost or change in appetite. Patient had blood work in urgent care consistent with H/H 8.6/28, slightly lower the patient's baseline of 9.. [facility] Medical History SOB (shortness of breath) CRAIG (dyspnea on exertion) Chronic kidney disease, stage 3 Annual physical exam Palpitations Anemia Depression Dysuria Cirrhosis Esophageal varices with bleeding Type 2 diabetes mellitus (~12/06/20) COPD (chronic obstructive pulmonary disease) Surgical History H/O colonoscopy History of bilateral knee arthroplasty Family History Father Unknown family medical history Mother Unknown family medical history Social History Housing: House Alcohol intake: current Alcohol intake frequency: holidays/special occasions only Patient Tobacco Use Status: Former Tobacco user e-Cigarette/Vaping Use: Never Used service: No Current occupational status: retired Cognitive needs: No Hearing needs: Yes Vision needs: Yes Questionnaire Thrive Questionnaire Date Thrive assessed: 10/05/24 I am a: Patient What is your living situation today?: I have a steady place to live Within the past 12 months, did the food you bought not last and you didn't have the money to get more?: Never true Within the past 12 months, did you worry whether your food would run out before you got money to buy more?: Never true Do you have trouble paying for medicines?: No Do you have trouble getting transportation to medical appointments?: No Do you have trouble paying your heating and electricity bill?: No Do you have trouble taking care of your child, family member or friend?: No Do you have trouble with day-to-day activities such as bathing, preparing meals, shopping, managing finances, etc.?: No Are you currently unemployed and looking for a job?: No Are you interested in more education?: No Please select the resources that you would like help with: None Currently or been in a relationship where the following occur: No concerns reported THRIVE Score: 0 KIMBERLEE-7 AMB Questionnaire KIMBERLEE-7 Date KIMBERLEE - 7 assessed: 10/05/24 Source: Developed by Gibran Saldanaet B.W. Seth, Deepak Bonds and colleagues, with an educational mathieu from [employer]. Review of Systems Const All systems reviewed & are unremarkable except as noted in HPI and below Eyes Reports no additional complaints Card Reports no additional complaints Resp Reports no additional complaints GI Reports no additional complaints Reports no additional complaints Physical exam (Primary Care) Vital Signs: Last Vital Signs Temp 98.3 F 04/19/25 13:07 Pulse 60 04/19/25 13:07 Resp 19 04/19/25 13:07 BP 110/56 L 04/19/25 13:07 Pulse Ox 96 04/19/25 13:07 Oxygen Delivery Method Room Air 04/19/25 13:07 BMI result Body Mass Index 29.0 Tobacco/Smoking Status: Tobacco use Status Tobacco use date assessed 03/01/25 04/19/25 13:14 Patient Tobacco Use Status Former Tobacco user 04/19/25 13:14 e-Cigarette/Vaping Use Never Used 04/19/25 13:14 Thrive Assessment: Date of Thrive Assessment Date Thrive assessed 10/05/24 04/19/25 13:14 Currently or been in a relationship where the following occur: No concerns reported Const General: no acute distress Eyes General: appearance normal, both eyes and all related structures Neck Neck: Yes supple Resp Effort & Inspection: normal respiratory effort Auscultation: clear to auscultation bilaterally Cardio Rhythm: regular rhythm Heart sounds: S1 normal heart sound present and S2 normal heart sound present GI Inspection: Yes normal to inspection Palpation (GI): Soft to palpation Percussion: Yes normal to percussion Auscultation: normal bowel sounds Coding Level of Care Code Est Pt Level 4 (62439) Diagnoses Type 2 diabetes mellitus E11.9 GI bleed K92.2 Chronic diarrhea K52.9 Chronic kidney disease, stage 3 N18.30 Assessment & Plan Assessment & Plan (1) Type 2 diabetes mellitus: Onset Date: ~12/06/20 Comment: Diet controlled, off metformin since June 2024 Code(s): E11.9 - Type 2 diabetes mellitus without complications Category: Medical Plan: Continue ADA diet (2) GI bleed: Code(s): K92.2 - Gastrointestinal hemorrhage, unspecified Category: Medical Plan: For low-grade GI bleed most likely hemorrhoidal patient was advised to start iron supplement with vitamin-C and schedule an appointment with her GI at [facility] (3) Chronic diarrhea: Code(s): K52.9 - Noninfective gastroenteritis and colitis, unspecified Category: Medical Plan: Low residual diet avoiding fresh fruits vegetables and dairy products discussed with the patient. She was advised to take Imodium as needed. Patient will call GI to schedule an appointment (4) Chronic kidney disease, stage 3: Code(s): N18.30 - Chronic kidney disease, stage 3 unspecified Category: Medical Plan: Monitor renal function avoid nephrotoxins Orders: Orders Complete Blood Count Auto Diff 2 Months E11.9 - Type 2 diabetes mellitus without complications, K92.2 - Gastrointestinal hemorrhage, unspecified, N18.30 - Chronic kidney disease, stage 3 unspecified IRON PROFILE 2 Months E11.9 - Type 2 diabetes mellitus without complications, K92.2 - Gastrointestinal hemorrhage, unspecified, N18.30 - Chronic kidney disease, stage 3 unspecified Comprehensive [place]. Panel Fast 2 Months E11.9 - Type 2 diabetes mellitus without complications, K92.2 - Gastrointestinal hemorrhage, unspecified, N18.30 - Chronic kidney disease, stage 3 unspecified Vitamin D 25-OH Total 2 Months E11.9 - Type 2 diabetes mellitus without complications, K92.2 - Gastrointestinal hemorrhage, unspecified, N18.30 - Chronic kidney disease, stage 3 unspecified Hemoglobin A1c 2 Months E11.9 - Type 2 diabetes mellitus without complications, K92.2 - Gastrointestinal hemorrhage, unspecified, N18.30 - Chronic kidney disease, stage 3 unspecified Lipid Panel 2 Months E11.9 - Type 2 diabetes mellitus without complications, K92.2 - Gastrointestinal hemorrhage, unspecified, N18.30 - Chronic kidney disease, stage 3 unspecified Vitamin B12 and Folate 2 Months E11.9 - Type 2 diabetes mellitus without complications, K92.2 - Gastrointestinal hemorrhage, unspecified, N18.30 - Chronic kidney disease, stage 3 unspecified
--- OUTSIDE RECORDS SUMMARY | 2025-04-19 19:58 | XMS_ITS | Data Portability ---
Author Organization [place] - [facility], Allergy Address [address] [address] Assessment No assessment recorded. Plan of Treatment Reminders Order Date Submit Date Provider Last Modified By Organization Details Last Modified Time Details Appointments None record ed. Lab None record ed. Referral None record ed. Procedures None record ed. Surgeries None record ed. Imaging None record ed. Medication Orders None record ed. Patient TargetsNo targets recorded. Patient InstructionsNo instructions recorded. Reason for Referral None Reported. Results Created Date Observation Date Name Description Value Unit Range Abnormal Flag Note LastModifiedBy Organization Detail LastModifiedTime 12/30/19 24 07/20/2019 imagi ng/di agnos tic resul t No observ ation record ed. [email or web address] Not Available 05:16:07 12/30/19 24 08/05/2021 imagi ng/di agnos tic resul t No observ ation record ed. [email or web address] Not Available 05:16:26 12/30/19 24 07/20/2019 audio gram No observ ation record ed. [email or web address] Not Available 05:17:04 12/30/19 24 08/05/2021 audio gram No observ ation record ed. [email or web address] Not Available 05:17:08 12/30/19 24 10/15/2021 audio gram No observ ation record ed. [email or web address] Not Available 05:17:36 12/30/19 24 11/01/2021 audio gram No observ ation record ed. [email or web address] Not Available 05:17:39 Result Notes None recorded. Problems Name Problem SNOMED Code Status Onset Date Resolution Date Notes Provider Name and Address Organization Details Recorded Time Impacted cerumen 02119757 Active 2014 Impacted cerumen; Note: Date Diagnosed : 06/17/2014 9:50 AM (380.4) Not Available [facility] 4 02:48:15 Sensorine ural hearing loss of bilateral ears 382449064 Active 2015 Hearing loss: Sensorine ural hearing loss, bilateral ; Note: Date Diagnosed : 06/17/2014 9:50 AM (389.18) ; Start Date : 5 Sensori neural hearing loss, bilateral ; Note: Date Diagnosed : 06/18/2015 10:24 AM (H90.3) Not Available [facility] 4 02:48:17 Impacted cerumen in right ear 12251089013 00259 Active 2016 Impacted cerumen, right ear; Note: Date Diagnosed : 10/27/2016 11:42 AM (H61.21) Not Available [facility] 4 02:48:17 Itching of skin 541963428 Active 2016 Other pruritus; Note: Date Diagnosed : 10/27/2016 11:41 AM (L29.8) Not Available [facility] 4 02:48:20 Allergic rhinitis 84902670 Active 2018 Perennial allergic rhinitis; Note: Date Diagnosed : 09/30/2018 10:36 AM (J30.89) Not Available [facility] 4 02:48:19 Impacted cerumen of bilateral ears 67454951748 53614 Active 2018 Impacted cerumen, bilateral ; Note: Date Diagnosed : 09/30/2018 10:36 AM (H61.23) Yohannes Ramirez, DO [address] [facility],[place] [address], [facility] [place], [address] , [facility] - [facility] 5 12:56:35 Impacted cerumen in left ear 57340675567 69317 Active 2019 Impacted cerumen, left ear; Note: Date Diagnosed : 07/20/2019 11:13 AM (H61.22) Not Available [facility] 4 02:48:15 Problem Notes None recorded. Procedures Surgical History Date Name Laterality Status Provider Name and Address Organization Details Recorded Time 5 Cerumen removal with microscope cancelled Yohannes James, DO [address] [facility],[place] [address], [place], [address], [place] - [facility] 02/28/2025 12:57:00 Imaging Results None recorded. Procedure Notes None recorded. Medical Equipment None Reported. Allergies Allergen ID Allergen Name Allergen Category Reaction Reaction Severity Criticality Documentation Date Start Date Code Code System Note Provider Name and Address Organization Details Recorded Time [id number] amoxicill in / clavulana te medicatio n other Not available Not available 09/22/2023 RxNorm React ion: unkno wn, unspe cifie d;; Not Available [facility] 4 01:09:35 Medications Name Sig Start Date Stop Date Status Note LastModified by Organization Details LastModified Time metformin 500 mg tablet 09/20 completed Medicati on ID: [id number] D uration Value: 30 Brand Name: metformi n Send Method: E-Prescr ibed Sub s Allowed: subs OK Speci al Instruct ion: TAKE 1 TABLET BY MOUTH WITH MEAL ONCE A DAY Medi cationGe nericNam e: metformi n Not Available Not Available Not Available albuterol sulfate 2.5 mg/3 mL (0.083 %) solution for nebulizat ion USE 1 VIAL VIA NEBULIZE R EVERY 6 HOURS active Not Available Not Available No t Available azithromy jessica 250 mg tablet TAKE 2 TABLETS BY MOUTH TODAY, THEN TAKE 1 TABLET DAILY FOR 4 DAYS DIRECTED 03/08 completed Not Available Not Available Not Available ofloxacin 0.3 % eye drops 06/18 completed Medicati on ID: [id number] Du ration Value: 30 Reason: () Brand Name: ofloxaci n Send Method: E-Prescr ibed Sub s Allowed: subs OK Medic ationGen ericName : ofloxaci n Not Available Not Available Not Available cephalexi n 250 mg capsule TAKE 1 TABLET BY MOUTH EVERY SIX HOURS DIRECTED UNTIL EMPTY 03/08 completed Not Available Not Available Not Available prednison e 20 mg tablet TAKE 1 TABLET BY MOUTH EVERY DAY X5 DAYS active Not Available Not Available No t Available nadolol 20 mg tablet active Medicati on ID: [id number] B rand Name: nadolol Send Method: E-Prescr ibed Sub s Allowed: subs OK Medic ationGen ericName : nadolol Not Available Not Available Not Available propranol ol 10 mg tablet TAKE 1 TABLET BY MOUTH TWICE A DAY active Not Available Not Available No t Available cephalexi n 500 mg capsule TAKE 4 CAPSULES BY MOUTH 30-60MIN PRIOR TO APPOINTM ENT active Not Available Not Available No t Available pantopraz ole 40 mg tablet,de layed release 09/20 completed Medicati on ID: [id number] B rand Name: pantopra zole Sen d Method: E-Prescr ibed Sub s Allowed: subs OK Medic ationGen ericName : pantopra zole Not Available Not Available Not Available sertralin e 25 mg tablet active Medicati on ID: [id number] B rand Name: sertrali ne Send Method: E-Prescr ibed Sub s Allowed: subs OK Medic ationGen ericName : sertrali ne Medic ation ID: [id number] B rand Name: sertrali ne Send Method: E-Prescr ibed Sub s Allowed: subs OK Medic ationGen ericName : sertrali ne Not Available Not Available Not Available omeprazol e 20 mg capsule,d elayed release TAKE 1 CAPSULE ORALLY DAILY active Not Available Not Available No t Available budesonid e 0.5 mg/2 mL suspensio n for nebulizat ion 0.5 MG (2 ML) INHALED 2 TIMES A DAY active Not Available Not Available No t Available furosemid e 20 mg tablet TAKE 2 TABLETS ORALLY DAILY active Not Available Not Available No t Available cefuroxim e axetil 500 mg tablet TAKE 1 TABLET BY MOUTH TWICE A DAY X5 DAYS 03/08 completed Not Available Not Available Not Available fluticaso ne propionat e 50 mcg/actua tion nasal spray,dinorah pension 2 puff into both nostrils 2019 active Medicati on ID: [id number] D uration Value: 30 Prescri bed By Name: Christiano Antonio MD Brand Name: fluticas one propiona te Send Method: E-Prescr ibed Sub s Allowed: subs OK Medic ationGen ericName : fluticas one propiona te Not Available Not Available Not Available betametha sone dipropion ate 0.05 % lotion APPLY TO SCALP 1-2 TIMES DAILY NEEDED active Not Available Not Available No t Available sertralin e 50 mg tablet TAKE 1 TABLET BY MOUTH EVERY DAY active Not Available Not Available No t Available spironola ctone 50 mg tablet TAKE 1 TABLET BY MOUTH DAILY active Not Available Not Available No t Available Spiriva with HandiHale r 18 mcg and inhalatio n capsules 1 puff 2019 active Medicati on ID: [id number] P rescribe d By Name: Christiano Antonio MD Brand Name: Spiriva with HandiHal er Send Method: E-Prescr ibed Sub s Allowed: subs OK Medic ationGen ericName : Spiriva with HandiHal er Not Available Not Available Not Available DermOtic Oil 0.01 % ear drops 2 drop 2019 active Medicati on ID: [id number] P rescribe d By Name: Christiano Antonio MD Brand Name: DermOtic Oil Send Method: E-Prescr ibed Sub s Allowed: subs OK Medic ationGen ericName : DermOtic Oil Not Available Not Available Not Available FreeStyle Lite Strips 09/20 completed Medicati on ID: [id number] Du ration Value: 25 Brand Name: FreeStyl e Lite Strips S end Method: E-Prescr ibed Sub s Allowed: subs OK Speci al Instruct ion: TEST BLOOD SUGAR TWICE A DAY Medi cationGe nericNam e: FreeStyl e Lite Strips Not Available Not Available Not Available Combivent Respimat 20 mcg-100 mcg/actua tion solution for inhalatio n active Medicati on ID: [id number] B rand Name: Combiven t Respimat Send Method: E-Prescr ibed Sub s Allowed: subs OK Medic ationGen ericName : Combiven t Respimat Not Available Not Available Not Available Arnuity Ellipta 100 mcg/actua tion powder for inhalatio n INHALE 1 PUFF DAILY active Not Available Not Available No t Available Vitals None Recorded Social History None recorded. Functional Status None recorded. Mental Status None recorded. Family History Nothing Reported. Medical History No medical history recorded. Gynecological HistoryNo gynecological history recorded. Obstetrics History GPAL:G 0 P 0 0 0 0 Past Encounters Encounter ID Performer Location Encounter Start Date Encounter Closed Date Diagnosis/Indication Diagnosis SNOMED-CT Code Diagnosis ICD10 Code Diagnosis IMO Codes Diagnosis Note [id number] [place] [address] [facility], [address] [place] [address] 09/29/2023 15:23:34 10/30/2023 08:52:40 Sensorineural hearing loss of bilateral ears [id number] H90.3 Health Concerns Section Related Observation LastModified by Organization Detai ls LastModified Time None Recorded Concern Status LastModified by Organization Details LastModified Time None Recorded Advance Directives Directive None Recorded Payers Insurance Date Sequence Insurance Name Policy Number Policy Woods Covered Member ID Woods Member ID Guarantor Name 03/08/2025 1 [place] [employer] Selina Mariano Borrero [id number] Selina Borrero 03/08/2025 2 [place] [id number] Selina Borrero [id number] Selina Mariano Borrero Notes Date Note Type Note Provider Name and Address Organization Details Recorded Time 09/29/2023 text/html Pt lost right WHEAT. I will order a new one under the [employer] and she will pay the $350 at the time of picker feeder. Pt does not like the small vented domes so I put a cap dome on the left and gave her extra cap and small vented domes in case she would like to switch. I will put a cap dome on her replacement when it comes in. She is flying out on 10/15. YEHUDA MCKENZIE [address] [facility] [address], [place], [address], [facility] - [facility] 09/29/2023 15:26:47 OBGyn Episode No OBEpisode recorded.
--- OUTSIDE RECORDS SUMMARY | 2025-04-19 19:58 | XMS_ITS | Clinical Summary ---
Author Organization [employer] Address [address] 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 05/29/2022 Active sertraline (ZOLOFT) 50 mg tablet Take 1 tablet (50 mg total) by mouth 1 (one) time each day. 10/19/2024 Active furosemide (LASIX) 20 mg tablet Take 1 tablet (20 mg total) by mouth 1 (one) time each day. Active spironolactone (ALDACTONE) 50 mg tablet Take 1 tablet (50 mg total) by mouth 1 (one) time each day. Active propranoloL (INDERAL) 10 mg tablet Take 1 tablet (10 mg total) by mouth 2 (two) times a day. Active budesonide (PULMICORT) 0.5 mg/2 mL nebulizer solution 1 (one) time each day. Active albuterol 2.5 mg /3 mL (0.083 %) nebulizer solution 1 (one) time each day if needed. 10/19/2024 Active Active Problems Problem Noted Date Diagnosed Date (HFpEF) heart failure with preserved ejection fr action 03/21/2025 Assessment & Plan (03/21/2025 8:48 AM EST): Patient has evidence of diastolic dysfunction with some upper septal thickening without outflow tract obstruction. EF is preserved. And there is evidence of diastolic dysfunction. She has had some increasing peripheral edema which responded to an increased dose of furosemide to 40 mg a day but she cut back to 20 and I would leave her 20 and only increase it temporarily for not more than 3 days if she develops worsening peripheral edema. 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 if we are aggressive in trying to diurese this patient's lower extremity edema may actually put her into acute WU so for now she will stay on 20 mg of furosemide a day only increasing to 40 a day for short period of time if she develops peripheral edema and going back to 20 mg a day to avoid the possibility of developing WU Palpitation 03/20/2025 Cardiac arrhythmia 03/20/2025 Encounters Date Type Department Care Team Description 03/21/2025 7:50 AM EST Office Visit [facility] Cardiology [facility] [address] [place] [address] Jessica Pollard MD Palpitations (Primary Dx); Acute on chronic heart failure with preserved ejection fraction (HFpEF) ([facility]/HCC V24, CMS/HCC V28) 02/27/2025 Telephone [facility] Cardiology [facility] - [facility] [address] [place] [address] Josephine Moreno MD from Last 3 Months Medical History Medical History Date Comments CRAIG (dyspnea on exertion) Chronic kidney disease (CKD), stage 3 (CMS/HCC V 24, [facility]/HCC V28) Anemia Depression Dysuria Cirrhosis (CMS/HCC V24, CMS/HCC V28) Esophageal varices with bleeding (CMS/HCC V24, [facility]/HCC V28) COPD (chronic obstructive pulmonary disease) (CM S/HCC V24, CMS/HCC V28) Localized edema Social History Tobacco Use Types Packs/Day Years Used Date Smoking Tobacco: Former Cigarettes Smokeless Tobacco: Never Tobacco Cessation:Counseling Given: Not Answered Alcohol Use Standard Drinks/Week Comments Never 0 (1 standard drink = 0.6 oz pur e alcohol) Comments Unknown Sex and Gender Information Value Date Recorded Sex Assigned at Not on file Legal Sex Female 8:02 PM EST Gender Identity Not on file Sexual Orientation Not on file Last Filed Vital Signs Vital Sign Reading Time Taken Comments Blood Pressure 136/70 03/21/2025 8:06 AM EST Pulse 56 03/21/2025 8:06 AM EST Temperature - - Respiratory Rate - - Oxygen Saturation 98% 03/21/2025 8:06 AM EST Inhaled Oxygen Concentration - - Weight 64 kg (141 lb) 03/21/2025 8:06 AM EST Height 160 cm (5' 3 ) 03/21/2025 8:06 AM EST Body Mass Index 24.98 03/21/2025 8:06 AM EST Plan of Treatment Health Maintenance Due Date Last Done Comments Hepatitis A Vaccines (1 of 2 - Risk 2-dose series) 1959 Pneumococcal Vaccine: 50+ Years (1 of 2 - PCV) 1957 Zoster Vaccines (1 of 2) 1988 Hepatitis B Vaccines (1 of 3 - Risk 3-dose series) 1998 RSV Immunization Adult Patients (1 - 1-dose 75+ series) 2013 Depression Screening 05/11/2024 Falls Risk Assessment 11/04/2024 Medicare Annual Wellness Visit 11/04/2024 Osteoporosis Screening (Bone Density Screening) 11/04/2024 Social Influencers of Health Screening 11/04/2024 COVID-19 Vaccine (3 - 2024-2 6 season) 2025 07/10/2020, 06/19/2020 Influenza Vaccine (#1) 2025 Hypertension/CHF/CAD Annual BMP Blood Test 03/21/2025 DTaP,Tdap,and Td Vaccines (2 - Td or Tdap) 03/28/2028 03/28/2018 HIB Vaccines Aged Out No longer eligi [...] to complete this topic RSV Immunization Patients Under 20 months Aged Out No longer eligible b ased on patient's age to complete this topic Varicella Vaccines Aged Out No longer eligible based on patient's age to complete this topic Procedures Procedure Name Priority Date/Time Associated Diagnosis Comments ECG 12-LEAD Routine 03/21/2025 8:10 AM EST Palpitations EXTERNAL HOLTER MONITOR Routine 02/27/2025 11:42 AM EDT from Last 3 Months Results * ECG 12 lead (03/21/2025 8:10 AM EST) Ventricular Rate ECG 56 BPM GEMUSE Atrial Rate 49 BPM GEMUSE QRS Duration 90 ms GEMUSE Q-T Interval 440 ms GEMUSE QTc 424 ms GEMUSE R Froid -18 degrees GEMUSE T Froid -17 degrees GEMUSE ECG Interpretation Sinus Rhythm with 1st degree AV Block Moderate voltage criteria for LVH, may be normal variant Abnormal ECG When compared with ECG of 07-JUN-1998 09:28, Nonspecific T wave abnormality now evident in Anterior leads Confirmed by Jessica POLLARD, JESSICA ([id number]) on 03/21/2025 5:02:18 PM GEMUSE 03/21/2025 8:10 AM EST 03/21/2025 5:02 PM EST Jessica Pollard MD ECG ORDERABLES Final Result GEMUSE * External Holter Monitor (02/27/2025 11:42 AM EDT) Anatomical Region Laterality Modality Cardiac Diagnost ic Historical Provider [facility] Final Result from Last 3 Months Insurance MEDICARE [facility] Care Teams Hot Knife Cutter Relationship Specialty Start Date End Date Josephine Moreno MD [address] [place] [address] [id number] PCP - General Internal Medicine 11/03/24
== END 2025-04-19 15:02 | disposition home or self-care (01) ==
LOC: HO.HMCC 12:57
PROVIDERS: PCP Internal Medicine; Visit Provider Internal Medicine
DX: E11.9 Type 2 diabetes mellitus without complications (principal); K92.2 Gastrointestinal hemorrhage, unspecified; K52.9 Noninfective gastroenteritis and colitis, unspecified; N18.30 Chronic kidney disease, stage 3 unspecified

== ENCOUNTER → 2025-04-19 12:56 | Outpatient (BNVA) | payer MEDICARE, SELFPAY | PROVIDERS: PCP Internal Medicine; Visit Provider Internal Medicine | DX: E11.9 Type 2 diabetes mellitus without complications (principal); K92.2 Gastrointestinal hemorrhage, unspecified; K52.9 Noninfective gastroenteritis and colitis, unspecified; N18.30 Chronic kidney disease, stage 3 unspecified; Z79.51 Long term (current) use of inhaled steroids | CPT/HCPCS: 99212 ==